=== PATIENT | male | born 1965 | race Caucasian/White ===

== ENCOUNTER 2017-06-02 23:35 | Emergency (ER) | payer OTHER ==
[~2017-06-02] VITALS: Ht 167.6 cm; Wt 260.4 kg
[~2017-06-02 23:35] MED LIST: AUGMENTIN 875-1 EACH PO; CETIRIZINE HCL10 MG PO; DOXYCYCLINE HY100 MG PO; FAMOTIDINE40 MG; GLIPIZIDE XL10 MG PO; KEFLEX500 MG PO; LASIX80 MG PO; LEVAQUIN750 MG PO; LISINOPRIL2.5 MG PO; LOMOTIL TABLET1 EACH PO; MACROBID 100 M100 MG PO; MONTELUKAST SOD10 MG PO; MS CONTIN15 MG PO; OMEPRAZOLE40 MG PO; OXYCODONE HCL10 MG PO; OXYMORPHONE HCL10 M1 PO; PERCOCET 10-321 EACH PO; PIROXICAM20 MG PO; POTASSIUM CHLO10 MEQ PO; POTASSIUM CHLO20 ME2 PO; PROVIGIL200 MG PO; REMERON15 MG PO; VENLAFAXINE HCL75 MG PO; ZOLOFT100 MG PO
== END 2017-06-03 02:09 | disposition home or self-care (01) ==
LOC: ED 23:35
PROC: 0T9B70Z Drainage of Bladder with Drainage Device, Via Natural or Artificial Opening (ICD-10-PCS; principal; 2017-06-02)
DX: T83.098A Other mechanical complication of other urinary catheter, initial encounter (principal); J20.9 Acute bronchitis, unspecified; E66.01 Morbid (severe) obesity due to excess calories; Z87.891 Personal history of nicotine dependence; Z79.899 Other long term (current) drug therapy; Z79.891 Long term (current) use of opiate analgesic
CPT/HCPCS: 51702; 99283

== ENCOUNTER 2017-09-09 17:04 | Inpatient (IN) | payer OTHER ==
[~2017-09-09] VITALS: Ht 167.6 cm; Wt 252.4 kg
--- OUTSIDE RECORDS SUMMARY | ~2017-09-09 | XMS | Clinical Summary ---
Demographics + + + | Address | [address] | | | [place] [address] | + + + | Home Phone | | + + + | Preferred Language | Unknown | + + + | Marital Status | Single | + + + | Episcopalian Affiliation | NRP | + + + [...] | Unavailable | + + + Support +------+ +---------+ + | Name | Relationship | Address | Phone | +------+ +---------+ + ECON | Unknown | | +------+ +---------+ + ECON | Unknown | | +------+ +---------+ + ECON | Unknown | | +------+ +---------+ + Care Team Providers + +------+-------+ | Care Information Technology Director Name | Role | Phone | + +------+-------+ | Harry Mario MD | PP | tel | + +------+-------+ Source Comments MOLLY is fully live on both [facility] and [facility]Patient.[facility] Allergies No Known Allergies Current Medications + + + +---------+------+------+-------+ | Prescription | Sig. | Disp. | [...] Take 10 mEq by mouth | | | | | Activ | | SR [...] | Take 2 tablets by | | | | | Activ [...] SULFATE | Inhale 108 mcg. | | | | | Activ | | (VENTOLIN HFA INHL) | | | | | | e | + + + +---------+------+------+-------+ | sertraline 50 mg | Take 50 mg by mouth | | | | | Activ | | oral tablet | once daily. | | | | | e | + + + +---------+------+------+-------+ | famotidine 20 mg | Take 20 mg by mouth | | | | | Activ | | oral tablet | two times daily. | | | | | e | + + + +---------+------+------+-------+ | ondansetron 4 mg | Take 4 mg by mouth | | | | | Activ | | oral tablet | every twelve hours | | | | | e | | | as needed. | | | | | | + + + +---------+------+------+-------+ | lisinopril 2.5 mg | Take 2.5 mg by mouth | | | | | Activ | | oral tablet | once daily. | | | | | e | + + + +---------+------+------+-------+ | furosemide 20 mg | Take 40 mg by mouth | | | | | Activ | | oral tablet | two times daily. | | | | | e | + + + +---------+------+------+-------+ | piroxicam 20 mg | Take 20 mg by mouth | | | | | Activ | | oral capsule | once daily as | | | | | e | | | needed. | | | | | | + + + +---------+------+------+-------+ | morphine ER 15 mg | Take 15 mg by mouth | | | | | Activ | | oral tablet extended | every twelve hours. | | | | | e | | release | | | | | | | + + + +---------+------+------+-------+ | modafinil 200 mg | Take 100 mg by mouth | | | | | Activ | | oral tablet | once daily in the | | | | | e | | | morning. | | | | | | + + + +---------+------+------+-------+ Active Problems + + + | Problem | Noted Date | + + + | Morbid obesity (HCC) | 10/22/2015 | + + + | [...] | | + + +---------+ + | Yes | 1 | 0.6 | | | | Standard | | | | | drinks or | | | | | | | | | | equivalen | | | | | t | | | + + +---------+ + + + + | Sex Assigned at | Date Recorded | | | | + + + | Not on file | | + + + Last Filed Vital Signs + + + + | Vital Sign | Reading | Time Taken | + + + + | Blood Pressure | 140/69 | 10/20/2015 2:05 PM PST | + + + + | Pulse | 91 | 10/20/2015 2:05 PM PST | + + + + | Temperature | 36.9 C (98.5 F) | 10/20/2015 2:05 PM PST | + + + + | Respiratory Rate | 16 | 10/20/2015 2:05 PM PST | + + + + | Oxygen Saturation | 92% | 10/20/2015 2:05 PM PST | + + + + | Inhaled Oxygen | - | - | | Concentration | | | + + + + | Weight | 223.8 kg (493 lb 6.4 | 10/20/2015 2:05 PM PST | | | oz) | | + + + + | Height | 167.6 cm (5' 6") | 10/20/2015 2:05 PM PST | + + + + | Body Mass Index | 79.64 | 10/20/2015 2:05 PM PST | + + + + Plan of Treatment + + + + + | Health Maintenance | Due Date | Last Done | Comments | + + + + + | INFLUENZA VACCINE | | 06/15/2010, 07/13/2008 | | | (FLU SHOT) | 7 | | | + + + + + Results Not on filefrom Last 3 Months
--- OUTSIDE RECORDS SUMMARY | ~2017-09-09 | XMS | Clinical Summary ---
Demographics + + + | Address | [address] | | | [place] [address] | + + + | Home Phone | | + + + | Preferred Language | Unknown | + + + | Marital Status | Single | + + + | Islam Affiliation | NRP | + + + [...] Care Team Providers + +------+-------+ | Care Cork Insulator Name | Role | Phone | + +------+-------+ | Harry Mario MD | PP | tel | + +------+-------+ Source Comments MOLLY is fully live on both [facility] and [facility] InPatient.[facility] Allergies No Known Allergies Current Medications + [...]
--- OUTSIDE RECORDS SUMMARY | ~2017-09-09 | XMS | Clinical Summary ---
Demographics + + + | Address | [address] | | | [place] [address] | + + + | Home Phone [...] Care Team Providers + +------+-------+ | Care Handicrafts Teacher Name | Role | Phone | + +------+-------+ | Harry Mario MD | PP | tel | + +------+-------+ Source Comments MOLLY is fully live on both [facility] and [facility] InPatient.[facility] Allergies No Known Allergies Current Medications [...]
--- NOTE | 2017-09-09 20:35 | NUR ---
PT BROUGHT TO THE FLOOR VIA STRETCHER BY THIS RN, ED RN, MEDICAL LABORATORY TECHNOLOGIST, AND RT. PT WAS ABLE TO TRANSFER TO THE BED BY SCOOTING HIMSELF OVER. PT ON BIPAP SETTINGS. VITALS TAKEN. CALLED [facility] BED PRIOR TO PT ADMITTING HERE TO GET BARIATIC BED. PER [facility] ROM REPRESENTITIVE BED SHOULD BE HERE IN 4-6 HOURS.
--- NOTE | 2017-09-09 20:37 | NUR ---
PER REPORT AND ASSESSMENT IN THE ED BY ED RN. PT STATES HE HAS A WOUND ON THE BACK OF HIS LEG THAT HE HAS HAD AND SEEKING HELP FOR VIA HIS PRIMARY CARE DOCTOR. PT IS UNABLE TO STAND AND UNABLE TO TURN IN BED D/T HIS RESPIRATORY STATUS AT THIS TIME. WILL GET BETTER ASSESSMENT WHEN BARIATIC BED ARRIVES SO PT CAN TURN EASIER WITHOUT CAUSING INCREASED RESPIRATORY DISTRESS. 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 PT HAS A SOSA IN PLACE ON ADMIT. PER PT THE SOSA IS IN PLACE D/T LEG TUMOR. PER PT THE TUMOR DOES NOT SWELL BAD WITH THE SOSA IN PLACE. PT DENIES OTHER ISSUES WITH HIS BUTTOCKS. PT FEET ARE VERY DRY AND SCALING, PANNUS IS SLIGHTLY REDDENED IN A FEW AREAS, SKIN UNDER BREASTS ARE C/D/I.
--- NOTE | 2017-09-09 21:00 | NUR ---
IMPLEMENTED DROPLET PRECUATIONS ON ADMIT D/T CURRENT ILLNESS. WILL CONTINUE TO MONITOR.
--- NOTE | 2017-09-09 21:00 | NUR ---
PT ASSESSMENT COMPELTED. PT RESTING IN BED AT THIS TIME. VITALS TAKEN. PT REQUESTED BROTH AND WATER. PT LUNGS COARSE PT REAMINS ON BIPAP. OCCASIONAL COUGH. ACTIVE BT. EDEMA NOTES IN BLE. DRY SCALY FEET. PT DENIES ANY OTHER ISSUES AT THIS ITME. CALL LIGHT IN REACH. WILL CONTINUE TO CLOSELY MONITOR.
--- NOTE | 2017-09-09 22:00 | NUR ---
PT RESTING IN BED WITH BIAPP SETTING UNCHANGED SINCE ADMISSION. PT SPO2 95-98%. RR 17-24. PT IS DIAPHORETIC. GAVE PT A DRY TOWEL PER REQUEST. PT HAD TEMP IN ED AND WHEN HE ARRIVED TO THE FLOOR TEMPERATURE WAS BACK TO NORMAL. WILL CONTINUE TO CLOSELY MONITOR. CALL LIGHT IN HAND.
--- NOTE | 2017-09-10 00:15 | NUR ---
PT ASSESSMENT REMAINS UNCHANGED. PT IS RESTING WELL ON BIPAP. SOSA IN PLACE. CALL LIGHT IN HAND. WILL CONTINUE TO CLSOELY MONITOR.
--- NOTE | 2017-09-10 01:50 | NUR ---
PT NOTED TO HAVE EYES OPEN. ENTERED PT ROOM. PT CONTINUES ON BIPAP. PT REQUESTED SIP OF WATER. PT DENIES ANY OTHER NEEDS AT THIS TIME. WILL CONTINUE TO CLOSELY MONITOR.
--- NOTE | 2017-09-10 02:23 | NUR ---
CALLED MD TO UPDATE REGUARDING LOW URINE OUTPUT. PER MD WE WILL CONTINUE TO MONITOR URINE OUTPUT. PT RECEIVES LASIX IN THE AM. NO OTHER ISSUES AT THIS TIME. WILL CONTINUE TO MONITOR.
--- NOTE | 2017-09-10 04:00 | NUR ---
PT RESTING WELL AT THIS TIME. RESPIRATORY RATE 16-20. SPO2 95-98% ON BIPAP 75% FIO2. WILL CONTINUE TO CLOSELY MONITOR.
--- NOTE | 2017-09-10 06:00 | NUR ---
PT AWAKE D/T LAB DRAW ENTERED ROOM TO UPDATE ON PLAN OF CARE AND PLAN TO SWITCH BEDS. PT IS AGREEABLE TO CHANGE TO NEW BARIATRIC BED AT THIS TIME. RT CALLED TO MONITOR AND ASSIST. PT ABLE TO TRANSFER TO NEW BED HIMSELF BY SCOOTING OVER TO THE NEW BED. PT TOLERATED WELL. PT WAS PLACED ON OXYMASK DURING THIS TIME. PICTURE TAKEN OF BACK OF LEFT LEG AT THIS ITME. PT REMAINS ON OXYMASK PER REQUEST. CALL LIGHT IN REACH. WILL CLOSELY MONITOR.
--- NOTE | 2017-09-10 06:30 | NUR ---
PT DIAPHORESIS HAS DECREASED SOME. PT STATES HE IS ALWAYS SWEATING. PT STATES "IT IS A GENETIC THING, I COULD BE IN FREZING WEATHER AND STILL BE SWEATING". PLACED PICTURE IN BOOK OF WOUND ON LEG. ALLOWING PT THE RELAX AT THIS TIME. PT DENIES ANY OTHER ISSUES AT THIS TIME AND WILL CALL STAFF FOR ASSISTANCE IF NEEDED.
--- NOTE | 2017-09-10 07:13 | EKG ---
[facility] [address] [place], [place] [address] Signed Sinus tachycardia Otherwise normal ECG No previous ECGs available Confirmed by GLADYS OVIEDO MD ([id number]) on 09/10/2017 7:12:47 AM Electronically Signed By: GLADYS OVIEDO MD 09/10/17 0713 PATIENT NAME: STEPHANIE GIBLERT Electrocardiogram DATE OF : 67 PHYSICIAN: GLADYS OVIEDO MD REPORT #: [id number] REPORT IS CONFIDENTIAL AND NOT TO BE RELEASED WITHOUT AUTHORIZATION
--- NOTE | 2017-09-10 07:33 | NUR ---
PATIENT AWAKE AT THIS TIME. DR. OVIEDO IN ROOM EVALUTING PATIENT. BEDSIDE REPORT REC'D FROM WELDER/FABRICATOR RN. PT HAS BEEN WEARING BIPAP CONSISTENTLY THROUGH THE NIGHT. ASSESSMENT TO BE DONE.
--- NOTE | 2017-09-10 09:10 | NUR ---
PATIENT AWOKEN AND TAKEN OFF BIPAP AND PLACED ON OXYMASK AT 7L. PATIENT STATES OVERALL HE IS FEELING BETTER. PT DENIES SHORTNESS OF BREATH. PT NOTED TO HAVE A LOOSE, RHONCHOUS SOUNDING COUGH. PATIENT GIVEN A CLEAR LIQUID TRAY. PATIENT ABLE TO RAISE SELF IN BED AFTER HOB LOWERED FLAT. PT'S WEIGHT ON THIS FISH BED IS 552 LB, 250.2 KG. PATIENT ABLE TO TAKE PO MEDS WITHOUT DIFFICULTY. PT NOW RECEIVING IV VANCO. WHILE IN ROOM, ABLE TO TITRATE PT'S OXYGEN TO 4 NC. SP02 IS CURRENTLY 97%. PT EATING CLEAR LIQUID TRAY AT THIS TIME WITHOUT DIFFICULTY. HEART RATE IN THE 60-70s. CONTINUE TO MONITOR.
--- NOTE | 2017-09-10 10:42 | NUR ---
PATIENT INFORMED OF HIS POSITIVE INFLUENZA TEST. PATIENT NOW HAVING ECHOCARDIOGRAM BEING PERFORMED. PATIENT IS CURRENTLY 98% ON 4 L NC. PT ALSO INFORMED OF BLOOD SUGAR CHECKS TO BE DONE WITH MEALS.
--- NOTE | 2017-09-10 10:58 | NUR ---
PATIENT'S OXYGEN TURNED DOWN TO 3L NC AT THIS TIME. ECHO TEST DONE. DISCUSSED WITH PATIENT PLAN OF CARE FOR THE REST OF THE DAY. CONTINUE TO MONITOR.
--- NOTE | 2017-09-10 11:58 | NUR ---
PATIENT'S LUNCH ARRIVES AND TAKEN INTO ROOM. PT'S BLOOD SUGAR 256 AND COVERED WITH 5 UNITS OF INSULIN NOVOLOG. PATIENT WAS WEARING BIPAP FOR THE LAST TWENTY MINUTES OR SO BEFORE LUNCH TIME. PT NOW BACK ON 3 L NC WHILE EATING. CONTINUE TO MONITOR.
--- NOTE | 2017-09-10 14:26 | NUR ---
Patient weighs 250kg. Increase DVT prophylaxis from enoxaparin 40mg SQ daily to 40mg SQ BID
--- NOTE | 2017-09-10 14:27 | NUR ---
Vancomycin per pharmacy. Give Vancomycin 3g IV x 1 Loading Dose, then Vancomycin 2g IV q 8 hrs. Draw for Vancomycin trough level 09/11/17 at 1630
--- NOTE | 2017-09-10 14:52 | NUR ---
PATIENT'S SOSA CATHETER CHANGED OUT AT THIS TIME. PT HAD A LARGE AMOUNT OF YEAST LIKE MATERIAL AROUND THE MEATUS. PATIENT'S SOSA WAS LAST CHANGED 08/23/17 AND PT CURRENTLY HAS THEM CHANGED EVERY MONTH. PATIENT TOLERATED THIS WELL. PT CURRENTLY ON 3 L NC WITH SP02 AT 94% CURRENTLY.
--- NOTE | 2017-09-10 17:01 | NUR ---
PATIENT HAS BEEN NAPPING ON AND OFF THIS AFTERNOON AFTER HIS BED BATH. PATIENT HELPED TO ORDER DINNER. RT CALLED AND ASKED TO EVALUATE PATIENT FOR A BREATHING TREATMENT, WHICH HE STATED HELPED HIM BREATH EASIER. MEDS TO BE GIVEN WITH DINNER.
--- NOTE | 2017-09-10 17:51 | NUR ---
DISCUSSED HBGA1C WITH PATIENT AND DISCUSSED HIS LEVEL OF 9.8. PATIENT DID NOT SEEMED SUPRISED TO FIND OUT THAT HIS A1C WAS ELEVATED, AND DISCUSSED SOME INDICATIONS WITH PATIENT AT THIS TIME OF THIS RESULT. MORE EDUCATION WILL NEED TO BE GIVEN TO THIS PATIENT REGARDING THIS. PATIENT ALSO ENCOURAGED TO FOLLOW UP WITH HIS PCP ABOUT THIS LAB VALUE AND IT'S POTENTIAL INDICATIONS. PT EATING HIS DINNER AT THIS TIME.
--- NOTE | 2017-09-10 18:48 | NUR ---
Medications reconciled by pharmacist patient interview and RX records
--- NOTE | 2017-09-10 18:50 | NUR ---
Azithromycin dosed at 1000mg IV daily
--- NOTE | 2017-09-10 19:30 | NUR ---
PT CONTINUES ON DROPLET PRECUATIONS SINCE ADMIT. WILL CONTINUE THESE PRECUATIONS FOR CURRENT ILLNESS.
--- NOTE | 2017-09-10 19:45 | NUR ---
PT SHIFT REPORT RECIVED FROM DAY SHIFT RN. ALL QUESTIONS ANSWERED. PT IS RESTING IN BED AT THIS TIME WITH WITH NC IN PLACE ON 3L OXYGEN. WILL CONTINUE TO CLOSELY MONITOR.
--- NOTE | 2017-09-10 20:30 | NUR ---
PT RESTING IN BED. PT STATES HE IS STARTING TO FEEL BETTER THAN THE PREVIOUS DAY. PT ASSESSMENT COMPLETED. PT BREATH SOUNDS ARE COURSE WITH CRACKLES. PT IS TOELRATING 3L NC WHILE AWAKE WITH RESPIRATORY RATE 16. BOWEL TONES ACTIVE. PT HAD A LG BM TODAY. CLEANED AND APPLIED ANTIFUNGAL TO BACK OF LEFT AND RIGHT KNEE AND UPPER PANNUS REGION. VITALS COMPLETED. PT IS DIAPHORETIC AT TIMES. EDEMA IN BLE. LEFT LEG SLIGHTLY WORSE THAN RIGHT. PT REPORTING CHRONIC PAIN IS WORSENING AND ASKING FOR BOTH PAIN MEDICATIONS. WILL CONTINUE TO IMPLIMENT DROPLET PRECAUTIONS.
--- NOTE | 2017-09-10 21:55 | NUR ---
RT IN WORKING WITH PT. PT ENCOURAGED TO DEEP BREATH AND COUGH. PT PLACED ON BIPAP. PT IS AGREEABLE TO WEAR BIPAP THROUGHOUT NIGHT. PT DENIES ANY NEEDS AT THIS TIME. WILL CONTINUE TO MONITOR.
--- NOTE | 2017-09-11 00:40 | NUR ---
PT ASSESSMENT COMPELTED. NO CHANGES FROM PREVIOUS ASSESSMENT. PT IS RESTING WELL ON BIPAP. GAVE PT FRESH ICE WATER PER REQUEST. VITALS COMPLETED. MEDICATION ADMINISTERED. PT DENIES ANY OTHER ISSUES AT THIS TIME. CALL LIGHT IN REACH AND ENCOURAGED PT TO CALL IF HE HAS ANY NEEDS. WILL CONTINUE TO CLOSELY MONITOR.
--- NOTE | 2017-09-11 02:50 | NUR ---
ENTERED ROOM ANTIBIOTICS DONE INFUSING. PT IS RESTING IN BED. PT HAD A SIP OF WATER. ASSISTED WITH PLACING BIPAP BACK ON. PT DENIES ANY OTHER NEEDS AT THIS TIME. WILL CONTINUE TO CLOSELY MONITOR.
--- NOTE | 2017-09-11 03:52 | NUR ---
PT ASSESSMENT COMPLETED. PT RESTING IN BED AT THIS TIME. REFILLED WATER. PT REMOVED MASK TO HAVE A SIP OF WATER. ASSISTED PT WITH PLACING MASK BACK ON. PT DENIES ANY OTHER NEEDS AT THIS TIME. WILL CONTINUE TO CLOSELY MONITOR.
--- NOTE | 2017-09-11 06:30 | NUR ---
NEW IV STARTED D/T OTHER IV NEEDING CHANGED D/T BEING A FIELD START. NEW IV PLACED IN LEFT HAND. BLOOD DRAWN FROM IV FOR MORNING LABS. PT SOSA CARE COMPLETED. PT TURNED TO SIDE AND TWO NEW DRESSINGS PLACE ON BACK LEFT LEG AREA. PT LOOKED AT MENU AND IS READY TO ORDER BREAKFAST. CURTAINS OPENED PER REQUEST. PT IS ON 3L NC NOW AT THIS TIME. UPDATED ON PLAN OF CARE AND SET GOALS FOR THE DAY. WILL CONTINUE TO CLOSELY MONITOR.
--- NOTE | 2017-09-11 07:30 | NUR ---
REPORT RECIEVED. PATIENT RESTFUL.
--- NOTE | 2017-09-11 08:00 | NUR ---
ASSESSMENT DONE. TALKED WITH PATIENT ABOUT PLAN OF CARE FOR DAY, PATIENT IS UNDERSTANDING. ENC TO COUGH AND DEEP, USING I.S. SOSA CATH PATENT. C/O SLIGHT BACK PAIN. ROUTINE MEDS GIVEN. DENEIS NAUSEA. ACCUCHECK 234. 5 UNITS INSULIN GIVEN.
--- NOTE | 2017-09-11 09:15 | NUR ---
DR. OVIEDO HERE TO SEE PATIENT, ORDERS RECIEVED TO TRANSFER TO MEDICAL FLOOR. O2 REMAINS AT 4 L PER NC.
--- NOTE | 2017-09-11 10:00 | NUR ---
WILL REMAIN IN ROOM 128 HOUSE CONVIEN. PATIENT IS AWARE. WHILE NAPPING SAT DOWN TO 85. BIPAP APPLIED.
--- NOTE | 2017-09-11 11:30 | NUR ---
ASSESSMENT DONE. ACCUCHECK-262. 5 UNITS INSULIN GIVEN. VISITOR IN ROOM.
--- NOTE | 2017-09-11 13:00 | NUR ---
SITTING AT BEDSIDE, LUNGS ASSESSED. HAS SCATTERED WHEEZES WITH COARSE BREATH SOUND THROUGH OUT.
--- NOTE | 2017-09-11 13:10 | NUR ---
NEB TREATMENT GIVEN PRIOR TO AMBULATING TO SHOWER. CONTINUE TO SIT AT BEDSIDE.
--- NOTE | 2017-09-11 13:20 | NUR ---
TO SHOWER. AMBULATE WITH WALKER FROM ROOM 128 TO 127 THEN SAT IN CHAIR AND INTO SHOWER.
--- NOTE | 2017-09-11 14:00 | NUR ---
TOLERATED SHOWER WELL. IS WITH INCREASED SHORTNESS WITH EXERTION. SITTING IN CHAIR. DENEIS PROBLEMS.
--- NOTE | 2017-09-11 15:25 | NUR ---
CONTINUE TO SIT IN CHAIR. NAPPING SATS VARY BETWEEN 88-93.
--- NOTE | 2017-09-11 16:05 | NUR ---
BACK TO BED PER R/O. PHYS THERAPY HERE TO ASSESS PATIENT WITH INCREASE SHORTNESS OF BREATH WITH EXERTION. ASSESSMENT DONE. CONT WITH LOOSE COUGH. NONPRODUCTIVE.
--- NOTE | 2017-09-11 19:45 | NUR ---
PT SHIFT REPORT RECIVED FROM DAY SHIFT RN. ALL QUESTIONS ANSWERED. PT RESTING IN BED AT THIS TIME. PT IS ALERT AND ORIENTED AND CALLS APPROPRIATELY. WILL CONTINUE TO CLOSELY MONITOR.
--- NOTE | 2017-09-11 20:30 | NUR ---
PT RESTING IN BED AT THIS TIME. ASSESSMENT COMPLETED. PT BREATH SOUNDS COARSE WITH WHEEZES THROUGHOUT. PT CURRENTLY ON 4L NC WITH SPO2 97%. PT IS AGREEABLE TO BIPAP TONIGHT. BOWEL TONES ACTIVE. PT HAD BM X2 TODAY PER REPORT. PT DENIES ANY OTHER ISSUES AT THIS TIME. WILL CONTINUE TO CLOSELY MONITOR.
--- NOTE | 2017-09-11 21:15 | NUR ---
VITALS COMPLETED AND MEDICATIONS ADMINISTERED. PT REQUESTING NEB BEFORTE HE GOES TO SLEEP. WILL NOTIFY RT. RT HAS NOT BEEN IN TO SEE HIM THIS EVENING YET. WILL CONTINUE TO CLOSELY MONITOR.
--- NOTE | 2017-09-11 21:30 | NUR ---
PT REQUESTED JELLO. BROUGHT PT SUGAR FREE JELLO AND FRESH ICE WATER. PT DENEIS ANY OTHER ISSUES AT THIS TIME. WILL CONTINUE TO MONITOR.
--- NOTE | 2017-09-11 22:00 | NUR ---
RT IN TO SEE PT. PT PLACED ON BIPAP AND NEB TREATMENT GIVEN. PT DENIES ANY OTHER ISSUES AT THIS TIME. WILL CONTINUE TO MONITOR.
--- NOTE | 2017-09-12 00:30 | NUR ---
PT RESTING IN BED. STARTED ANTIBIOTICS. ASSESSMENT COMPLETED AND UNCHANGED FROM PREVIOUS ASSESSMENT. VITALS ENEDELIA. PT DENIES ANY NEEDS AT THSI TIME. PT ADVISED TO CALL IF HE NEEDS ASSISTANCE. WILL CONTINUE TO CLOSELY MONITOR. CALL LIGHT IN REACH.
--- NOTE | 2017-09-12 02:50 | NUR ---
IV BEEPING. ENTERED ROOM TO TURN OFF IV. PT IV SALINE LOCKED. PT DENIES ANY NEEDS AT THIS ITME. WILL CONTINUE TO MONITOR.
--- NOTE | 2017-09-12 05:30 | NUR ---
ENTERED PT ROOM AFTER CHILD WELFARE SOCIAL WORKER FINISHED IN ROOM. PT VITALS COMPLETED. SOSA CATH CARE COMPLETED. PLACED NEW DRESSINGS ON BACK OF LEFT LEG. PT DENIES ANY OTHER NEEDS AT THIS TIME. WILL CONTINUE TO CLOSELY.
--- NOTE | 2017-09-12 08:00 | NUR ---
IS AWAKE AND ALERT. STATES SLEPT WELL LAST NIGHT. ASSESSMENT DONE. SOSA CATH PATENT WITH CLEAR YELLOW URINE. TALKED WITH PATIENT ABOUT PLAN OF CARE FOR DAY. PATIENT IS W/O QUESTIONS.
--- NOTE | 2017-09-12 09:00 | NUR ---
TOOK BREAKFAST WELL. MEDS GIVEN. DR. OVIEDO HERE EARLIER TO SEE PATIENT, ORDERS RECIEVED TO BRIANNA PA.
--- NOTE | 2017-09-12 10:30 | NUR ---
SPONGE BATH GIVEN. THEN UP TO BR TO EXPELL LG SEMI SOLFT STOOL. TO CHAIR.
--- NOTE | 2017-09-12 11:00 | NUR ---
REQUESTED NEB TREATMENT. RT NOTIFIED. SITTING IN CHAIR.
--- NOTE | 2017-09-12 15:25 | NUR ---
REPORT TO MED SURG.
--- NOTE | 2017-09-12 15:40 | NUR ---
TO BR TO EXPELL SMALL STOOL. THEN TO CHAIR. PHYS THERAPY TO WORK WITH PATIENT.
--- NOTE | 2017-09-12 16:00 | NUR ---
TO MED SURG, AMBULATED TO MED SURG, WITH ASSIST OF WALKER. RN AND PHYS THERAPY WITH PATIENT. RESTED IN CHAIR FOR APPROX 5 MIN THEN TO 116. O2 SAT DOWN TO 82. O2 INCREASED TO 5 L TIL TRANSPORT COMPLETE.
--- NOTE | 2017-09-12 16:17 | NUR ---
PT TO FLOOR WITH RN'S, TOE LINING CLOSER, MATERIALS SUPERVISOR AND RT. PT AMBULATES A FEW FEET AND THEN RESTS IN CHAIR. WALKING WITH FWW. NOW SITTING UP IN CHAIR LOOKING AT MENU. PRECAUTIONS IN PLACE FOR FLU. RT GIVING NEB, PLACING PULSE OX AND HUMIDIFING O2. ASSESSMENT DONE.
--- NOTE | 2017-09-12 18:10 | NUR ---
PT TRANSFERED FROM CCU THIS EVENING. UP IN CHAIR. ATE MOST OF DINNER. BS 312 GIVEN 7 UNITS. PRN NEBS. AMBULATES WITH FWW FOR SHORT DISTANCES. GIVEN 2TABS OXYCODONE PRN.
--- NOTE | 2017-09-12 19:09 | NUR ---
HELPED PT FROM CHAIR BACK TO BED, PT REQUIRED 2 PERSON ASSIST WITH WALKER. 3 L NC O2 IN PLACE AND CONTINUOUS PUSLEOX. PT GETS SOB WITH EXERTION. CALL LIGHT AND PHONE WITHIN REACH, PT HAS NO OTHER REQUESTS AT THIS TIME.
--- NOTE | 2017-09-12 22:20 | NUR ---
PT IS AWAKE IN BED WATCHING TV, ASSESSMENT IS COMPLETE, MEDICATIONS GIVEN AND IV FLUSHED AND SL. I&O COMPLETED PT IS VOIDING QS. PT HAS 6/10 PAIN AND WAS GIVEN SCHEDULED MS CONTIN. PTS RESPIRATIONS EVEN AND NONLABORED ON 3LNC BUT HAS SOB WITH EXERTION. BP RECHECKED D/T INCREASED BP PREVIOUSLY BP NOW 138/70. LEFT LEG ASSESSED AND IS SWOLLEN AND RED WITH DISCOLORATION OF LLE. PT STATES FEELING IN THAT EXTREMITY IS NOT GOOD RT LEG. PT'S WATER IS REFILLED AND SF JELLO GIVEN, PT HAS NO FURTHER REQUESTS AT THIS TIME.
--- NOTE | 2017-09-12 23:24 | NUR ---
PT CALLED AND WOULD LIKE BIPAP ON.
--- NOTE | 2017-09-12 23:30 | NUR ---
RT PLACED PT ON BIPAP FOR THE NIGHT. NO FURTHER REQUESTS AT THIS TIME.
--- NOTE | 2017-09-13 01:08 | NUR ---
PT IS RESTING WITH EYES CLOSED, RESPIRATIONS EVEN AND NONLABORED, AND BIPAP ON. CALL LIGHT WITHIN REACH.
--- NOTE | 2017-09-13 02:51 | NUR ---
PT IS RESTING WITH EYES CLOSED, RESPIRATIONS EVEN AND NONLABORED ON BIPAP. CALL LIGHT WITHIN REACH.
--- NOTE | 2017-09-13 04:24 | NUR ---
PT HAS RESTED WELL THROUGH THE NIGHT WITH BIPAP ON AND CONTINUOUS PULSEOX IN PLACE. PT WAS GIVEN 5 UNITS AT HS FOR BS OF 245. AT BED PT WAS A 2 PERSON ASSIST WITH WALKER TO BED HE NEEDED HELP WITH GETTING LEGS IN BED. PT IS VOIDING QS AND HAS NOT COMPLAINED OF PAIN.
--- NOTE | 2017-09-13 07:15 | NUR ---
BEDSIDE REPORT RECEIVED FROM ILEANA. PATIENT RESTING IN BED APPEARED TO BE SLEEPING AT TIME OF REPORT. PATIENT IS ON BIPAP AT THIS TIME, SOSA IN PLACE. RR EVEN/UNLABORED, 02 SAT 93 AND HR 70-80 PER CONT PULSE OXYMETER.
--- NOTE | 2017-09-13 08:55 | NUR ---
IN TO ROOM TO ASSESS PATIENT. PATIENT DENIED SOB AND REPORED 7/10 PAIN. PATIENT WAS MEDICATED FOR PAIN. LUNGS DIM THROUGHOUT, 0CCASIONAL COUGH. MORNING MEDS GIVEN. SOSA IN PLACE AND DRAINING WELL. 1+ EDEMA IN THE LOWER EXTREMITIES. BUTTOCKS RED AND ALLEVYN DRESSING IN PLACE. POSITIVE BOWEL TONES. PATIENT ON 3L O2 VIA NC. PATIENT REFUSED TO GET ON THE CHAIR AT THIS TIME.
--- NOTE | 2017-09-13 10:29 | NUR ---
PT ASKED TO USE BEDPAN. PT WAS ABLE TO VOID. PT IS RESTING IN BED SAFELY WITH CALL LIGHT IN REACH. PT DID NOT NEED ANYTHING ELSE AT THE MOMENT
--- NOTE | 2017-09-13 11:30 | NUR ---
PATIENT ASSISTED WITH BED VILLA. PATIENT WAS CLEANED AND ALLEVAN DRESSING WAS CHANGED ON THE BACK LEFT THIGH. CORA CARE DONE AND NYSTATIN POWEDER APPLIED. CATH CARE DONE. PATIENT HAD A LARGE BM. PATIENT REPORTED RELIEF OF PAIN. LINENS CHANGED. CALL LIGHT AND PERSONAL BELONGING IN REACH
--- NOTE | 2017-09-13 13:28 | NUR ---
PATIENT MEDICATED FOR 03/05 PAIN. ALSO SCHEDULE LASIX ADMINISTERED. PATIENT RESTING IN BED AT THIS TIME. NO OTHER NEEDS. CALL LIGHT IN REACH.
--- NOTE | 2017-09-13 14:23 | NUR ---
PATIENT UP WALKING IN THE HALLWAY WITH PHYSICAL THERAPIST.
--- NOTE | 2017-09-13 14:38 | NUR ---
PT IS SITTING UP IN CHAIR WITH CALL LIGHT IN REACH. PT DID NOT NEED ANYTHING ELSE AT THE MOMENT
--- NOTE | 2017-09-13 15:45 | NUR ---
[employer] ACADEMIC COACH IN TO ROOM TO TALK TO AND EDUCATE PATIENT ABOUT DIET REGARDING HIS DIABETES.
--- NOTE | 2017-09-13 18:40 | NUR ---
PATIENT HAD AN UNEVENTFUL DAY. HAD MULTIPLE BM. PATIENT HAD VOIDED Q/S.PO LASIX. S/L. IV ABX. STILL OCCASIONAL COUGH. LUNGS STILL COARSE AND DIM IN THE BASES. PT IS 3L O2 VIA NC AND BIPAP AT HS. MAY BE D/C TOMORROW.
--- NOTE | 2017-09-13 19:25 | NUR ---
BEDSIDE REPORT RECEIVED FROM PETE DA SILVA, PT SITTING UP IN CHAIR, ON 3L OXYGEN, SPO2 94%. SOSA DRAINING. IV SALINE LOCKED. PT REQUESTING TO GET INTO BED, ANA ASH IN ROOM TO ASSIST PT TO TRANSFER WITH FWW.
--- NOTE | 2017-09-13 21:00 | NUR ---
JULIANNA CORRAL AND I HELPED PT GET BACK INTO BED. BEDSIDE TABLE AND CALL LIGHT WITHIN REACH. HE NEEDS NOTHING MORE AT THIS TIME.
--- NOTE | 2017-09-13 21:20 | NUR ---
PT ASSESSMENT COMPLETE. PT RATES PAIN 8/10 IN BACK. ADMINISTERED SCHEDULED MS CONTIN. NYSTATIN POWDER APPLIED TO PANIS AREA, NO REDNESS NOTED. PTS LUNGS SOUND CLEAR THROUGHOUT ALL LOBES, PT ON 3L OXYGEN BY NASAL CANNULA, SPO2 95%. PT HAS 2+ EDEMA BILATERALLY ANKLES, NON-PITTING, SKIN VERY DRY AND FLAKY LOWER EXTREMITIES. IV SITE WNL, FLUSHES WELL. BLOOD SUGAR 299, 7 UNITS NOVOLOG INSULIN ADMINISTERED. PT HAS CALL LIGHT IN REACH, GIVEN FRESH ICE WATER AND SUGAR FREE JELLO.
--- NOTE | 2017-09-13 22:45 | NUR ---
ANSWERED CALL BUBBA, PT COMPLAING OF 7/10 PAIN, PETE LEW ADMINISTERED PRN OXYCODONE 10MG. NO ADDITIONAL REQUESTS.
--- NOTE | 2017-09-14 00:38 | NUR ---
CHECKED ON PT, PT SLEEPING, CPAP ON, CHEST RISE EQUAL BILATERALLY, LIGHTS OFF IN ROOM. EYES CLOSED.
--- NOTE | 2017-09-14 03:42 | NUR ---
PT MORNING ASSESSMENT COMPLETE, PT SLEEPING, AWAKENS TO RN VOICE. CPAP ON, SPO2 97%, HR 66. WHEEZES HEARD THROUGHOUT LUNGS. PT STATES PAIN IS BACK IS 5-6/10, REFUSES PRN OXYCODONE AT THIS TIME. EMPTIED PT'S SOSA CATHETER. PT DROWSY, BACK TO SLEEP. NO ADDITIONAL REQUESTS AT THIS TIME, LIGHTS OFF IN ROOM, CALL LIGHT IN REACH.
--- NOTE | 2017-09-14 05:37 | NUR ---
PT IN BED THROUGHOUT SHIFT, REQUIRING 2PA FOR TRANSFER WITH FWW. PT ON BIPAP THROUGHOUT SHIFT. RECEIVED OXYCODONE X 1 FOR BACK PAIN. IV SALINE LOCKED, SITE WNL. PT COOPERATIVE, ALERT AND ORIENTED. SOSA CATHETER DRAINING. PT SLEPT FOR MOST OF NIGHT.
--- NOTE | 2017-09-14 06:36 | NUR ---
VITALS AND I&OS DONE AND CHARTED. GARBAGES EMPTIED, BOARD UPDATED. CLEANED UP ROOM. PT NEEDS NOTHING ELSE AT THIS TIME. BEDSIDE TABLE AND CALL LIGHT WITHIN REACH.
--- NOTE | 2017-09-14 07:10 | NUR ---
BEDSIDE HANDOFF REPORT RECEIVED FROM HVAC INSTALLATION TECHNICIAN RN. PT RESTING IN BED. PT ON 3L NC. PT DENIES NEEDS AT THIS TIME.
--- NOTE | 2017-09-14 07:57 | NUR ---
PT RANG CALL LIGHT AND ASKED TO ORDER BREAKFAST, PT ALREADY HAD A BREAKFAST ORDER, INFORMED PT OF THIS. PT DID NOT NEED ANYTHING ELSE
--- NOTE | 2017-09-14 10:30 | NUR ---
PT RESTING IN CHAIR. PT DENIES SOB, ON 3L NC, LUNG SOUNDS DIMINISHED THROUGHOUT. PT RATING PAIN 6/10. PT TOLERATING ADA DIET, DENIES NAUSEA, PT WITH LOOSE STOOL. IV ABX INFUSING. PT WITH 2+ EDEMA TO BLE, PULSES PALPABLE. PT DENIES NEEDS AT THIS TIME.
--- NOTE | 2017-09-14 12:27 | NUR ---
PT SITTING IN CHAIR. EATING LUNCH. PT GIVE 3 UNBITS SS NOVOLOG FOR BLOOD GLUCOSE 209. PT DENIES OTHER NEEDS AT THIS TIME.
--- NOTE | 2017-09-14 14:00 | NUR ---
PT ASSISTED TO RESTROOM AND BACK TO CHAIR. STOOL SAMPLE COLLECTED. PHYSICAL THERAPY TO BEDSIDE TO WALK PT IN [place]. CLEAN GOWN PROVIDED. DRESSING CHANGED TO LEFT THIGH WOUND. PT WALKED IN [place] WITH PHYSICAL THERPAY, FOLLOWED WITH CHAIR. PT DESAT TO 80% ON ROOM AIR WITH ACTIVITY, PLACED ON 1L NC.
--- NOTE | 2017-09-14 15:51 | NUR ---
PT RESTING IN CHAIR. PT O2 SATS 90% ON 1L NC, ENCOURAGED I/S. PT RATING PAIN 7/10, STATES PAIN BETTER AFTER OXYCODONE. PT LUNG SOUNDS CLEAR WITH DIMINISHED BASES. 2+ EDEMA TO RLE, 3+ TO LLE, PULSES PALPABLE. PT SALINE LOCKED. NURSE AIDE TO BEDSIDE TO SHOWER PT, DISCUSSED DRESSING CHANGE AFTER SHOWER. PT DENIES OTHER NEEDS AT THIS TIME.
--- NOTE | 2017-09-14 16:26 | NUR ---
PT WAS SHOWERED WITH 2 PERSON ASSISTANCE, MAUREEN CORRAL HELPED ME. PT IS NOW BACK N CHAIR SITTING UP SAFELY WITH CALL LIGHT IN REACH
--- NOTE | 2017-09-14 17:38 | NUR ---
PT GIVEN 9 UNITS SS NOVOLOG. PT EATINGIN DINNER. PT DENIES OTHER NEEDS AT THSI TIME.
--- NOTE | 2017-09-14 19:20 | NUR ---
BEDSIDE REPORT RECEIVED FROM PETE REDDY. PT LYING IN BED, REPORTS PAIN 8/10 AT THIS TIME, WILL ADMINISTER OXYCODONE PRN. SOSA CATHETER DRAINING. IV SALINE LOCKED. ALLEVYN DRESSINGS APPLIED TO LEFT THIGH POSTERIOR ABRASIONS. CALL LIGHT IS IN REACH, PT ON NC AT THIS TIME.
--- NOTE | 2017-09-14 19:49 | NUR ---
PT WEANED TO 1L NC, ENCOURAGED I/S, LUNG SOUNDS CLEAR WITH DIMINISHED BASES. PT WITH MULTIPLE LOOSE STOOLS TODAY, CDIFF SAMPLE PENDING. PT WITH SOSA CATH IN PLACE, QS. SALINE LOCKED. TOLERATING ADA DIET. PT SHOWERED TODAY, DRESSING CHANGED TO LEFT LEG WOUND. EDEMA TO BLE, 3+ LEFT 2+ RIGHT. PT UP WITH 1PA WITH FWW, AMBULATED IN [place] WITH PHYSICAL THERAPY. T GIVEN OXYCODONE X1 FOR CHRONIC PAIN.
--- NOTE | 2017-09-14 20:01 | NUR ---
ADMINISTERED 10 MG PRN OXYCODONE FOR PT REPORTED 8/10 PAIN IN BACK. SCHEDULED MEDICATIONS ALSO ADMINISTERED AT THIS TIME. PT ASSESSMENT COMPLETE, LUNGS CLEAR IN ALL LOBES, PT ON 1L OXYGEN, SPO2 93%. BOWEL TONES ACTIVE, ABD SOFT, NON-TENDER. SIGNIFICANT EDEMA BILATERALLY IN LEGS, 3+ IN LEFT LEG, 2+ RIGHT LEG, PT HAS NO SENSATION IN LEFT LEG CHRONICALLY, SENSATION INTACT IN FEET BILATERALLY. PULSES STRONG BILATERALLY UPPER AND LOWER LOBES. PT REQUESTED SUGAR FREE JELLO, NO ADDITIONAL REQUESTS. CALL LIGHT IN REACH.
--- NOTE | 2017-09-14 20:11 | NUR ---
RN IN ROOM. SHE UPDATED WHITEBOARD.
--- NOTE | 2017-09-14 21:28 | NUR ---
ADMINISTERED 3 UNITS NOVOLOG FOR CBG 215. PT SITTING UP IN BED, WATCHING TV, PLAYING ON PHONE. PT SPO2 94% ON 1L OXYGEN BY NASAL CANNULA, DENIES SOB. RATES PAIN 6/10 IN BACK AFTER OXYCODONE ADMINISTRATION, PT STATES TOLERABLE LEVEL. CALL LIGHT IN REACH.
--- NOTE | 2017-09-14 23:30 | NUR ---
RT IN PT ROOM, PT ON BIPAP AT THIS TIME.
--- NOTE | 2017-09-15 00:58 | NUR ---
PT SLEEPING, BREATHING NON LABORED WITH BIPAP MACHINE ON, EYES CLOSED, LIGHTS OFF IN ROOM. CALL LIGHT NEXT TO PT.
--- NOTE | 2017-09-15 01:53 | NUR ---
IN PT ROOM TO CHECK ON PT, PT SLEEPING, ON 2L OXYGEN BY NASAL CANNULA, CONTINUES TO USE ACCESSORY MUSCLES WITH BREATHING, COUGHING, EYES CLOSED, IVF INFUSING.
--- NOTE | 2017-09-15 02:37 | NUR ---
IN PT ROOM TO CHECK ON PT, PT HAS BIPAP ON, SLEEPING, EYES CLOSED, BREATHING IS NON-LABORED. CALL LIGHT IN REACH, LIGHTS OFF IN ROOM.
--- NOTE | 2017-09-15 04:30 | NUR ---
MORNING ASSESSMENT COMPLETE, PTS LUNGS CLEAR THROUGHOUT ALL LOBES, CURRENTLY SLEEPING, ON BIPAP. PT AWAKENS TO RN VOICE. BOWEL TONES ACTIVE X 4, ABDOMEN SOFT. PT SPO2 IS 100% ON 40% FIO2, HR 63. RT IN PT ROOM ASSESSING BIPAP. SOSA CATHETER EMPTIED. PT HAS NO REQUESTS AT THIS TIME, BACK TO SLEEP. CALL LIGHT IN REACH, LIGHTS OFF IN ROOM.
--- NOTE | 2017-09-15 06:35 | NUR ---
PT IN BED THROUGHOUT SHIFT, SOSA CATHETER DRAINING SUFFICIENT OUTPUT THROUGHOUT NIGHT. PT USED CALL LIGHT APPROPRIATELY, RECEIVED OXYCODONE X 1 FOR PAIN AT START OF SHIFT. PT HAS HAD BIPAP ON WHILE IN BED. NO REPORTS OF NAUSEA, LUNGS CLEAR THROUGHOUT SHIFT WITH AUSCULTATION, CONTINUE ON CONTACT PRECAUTIONS PENDING C DIFF RESULTS.
--- NOTE | 2017-09-15 07:00 | NUR ---
HANDOFF REPORT RECEIVED FROM SUPERVISOR OF WAY RN. PT SLEEPING, LEFT UNDISTURBED.
--- NOTE | 2017-09-15 08:30 | NUR ---
PT RESTING IN BED. PT COMPLAINT OF CHRONIC PAIN, RATING PAIN 9/10, REQUESTING PAIN MEDICATION, GIVEN SCHEDULED MS CONTIN AND 10 MG PO OXYCODONE. PT LUNG SOUNDS CLEAR WITH DIMINISHED BASES, ON 1L NC, O2 SATS 92%. PT TOLERATING ADA DIET, BOWEL TONES ACTIVE, PT WITHOUT STOOL OVER NIGHT. PT WITH 2+ EDEMA TO RLE, 3+ EDEMA TO LLE, CMS INTACT, PULSES PALPABLE. IV SALINE LOCKED, FLUSHED, IV ABX GIVEN. PT DENIES OTHER NEEDS AT THIS TIME.
--- NOTE | 2017-09-15 09:54 | NUR ---
PT IS SITTING UP IN CHAIR WITH CALL LIGHT IN REACH. PT ASKED FOR MORE ICE WATER
--- NOTE | 2017-09-15 12:49 | NUR ---
PT SITTING IN CHAIR. PT GIVEN 3 UNITS SS INSULIN FOR BLOOD GLUCOSE 194. PT REQUESTING PAIN MEDICATION, RATING PAIN 8-9/10, GIVEN 10 MG PO OXYCODONE. PT O2 SATS 92% ON 1L NC. PT DENIES OTHER NEEDS AT THIS TIME.
[2017-09-15] MEDS ORDERED: GLIPIZIDE10 MG PO (13:58)
[2017-09-15] MEDS ORDERED: BLOOD GLUCOSE1 EAC1 SUB-Q (14:00)
[2017-09-15] MEDS ORDERED: BLOOD LANCETS1 EACH SUB-Q (14:01)
[2017-09-15] MEDS ORDERED: BLOOD GLUCOSE1 EACH SUB-Q (14:02)
--- NOTE | 2017-09-15 15:06 | NUR ---
PT IS SITTING UP IN CHAIR WITH CALL LIGHT IN REACH.
--- NOTE | 2017-09-15 16:34 | NUR ---
pt requesting pain medication ofr chronic pain. rating polanco 8/10 to bask and binta, given 10 mg oxycodone. pt placed back on 1l nc for o2 sats 86-88% on room air. pt denies other needs at [facility] time
--- NOTE | 2017-09-15 18:11 | NUR ---
PT SITTING IN CHAIR. BLOOD GLUCOSE 224, GIVEN 3 UNITS SS NOVOLOG. DINNER AT BEDSIDE. PT DENIES OTHER NEEDS AT THIS TIME.
--- NOTE | 2017-09-15 18:11 | NUR ---
PT ON 1L NC, ATTEMPTED TO WEAN TO ROOM AIR, DESATS TO 86% AT REST, LUNG SOUNDS CLEAR WITH DIMINISHED BASES. PT WITH CHRONIC PAIN, GIVEN PRN OXYCODONE X3, SCHEDULED MS CONTIN. TOLERATING ADA DIET, SS NOVOLOG. PT UP WITH SBA WITH FWW, WALKED IN [place] WITH PHYSICAL THERAPY. PT WITH CHRONIC SOSA IN PLACE, QS, BM TODAY. PT WITH LYMPHEDEMA TO LEFT LEG, 3+, RLE 2+, LEGS ELEVATED. PT SHOULD DISCHARGE TOMORROW.
--- NOTE | 2017-09-15 19:20 | NUR ---
RECEIVED REPORT FROM RN. PATIENT RESTING COMFORTABLY IN CHAIR. ASSISTED TO BATHROOM WITH SBA/FWW. NO FURTHER NEEDS AT THIS TIME. CALL LIGHT WITHIN REACH.
--- NOTE | 2017-09-15 22:36 | NUR ---
PATIENT RESTING COMFORTABLY IN BED, BREATHING IS EVEN AND UNLABORED. O2 SATUREATION IS 98% ON BIPAP, 40% O2. DENIES NEEDS AT THIS TIME. ASSESSMENT DONE. CALL LIGHT WITHIN REACH.
--- NOTE | 2017-09-15 23:43 | NUR ---
UPDATED DR. VELEZ REGARDING PATIENT'S LOW URINE OUTPUT. NO NEW ORDERS AT THIS TIME.
--- NOTE | 2017-09-16 00:20 | NUR ---
PATIENT RESTING COMFORTABLY IN BED, BREATHING IS EVEN AND UNLABORED. O2 SATURATION IS 98% ON BIPAP, 40% O2. FLACC SCORE OF 0. CALL LIGHT WITHIN REACH.
--- NOTE | 2017-09-16 00:20 | NUR ---
PATIENT RESTING COMFORTABLY IN BED, BREATHING IS EVEN AND UNLABORED. O2 SATURATION IS 98% ON BIPAP, 40% O2. FLACC SCORE OF 0. CALL LIGHT WITHIN REACH.
--- NOTE | 2017-09-16 02:43 | NUR ---
PATIENT RESTING COMFORTABLY IN BED, BREATHING IS EVEN AND UNLABORED. O2 SATURATION IS 96% ON BIPAP, 40% O2. PULSE IS 62. FLACC SCORE OF 0. CALL LIGHT WITHIN REACH.
--- NOTE | 2017-09-16 05:30 | NUR ---
PATIENT RESTING COMFORTABLY IN BED, BREATHING IS EVEN AND UNLABORED. O2 SATURATION IS 98% ON BIPAP 40% O2. ASSISTED TO BATHROOM WITH SBA/FWW. REPORTS 7/10 PAIN IN BACK, PRN OXYCODONE GIVEN. DENIES FURTHER NEEDS. NOW RESTING COMFORTABLY IN CHAIR. CALL LIGHT WITHIN REACH.
--- NOTE | 2017-09-16 05:45 | NUR ---
UPDATED DR. VELEZ REGARDING PATIENT'S LOW URINE OUTPUT PER PERAMETERS. NO NEW ORDERS AT THIS TIME.
--- NOTE | 2017-09-16 05:58 | NUR ---
PATIENT'S NIGHT WAS UNEVENTFUL. HE HAS BEED RESTING COMFORTABLY IN BED THROUGHUT SHIFT. VSS, PAIN WELL CONTROLLED WITH SCHEDULED AND PRN PAIN MEDICATION. IV IS SALINE LOCKED, HE IS A SBA/FWW. NO ACUTE CHANGES FROM BEGINNING OF SHIFT.
--- NOTE | 2017-09-16 07:24 | NUR ---
BEDSIDE HANDOFF REPORT RECEIVED FROM RAMP ATTENDANT RN. PT SLEEPING IN CHAIR, LEFT UNDISTURBED.
--- NOTE | 2017-09-16 08:06 | NUR ---
DID BLOOD SUGAR CHECK GOT HIM FRESH ICE WATER. BROUGHT HIS BREAKFAST IN HE IS ALSO SITTING UP IN HIS CHAIR. HE ALSO WOULD LIKE A SHOWER BEFORE HE GOES HOME.
--- NOTE | 2017-09-16 08:15 | NUR ---
PT SITTING IN CHAIR. PT RATING PAIN 7/10, ADMINISTERED SCHEDULED MS CONTIN. PT TOLERATING ADA DIET, DENIES NAUSEA, BLOOD GLUCOSE 174, GIVEN 1 UNIT NOVOLOG. BOWEL TONES ACTIVE. PT WITH EDEMA TO BLE, 4+ TO LEFT, 2+ TO RIGHT, LEGS ELEVATED, CMS INTACT, PULSES PALPABLE. PT COMPLAINT OF LEFT NECK LYMPH NODE SWELLING, DISCUSSED WITH PT. PT ON 1L NC, O2 SATS 90-91%, LUNG SOUNDS CLEAR WITH DIMINISHED BASES. PT WITH CHRONIC SOSA, DRAINING FREELY. PT DENIES OTHER NEEDS AT THIS TIME. DISCUSSED PLAN OF CARE AND PLAN FOR DISCHAREG TODAY.
--- NOTE | 2017-09-16 08:39 | NUR ---
helped patient out of bathroom, and back to his chair.
--- NOTE | 2017-09-16 08:54 | NUR ---
TOOK OUT IV. SITTING UP IN CHAIR WATCHING TV.
--- NOTE | 2017-09-16 09:55 | NUR ---
PT ASSISTED TO BATHROOM AND BACK TO CHAIR. PT DENIES OTHER NEEDS AT THIS TIME.
--- NOTE | 2017-09-16 10:55 | NUR ---
PT REQUESTING PAIN MEDICATION, GIVEN 10 MG PO OXYCODONE. RT TO BEDSIDE FOR HOME O2 QUALIFICATION. PT DENIES OTHER NEEDS AT THIS TIME.
--- NOTE | 2017-09-16 13:02 | NUR ---
PETE CRUZ AND PETE FREITAS VERIFIED INSULIN 3 UNITS.
--- NOTE | 2017-09-16 13:05 | NUR ---
GAVE PATIENT A SHOWER HE HELPED ME MUCH HE COULD. HE IS SITTING IN HIS CHAIR EATING HIS LUNCH. AND WAITING FOR HIS BROTHER TO BRING UP HIS CLOTHES BEFORE GOING HOME TODAY.
== END 2017-09-16 14:30 | disposition home or self-care (01) | DRG 193 ==
LOC: ED 17:04 → CCU 19:40 → MS 19:40 → CCU 20:09 → MS 09-12 16:04
PROVIDERS: ADMIT Internal Medicine
DX: J09.X2 Influenza due to identified novel influenza A virus with other respiratory manifestations (principal); J96.91 Respiratory failure, unspecified with hypoxia; E66.2 Morbid (severe) obesity with alveolar hypoventilation; I10 Essential (primary) hypertension; K21.9 Gastro-esophageal reflux disease without esophagitis; J18.9 Pneumonia, unspecified organism; T38.7X5A Adverse effect of androgens and anabolic congeners, initial encounter; E11.65 Type 2 diabetes mellitus with hyperglycemia; Z87.891 Personal history of nicotine dependence
CPT/HCPCS: 36415; 36600; 71045; 80048; 80053; 80202; 82803; 83036; 83605; 83880; 84484; 85025; 87040; 87493; 87502; 93005; 93010; 93306; 94640; 94645; 94660; 94761; 94762; 96374; 96375; 97116; 97162; 97165; 99285; J0456; J0696; J1650; J2920; J2930; J3370; J7040; J7512

== ENCOUNTER 2018-01-06 01:42 | Emergency (ER) | payer OTHER ==
[~2018-01-06] VITALS: Ht 167.6 cm; Wt 252.4 kg
[~2018-01-06 01:42] MED LIST changes: +BLOOD GLUCOSE1 EAC1 SUB-Q; +BLOOD GLUCOSE1 EACH SUB-Q; +BLOOD LANCETS1 EACH SUB-Q; +GLIPIZIDE10 MG PO
== END 2018-01-06 02:18 | disposition home or self-care (01) ==
LOC: ED 01:42
DX: Z46.6 Encounter for fitting and adjustment of urinary device (principal); E66.01 Morbid (severe) obesity due to excess calories; Z87.891 Personal history of nicotine dependence; Z79.899 Other long term (current) drug therapy; Z79.84 Long term (current) use of oral hypoglycemic drugs
CPT/HCPCS: 90471; 99282

== ENCOUNTER 2018-05-11 20:03 | Emergency (ER) | payer OTHER ==
[~2018-05-11] VITALS: Ht 167.6 cm; Wt 252.4 kg
--- OUTSIDE RECORDS SUMMARY | ~2018-05-11 | XMS | Clinical Summary ---
Demographics + + + | Address | [address] | | | [place] [address] | + + + | Home Phone | | + + + | Preferred Language | Unknown | + + + | Marital Status | Single | + + + | Yarsani Affiliation | Unknown | + + + | Race | Unknown | + + + | Ethnic Group | Unknown | + + + Author + + + | Author | [facility] | | | and [place] | + + + | Organization | [facility] | | | and [place] | + + + | Address | Unknown | + + + | Phone | Unavailable | + + + Support + + +---------+ + | Name | Relationship | Address | Phone | + + +---------+ + | Belia Gilbert | ECON | Unknown | | + + +---------+ + Care Team Providers + +------+ + | Care Commuter Pilot Name | Role | Phone | + +------+ + | Harry Mario | PP | | | MD | | | + +------+ + Allergies No Known Allergies Current Medications + + +-------+---------+------+------+-------+ | Prescription | Sig. | Disp. | Refills | Star | End | Statu | | | | | | t | Date | s | | | | | | Date | | | + + +-------+---------+------+------+-------+ | | Take 1 tablet by | | | | | Activ | | oxyCODONE-acetaminop | mouth every 6 hours | | | | | e | | hen (PERCOCET) | as needed for Pain. | | | | | | | 10-325 mg per tablet | | | | | | | + + +-------+---------+------+------+-------+ | doxycycline | Take 100 mg by mouth | | | | | Activ | | (MONODOX) 100 mg | 2 times daily. | | | | | e | | capsule | | | | | | | + + +-------+---------+------+------+-------+ | oxymorphone | Take 10 mg by mouth | | | | | Activ | | (OPANA) 10 MG tablet | 2 times daily. | | | | | e | + + +-------+---------+------+------+-------+ | glipiZIDE | Take 10 mg by mouth | | | | | Activ | | (GLUCOTROL) 10 MG | every morning | | | | | e | | tablet | (before breakfast). | | | | | | + + +-------+---------+------+------+-------+ | mirtazapine | Take 45 mg by mouth | | | | | Activ | | (REMERON) 15 MG | nightly. | | | | | e | | tablet | | | | | | | + + +-------+---------+------+------+-------+ | piroxicam | Take 20 mg by mouth | | | | | Activ | | (FELDENE) 20 MG | Daily. | | | | | e | | capsule | | | | | | | + + +-------+---------+------+------+-------+ | venlafaxine | Take 75 mg by mouth | | | | | Activ | | (EFFEXOR) 75 MG | Daily. | | | | | e | | tablet | | | | | | | + + +-------+---------+------+------+-------+ | montelukast | Take 10 mg by mouth | | | | | Activ | | (SINGULAIR) 10 mg | nightly. | | | | | e | | tablet | | | | | | | + + +-------+---------+------+------+-------+ Active Problems + + + | Problem | Noted Date | + + + | Acute diastolic heart failure (HCC) | 02/01/2015 | + + + + + | Last Assessment & Plan: Suspect acute on chronic diastolic | | heart failure/cor pulmonale related to untreated chronic hypoxia, | | AMAURI, obesity hypoventilation. Diuresing well currently. Could | | attempt echocardiogram, although suspect the imaging would be | | extremely poor given his body habitus. | + + + + + | Acute on chronic respiratory failure (HCC) | 01/30/2015 | + + + + + | Last Assessment & Plan: ABG showed hypoxia, hypercarbia, | | respiratory acidosis on room air. He has chronic untreated AMAURI | | and obesity hypoventilation due to his BMI of ~ 100, and will | | need BIPAP, at least at night, to treat his CO2 retention. | | Arrived with acute diastolic heart failure, and treating with IV | | furosemide, reportedly 10 liters net negative at this point. Had | | autotitrate BIPAP trial overnight on 02/02. Weight loss will | | ultimately be the only fix for his problems.Oxygen goal in the | | low 90's, avoid giving oxygen unless using BIPAP, do not want to | | cause hypercarbic respiratory failure. | + + + + + | AMAURI (obstructive sleep apnea) | 01/30/2015 | + + + | Morbid obesity with BMI of 70 and over, adult ([facility]) | 01/30/2015 | + + + + + | Last Assessment & Plan: Gained 100 pounds over last year, | | which has led to his falls and respiratory failure. Needs | | bariatric surgery, and states he is pursuing this. Will place on | | consistent carb diet, consult dietary team. Prealbumin of 15, | | suspect some degree of malnutrition. Stop high-dose mirtazapine | | therapy which he had been getting as outpatient.No safe discharge | | plan to home at this time, will discuss with case management. | + + + + + | Diabetic foot ulcer ([facility]) | 01/30/2015 | + + + + + | Last Assessment & Plan: Appears to be healing, no acute | | indication for antibiotics at this time. ESR is 6, no fevers or | | leukocytosis, don't suspect osteomyelitis at this time. Has | | stage 2 ulcers over his back, needs continued wound care, | | appreciate wound care consult here. | + + + + + | Obesity hypoventilation syndrome (HCC) | 01/30/2015 | + + + | Diabetes mellitus (HCC) | 01/30/2015 | + + + + + | Last Assessment & Plan: Blood sugars consistently below 120, | | stop glipizide. | + + + + + | Major depressive disorder | 01/30/2015 | + + + + + | Last Assessment & Plan: States he has been more depressed | | since mother . Stop mirtazapine, which can cause drowsiness | | and weight gain. Continue venlafaxine. | + + + + + | Osteoarthritis | 01/30/2015 | + + + + + | Last Assessment & Plan: Symptomatic therapy and weight loss. | | Avoid overtreatment with opiates, which could make respiratory | | failure worse. | + + Social History + +-------+ +--------+------+ | Tobacco Use | Types | Packs/Day | Years | Date | | | | | Used | | + +-------+ +--------+------+ | Never Smoker | | | | | + +-------+ +--------+------+ + + +---------+ + | Alcohol Use | Drinks/We | oz/Week | Comments | | | ek | | | + + +---------+ + | No | | | | + + +---------+ + + + + | Sex Assigned at | Date Recorded | | | | + + + | Not on file | | + + + Last Filed Vital Signs + + + + | Vital Sign | Reading | Time Taken | + + + + | Blood Pressure | 144/75 | 02/04/2015799 PDT | + + + + | Pulse | 69 | 02/04/2015799 PDT | + + + + | Temperature | 36.4 C (97.5 F) | 02/04/2015799 PDT | + + + + | Respiratory Rate | 20 | 02/04/2015799 PDT | + + + + | Oxygen Saturation | 92% | 02/04/2015799 PDT | + + + + | Inhaled Oxygen | - | - | | Concentration | | | + + + + | Weight | 247 kg (544 lb 8.6 | 02/04/2015 1000 PDT | | | oz) | | + + + + | Height | 167.6 cm (5' 5.98") | 01/30/2015 1450 PDT | + + + + | Body Mass Index | 87.93 | 02/04/2015 1000 PDT | + + + + Plan of Treatment + + + + + | Health Maintenance | Due Date | Last Done | Comments | + + + + + | Vaccine: | | | | | Dtap/Tdap/Td (1 - | 5 | | | | Tdap) | | | | + + + + + | Vaccine: Influenza | | | | | (#1) | 8 | | | + + + + + Results Not on filefrom Last 3 Months Insurance + +--------+ +--------+ +---------+ | Payer | Benefi | Subscriber | Type | Phone | Address | | | t Plan | ID | | | | | | / | | | | | | | Group | | | | | + +--------+ +--------+ +---------+ | [employer] | [employer] | [id number] | Medica | [phone] | | MEDICAID HMO | HEALTH | | id | [id number] | | | | MDCD | | | | | | | [place]MO [place] | | | | | + +--------+ +--------+ +---------+ + +--------+ +--------+ + + | Guarantor Name | Accoun | Relation to | Date | Phone | Billing Address | | | t Type | Patient | of | | | | | | | | | | + +--------+ +--------+ + + | WILNER GILBERT | Person | Self [birth year] Home: | [address] | | [place] | al/Fam | | 1965 | [phone] [place] [address] | | | martin | | [phone] | + +--------+ +--------+ + +
--- OUTSIDE RECORDS SUMMARY | ~2018-05-11 | XMS | Clinical Summary ---
Demographics + + + | Address | [address] | | | [place] [address] | + + + | Home Phone | | + + + | Preferred Language | Unknown | + + + | Marital Status | Single | + + + | Orthodox Affiliation | Unknown | + + + | Race | Unknown | + + + | Ethnic Group | Unknown | + + + Author + + + | Author | [facility] | + + + | Organization | [facility] | + + + | Address | Unknown | + + + | Phone | Unavailable | + + + Support + + +---------+ + | Name | Relationship | Address | Phone | + + +---------+ + | Edgard Riggins | ECON | Unknown | | + + +---------+ + Care Team Providers + +------+ + | Care Raschel Knitting Machine Operator Name | Role | Phone | [...] +------+-------+ + | PREMERA | PREMER | [id number] | | | [address] [address] | | | A BLUE | [address] | | | [place], [place] | | | CARD | | | [phone] | +---------+--------+ +------+-------+ + + +--------+ +--------+ + + | Guarantor Name | Accoun | Relation to | Date | Phone | Billing Address | | | t Type | Patient | of | | | | | | | | | | + +--------+ +--------+ + + | WILNER GILBERT | Person | Self [birth year] | Home: | [address] | | | al/Fam | | 1965 | [phone] [place] | | | martin | | [phone] | + +--------+ +--------+ + +"
--- OUTSIDE RECORDS SUMMARY | ~2018-05-11 | XMS | Clinical Summary ---
Demographics + + + | Address | [address] | | | [place] [address] | + + + | Home Phone | | + + + | Preferred Language | Unknown | + + + | Marital Status | Single | + + + | Anglican Affiliation | Unknown | + + + | Race | Unknown | + + + | Ethnic Group | Unknown | + + + Author + + + | Author | [facility] | + + + | Organization | [facility] | + + + | Address | Unknown | + + + | Phone | Unavailable | + + + Support + + +---------+ + | Name | Relationship | Address | Phone | + + +---------+ + | Edgard Riggins | ECON | Unknown | | + + +---------+ + Care Team Providers + +------+ + | Care Tax Examining Technician Name | Role | Phone | + [...] +------+-------+ + | PREMERA | PREMER | [id number] | | | [address] [address] | | | A BLUE | 2 | | | [place], [place] | | | CARD | | | | [phone] | +---------+--------+ +------+-------+ + + +--------+ +--------+ + + | Guarantor Name | Accoun | Relation to | Date | Phone | Billing Address | | | t Type | Patient | of | | | | | | | | | | + +--------+ +--------+ + + | WILNER GILBERT | Person | Self | [birth year] | Home: | [address] | | | al/Fam | | 1965 | [phone] | [place] | | | martin | | | [phone] | [phone] | + +--------+ +--------+ + +"
--- OUTSIDE RECORDS SUMMARY | ~2018-05-11 | XMS | Clinical Summary ---
Demographics + + + | Address | [address] | | | [place] [address] | + + + | Home Phone [...] Team Providers + +------+ + | Care Individual Pension Adviser Name | Role | Phone | + +------+ + | Harry Mario MD | PP | | + +------+ + Source Comments MOLLY is fully live on both [facility] and [facility] Allergies No Known Allergies Current Medications + [...] | | | + +--------+ +--------+-------+---------+ | METHODS ANALYST DATA PROCESSING MEDICAID | METHODS ANALYST DATA PROCESSING | xxxxxxxx | Medica | | | [...] | 1965 | [phone] | [place] [address] | | | martin | | | [phone] | | + +--------+ +--------+ + +
--- OUTSIDE RECORDS SUMMARY | ~2018-05-11 | XMS | Clinical Summary ---
Demographics + + + | Address | [address] | | | [place] [address] | + + + | Home Phone | | + + + | Preferred Language | Unknown | + + + | Marital Status | Single | + + + | Mormonism Affiliation | NRP | + + + [...] Team Providers + +------+ + | Care Customer Contact Sales Associate Name | Role | Phone | + +------+ + | Harry Mario MD | PP | | + +------+ + Source Comments MOLLY is fully live on both [facility] and [facility] Allergies No Known Allergies Current [...] | | | + +--------+ +--------+-------+---------+ | MANAGER LAUNDRY MEDICAID | MANAGER LAUNDRY | xxxxxxxx | Medica | | | [...] | 1965 | [phone] | [place] [address] | | | martin | | | [phone] | | + +--------+ +--------+ + +
--- OUTSIDE RECORDS SUMMARY | ~2018-05-11 | XMS | Clinical Summary ---
Demographics + + + | Address | [address] | | | [place] [address] | + + + | Home Phone | | + + + | Preferred Language | Unknown | + + + | Marital Status | Single | + + + | Amish Affiliation | Unknown | + + + | Race | Unknown | + + + | Ethnic Group | Unknown | + + + Author + + + | Author | [facility] | | | and Ronyana | + + + | Organization | [facility] | | | and [...] Providers + +------+ + | Care Learning Disabled Teacher Name | Role | Phone | [...] | [employer]AN | MODA | [id number] | Medica | [phone]- | | | MEDICAID HMO | HEALTH [...] JOSEPH | al/Fam | | 1965 | [phone] | [place] [address] | | | martin | | | [phone] | | + +--------+ +--------+ + +
--- OUTSIDE RECORDS SUMMARY | 2018-05-11 20:08 | XMS ---
PreManage Notification: STEPHANIE GILBERT Security Academic Administrator Events No recent Security Events currently on file CRITERIA MET - Group Notification CARE PROVIDERS Harry Mario Treatment Current MD PHONE: Unknown Luis Enrique has no Care Guidelines for this patient. Care History Substance Use/Overdose 10/24/2017 [facility] Pain/Opioid Agreement: *USE CAUTION WHEN PRESCRIBING NARCOTICS. *AVOID NARCOTICS AT DISCHARGE. PATIENT IS UNDER A PAIN CONTRACT WITH PCP JOANA MARIO These are guidelines and the provider should exercise clinical judgment when providing care. Jd VISIT COUNT (12 MO.) 4 [facility] TOTAL 4 NOTE: Visits indicate total known visits. ED/UCC VISIT TRACKING (12 MO.) 05/11/2018 20:03 [facility] TYPE: Emergency COMPLAINT: - CATH ISSUE 01/06/2018 01:43 [facility] TYPE: Emergency COMPLAINT: - CATHETER ISSUES DIAGNOSES: - Headache - Morbid (severe) obesity due to excess calories - SKILLED NURSING (CURRENT) USE OF ORAL HYPOGLYCEMIC DRUGS - Encounter for fitting and adjustment of urinary device - Other magneto electrician (current) drug therapy - pile fabric knitter (current) use of oral hypoglycemic drugs - Personal history of nicotine dependence - Encounter for fitting and adjustment of urinary device 09/09/2017 17:04 [facility] [place] TYPE: Emergency COMPLAINT: - SOB 06/02/2017 23:[address] [facility] [place] TYPE: Emergency COMPLAINT: - CATHETER PROBLEM DIAGNOSES: - Other mechanical complication of other urinary catheter, initial encounter - Acute bronchitis, unspecified - pile fabric knitter (current) use of opiate analgesic - Personal history of nicotine dependence - Other prison (current) drug therapy - Morbid (severe) obesity due to excess calories INPATIENT VISIT TRACKING (12 MO.) No inpatient visits to display in this time frame [email or web address]
[2018-05-11] MEDS ORDERED: PIROXICAM20 MG PO (20:32)
== END 2018-05-11 22:35 | disposition home or self-care (01) ==
LOC: ED 20:03
PROC: 0T9B70Z Drainage of Bladder with Drainage Device, Via Natural or Artificial Opening (ICD-10-PCS; principal; 2018-05-11)
PROC: BT40ZZZ Ultrasonography of Bladder (ICD-10-PCS; principal; 2018-05-11)
DX: T83.091A Other mechanical complication of indwelling urethral catheter, initial encounter (principal); E66.01 Morbid (severe) obesity due to excess calories; Z79.84 Long term (current) use of oral hypoglycemic drugs; Z79.899 Other long term (current) drug therapy
CPT/HCPCS: 51702; 51798; 81001; 99283

== ENCOUNTER 2018-05-25 22:21 | Emergency (ER) | payer OTHER ==
[~2018-05-25] VITALS: Ht 167.6 cm; Wt 252.0 kg
--- OUTSIDE RECORDS SUMMARY | ~2018-05-25 | XMS | Clinical Summary ---
Demographics + + + | Address | [address] | | | [place] [address] | + + + | Home Phone | | + + + | Preferred Language | Unknown | + + + | Marital Status | Single | + + + | Mu-Ism Affiliation | Unknown | + + + | Race | Unknown | + + + | Ethnic Group | Unknown | + + + Author + + + | Author | [facility] | + + + | Organization | [facility] | + + + | Address | Unknown | + + + | Phone | Unavailable | + + + Support + + +---------+ + | Name | Relationship | Address | Phone | + + +---------+ + | Edgard Riggins | ECON | Unknown | | + + +---------+ + Care Team Providers + +------+ + | Care Manager Outreach Name | Role | Phone | + +------+ + | Harry Mario MD | PP | | + +------+ + Allergies + + + + + + | Active Allergy | Reactions | Severity | Noted | Comments | | | | | Date | | + + + + + + | Grassleaf Sweetflag | Cough | Low | 08/30/19 | | | Rhizome | | | 12 | | + + + + + + Current Medications + + +-------+---------+------+------+-------+ | Prescription | Sig. | Disp. | Refills | Star | End | Statu | | | | | | t | Date | s | | | | | | Date | | | + + +-------+---------+------+------+-------+ | glipiZIDE | Take 10 mg by mouth | | | | | Activ | | (GLUCOTROL) 10 MG | daily. | | | | | e | | tablet | | | | | | | + + +-------+---------+------+------+-------+ | venlafaxine | Take 75 mg by mouth | | | | | Activ | | (EFFEXOR) 75 MG | daily. | | | | | e | | tablet | | | | | | | + + +-------+---------+------+------+-------+ | montelukast | Take 10 mg by mouth | | | | | Activ | | (SINGULAIR) 10 MG | nightly. | | | | | e | | tablet | | | | | | | + + +-------+---------+------+------+-------+ | mirtazapine | Take 15 mg by mouth | | | | | Activ | | (REMERON) 15 MG | nightly. | | | | | e | | tablet | | | | | | | + + +-------+---------+------+------+-------+ | | Take 1 tablet by | | | | | Activ | | diphenoxylate-atropi | mouth 4 (four) times | | | | | e | | ne (LOMOTIL) | daily as needed. | | | | | | | 2.5-0.025 MG per | | | | | | | | tablet | | | | | | | + + +-------+---------+------+------+-------+ | oxycodone | Take 30 mg by mouth | | | | | Activ | | (ROXICODONE) 30 MG | every 4 (four) hours | | | | | e | | immediate release | as needed. | | | | | | | tablet | | | | | | | + + +-------+---------+------+------+-------+ | diphenhydrAMINE | Take 25 mg by mouth | | | | | Activ | | (SOMINEX) 25 MG | nightly as needed. | | | | | e | | tablet | | | | | | | + + +-------+---------+------+------+-------+ + + +-------+ +------+------+-------+ | Hospital, Clinic, or | Ordered | Route | Frequency | Star | End | Statu | | Other Facility | Dose | | | t | Date | s | | Administered | | | | Date | | | | Medication | | | | | | | + + +-------+ +------+------+-------+ | lidocaine | | TP | PRN | 01/0 | | Activ | | (XYLOCAINE) 4 % | | | | 4/20 | | e | | external | | | | 12 | | | | solutionIndications: | | | | | | | | Ulcer of calf (HCC) | | | | | | | + + +-------+ +------+------+-------+ Active Problems + + + | Problem | Noted Date | + + + | Lymphedema | 08/30/2011 | + + + | Ulcer of calf (HCC) | 08/30/2011 | + + + Family History + +------+ + + | Relation | Name | Status | Comments | + +------+ + + | Father | | | | + +------+ + + | Maternal Grandfather | | | | + +------+ + + | Maternal Grandmother | | | | + +------+ + + | Mother | | Alive | | + +------+ + + | Paternal Grandfather | | | | + +------+ + + | Paternal Grandmother | | | | + +------+ + + | Sister | | Alive | | + +------+ + + Social History + +-------+ +--------+------+ | Tobacco Use | Types | Packs/Day | Years | Date | | | | | Used | | + +-------+ +--------+------+ | Former Smoker | | | 15 | | + +-------+ +--------+------+ + + [...] + + + | Blood Pressure | 148/76 | 10/03/2011 3:10 PM PST | + + + + | Pulse | 101 | 10/03/2011 3:10 PM PST | + + + + | Temperature | 36.8 C (98.2 F) | 10/03/2011 3:10 PM PST | + + + + | Respiratory Rate | 14 | 10/03/2011 3:10 PM PST | + + + + | Oxygen Saturation | - | - | + + + + | Inhaled Oxygen | - | - | | Concentration | | | + + + + | Weight | - | - | + + + + | Height | - | - | + + + + | Body Mass Index | - | - | + + + + Plan of Treatment Not on file Results Not on filefrom Last 3 Months Insurance +---------+--------+ +------+-------+ + | Payer | Benefi | Subscriber | Type | Phone | Address | | | t Plan | ID | | | | | | / | | | | | | | Group | | | | | +---------+--------+ +------+-------+ + | PREMERA | PREMER | [id number] | | | [address] [address] | | | A BLUE | 2 | | | [place], [place] | | | CARD | | | | [phone] | +---------+--------+ +------+-------+ + + +--------+ +--------+ + + | Guarantor Name | Accoun | Relation to | Date | Phone | Billing Address | | | t Type | Patient | of | | | | | | | | | | + +--------+ +--------+ + + | WILNER GILBERT | Person | Self [birth year] | Home: | [address] | | | al/Fam | | 1965 | [phone] | [place] | | | martin | | | [phone] | [phone] | + +--------+ +--------+ + +"
--- OUTSIDE RECORDS SUMMARY | ~2018-05-25 | XMS | Clinical Summary ---
Demographics + + + | Address | [address] | | | [place] [address] | + + + | Home Phone | | + + + | Preferred Language | Unknown | + + + | Marital Status | Single | + + + | Christianity Affiliation | NRP | + + + [...] Team Providers + +------+ + | Care Psych Specialist Name | Role | Phone | + +------+ + | Harry Mario MD | PP | | + +------+ + Source Comments MOLLY is fully live on both [facility] and [facility] Allergies No Known Allergies Current Medications + [...] + + | INFLUENZA VACCINE | | | | | (FLU SHOT) | 8 | | | + + + + + Results Not on filefrom Last 3 Months Insurance + +--------+ +--------+-------+---------+ | Payer | Benefi | Subscriber | Type | Phone | Address | | | t Plan | ID | | | | | | / | | | | | | | Group | | | | | + +--------+ +--------+-------+---------+ | WARP DRAWER MEDICAID | WARP DRAWER | xxxxxxxx | Medica | | | | | [place] | | id | | | | | [place] | | | | | + +--------+ +--------+-------+---------+ + +--------+ +--------+ + + | Guarantor Name | Accoun | Relation to | Date | Phone | Billing Address | | | t Type | Patient | of | | | | | | | | | | + +--------+ +--------+ + + | WILNER GILBERT | Person | Self [birth year] | Home: | [address] | | | al/Fam | | 1965 | [phone] | [place] [address] | | | martin | | | [phone] | | + +--------+ +--------+ + +
--- OUTSIDE RECORDS SUMMARY | ~2018-05-25 | XMS | Clinical Summary ---
Demographics + + + | Address | [address] | | | [place] [address] | + + + | Home Phone [...] Team Providers + +------+ + | Care Security Attendant Name | Role | Phone | + +------+ + | Harry Mario MD | PP | | + +------+ + Source Comments MOLLY is fully live on both [facility] and [facility] InPatient.[facility] Allergies No Known Allergies Current Medications [...] | | | + +--------+ +--------+-------+---------+ | FAMILY LAWYER MEDICAID | FAMILY LAWYER | xxxxxxxx | Medica | | | [...] | 1965 | [phone] | [place] [address] | | | martin | | | [phone] | | + +--------+ +--------+ + +
--- OUTSIDE RECORDS SUMMARY | ~2018-05-25 | XMS | Clinical Summary ---
Demographics + + + | Address | [address] | | | [place] [address] | + + + | Home Phone | | + + + | Preferred Language | Unknown | + + + | Marital Status | Single | + + + | Amish Affiliation | Unknown | + + + | Race | Unknown | + + + | Ethnic Group | Unknown | + + + Author + + + | Author | [facility] | + + + | Organization | [facility] | + + + | Address | Unknown | + + + | Phone | Unavailable | + + + Support + + +---------+ + | Name | Relationship | Address | Phone | + + +---------+ + | Edgard Riggins | ECON | Unknown | | + + +---------+ + Care Team Providers + +------+ + | Care Jammer Operator Name | Role | Phone | [...] +------+-------+ + | PREMERA | PREMER | [id number] | | | [address] [address] | | | A BLUE | 2 | | | [place], [place] | | | CARD | | | | [phone] | +---------+--------+ +------+-------+ + + +--------+ +--------+ + + | Guarantor Name | Accoun | Relation to | Date | Phone | Billing Address | | | t Type | Patient | of | | | | | | | | | | + +--------+ +--------+ + + | WILNER GILBERT | Person | Self | [birth year] | Home: | [address] | | | al/Fam | | 1965 | [phone] | [place] | | | martin | | | [phone] | [phone] | + +--------+ +--------+ + +"
--- OUTSIDE RECORDS SUMMARY | ~2018-05-25 | XMS | Clinical Summary ---
Demographics + + + | Address | [address] | | | [place] [address] | + + + | Home Phone | | + + + | Preferred Language | Unknown | + + + | Marital Status | Single | + + + | Mormonism Affiliation | Unknown | + + + | Race | Unknown | + + + | Ethnic Group | Unknown | + + + Author + + + | Author | [facility] | | | and Ronyana | + + + | Organization | [facility] | | | and [place] [...] Team Providers + +------+ + | Care Eviction Specialist Name | Role | Phone | [...] with BMI of 70 and over, adult ([facility]) | 01/30/2015 | + + + [...] + + + | Diabetic foot ulcer ([facility]) | 01/30/2015 | + + + [...] | [employer] PLAN | MODA | [id number] | Medica | [phone]- | | | MEDICAID HMO | HEALTH [...] JOSEPH | al/Fam | | 1965 | [phone] | [place] [address] | | | martin | | | [phone] | | + +--------+ +--------+ + +
--- OUTSIDE RECORDS SUMMARY | ~2018-05-25 | XMS | Clinical Summary ---
Demographics + + + | Address | [address] | | | [place] [address] | + + + | Home Phone | | + + + | Preferred Language | Unknown | + + + | Marital Status | Single | + + + | Zoroastrian Affiliation | Unknown | + + + | Race | Unknown | + + + | Ethnic Group | Unknown | + + + Author + + + | Author | [facility] | | | and Ronyana | + + + | Organization | [facility] | | | and [place] [...] Team Providers + +------+ + | Care Automation Analyst Name | Role | Phone | [...] with BMI of 70 and over, adult ([facility]) | 01/30/2015 | + + + [...] + + + | Diabetic foot ulcer ([facility]) | 01/30/2015 | + + + [...] | MODA [employer] PLAN | MODA | [id number] | Medica | [phone]- | | | MEDICAID HMO | HEALTH [...] JOSEPH | al/Fam | | 1965 | [phone] | [place] [address] | | | martin | | | [phone] | | + +--------+ +--------+ + +
--- OUTSIDE RECORDS SUMMARY | 2018-05-25 22:26 | XMS ---
PreManage Notification: STEPHANIE GILBERT Security Supervisor [facility]ality House Events No recent Security Events currently on file CRITERIA MET - Group Notification - [facility] - 2 Visits in 30 Days CARE PROVIDERS Harry Mario Treatment Current [place] PHONE: Unknown Luis Enrique has no Care Guidelines for this patient. Care History Substance Use/Overdose 10/24/2017 [facility] Pain/Opioid Agreement: *USE CAUTION WHEN PRESCRIBING NARCOTICS. *AVOID NARCOTICS AT DISCHARGE. PATIENT IS UNDER A PAIN CONTRACT WITH PCP JOANA MARIO These are guidelines and the provider should exercise clinical judgment when providing care. EEver VISIT COUNT (12 MO.) 5 [facility] TOTAL 5 NOTE: Visits indicate total known visits. ED/UCC VISIT TRACKING (12 MO.) 05/25/2018 22:22 [facility] [place] TYPE: Emergency COMPLAINT: - NAUSEA,VOMITTING,DIARRHEA 05/11/2018 20:03 [facility] [place] TYPE: Emergency COMPLAINT: - CATH ISSUE DIAGNOSES: - Other mechanical complication of indwelling urethral catheter, initial encounter - Other custodial (current) drug therapy - penitentiary (current) use of oral hypoglycemic drugs - Morbid (severe) obesity due to excess calories 01/06/2018 01:43 [facility] [place] TYPE: Emergency COMPLAINT: - CATHETER ISSUES DIAGNOSES: - Headache - Morbid (severe) obesity due to excess calories - ALF (CURRENT) USE OF ORAL HYPOGLYCEMIC DRUGS - Encounter for fitting and adjustment of urinary device - Other cooky machine operator (current) drug therapy - penitentiary (current) use of oral hypoglycemic drugs - Personal history of nicotine dependence - Encounter for fitting and adjustment of urinary device 09/09/2017 17:04 [facility] [place] TYPE: Emergency COMPLAINT: - SOB 06/02/2017 23:35 [facility] [place] TYPE: Emergency COMPLAINT: - CATHETER PROBLEM DIAGNOSES: - Other mechanical complication of other urinary catheter, initial encounter - Acute bronchitis, unspecified - guest experience representative (current) use of opiate analgesic - Personal history of nicotine dependence - Other custodial (current) drug therapy - Morbid (severe) obesity due to excess calories INPATIENT VISIT TRACKING (12 MO.) No inpatient visits to display in this time frame [email or web address]
[2018-05-26] MEDS ORDERED: BACTRIM DS TAB1 EACH PO (01:33)
[2018-05-26] MEDS ORDERED: ZOFRAN ODT4 MG SL (01:37)
== END 2018-05-26 02:02 | disposition home or self-care (01) ==
LOC: ED 22:21
DX: K52.9 Noninfective gastroenteritis and colitis, unspecified (principal); N39.0 Urinary tract infection, site not specified; E66.01 Morbid (severe) obesity due to excess calories; Z87.891 Personal history of nicotine dependence; Z79.899 Other long term (current) drug therapy; Z79.891 Long term (current) use of opiate analgesic
CPT/HCPCS: 80053; 81001; 85025; 96361; 96374; 96375; 99284; J2270; J2405; J7030

== ENCOUNTER 2018-10-03 18:35 | Emergency (ER) | payer OTHER ==
[~2018-10-03] VITALS: Ht 167.6 cm; Wt 247.9 kg
[~2018-10-03 18:35] MED LIST changes: +BACTRIM DS TAB1 EACH PO; +ZOFRAN ODT4 MG SL
--- OUTSIDE RECORDS SUMMARY | 2018-10-03 18:38 | XMS ---
PreManage Notification: STEPHANIE GILBERT Security Phlebotomy Services Technician Events No recent Security Events currently on file CRITERIA MET - Group Notification - [facility] - Has Care Guidelines - PDMP CARE PROVIDERS JOSY MARIO [facility] 05/27/2018-Current PHONE: Unknown Josy Mario Treatment Current [place] PHONE: Unknown Luis Enrique has no Care Guidelines for this patient. Care History Substance Use/Overdose 10/24/2017 [facility] Pain/Opioid Agreement: *USE CAUTION WHEN PRESCRIBING NARCOTICS. *AVOID NARCOTICS AT DISCHARGE. PATIENT IS UNDER A PAIN CONTRACT WITH PCP JOANA MARIO These are guidelines and the provider should exercise clinical judgment when providing care. E.D. VISIT COUNT (12 MO.) [address] [facility] TOTAL 4 NOTE: Visits indicate total known visits. ED/UCC VISIT TRACKING (12 MO.) 10/03/2018 18:36 [facility] TYPE: Emergency COMPLAINT: - BACK PAIN/NO INJURY 05/25/2018 22:22 [facility] TYPE: Emergency COMPLAINT: - NAUSEA,VOMITTING,DIARRHEA DIAGNOSES: - Other tank terminal gauger (current) drug therapy - Urinary tract infection, site not specified - Morbid (severe) obesity due to excess calories - skilled nursing (current) use of opiate analgesic - Personal history of nicotine dependence - Noninfective gastroenteritis and colitis, unspecified - Nausea with vomiting, unspecified 05/11/2018 20:03 [facility] TYPE: Emergency COMPLAINT: - CATH ISSUE DIAGNOSES: - Other mechanical complication of indwelling urethral catheter, initial encounter - Other correction (current) drug therapy - termite treater helper (current) use of oral hypoglycemic drugs - Morbid (severe) obesity due to excess calories 01/06/2018 01:43 [facility] TYPE: Emergency COMPLAINT: - CATHETER ISSUES DIAGNOSES: - Headache - Morbid (severe) obesity due to excess calories - INVESTOR RELATIONS ASSOCIATE (CURRENT) USE OF ORAL HYPOGLYCEMIC DRUGS - Encounter for fitting and adjustment of urinary device - Other correction (current) drug therapy - skilled nursing (current) use of oral hypoglycemic drugs - Personal history of nicotine dependence - Encounter for fitting and adjustment of urinary device INPATIENT VISIT TRACKING (12 MO.) No inpatient visits to display in this time frame [email or web address]
== END 2018-10-03 22:32 | disposition home or self-care (01) ==
LOC: ED 18:35
DX: R53.83 Other fatigue (principal); E66.01 Morbid (severe) obesity due to excess calories; Z79.899 Other long term (current) drug therapy
CPT/HCPCS: 71045; 80053; 81001; 83690; 85025; 87077; 87088; 87186; 87502; 99284-25

== ENCOUNTER 2018-11-27 21:35 | Inpatient (IN) | payer OTHER ==
[~2018-11-27] VITALS: Ht 167.6 cm; Wt 240.9 kg
--- OUTSIDE RECORDS SUMMARY | ~2018-11-27 | XMS | Clinical Summary ---
Demographics + + + | Address | [address] | | | [place] [address] | + + + | Home Phone | | + + + | Preferred Language | Unknown | + + + | Marital Status | Single | + + + | Jainism Affiliation | Unknown | + + + | Race | Unknown | + + + | Ethnic Group | Unknown | + + + Author + + + | Author | [facility] | + + + | Organization | [facility] | + + + | Address | Unknown | + + + | Phone | Unavailable | + + + Support + + +---------+ + | Name | Relationship | Address | Phone | + + +---------+ + | Edgard Riggins | ECON | Unknown | | + + +---------+ + Care Team Providers + +------+ + | Care Latrine Cleaner Name | Role | Phone | + [...] +------+-------+ + | PREMERA | PREMER | [id number] | | | [address] [address] | | | A BLUE | 2 | | | [place], [place] | | | CARD | | | | [phone] | +---------+--------+ +------+-------+ + + +--------+ +--------+ + + | Guarantor Name | Accoun | Relation to | Date | Phone | Billing Address | | | t Type | Patient | of | | | | | | | | | | + +--------+ +--------+ + + | WILNER GILBERT | Person | Self [birth year] | Home: | [address] | | | al/Fam | | 1965 | [phone] | [place] | | | [place] | | | [phone] | [phone] | + +--------+ +--------+ + +"
--- OUTSIDE RECORDS SUMMARY | ~2018-11-27 | XMS | Clinical Summary ---
Demographics + + + | Address | [address] | | | [place] [address] | + + + | Home Phone | | + + + | Preferred Language | Unknown | + + + | Marital Status | Single | + + + | Pentecostal Affiliation | Unknown | + + + | Race | Unknown | + + + | Ethnic Group | Unknown | + + + Author + + + | Author | [facility] | | | and [place]ony[place] | + + + | Organization | [facility] | | | and [place] | [...] Team Providers + +------+ + | Care Range Conservationist Name | Role | Phone | + [...] with BMI of 70 and over, adult ([facility]) | 01/30/2015 | + + + + [...] + + + | Diabetic foot ulcer ([facility]) | 01/30/2015 | + + + + [...] + + + + + | Vaccine: Zoster (1 | | | | | of 2) | 6 | | | + + + + [...] | [employer]AN | MODA | [id number] | Medica | [phone] | | | MEDICAID HMO | HEALTH [...] [address] | | [place] | kon[place] | | 1965 | [phone] | [place] [address] | | | [place] | | | [phone] | | + +--------+ +--------+ + +
--- OUTSIDE RECORDS SUMMARY | ~2018-11-27 | XMS | Clinical Summary ---
Demographics + + + | Address | [address] | | | [place] [address] | + + + | Home Phone | | + + + | Preferred Language | Unknown | + + + | Marital Status | Single | + + + | Catholic Affiliation | NRP | + + + [...] Team Providers + +------+ + | Care Layer Up Name | Role | Phone | + +------+ + | Harry Mario MD | PP | | + +------+ + Source Comments MOLLY is fully live on both [facility] Ambulatory and [facility] InPatient.[facility] Allergies No Known Allergies Current Medications + [...] | | | | vaccination (#1) | 8 | | | + [...] | | | + +--------+ +--------+-------+---------+ | AUTO MECHANIC SUPERVISOR MEDICAID | AUTO MECHANIC SUPERVISOR | xxxxxxxx | Medica | | | [...] | 1965 | [phone] | [place] [address] | | | martin | | | [phone] | | + +--------+ +--------+ + +
--- OUTSIDE RECORDS SUMMARY | ~2018-11-27 | XMS | Clinical Summary ---
Demographics + + + | Address | [address] | | | [place] [address] | + + + | Home Phone | | + + + | Preferred Language | Unknown | + + + | Marital Status | Single | + + + | Gnosticist Affiliation | Unknown | + + + | Race | Unknown | + + + | Ethnic Group | Unknown | + + + Author + + + | Author | [facility] | + + + | Organization | [facility] | + + + | Address | Unknown | + + + | Phone | Unavailable | + + + Support + + +---------+ + | Name | Relationship | Address | Phone | + + +---------+ + | Edgard Riggins | ECON | Unknown | | + + +---------+ + Care Team Providers + +------+ + | Care Wet Pan Operator Name | Role | Phone | [...] +------+-------+ + | PREMERA | PREMER | [id number] | | | [address] [address] | | | A BLUE | 2 | | | [place], [place] | | | CARD | | | | [address] | +---------+--------+ +------+-------+ + + +--------+ +--------+ + + | Guarantor Name | Accoun | Relation to | Date | Phone | Billing Address | | | t Type | Patient | of | | | | | | | | | | + +--------+ +--------+ + + | WILNER GILBERT | Person | Self | [birth year] Home: | [address] | | | al/Fam | | 1965 | [phone] | [place] | | | [place] | | | [phone] | [phone] | + +--------+ +--------+ + +"
--- OUTSIDE RECORDS SUMMARY | ~2018-11-27 | XMS | Clinical Summary ---
Demographics + + + | Address | [address] | | | [place] [address] | + + + | Home Phone | | + + + | Preferred Language | Unknown | + + + | Marital Status | Single | + + + | Druze Affiliation | Unknown | + + + | Race | Unknown | + + + | Ethnic Group | Unknown | + + + Author + + + | Author | [facility] | | | and [place] | + + + | Organization | [facility] | | | and [place] | [...] Team Providers + +------+ + | Care Continuous Miner Name | Role | Phone | + [...] with BMI of 70 and over, adult ([facility]) | 01/30/2015 | + + [...] + + + | Diabetic foot ulcer ([facility]) | 01/30/2015 | + + [...] | [employer]AN | MODA | [id number] | Medica | [phone] | | | [...] | 1965 | [phone] | [place] [address] | | | [place] | | | [phone] | | + +--------+ +--------+ + +
--- OUTSIDE RECORDS SUMMARY | ~2018-11-27 | XMS | Clinical Summary ---
Demographics + + + | Address | [address] | | | [place] [address] | + + + | Home Phone | | + + + | Preferred Language | Unknown | + + + | Marital Status | Single | + + + | Mandaen Affiliation | Unknown | + + + | Race | Unknown | + + + | Ethnic Group | Unknown | + + + Author + + + | Author | [facility] | | | and [place] | + + + | Organization | [facility] | | | and [place] [...] Team Providers + +------+ + | Care Transformer Maker Name | Role | Phone | + [...] with BMI of 70 and over, adult ([facility]) | 01/30/2015 | + + + + [...] + + + | Diabetic foot ulcer ([facility]) | 01/30/2015 | + + + + [...] | [employer] PLAN | MODA | [id number] | Medica | [phone] | | | [...] | 1965 | [phone] | [place] [address] | | | [place] | | | [phone] | | + +--------+ +--------+ + +
--- OUTSIDE RECORDS SUMMARY | ~2018-11-27 | XMS | Clinical Summary ---
Demographics + + + | Address | [address] | | | [place] [address] | + + + | Home Phone | | + + + | Preferred Language | Unknown | + + + | Marital Status | Single | + + + | Anglican Affiliation | NRP | + + + [...] Team Providers + +------+ + | Care Supervisor Waterworks Name | Role | Phone | + +------+ + | Harry Mario MD | PP | | + +------+ + Source Comments MOLLY is fully live on both [facility] Amb[facility] and [facility] InPatient.[facility] Allergies No Known Allergies Current Medications [...] | | | + +--------+ +--------+-------+---------+ | LEATHER ROLLER MEDICAID | LEATHER ROLLER | xxxxxxxx | Medica | | | [...] | 1965 | [phone] | [place] [address] | | | [place] | | | [address] | | + +--------+ +--------+ + +
--- OUTSIDE RECORDS SUMMARY | ~2018-11-27 | XMS | Clinical Summary ---
Demographics + + + | Address | [address] | | | [place] [address] | + + + | Home Phone | | + + + | Preferred Language | Unknown | + + + | Marital Status | Single | + + + | Advent Affiliation | Unknown | + + + | Race | Unknown | + + + | Ethnic Group | Unknown | + + + Author + + + | Author | [facility] | + + + | Organization | [facility] | + + + | Address | Unknown | + + + | Phone | Unavailable | + + + Support + + +---------+ + | Name | Relationship | Address | Phone | + + +---------+ + | Edgard Riggins | ECON | Unknown | | + + +---------+ + Care Team Providers + +------+ + | Care Tool Radial Drill Press Set Up Operator Name | Role | Phone | [...] +------+-------+ + | PREMERA | PREMER | [id number] | | | [address] [address] | | | A BLUE | 2 | | | [place], [place] | | | CARD | | | | [phone] | +---------+--------+ +------+-------+ + + +--------+ +--------+ + + | Guarantor Name | Accoun | Relation to | Date | Phone | Billing Address | | | t Type | Patient | of | | | | | | | | | | + +--------+ +--------+ + + | WILNER GILBERT | Person | Self | [birth year] | Home: | [address] | | | al/Fam | | 1965 | [phone] | [place] | | | [place] | | | [phone] | [phone] | + +--------+ +--------+ + +"
--- OUTSIDE RECORDS SUMMARY | ~2018-11-27 | XMS | Clinical Summary ---
Demographics + + + | Address | [address] | | | [place] [address] | + + + | Home Phone [...] Team Providers + +------+ + | Care Coffee Shop Aide Name | Role | Phone | + +------+ + | Harry Mario MD | PP | | + +------+ + Source Comments MOLLY is fully live on both [facility] Ambulatory and [facility] InPatient.[facility] Allergies No Known Allergies [...] | | | + +--------+ +--------+-------+---------+ | OCULARIST MEDICAID | OCULARIST | xxxxxxxx | Medica | | | [...] | 1965 | [phone] | [place] [address] | | | [place] | | | [address] | | + +--------+ +--------+ + +
[~2018-11-27 21:35] MED LIST changes: +OMEPRAZOLE20 MG PO; -OMEPRAZOLE40 MG PO
--- OUTSIDE RECORDS SUMMARY | 2018-11-27 21:38 | XMS ---
PreManage Notification: STEPHANIE GILBERT Security Polyethylene Bag Machine Operator Events No recent Security Events currently on file CRITERIA MET - Group Notification - [facility] - Has Care Guidelines - PDMP CARE PROVIDERS JOSY MARIO [facility] 05/27/2018-Current PHONE: Unknown Josy Mario Treatment Current [place] PHONE: Unknown Luis Enrique has no Care Guidelines for this patient. Care History Substance Use/Overdose 10/24/2017 [facility] Pain/Opioid Agreement: *USE CAUTION WHEN PRESCRIBING NARCOTICS. *AVOID NARCOTICS AT DISCHARGE. PATIENT IS UNDER A PAIN CONTRACT WITH PCP JOANA MARIO These are guidelines and the provider should exercise clinical judgment when providing care. E.D. VISIT COUNT (12 MO.) [address] [facility] TOTAL 5 NOTE: Visits indicate total known visits. ED/UCC VISIT TRACKING (12 MO.) 11/27/2018 21:35 [facility] TYPE: Emergency COMPLAINT: - FEVER 10/03/2018 18:36 [facility] TYPE: Emergency COMPLAINT: - BACK PAIN/NO INJURY DIAGNOSES: - Other fatigue - Morbid (severe) obesity due to excess calories - Other [place] [facility] (current) drug therapy - Epigastric pain 05/25/2018 22:22 [facility] TYPE: Emergency COMPLAINT: - NAUSEA,VOMITTING,DIARRHEA DIAGNOSES: - Other [place] [facility] (current) drug therapy - Urinary tract infection, site not specified - Morbid (severe) obesity due to excess calories - unloader operator (current) use of opiate analgesic - Personal history of nicotine dependence - Noninfective gastroenteritis and colitis, unspecified - Nausea with vomiting, unspecified 05/11/2018 20:03 [facility] TYPE: Emergency COMPLAINT: - CATH ISSUE DIAGNOSES: - Other mechanical complication of indwelling urethral catheter, initial encounter - Other wine manager (current) drug therapy - jail (current) use of oral hypoglycemic drugs - Morbid (severe) obesity due to excess calories 01/06/2018 01:43 [facility] TYPE: Emergency COMPLAINT: - CATHETER ISSUES DIAGNOSES: - Headache - Morbid (severe) obesity due to excess calories - RESIDENTIAL (CURRENT) USE OF ORAL HYPOGLYCEMIC DRUGS - Encounter for fitting and adjustment of urinary device - Other [place] [facility] (current) drug therapy - unloader operator (current) use of oral hypoglycemic drugs - Personal history of nicotine dependence - Encounter for fitting and adjustment of urinary device INPATIENT VISIT TRACKING (12 MO.) No inpatient visits to display in this time frame [email or web address]
[2018-11-28] MEDS ORDERED: LOMOTIL TABLET1 EACH PO (14:56)
[2018-11-28] MEDS ORDERED: BLOOD GLUCOSE1 EAC8 MISC (15:48)
[2018-11-28] MEDS ORDERED: BLOOD LANCETS1 EACH ID (15:50)
[2018-12-04] MEDS ORDERED: LEVOFLOXAC750 MG/150 IV (11:18)
== END 2018-12-04 15:15 | disposition home or self-care (01) | DRG 698 ==
LOC: ED 21:35 → CCU 11-28 00:10 → MS 11-30 13:45
PROVIDERS: ADMIT Student in an Organized Health Care Education/Training Program
PROC: 5A09357 Assistance with Respiratory Ventilation, Less than 24 Consecutive Hours, Continuous Positive Airway Pressure (ICD-10-PCS; 2018-11-28)
PROC: 02HV33Z Insertion of Infusion Device into Superior Vena Cava, Percutaneous Approach (ICD-10-PCS; principal; 2018-11-29 10:00)
DX: T83.511A Infection and inflammatory reaction due to indwelling urethral catheter, initial encounter (principal); A41.59 Other Gram-negative sepsis; R65.20 Severe sepsis without septic shock; J96.11 Chronic respiratory failure with hypoxia; E66.2 Morbid (severe) obesity with alveolar hypoventilation; Z68.45 Body mass index [BMI] 70 or greater, adult; N39.0 Urinary tract infection, site not specified; I89.0 Lymphedema, not elsewhere classified; E11.22 Type 2 diabetes mellitus with diabetic chronic kidney disease; I12.9 Hypertensive chronic kidney disease with stage 1 through stage 4 chronic kidney disease, or unspecified chronic kidney disease; N18.9 Chronic kidney disease, unspecified; J45.909 Unspecified asthma, uncomplicated; G89.4 Chronic pain syndrome; K21.9 Gastro-esophageal reflux disease without esophagitis; Z79.84 Long term (current) use of oral hypoglycemic drugs; Z79.1 Long term (current) use of non-steroidal anti-inflammatories (NSAID); Z79.891 Long term (current) use of opiate analgesic; Z79.899 Other long term (current) drug therapy
CPT/HCPCS: 36415; 36569; 51703; 71045; 80048; 80053; 81001; 82140; 82803; 83036; 83605; 83735; 85025; 87040; 87077; 87088; 87186; 94660; 96361; 96365; 97110; 97116; 97162; 97165; 97530; 97535; 99284-25; C1751; J0696; J1650; J1815; J1956; J2405; J2543; J3475; J7030; J7060; J7120

== ENCOUNTER 2019-02-25 16:27 | Emergency (ER) | payer OTHER ==
[~2019-02-25] VITALS: Ht 167.6 cm; Wt 207.3 kg
[~2019-02-25 16:27] MED LIST changes: +BLOOD GLUCOSE1 EAC8 MISC; +BLOOD LANCETS1 EACH ID; +LEVOFLOXAC750 MG/150 IV
--- OUTSIDE RECORDS SUMMARY | 2019-02-25 16:30 | XMS ---
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 ED/UCC VISIT TRACKING (12 MO.) 02/25/2019 16:27 [facility] [place] TYPE: Emergency COMPLAINT: - CATHETER CHANGE 11/27/2018 21:35 [facility] [place] TYPE: Emergency COMPLAINT: - FEVER 10/03/2018 18:36 [facility] [place] TYPE: Emergency COMPLAINT: - BACK PAIN/NO INJURY DIAGNOSES: - Other fatigue - Morbid (severe) obesity due to excess calories - Other ferry terminal agent (current) drug therapy - Epigastric pain 05/25/2018 22:22 [facility] [place] TYPE: Emergency COMPLAINT: - NAUSEA,VOMITTING,DIARRHEA DIAGNOSES: - Other mcc (current) drug therapy - Urinary tract infection, site not specified - Morbid (severe) obesity due to excess calories - [facility] (current) use of opiate analgesic - Personal history of nicotine dependence - Noninfective gastroenteritis and colitis, unspecified - Nausea with vomiting, unspecified 05/11/2018 20:03 [facility] [place] TYPE: Emergency COMPLAINT: - CATH ISSUE DIAGNOSES: - Other mechanical complication of indwelling urethral catheter, initial encounter - Other mcc (current) drug therapy - [facility] (current) use of oral hypoglycemic drugs - Morbid (severe) obesity due to excess calories INPATIENT VISIT TRACKING (12 MO.) 11/28/2018 00:10 [facility] [place] TYPE: Medical Surgical COMPLAINT: - SEPSIS UTI DIAGNOSES: - Morbid (severe) obesity with alveolar hypoventilation - Unspecified asthma, uncomplicated - Urinary tract infection, site not specified - [facility] (current) use of oral hypoglycemic drugs - Lymphedema, not elsewhere classified - Sepsis, unspecified organism - Severe sepsis without septic shock - Chronic respiratory failure with hypoxia - Other Gram-negative sepsis - terminal operations supervisor (current) use of oral hypoglycemic drugs - Body mass index (BMI) 70 or greater, adult - Chronic kidney disease, unspecified - Other Gram-negative sepsis - terminal operations supervisor (current) use of non-steroidal anti-inflammatories (NSAID) - Infection and inflammatory reaction due to indwelling urethral catheter, initial encounter - Gastro-esophageal reflux disease without esophagitis - Type 2 diabetes mellitus with diabetic chronic kidney disease - Chronic respiratory failure with hypoxia - Other ferry terminal agent (current) drug therapy - Chronic pain syndrome - Body mass index (BMI) 70 or greater, adult - Severe sepsis without septic shock - Chronic pain syndrome - Chronic kidney disease, unspecified - Urinary tract infection, site not specified - Morbid (severe) obesity with alveolar hypoventilation - Lymphedema, not elsewhere classified - Other mcc (current) drug therapy - Hypertensive chronic kidney disease with stage 1 through stage 4 chronic kidney disease, or unspecified chronic kidney disease - Type 2 diabetes mellitus with diabetic chronic kidney disease - Hypertensive chronic kidney disease with stage 1 through stage 4 chronic kidney disease, or unspecified chronic kidney disease - Unspecified asthma, uncomplicated - Infection and inflammatory reaction due to indwelling urethral catheter, initial encounter - Gastro-esophageal reflux disease without esophagitis - terminal operations supervisor (current) use of opiate analgesic - [facility] (current) use of opiate analgesic - [facility] (current) use of non-steroidal anti-inflammatories (NSAID) [email or web address]
== END 2019-02-25 18:19 | disposition home or self-care (01) ==
LOC: ED 16:27
PROC: 0T2BX0Z Change Drainage Device in Bladder, External Approach (ICD-10-PCS; principal; 2019-02-25)
DX: Z46.6 Encounter for fitting and adjustment of urinary device (principal); Z79.899 Other long term (current) drug therapy
CPT/HCPCS: 51702; 81001; 99283-25

== ENCOUNTER 2019-06-15 21:53 | Emergency (ER) | payer OTHER ==
[~2019-06-15] VITALS: Ht 172.7 cm; Wt 237.3 kg
--- OUTSIDE RECORDS SUMMARY | ~2019-06-15 | XMS | Encounter Summary ---
Demographics + + + | Address | [address] | | | [place] [address] | + + + | Home Phone | | + + + | Preferred Language | Unknown | + + + | Marital Status | Single | + + + | Jain Affiliation | NRP | + + + | Race | White | + + + | Ethnic Group | Not or | + + + Author + + + | Author | [facility] | + + + | Organization | [facility] | + + + | Address | Unknown | + + + | Phone | Unavailable | + + + Support + + +---------+ + | Name | Relationship | Address | Phone | + + +---------+ + | Ke Chapa | ECON | Unknown | | + + +---------+ + | BERTRAM Riggins | ECON | Unknown | | + + +---------+ + | Marcia Parisi ECON | Unknown | | + + +---------+ + Care Team Providers + +------+ + | Care Auto Body Repairman Name | Role | Phone | + +------+ + | Harry Mario MD | PCP | | + +------+ + Encounter Details +--------+ + + + + | Date | Type | Department | Care Team | Description | +--------+ + + + + | 09/09/ | Documentati | [facility] | Chloe Dorado, | | | 2016 | on | [facility] [address] | REFRIGERATION SPECIALIST [id number] | | | | | [place] | [facility] [address] | | | | | Mailcode: Center | [place], [place] | | | | | for Health and | [address] | | | | | [place] [address] | [phone] | | | | | [place], [place] | | | | | | [address] | | | | | | [phone] | | | +--------+ + + + + Social History + + + +--------+ + | Tobacco Use | Types | Packs/Day | Years | Date | | | | | Used | | + + + +--------+ + | Former Smoker | Cigarettes | 1 | 15 | 07/09/1992 - | | | | | | 02/17/2007 | + + + +--------+ + + +---+---+---+ | Smokeless Tobacco: | | | | | Never Used | | | | + +---+---+---+ + + +---------+ + | Alcohol Use | Drinks/Week | oz/Week | Comments | + + +---------+ + | Yes | 1 Standard drinks | 1.0 | | | | or equivalent | | | + + +---------+ + + + + | Sex Assigned at | Date Recorded | | | | + + + | Not on file | | + + + + + + + | Job Start Date | Occupation | Industry | + + + + | Not on file | Not on file | Not on file | + + + + + + + + | Travel History | Travel Start | Travel End | + + + + + + | No recent travel history available. | + + documented as of this encounter Plan of Treatment Not on filedocumented as of this encounter Visit Diagnoses Not on filedocumented in this encounter"
--- OUTSIDE RECORDS SUMMARY | ~2019-06-15 | XMS | Clinical Summary ---
Demographics + + + | Address | [address] | | | [place] [address] | + + + | Home Phone | | + + + | Preferred Language | Unknown | + + + | Marital Status | Single | + + + | Holiness Affiliation | NRP | + + + | Race | White | + + + | Ethnic Group | Not or | + + + Author + + + | Author | [facility] | + + + | Organization | [facility] | + + + | Address | [...] | + + +---------+ + | Marcia Riggins | ECON | Unknown | | + + +---------+ + Care Team Providers + +------+ + | Care Straight Edger Name | Role | Phone | + +------+ + | Harry Mario MD | PCP | | + +------+ + Source Comments MOLLY is fully live on both [facility] and [facility] Allergies No Known Allergies Medications + + + +---------+------+------+-------+ | Medication | Sig | Dispensed | Refills | Star | End | Statu | | | | | | t | Date | s | | | | | | Date | | | + + + +---------+------+------+-------+ | montelukast | Take 10 mg by mouth | | 0 | | | Activ | | (SINGULAIR) 10 mg | once daily in the | | | | | e | | Oral Tablet | evening. | | | | | | + + + +---------+------+------+-------+ | potassium chloride | Take 10 mEq by mouth | | 0 | | | Activ | | SR 10 mEq Oral | two times daily. | | | | | e | | Tablet Sustained | | | | | | | | Release | | | | | | | + + + +---------+------+------+-------+ | venlafaxine XR 75 | Take 1 Cap by mouth | 30 Cap | 0 | 07/0 | | Activ | | mg Oral Capsule, Ext | once daily. | | | 7/20 | | e | | Release 24 hr | | | | 11 | | | + + + +---------+------+------+-------+ | oxyCODONE, | Take 1 Tab by mouth | 30 Tab | 0 | 07/0 | | Activ | | immediate release, 5 | every six hours as | | | 7/20 | | e | | mg Oral Tablet | needed for moderate | | | 11 | | | | | pain. | | | | | | + + + +---------+------+------+-------+ | cetirizine 10 mg | Take 1 Tab by mouth | 30 Tab | 0 | 07/0 | | Activ | | Oral Tablet | once daily. | | | 7/20 | | e | | | | | | 11 | | | + + + +---------+------+------+-------+ | diphenhydrAMINE 25 | Take 1 Cap by mouth | 30 Cap | 0 | 07/0 | | Activ | | mg Oral Capsule | every six hours as | | | 7/20 | | e | | | needed. | | | 11 | | | + + + +---------+------+------+-------+ | | Take 2 tablets by | | 0 | | | Activ | | diphenoxylate-atropi | mouth every four | | | | | e | | ne (LOMOTIL) | hours. | | | | | | | 2.5-0.025 mg oral | | | | | | | | tablet | | | | | | | + + + +---------+------+------+-------+ | ALBUTEROL SULFATE | Inhale 108 mcg. | | 0 | | | Activ | | (VENTOLIN HFA INHL) | | | | | | e | + + + +---------+------+------+-------+ | sertraline 50 mg | Take 50 mg by mouth | | 0 | | | Activ | | oral tablet | once daily. | | | | | e | + + + +---------+------+------+-------+ | famotidine 20 mg | Take 20 mg by mouth | | 0 | | | Activ | | oral tablet | two times daily. | | | | | e | + + + +---------+------+------+-------+ | ondansetron 4 mg | Take 4 mg by mouth | | 0 | | | Activ | | oral tablet | every twelve hours | | | | | e | | | as needed. | | | | | | + + + +---------+------+------+-------+ | lisinopril 2.5 mg | Take 2.5 mg by mouth | | 0 | | | Activ | | oral tablet | once daily. | | | | | e | + + + +---------+------+------+-------+ | furosemide 20 mg | Take 40 mg by mouth | | 0 | | | Activ | | oral tablet | two times daily. | | | | | e | + + + +---------+------+------+-------+ | piroxicam 20 mg | Take 20 mg by mouth | | 0 | | | Activ | | oral capsule | once daily as | | | | | e | | | needed. | | | | | | + + + +---------+------+------+-------+ | morphine ER 15 mg | Take 15 mg by mouth | | 0 | | | Activ | | oral tablet extended | every twelve hours. | | | | | e | | release | | | | | | | + + + +---------+------+------+-------+ | modafinil 200 mg | Take 100 mg by mouth | | 0 | | | Activ | | oral tablet | once daily in the | | | | | e | | | morning. | | | | | | + + + +---------+------+------+-------+ Active Problems + + + | Problem | Noted Date | + + + | Morbid obesity | 10/22/2015 | + + + | Chronic cellulitis | 06/29/2010 | + + + | Lymphedema | 06/29/2010 | + + + Family History + + + + + | Medical History | Relation | Name | Comments | + + + + + | Heart Failure | | cardiomy | 3aunts/uncles | | | | opathy | | + + + + + | Heart Disease | | mother | valve replacements/ | + + + + + + + + + + | Relation | Name | Status | Comments | + + + + + | Father | | | car accident | + + + + + | | cardiomyo | | | | | makeda | | | + + + + + | | mother | | | + + + + + Social History + [...] recent travel history available. | + + Last Filed Vital Signs + + + + + | Vital Sign | Reading | Time Taken | Comments | + + + + + | Blood Pressure | 140/69 | 10/20/2015 2:05 PM | | | | | PST | | + + + + + | Pulse | 91 | 10/20/2015 2:05 PM | | | | | PST | | + + + + + | Temperature | 36.9 C (98.5 F) | 10/20/2015 2:05 PM | | | | | PST | | + + + + + | Respiratory Rate | 16 | 10/20/2015 2:05 PM | | | | | PST | | + + + + + | Oxygen Saturation | 92% | 10/20/2015 2:05 PM | | | | | PST | | + + + + + | Inhaled Oxygen | - | - | | | Concentration | | | | + + + + + | Weight | 223.8 kg (493 lb 6.4 | 10/20/2015 2:05 PM | | | | oz) | PST | | + + + + + | Height | 167.6 cm (5' 6") | 10/20/2015 2:05 PM | | | | | PST | | + + + + + | Body Mass Index | 79.64 | 10/20/2015 2:05 PM | | | | | PST | | + + + + + Plan of Treatment + + + + + | Health Maintenance | Due Date | Last Done | Comments | + + + + + | Pneumococcal | | | | | vaccination (1 of 1 | 2 | | | | - PPSV23) | | | | + + + + + | Influenza (Flu) | | | | | vaccination (#1) | 9 | | | + + + + + Results Not on filefrom Last 3 Months Insurance + +--------+ +--------+-------+---------+--------+ | Payer | Benefi | Subscriber | Effect | Phone | Address | Type | | | t Plan | ID | matilda | | | | | | / | | Dates | | | | | | Group | | | | | | + +--------+ +--------+-------+---------+--------+ | [employer] MEDICAID | [employer] ADMINISTRATOR | [id number] | | | | Medica | | | [place] | | 014-Pr | | | id | | | [place] | | esent | | | | + +--------+ +--------+-------+---------+--------+ + +--------+ +--------+ + + | Guarantor Name | Accoun | Relation to | Date | Phone | Billing Address | | | t Type | Patient | of | | | | | | | | | | + +--------+ +--------+ + + | Wilner Jenkins | Person | Self [birth year] | [address] | | | al/Fam | | 1965 | [phone] | [place] [address] | | | martin | | | 3 (Home) | | + +--------+ +--------+ + + Advance Directives + + + + + | Code Status | Date | Date | Comments | | | Activated | Inactivated | | + + + + + | Full Code | 02/17/2011 | 03/02/2011 | | | | 10:08 PM | 11:28 PM | | + + + + +
--- OUTSIDE RECORDS SUMMARY | ~2019-06-15 | XMS | Encounter Summary ---
Demographics + + + | Address | [address] | | | [place] [address] | + + + | Home Phone | | + + + | Preferred Language | Unknown | + + + | Marital Status | Single | + + + | Congregational Affiliation | NRP | + + + | Race | White | + + + | Ethnic Group | Not or | + + + Author + + + | Author | [facility] | + + + | Organization | [facility] | + + + | Address | [...] Team Providers + +------+ + | Care Senior Billing Consultant Name | Role | Phone | + +------+ + | Harry Mario MD | PCP | | + +------+ + Encounter Details +--------+ + + + + | Date | Type | Department | Care Team | Description | +--------+ + + + + | 09/17/ | Abstract | Digestive Health | Clinic, Surgery | | | 2015 | | Center at [facility] [address] | | | | | | [address] | | | | | | Mailcode: Center | | | | | | [facility] and | | | | | | [facility] [place] [address] | | | | | | [place], [place] | | | | | | [address] | | | | | | [phone] | | | +--------+ + + + [...]
--- OUTSIDE RECORDS SUMMARY | ~2019-06-15 | XMS | Encounter Summary ---
Demographics + + + | Address | [address] | | | [place] [address] | + + + | Home Phone | | + + + | Preferred Language | Unknown | + + + | Marital Status | Single | + + + | Restorationist Affiliation | NRP | + + + | Race | White | + + + | Ethnic Group | Not or | + + + Author + + + | Author | [facility] | + + + | Organization | [facility] | + + + | Address [...] Team Providers + +------+ + | Care Upscale Security Officer Name | Role | Phone | + +------+ + | Harry Mario MD | PCP | | + +------+ + Encounter Details +--------+ + + + + | Date | Type | Department | Care Team | Description | +--------+ + + + + | 04/03/ | Abstract | Digestive Health | Clinic, Surgery | | | 2013 | | Center at [facility] [address] | | | | | | [address] | | | | | | Mailcode: Center | | | | | | [facility] and | | | | | | [facility], [place] [address] | | | | | | [place], [place] | | | | | | [address] | | | | | | [phone] | | | +--------+ + + + + Social History + + + +--------+ + | Tobacco Use | Types | Packs/Day | Years | Date | | | | | Used | | + + + +--------+ + | Former Smoker | Cigarettes | 1 | 15 | Quit: 02/17/2007 | + + + +--------+ + + +---+---+---+ | Smokeless Tobacco: | | | | | Never Used | | | | + +---+---+---+ + + | Comments: quit 2007 | + + + + +---------+ + | Alcohol Use | Drinks/Week | oz/Week | Comments | + + +---------+ + | Yes | 1 Standard drinks | 0.8 | | | | or equivalent | [...]
--- OUTSIDE RECORDS SUMMARY | ~2019-06-15 | XMS | Encounter Summary ---
Demographics + + + | Address | [address] | | | [place] [address] | + + + | Home Phone | | + + + | Preferred Language | Unknown | + + + | Marital Status | Single | + + + | Yazdanism Affiliation | NRP | + + + | Race | White | + + + | Ethnic Group | Not or | + + + Author + + + | Author | [facility] | + + + | Organization | [facility] | + + + | Address [...] Providers + +------+ + | Care Senior Management Consultant Name | Role | Phone | + +------+ + | Harry Mario MD | PCP | | + +------+ + Reason for Referral Diagnostic Testing (Routine) +--------+--------+ + + + + | Status | Reason | Specialty | Diagnoses / | Referred By | Referred To | | | | | Procedures | Contact | Contact | +--------+--------+ + + + + | Closed | | Radiology | Procedures | [place], | [facility] | | | | | VASC LAB | MD Ange | Lab [address] | | | | | [address] | | [address] | | | | | [address] | | [address] | | | | | EXTREMITY | | [address] Mailcode: | | | | | LT | | [address] | | | | | | | Physician's | | | | | | | Pavilion | | | | | | | [place], [place] | | | | | | | [address] | | | | | | | Phone: | | | | | | | [phone] | | | | | | | Fax: | | | | | | | [phone] | +--------+--------+ + + + + Reason for Visit + + + | Reason | Comments | + + + | Cellulitis | | + + + AUTH/CERT +--------+--------+ + + + + | Status | Reason | Specialty | Diagnoses / | Referred By | Referred To | | | | | Procedures | Contact | Contact | +--------+--------+ + + + + | Closed | | Adult Acute | | | [facility] | | | | Care | | | Medicine | | | | | | | [address] | | | | | | | [address] | | | | | | | [address] [facility] | | | | | | | [facility] | | | | | | | [place], [place] | | | | | | | [address] | | | | | | | Phone: | | | | | | | [phone] | | | | | | | Fax: | | | | | | | [phone] | +--------+--------+ + + + + Encounter Details +--------+ + + + + | Date | Type | Department | Care Team | Description | +--------+ + + + + | 02/17/ | Hospital | [facility] 14B MEDICINE | [place], | | | 2010 - | Encounter | [address] | Sharla Her MD | | | | | [place] Mailcode: | [address] | | | 03/02/ | | [address] [facility] | [address] [place], | | | 2010 | | [place], [place] | [place] [address] | | | | | [address] | [phone] | | | | | [phone] | | | | | | | Mateo Chen MD | | | | | | [address] | | | | | | [address] [place], | | | | | | [place] [address] | | | | | | [phone] | | | | | | | | +--------+ + + + + Social History + + + +--------+ + | Tobacco Use | Types | Packs/Day | Years | Date | | | | | Used | | + + + +--------+ + | Former Smoker | Cigarettes | 1 | 19 | Quit: 02/17/2007 | + + + +--------+ + + +---+---+---+ | Smokeless Tobacco: | | | | | Never Used | | | | + +---+---+---+ + + +---------+ + | Alcohol Use | Drinks/Week | oz/Week | Comments | + + +---------+ + | No [...] + + documented as of this encounter Last Filed Vital Signs + + + + + | Vital Sign | Reading | Time Taken | Comments | + + + + + | Blood Pressure | 129/57 | 03/02/2011 8:15 AM | | | | | PDT | | + + + + + | Pulse | 103 | 03/02/2011 8:15 AM | | | | | PDT | | + + + + + | Temperature | 36.7 C (98.1 F) | 03/02/2011 8:15 AM | | | | | PDT | | + + + + + | Respiratory Rate | 16 | 03/02/2011 8:15 AM | | | | | PDT | | + + + + + | Oxygen Saturation | 91% | 03/02/2011 8:15 AM | no c/o SOB | | | | PDT | | + + + + + | Inhaled Oxygen | - | - | | | Concentration | | | | + + + + + | Weight | 202 kg (445 lb 5.3 | 02/28/2011 2:17 PM | | | | oz) | PDT | | + + + + + | Height | 172.7 cm (5' 8") | 02/22/2011 12:47 PM | | | | | PDT | | + + + + + | Body Mass Index | 67.71 | 02/22/2011 12:47 PM | | | | | PDT | | + + + + + documented in this encounter Discharge Summaries Stephanie Lou MD - 03/02/2011 1:02 PM PDT INPATIENT PHYSICIAN DISCHARGE SUMMARY Attending Physician: Mateo Chen MD PCP: Harry Mario MD Admission Date: 02/17/2011 Discharge Date: 03/02/2011 Diagnoses Principal Final Diagnosis: 1. cellulitis Additional Diagnoses 2. morbid obesity 3. Deconditioning 4. Lymphedema 5. DM2 Reason For Admission: 45 year old man with a history of morbid obesity who was transferred from [facility] for chronic lower extremity swelling /cellultis, swelling and erythema of the scrotum as well as leukocytosis and tachycardia. 5 weeks ago the patient noted that he started having i ncreasing swelling, NS, throbbing pain in leg and knees, decreased motility and weakness in legs and knees, fever, chills. He reports retracted penis for several year but over the past month was having difficulty urinating. On 02/11 the patient fell at [facility] and then fell at home. At [facility] he was treated with levaquin (started 02/13), ceftriaxone(02/14), and v ancomycin (02/14). He was having diffculty urinating due to retracted penis and urologist per formed a cystoscopy to place a irvin on 02/13. A urine culture returned growning greater than 50,000 CFU of non lactose pyrotechnician ( serratia marcenscens) susceptible to cirpo and 7000 CFU yeast for which the patient got diflucan. Hospital Course: 1. LLE Cellulitis Started on Vanc and cipro 02/18 on admission. Given unilateral swelling LLE doppler were sury cked and negative. Antibiotics were empirically changed to Unasyn 02/22. Patient continued to spike fevers through 02/26 however this was felt to be due to difficult to treat cellulitis s econdary to lymphedema, body habitus, rather than failure of antibiotics or new infection. T his was supported by receding erythema around the LE. Leg elevation was strongly encouraged for assistance with healing. Patient no longer spiking fevers and WBC count had normalized. On day of discharge patient was on day 13 of two week course of antibiotics. Unasyn changed to PO augmentin. Patient to receive continued dressing changes at subacute care facility. Pa tient should continue to keep leg elevated as much as possible when at rest. - continue Augmentin 500-125, final day of abx (03/03) - continue daily dressing changes - continue lower extremity elevation when at rest - continue PRN oxycodone for pain 2. Buried Phallus/Scrotal edema- origninally had irvin placed at OSH ([facility]) by urology and required cystoscopy for placement. Seen by urology here who recommended outpa tient follow-up and continued irvin. Edema and erythema have significantly improved with inc rease of home lasix dose from 10mg BID to 20mg BID.Possibility of removal of irvin was re-vi sited on day prior to discharge and patient very apprehensive about removal, worried about h ow he will urinate, worried scrotal irritation/infection will return. Given still healing fr om original problems decision made to hold off on removal of irvin, and arrange follow up wi urology as outpatient with urologist who placed irvin. - continue lasix 20mg BID - follow up with outside urologist, maintain irvin until that time 3. Diabetes Mellitus - recently diagnosed with HbA1c of 14. Pt was on 15 units of NPH + reg ular SSI at outside hospital, given fact that his insulin requirement was low and his BS wer e well controlled, transitioned to glipizide 10 mg. Blood sugars have been fairly well contr olled on this regimen. - continue glipizide 10mg daily - consider addition of metformin as outpatient as may promote weight loss 4. Morbid obesity/deconditioning BMI > 70. Seen by PT in house and felt that he would benefit from SNF rehab to improve stre ngth. At baseline patient with decent mobility, lives independently, able to care for himsel f. Combination of infection and prolonged hospitalization on top of his baseline obesity lik prudence resulting in his current deconditioning. Of note outsole caser checked with Insurance com [employer] and they will not cover gastric bypass. - Depending on progress at rehab, when goes home may need maia front wheeled walker Current Discharge Medication List START taking these medications amoxicillin-clavulanate 500-125 mg Oral Tablet Take 1 Tab by mouth every eight hours. Qty: 4 Tab Refills: 0 glipiZIDE 10 mg Oral Tablet Take 1 Tab by mouth once daily with breakfast. Qty: 30 Tab Refills: 0 menthol-zinc oxide 0.2-20 % Topical Paste Apply to affected area. Apply to skin areas as needed Indications: Skin Irritation Qty: 4 g Refills: 0 oxyCODONE, immediate release, 5 mg Oral Tablet Take 1 Tab by mouth every six hours as needed for moderate pain. Qty: 30 Tab Refills: 0 CONTINUE these medications which have CHANGED or have new prescriptions cetirizine 10 mg Oral Tablet Take 1 Tab by mouth once daily. Qty: 30 Tab Refills: 0 diclofenac EC 75 mg Oral Tablet, Delayed Release (E.C.) Take 1 Tab by mouth once daily. Qty: 30 Tab Refills: 0 diphenhydrAMINE 25 mg Oral Capsule Take 1 Cap by mouth every six hours as needed. Qty: 30 Cap Refills: 0 furosemide 20 mg Oral Tablet Take 1 Tab by mouth two times daily. Qty: 30 Tab Refills: 0 mirtazapine 15 mg Oral Tablet Take 1 Tab by mouth once daily in the evening. Qty: 30 Tab Refills: 0 venlafaxine XR 75 mg Oral Capsule, Ext Release 24 hr Take 1 Cap by mouth once daily. Qty: 30 Cap Refills: 0 CONTINUE these medications which have NOT CHANGED montelukast (SINGULAIR) 10 mg Oral Tablet Take 10 mg by mouth once daily in the evening. potassium chloride SR 10 mEq Oral Tablet Sustained Release Take 8 mEq by mouth once daily. propoxyphene napsylate-acetaminophen 100-650 mg Oral Tablet Take 1 Tab by mouth every four hours as needed. Not to exceed 6 tablets in a 24 hour perio d. Vital Signs Per policy PPD for Facility Administer PPD upon arrival Weigh Patient Daily Weigh yourself daily and keep a record of your weight. Capillary Blood Glucose With meals and at bedtime. Write down blood sugar until patient follows up with Dr. Mario Wound Care Daily dressing changes to Left lower extremity Diet Diabetic (Consistent Carbohydrate) Diabetic diet (Consistent Carbohydrate)- You should be careful to control your daily inta ke of carbohydrates and ensure that you are consuming the same amount of carbohydrates each day. Your health care provider will work with you to determine the appropriate amount of ca rbohydrates your body needs. Fat restriction: Fat restricted Diet Bariatric Bariatric diet- You should eat small portions of food that are ground or pureed. Your food choices should be low in fat and you should avoid concentrated sweets. Activity Discharge to [facility] -Weight-bearing as tolerated, pt will need PT/OT during stay. House MD to follow Discharge POLST completed No Destination: Destination: [facility] Condition on Discharge Good Discharge Follow Up Provider and Clinic: Dr. Harry Mario March 17, 9am Also, need outpatient urology follow up regarding retracted penis/scrotal edema/indwelling irvin- please call Dr. Flor Hatch for follow up appointment [phone] Outstanding labs/studies: None Discharging Physician: STEPHANIE LOU MD Attending Physician: Mateo Chen MD documented in this en counter Discharge Instructions AttachmentsThe following attachments cannot be sent through Care Everywhere.[facility]: Checking Your Blood Sugar and Your Blood Sugar Goalsdocumented in this encounter Medications at Time of Discharge + + + +---------+ + + | Medication | Sig | Dispensed | Refills | Start | End Date | | | | | | Date | | + + + +---------+ + + | cetirizine 10 mg | Take 1 Tab by mouth | 30 Tab | 0 | 03/02/20 | | | Oral Tablet | once daily. | | | 11 | | + + + +---------+ + + | diphenhydrAMINE 25 | Take 1 Cap by mouth | 30 Cap | 0 | 03/02/20 | | | mg Oral Capsule | every six hours as | | | 11 | | | | needed. | | | | | + + + +---------+ + + | montelukast | Take 10 mg by mouth | | 0 | | | | (SINGULAIR) 10 mg | once daily in the | | | | | | Oral Tablet | evening. | | | | | + + + +---------+ + + | oxyCODONE, | Take 1 Tab by mouth | 30 Tab | 0 | 03/02/20 | | | immediate release, 5 | every six hours as | | | 11 | | | mg Oral Tablet | needed for moderate | | | | | | | pain. | | | | | + + + +---------+ + + | potassium chloride | Take 10 mEq by mouth | | 0 | | | | SR 10 mEq Oral | two times daily. | | | | | | Tablet Sustained | | | | | | | Release | | | | | | + + + +---------+ + + | venlafaxine XR 75 | Take 1 Cap by mouth | 30 Cap | 0 | 03/02/20 | | | mg Oral Capsule, Ext | once daily. | | | 11 | | | Release 24 hr | | | | | | + + + +---------+ + + documented as of this encounter Progress Notes Mateo Chen MD - 03/02/2011 12:35 PM PDTPatient was seen/examined by me, chart jennifer obnilla, case discussed with team. I agree with the DC plans as documented in the discharge summa ry with no significant amendments. Assessment and Plan: 1. Cellulitis 2. DM2 3. Morbid obesity 4. Deconditioning Mateo Chen MD [employer], Internal Medicine Pager [phone] [facility] DEPARTMENT: Hosp- [id number] Place of Service: [facility] Date of Service: 03/02/2011 CSN: [id number] Modifiers:GC Resident Involved: Yes Suggested CPT: 35574 Discharge Management < 30 minute Stephanie Shaffer MD - 0 03/01/2011 5:37 PM PDT GM1 INPATIENT PROGRESS NOTE Hospital Day: 12 Author: STEPHANIE LOU MD Attending Physician: Mateo Chen MD 24hr Events: - patient apprehensive about removing irvin - still awaiting approval from insurance for placement at [facility] S: Feels about the same, leg very itchy O: Last Vitals: BP 162/73 | Pulse 96 | Temp 36.6 C (97.8 F) | RR 16 | Ht 1.727 m (5' 8") | Wt 202 kg (445 lb 5.3 oz) | SpO2 93% | BMI 67.71 kg/(m^2) O2 Delivery Device: None (room ai r) (03/01/11 1551) 24 Hour Vital Min/Max: Systolic (24hrs), Min:120 mmHg, Max:162 mmHgDiastolic (24hrs), Min:40 mmHg, Max:73 mmHgPuls e Av.2 Min: 96 Max: 107 Temp Av.9 C (98.5 F) Min: 36.4 C (97.6 F) Max: 37.5 C (99.5 F) Resp Av.2 Min: 16 Max: 18 SpO2 Av % Min: 92 % Max: 95 % Intake/Output Summary (Last 24 hours) at 03/01/11 1738 Last data filed at 03/01/11 1500 Gross per 24 hour Intake 1306 ml Output 1850 ml Net -544 ml General: morbidly obese, in no distress, pleasan HEENT: PERRLA, EOMI; clear OP Resp: CTAB CV: Normal S1S2, regular rhythm, no murmur Abd: NABS, soft, NT Ext: Left leg is wrapped, receding erythema seen beneath bandage, some mild erythema of L thigh as well : buried phallus acetaminophen (aka TYLENOL) tablet 650 mg, 650 mg, Oral, Q4H PRN albuterol (aka PROVENTIL, VENTOLIN) 90 mcg/Actuation inhaler 2 Puff, 2 Puff, Inhalation, Q4 H PRN ampicillin-sulbactam (aka UNASYN) IV (minibag+) 3 g, 3 g, Intravenous, Q6H dextrose injection 25 mL, 25 mL, Intravenous, PRN diphenoxylate-atropine (aka LOMOTIL) 2.5-0.025 mg 1 Tab, 1 Tab, Oral, QID PRN furosemide (aka LASIX) tablet 20 mg, 20 mg, Oral, BID glipiZIDE (aka GLUCOTROL) tablet 10 mg, 10 mg, Oral, QAM MEAL glucagon (aka GLUCAGEN) injection 1 mg, 1 mg, Intramuscular, PRN glucose chewable tablet 16 g, 16 g, Oral, Q15MIN PRN heparin injection 5,000 Units, 5,000 Units, Subcutaneous, Q8H loratadine (aka CLARITIN) tablet 10 mg, 10 mg, Oral, DAILY menthol-zinc oxide (aka CALAZIME) topical paste, , Topical, PRN mirtazapine (aka REMERON) tablet 15 mg, 15 mg, Oral, QPM montelukast (aka SINGULAIR) tablet 10 mg, 10 mg, Oral, QPM oxyCODONE immediate release (aka ROXICODONE) tablet 5-10 mg, 5-10 mg, Oral, Q4H PRN polyethylene glycol (aka MIRALAX) powder 17 g, 17 g, Feeding tube, DAILY PRN senna-docusate (aka SENOKOT S) 8.6-50 mg 1 Tab, 1 Tab, Oral, BID PRN tamsulosin (aka FLOMAX) capsule 0.4 mg, 0.4 mg, Oral, HS venlafaxine XR (aka EFFEXOR XR) capsule 75 mg, 75 mg, Oral, DAILY DATA: -Labs Chemistries: Last 72 Hours (or 3 results): Recent Labs Basename 02/28/11 0900 NA 134 K 4.3 CL 95* BICARB 30* BUN 7 CR 0.82 CA 8.3* MG -- PO4 -- CBC with diff last 72 hours (or 3 results) Recent Labs Basename 02/28/11 0900 WBC 9.3 HB 9.3* HCT 28.4* PLT 653* NEUTROPERC -- BANDPCT -- LYMPHPERC -- MONOPERC -- BASOPERC -- EOSPERC -- ASSESSMENT and PLAN: Wilner Gilbert is a 45 y.o. male with DM2, morbid obesity, lymphedema admitted with cellul itis of LLE, awaiting placement in facility for rehab for physical therapy. 1. LLE cellulitis - leukocytosis resolved, afebrile, redness receding. Likely will be slow to completely resolve due to his lymphedema. Started on Vanc and cipro 02/18, empirically tra nsitioned to Unasyn 02/22. - continue Unasyn 3G q6h - day 12 of 14 IV antibiotics - elevation will be essential for healing 2. Buried Phallus/Scrotal edema- origninally had irvin placed at OSH ([facility]) by urology and required cystoscopy. Seen by urology here who originally recommended outpatie nt follow-up and continued irvin. Edema and erythema have significantly improved. Re-seen by urology 02/28 who said it would be ok to remove. Today patient very apprehensive about remova l, worried about how he will urinate, worried scrotal irritation/infection will return. - hold off on removal of irvin, arrange follow up with urology as outpatient. - continue lasix 20mg BID 3. DM - recently diagnosed with HbA1c of 14. Pt was on 15 units of NPH + regular SSI, given fact that his insulin requirement was low and his BS were well controlled, transitioned to glipizide 10 mg. Blood sugars have been well controlled on this regimen - continue glipizide 10mg daily 4. Morbid obesity - BMI > 70. Insurance will not cover gastric bypass. Will continue to wor k with PT. Fluid Balance/IVF: Even Nutrition: consistent carb diet Prophylaxis: DVT: heparin sq GI: na Bowel Regimen: Senna-doc Dispo: Trying to get approval for placement at [facility], CM has also referral to [facility] ed today Code Status: FULL My Assessment and Plan were discussed with my Attending, Dr. Chen who agrees with the a shiloh. Stephanie Lou MD - PGY2 Internal Medicine Pager [phone] Mateo Perrin MD - 0 03/01/2011 4:47 PM PDTPatient seen/examined by me, chart reviewed, case discussed with team. See resident note for full details of HPI- ROS as noted, otherwise negative. I spent > 25 minutes in patient care with > 50% in counseling/coordination of care. Assessment and Plan: 1. Cellulitis 2. Morbid obesity 3. Deconditioning 4. DM2 Mateo Chen MD [facility], Internal Medicine Pager [phone] [facility] DEPARTMENT: [facility] [phone] Place of Service: Date of Service: 03/01/2011 CSN: [id number] Modifiers:GC Resident Involved: Yes Suggested CPT: 51188 Subsequent Visit Exp Prob Foc/Mod Complexity 25 min Mateo Perrin MD - 02/28/2011 3:05 PM PDTI personally interviewed the patient, performed the mary elements of the physical examination, and personally formulated the assessment and plan with the residen t. See resident note for details. ROS as noted, otherwise negative. Assessment and Plan: 1. Cellulitis 2. DM2 3. Morbid obesity 4. Deconditioning Mateo Chen MD [facility], Internal Medicine Pager [phone] [facility] DEPARTMENT: [facility] [phone] Place of Service: Date of Service: 02/28/2011 CSN: [id number] Modifiers:GC Resident Involved: Yes Suggested CPT: 39687 Subsequent Visit Exp Prob Foc/Mod Complexity 25 min Ange Vega MD - 02/28/2011 7:58 AM PDT R1 Internal Medicine Progress Note Wilner Gilbert [phone] Attending: Mateo Chen MD Subjective:feels fine this am. Events: no overnight events Tmax 38C at 1600, currently afebrile -awaiting trapeze - Current Inpatient Medications Medication Dose Route Frequency acetaminophen (aka TYLENOL) tablet 650 mg 650 mg Oral Q4H PRN albuterol (aka PROVENTIL, VENTOLIN) 90 mcg/Actuation inhaler 2 Puff 2 Puff Inhalation Q4H PRN ampicillin-sulbactam (aka UNASYN) IV (minibag+) 3 g 3 g Intravenous Q6H dextrose injection 25 mL 25 mL Intravenous PRN diphenoxylate-atropine (aka LOMOTIL) 2.5-0.025 mg 1 Tab 1 Tab Oral QID PRN furosemide (aka LASIX) tablet 20 mg 20 mg Oral BID glipiZIDE (aka GLUCOTROL) tablet 10 mg 10 mg Oral QAM MEAL glucagon (aka GLUCAGEN) injection 1 mg 1 mg Intramuscular PRN glucose chewable tablet 16 g 16 g Oral Q15MIN PRN heparin injection 5,000 Units 5,000 Units Subcutaneous Q8H loratadine (aka CLARITIN) tablet 10 mg 10 mg Oral DAILY menthol-zinc oxide (aka CALAZIME) topical paste Topical PRN mirtazapine (aka REMERON) tablet 15 mg 15 mg Oral QPM montelukast (aka SINGULAIR) tablet 10 mg 10 mg Oral QPM oxyCODONE immediate release (aka ROXICODONE) tablet 5-10 mg 5-10 mg Oral Q4H PRN polyethylene glycol (aka MIRALAX) powder 17 g 17 g Feeding tube DAILY PRN senna-docusate (aka SENOKOT S) 8.6-50 mg 1 Tab 1 Tab Oral BID PRN venlafaxine XR (aka EFFEXOR XR) capsule 75 mg 75 mg Oral DAILY Last Vitals: BP 142/61 | Pulse 94 | Temp 37 C (98.6 F) | RR 20 | Ht 1.727 m (5' 8") | W t 206 kg (454 lb 2.4 oz) | SpO2 95% | BMI 69.05 kg/(m^2) 24 Hour Vital Min/Max: Systolic (24hrs), Min:132 mmHg, Max:156 mmHg Diastolic (24hrs), Min:47 mmHg, Max:77 mmHg Pulse Av.5 Min: 86 Max: 107 Temp Av.2 C (98.9 F) Min: 36.2 C (97.1 F) Max: 38 C (100.4 F) Resp Av.7 Min: 18 Max: 20 SpO2 Av.3 % Min: 92 % Max: 96 % Intake/Output Summary (Last 24 hours) at 02/28/11 0752 Last data filed at 02/28/11 0740 Gross per 24 hour Intake 1380 ml Output 2775 ml Net -1395 ml CBC with diff last 72 hours (or 3 results) Recent Labs Basename 02/26/11 0838 02/25/11 0910 WBC 8.9 9.7 HB 9.2* 9.0* HCT 27.9* 27.6* PLT 507* 556* NEUTROPERC -- -- BANDPCT -- -- LYMPHPERC -- -- MONOPERC -- -- BASOPERC -- -- EOSPERC -- -- Chemistries: Last 72 Hours (or 3 results): Recent Labs Basename 02/27/11 2101 02/27/11 1754 02/27/11 1212 02/26/11 0838 02/25/11 0910 NA -- -- -- 137 134 K -- -- -- 4.2 4.2 CL -- -- -- 98 94* BICARB -- -- -- 30* 35* BUN -- -- -- 7 8 CR -- -- -- 0.74 0.86 GLU 144* 110* 89 -- -- CA -- -- -- 8.2* 7.9* MG -- -- -- -- -- PO4 -- -- -- -- -- Exam: General: NAD HEENT: Normal, sclerae anicteric Neck: supple Lungs:Clear to auscultation Heart:Normal S1 and S2. Regular rhythm. Abdomen: normal bowel sounds :scrotal edema much improved from last week, slightly tender. Irvin in place, unable to v isualize phallus Extremities: lymphedema bilaterally, left leg currently wrapped. Decreased tenderness since admission Cultures:all negative Assessment: Wilner Gilbert is a 45 y.o. male with a history of recently diagnosed DM2, lymphedema, obe sity who was transferred from outside hospital for management of cellulitis. Plan: 1) LLE cellulitis- WBC has trended down, On exam, area has remarkably improved with decreas e in erythema and tenderness. On day 6 of Unasyn with appropriate response. Urine, blood and C. diff cultures have been negative, Dopplers negative. Pt was febrile last night, without leukocytosis or new symptoms. . - Continue Unasyn. Continuing IV Unasyn vs PO Augmentin therapy may depend on SNF placement -if they require IV in order to have him placed there for rehab. -elevate legs when possible 2)Morbid obesity- BMI >70, considered gastric bypass in the past but was told that his insu jluis doesn't cover it. Ordered trapeze for upper body strengthening. 3) Scrotum Swelling- Originally seen at outside hospital, swelling and skin break down was severe. Required cystoscopy for insertion of irvin. Also, has history of "retracted penis" c ausing skin irritation when urinating. Currently irvin in place and edema and erythema have subsided. -Will touch base with urology again regarding removal of irvin. Worried because it would be hard for him to get to outpatient clinic and be seen. If possible, would prefer to remove f oley given fact that edema has resolved and it would be hard for him to go to outpatient [place] ointments. 4) DM- recently diagnosed with HbA1c of 14. Pt was on 15 units of NPH + regular SSI, given fact that his insulin requirement was low and his BS were well controlled, transitioned to g lipizdie 10 mg this morning. If trial unsuccessful, with discharge on insulin. CBGs ranged 9 0-140s yesterday. Will watch today's levels, currently doing well on glipizide. - Glipizide 10 mg, continue to monitor CBG Thrombosis ppx: Heparin SQ GI ppx- Not applicable Diet: consistent carbohydrate Dispo- Per outsole caser- [facility] would not be able to meet his acuity at this time as they hav e too may high acuity now. Possibly going to [facility] if he meets criteria.pending. Code: Full This patient was staffed with Dr. Mateo hCen MD who agrees with my assessment and plan . ANGE BANG MD Mateo Perrin MD - 02/27/2011 1:05 PM [facility] personally interviewed the patient, performed the mary elements o f the physical examination, and personally formulated the assessment and plan with the resid ent. See resident note for details. ROS as noted, otherwise negative. Assessment and Plan: 1. Cellulitis 2. Urinary incontinence 3. Depression 4. Deconditioning Mateo Chen MD [facility], Internal Medicine Pager [phone] [facility] DEPARTMENT: Hosp- [phone] Place of Service: - Date of Service: 02/27/2011 CSN: [id number] Modifiers:GC Resident Involved: Yes Suggested CPT: 05510 Subsequent Visit Exp Prob Foc/Mod Complexity 25 min Ange Vega MD - 02/27/2011 7:41 AM PDT R1 Internal Medicine Progress Note Wilner Gilbert [id number] Attending: Mateo Chen MD Subjective: less diaphoretic last night, he thinks its due to vicodin-> d/c vicodin and giv en oxycodone his primary pain med Events: no overnight events, remained afebrile -starting glipizide 10 mg this am. Will monitor CBGS Current Inpatient Medications Medication Dose Route Frequency acetaminophen (aka TYLENOL) tablet 650 mg 650 mg Oral Q4H PRN albuterol (aka PROVENTIL, VENTOLIN) 90 mcg/Actuation inhaler 2 Puff 2 Puff Inhalation Q4H PRN ampicillin-sulbactam (aka UNASYN) IV (minibag+) 3 g 3 g Intravenous Q6H dextrose injection 25 mL 25 mL Intravenous PRN diphenoxylate-atropine (aka LOMOTIL) 2.5-0.025 mg 1 Tab 1 Tab Oral QID PRN furosemide (aka LASIX) tablet 20 mg 20 mg Oral BID glipiZIDE (aka GLUCOTROL) tablet 10 mg 10 mg Oral QAM MEAL glucagon (aka GLUCAGEN) injection 1 mg 1 mg Intramuscular PRN glucose chewable tablet 16 g 16 g Oral Q15MIN PRN heparin injection 5,000 Units 5,000 Units Subcutaneous Q8H HYDROcodone-acetaminophen (aka VICODIN) 5-500 mg 1-2 Tab 1-2 Tab Oral Q4H PRN insulin regular (aka HUMULIN R) injection 1-16 Units 1-16 Units Subcutaneous PC and HS loratadine (aka CLARITIN) tablet 10 mg 10 mg Oral DAILY menthol-zinc oxide (aka CALAZIME) topical paste Topical PRN mirtazapine (aka REMERON) tablet 15 mg 15 mg Oral QPM montelukast (aka SINGULAIR) tablet 10 mg 10 mg Oral QPM oxyCODONE immediate release (aka ROXICODONE) tablet 5-10 mg 5-10 mg Oral Q4H PRN polyethylene glycol (aka MIRALAX) powder 17 g 17 g Feeding tube DAILY PRN senna-docusate (aka SENOKOT S) 8.6-50 mg 1 Tab 1 Tab Oral BID PRN venlafaxine XR (aka EFFEXOR XR) capsule 75 mg 75 mg Oral DAILY Last Vitals: BP 150/70 | Pulse 91 | Temp 36 C (96.8 F) | RR 16 | Ht 1.727 m (5' 8") | W t 206 kg (454 lb 2.4 oz) | SpO2 94% | BMI 69.05 kg/(m^2) 24 Hour Vital Min/Max: Systolic (24hrs), Min:129 mmHg, Max:150 mmHg Diastolic (24hrs), Min:40 mmHg, Max:70 mmHg Pulse Av Min: 91 Max: 106 Temp Av.6 C (97.9 F) Min: 36 C (96.8 F) Max: 37.3 C (99.1 F) Resp Av.5 Min: 16 Max: 18 SpO2 Av.3 % Min: 94 % Max: 97 % Intake/Output Summary (Last 24 hours) at 02/27/11 0741 Last data filed at 02/27/11 0720 Gross per 24 hour Intake 2145 ml Output 2300 ml Net -155 ml CBC with diff last 72 hours (or 3 results) Recent Labs Basename 02/26/11 0838 02/25/11 0910 02/24/11 0914 WBC 8.9 9.7 12.8* HB 9.2* 9.0* 10.3* HCT 27.9* 27.6* 31.7* PLT 507* 556* 588* NEUTROPERC -- -- -- BANDPCT -- -- -- LYMPHPERC -- -- -- MONOPERC -- -- -- BASOPERC -- -- -- EOSPERC -- -- -- Chemistries: Last 72 Hours (or 3 results): Recent Labs Basename 02/27/11 0719 02/26/11 2045 02/26/11 1823 02/26/11 0838 02/25/11 0910 02/24/11 1212 02/24/11 091 4 NA -- -- -- 137 134 -- 134 K -- -- -- 4.2 4.2 4.1 -- CL -- -- -- 98 94* -- 95* BICARB -- -- -- 30* 35* -- 27 BUN -- -- -- 7 8 -- 9 CR -- -- -- 0.74 0.86 -- 0.88 GLU 107* 158* 173* -- -- -- -- CA -- -- -- 8.2* 7.9* -- 8.2* MG -- -- -- -- -- -- -- PO4 -- -- -- -- -- -- -- Exam: General: NAD HEENT: Normal, sclerae anicteric Neck: supple Lungs:Clear to auscultation Heart:Normal S1 and S2. Regular rhythm. Abdomen: obese, soft Extremities: lymphedema bilaterally, left leg is currently wrapped with misty, will need to s ee it during dressing change. Cultures:all negative Assessment: Wilner Gilbert is a 45 y.o. male with a history of recently diagnosed DM2, lymphedema, obe sity who was transferred from outside hospital for management of cellulitis. Plan: 1) LLE cellulitis- WBC has trended down, On exam, area has remarkably improved with decrea se in erythema and tenderness. On day 6 of Unasyn with appropriate response. Urine, blood an d C. diff cultures have been negative, Dopplers negative. Pt now is afebrile without leukocy tosis. . - Continue Unasyn. Continuing IV Unasyn vs PO Augmentin therapy may depend on SNF placement -if they require IV in order to have him placed there for rehab. -elevate legs when possible 2)Morbid obesity- BMI >70, considered gastric bypass in the past but was told that his insu jluis doesn't cover it. 3) Scrotum Swelling- Originally seen at outside hospital, swelling and skin break down was severe. Required cystoscopy for insertion of irvin. Also, has history of "retracted penis" c ausing skin irritation when urinating. Needs outpatient f/up with Dr. Flor Hatch. -Will touch base with urology again regarding removal of irvin. Worried because it would be hard for him to get to outpatient clinic and be seen. If possible, would prefer to remove f oley. 4) DM- recently diagnosed with HbA1c of 14. Pt was on 15 units of NPH + regular SSI, given fact that his insulin requirement was low and his BS were well controlled, transitioned to g lipizdie 10 mg this morning. If trial unsuccessful, with discharge on insulin - Glipizide 10 mg, continue to monitor CBG Thrombosis ppx: Heparin SQ GI ppx- Not applicable Diet: consistent carbohydrate Dispo- will need to follow up with case manage, PT recommended SNF while patient recovers a nd rehabilitates vs home with bariatric walker. Code: Full This patient was staffed with Dr. Mateo Chen MD who agrees with my assessment and plan . ANGE BANG MD Mateo Perrin MD - 02/26/2011 3:30 PM [facility] personally interviewed the patient, performed the mary elements o f the physical examination, and personally formulated the assessment and plan with the resid ent. See resident note for details. ROS as noted, otherwise negative. Willing to try oral D M meds and consider DC home if more ambulatory. Assessment and Plan: 1. Cellulitis 2. DM2 3. Obesity 4. Deconditioning Mateo Chen MD [facility], Internal Medicine Pager [phone] [facility] DEPARTMENT: [facility]- [phone] Place of Service: [facility] Date of Service: 02/26/2011 CSN: [id number] Modifiers:GC Resident Involved: Yes Suggested CPT: 75871 Subsequent Visit Exp Prob Foc/Mod Complexity 25 min Ange Vega MD - 02/26/2011 3:09 PM PDT R1 Internal Medicine Progress Note Wilner King Gilbert [id number] Attending: Mateo Chen MD Subjective: no complaints Events: Tmax 100.4 - Current Inpatient Medications Medication Dose Route Frequency acetaminophen (aka TYLENOL) tablet 650 mg 650 mg Oral Q4H PRN albuterol (aka PROVENTIL, VENTOLIN) 90 mcg/Actuation inhaler 2 Puff 2 Puff Inhalation Q4H PRN ampicillin-sulbactam (aka UNASYN) IV (minibag+) 3 g 3 g Intravenous Q6H dextrose injection 25 mL 25 mL Intravenous PRN diphenoxylate-atropine (aka LOMOTIL) 2.5-0.025 mg 1 Tab 1 Tab Oral QID PRN furosemide (aka LASIX) tablet 20 mg 20 mg Oral BID glipiZIDE (aka GLUCOTROL) tablet 10 mg 10 mg Oral QAM MEAL glucagon (aka GLUCAGEN) injection 1 mg 1 mg Intramuscular PRN glucose chewable tablet 16 g 16 g Oral Q15MIN PRN heparin injection 5,000 Units 5,000 Units Subcutaneous Q8H HYDROcodone-acetaminophen (aka VICODIN) 5-500 mg 1-2 Tab 1-2 Tab Oral Q4H PRN insulin NPH (aka HUMULIN N) injection 15 Units 15 Units Subcutaneous HS insulin regular (aka HUMULIN R) injection 1-16 Units 1-16 Units Subcutaneous PC and HS loratadine (aka CLARITIN) tablet 10 mg 10 mg Oral DAILY menthol-zinc oxide (aka CALAZIME) topical paste Topical PRN mirtazapine (aka REMERON) tablet 15 mg 15 mg Oral QPM montelukast (aka SINGULAIR) tablet 10 mg 10 mg Oral QPM oxyCODONE immediate release (aka ROXICODONE) tablet 5-10 mg 5-10 mg Oral Q4H PRN polyethylene glycol (aka MIRALAX) powder 17 g 17 g Feeding tube DAILY PRN senna-docusate (aka SENOKOT S) 8.6-50 mg 1 Tab 1 Tab Oral BID PRN venlafaxine XR (aka EFFEXOR XR) capsule 75 mg 75 mg Oral DAILY Last Vitals: BP 136/62 | Pulse 94 | Temp 36.5 C (97.7 F) | RR 16 | Ht 1.727 m (5' 8") | Wt 213 kg (469 lb 9.3 oz) | SpO2 96% | BMI 71.40 kg/(m^2) 24 Hour Vital Min/Max: Systolic (24hrs), Min:116 mmHg, Max:136 mmHg Diastolic (24hrs), Min:42 mmHg, Max:62 mmHg Pulse Av.3 Min: 94 Max: 106 Temp Av.1 C (98.8 F) Min: 36.5 C (97.7 F) Max: 38 C (100.4 F) Resp Av.5 Min: 16 Max: 18 SpO2 Av.5 % Min: 94 % Max: 96 % Intake/Output Summary (Last 24 hours) at 02/26/11 1509 Last data filed at 02/26/11 1400 Gross per 24 hour Intake 2200 ml Output 2650 ml Net -450 ml CBC with diff last 72 hours (or 3 results) Recent Labs Basename 02/26/11 0838 02/25/11 0910 02/24/11 0914 WBC 8.9 9.7 12.8* HB 9.2* 9.0* 10.3* HCT 27.9* 27.6* 31.7* PLT 507* 556* 588* NEUTROPERC -- -- -- BANDPCT -- -- -- LYMPHPERC -- -- -- MONOPERC -- -- -- BASOPERC -- -- -- EOSPERC -- -- -- Chemistries: Last 72 Hours (or 3 results): Recent Labs Basename 02/26/11 1321 02/26/11 0838 02/26/11 0822 02/25/11 0910 02/24/11 1212 02/24/11 0914 NA -- 137 -- 134 -- 134 K -- 4.2 -- 4.2 4.1 -- CL -- 98 -- 94* -- 95* BICARB -- 30* -- 35* -- 27 BUN -- 7 -- 8 -- 9 CR -- 0.74 -- 0.86 -- 0.88 GLU 147* 117* 131* -- -- -- CA -- 8.2* -- 7.9* -- 8.2* MG -- -- -- -- -- -- PO4 -- -- -- -- -- -- Exam: General: NAD HEENT: Normal, sclerae anicteric Neck: supple Lungs:Clear to auscultation Heart:Normal S1 and S2. Regular rhythm. Abdomen:obese, soft, tender :Deferred Extremities: 2+ pedal pulses, no cyanosis, edema or clubbing Skin: lymphedema present in bilateral lower extremities. Left lower dressing currently cove ring area of cellulitis. Yesterday the area was improved. Cultures:all negative Assessment: Wilner Gilbert is a 45 y.o. male with a history of recently diagnosed DM2, lymphedema, obe sity who was transferred from outside hospital for management of cellulitis. Plan: 1) LLE cellulitis- WBC has trended down, currently 8.9. On exam, area has remarkably improv ed with decrease in erythema and tenderness. On day 5 of Unasyn with appropriate response. U rine, blood and C. diff cultures have been negative, Dopplers negative. Pt remains occasiona lly febrile, with low grade fevers. - Continue Unasyn, will consider transition to PO Augmentin once patient defervesce. -elevate legs when possible 2)Morbid obesity- BMI >70, considered gastric bypass in the past but was told that his insu jluis doesn't cover it. 3) Scrotum Swelling- Originally seen at outside hospital, swelling and skin break down was severe. Required cystoscopy for insertion of irvin. Also, has history of "retracted penis" c ausing skin irritation when urinating. Needs outpatient f/up with Dr. Flor Hatch. 4) DM- recently diagnosed with HbA1c of 14. Pt was on 15 units of NPH + regular SSI, given fact that his insulin requirement was low and his BS were well controlled, will try glipizid e 10 mg starting tomorrow to observe blood sugars and control. If trial unsuccessful, with d ischarge on insulin - Glipizide 10 mg + SSI Thrombosis ppx: Heparin SQ GI ppx- Not applicable Glucose: insulin sliding Diet: consistent carbohydrate Dispo- will need to follow up with case manage, PT recommended SNF while patient recovers a nd rehabilitates vs home with bariatric walker. Code: Full This patient was staffed with Dr. Mateo Chen MD who agrees with my assessment and plan . ANGE BANG MD Mateo Perrin MD - 02/25/2011 4:37 PM [facility] personally interviewed the patient, performed the mary elements o f the physical examination, and personally formulated the assessment and plan with the resid ent. See resident note for details. ROS as noted, otherwise negative. Left leg seen during dressing change, he has extensive loss of superficial layer of skin but the erythema is much improved. Will continue IV Unasyn, change to Augmentin on DC. Continue diuresis, elevation , PT. Assessment and Plan: 1. Cellulitis 2. DM2 3. Morbid obesity 4. Deconditioning Mateo Chen MD [facility], Internal Medicine Pager [phone] [facility] DEPARTMENT: Hosp- [phone] Place of Service: - Date of Service: 02/25/2011 CSN: [id number] Modifiers:GC Resident Involved: Yes Suggested CPT: 42266 Subsequent Visit Exp Prob Foc/Mod Complexity 25 min Ange Vega MD - 02/25/2011 6:22 AM PDT R1 Internal Medicine Progress Note Wilner Gilbert [id number] Attending: Mateo Chen MD Subjective: Still complains of left leg pain, painful to bear weight on. Says breathing is better with the addition of Singular. Reported that vicodin makes him loopy. Changed to oxyc odone. Events: -febrile in the low 100s, not recultured - Current Inpatient Medications Medication Dose Route Frequency acetaminophen (aka TYLENOL) tablet 650 mg 650 mg Oral Q4H PRN albuterol (aka PROVENTIL, VENTOLIN) 90 mcg/Actuation inhaler 2 Puff 2 Puff Inhalation Q4H PRN ampicillin-sulbactam (aka UNASYN) IV (minibag+) 3 g 3 g Intravenous Q6H dextrose injection 25 mL 25 mL Intravenous PRN furosemide (aka LASIX) injection 40 mg 40 mg Intravenous BID glimepiride (aka AMARYL) tablet 1 mg 1 mg Oral QAM MEAL glucagon (aka GLUCAGEN) injection 1 mg 1 mg Intramuscular PRN glucose chewable tablet 16 g 16 g Oral Q15MIN PRN heparin injection 5,000 Units 5,000 Units Subcutaneous Q8H HYDROcodone-acetaminophen (aka VICODIN) 5-500 mg 1-2 Tab 1-2 Tab Oral Q4H PRN insulin NPH (aka HUMULIN N) injection 15 Units 15 Units Subcutaneous HS insulin regular (aka HUMULIN R) injection 1-16 Units 1-16 Units Subcutaneous PC and HS loratadine (aka CLARITIN) tablet 10 mg 10 mg Oral DAILY menthol-zinc oxide (aka CALAZIME) topical paste Topical PRN mirtazapine (aka REMERON) tablet 15 mg 15 mg Oral QPM montelukast (aka SINGULAIR) tablet 10 mg 10 mg Oral QPM oxyCODONE (aka ROXICODONE) oral solution 2.5-5 mg 2.5-5 mg Oral Q4H PRN polyethylene glycol (aka MIRALAX) powder 17 g 17 g Feeding tube DAILY PRN senna-docusate (aka SENOKOT S) 8.6-50 mg 1 Tab 1 Tab Oral BID PRN venlafaxine XR (aka EFFEXOR XR) capsule 75 mg 75 mg Oral DAILY Last Vitals: BP 139/54 | Pulse 107 | Temp 37.8 C (100 F) | RR 18 | Ht 1.727 m (5' 8") | Wt 213 kg (469 lb 9.3 oz) | SpO2 93% | BMI 71.40 kg/(m^2) 24 Hour Vital Min/Max: Systolic (24hrs), Min:111 mmHg, Max:157 mmHg Diastolic (24hrs), Min:40 mmHg, Max:72 mmHg Pulse Av.2 Min: 96 Max: 107 Temp Av.1 C (100.5 F) Min: 37.8 C (100 F) Max: 38.3 C (100.9 F) Resp Av Min: 18 Max: 18 SpO2 Av % Min: 88 % Max: 94 % Intake/Output Summary (Last 24 hours) at 02/25/11621 Last data filed at 02/25/11 0600 Gross per 24 hour Intake 1570 ml Output 5300 ml Net -3730 ml CBC with diff last 72 hours (or 3 results) Recent Labs Basename 02/25/11 0902/24/11 0914 02/23/11 0856 WBC 9.7 12.8* 13.8* HB 9.0* 10.3* 9.2* HCT 27.6* 31.7* 28.2* PLT 556* 588* 485* NEUTROPERC -- -- -- BANDPCT -- -- -- LYMPHPERC -- -- -- MONOPERC -- -- -- BASOPERC -- -- -- EOSPERC -- -- -- Chemistries: Last 72 Hours (or 3 results): Recent Labs Basename 02/25/11 1248 02/25/11 0912 02/25/11 0910 02/24/11 1212 02/24/11 0914 02/23/11 0856 NA -- -- 134 -- 134 135 K -- -- 4.2 4.1 6.6* -- CL -- -- 94* -- 95* 97 BICARB -- -- 35* -- 27 32* BUN -- -- 8 -- 9 7 CR -- -- 0.86 -- 0.88 0.90 GLU 147* 270* 123* -- -- -- CA -- -- 7.9* -- 8.2* 7.8* MG -- -- -- -- -- -- PO4 -- -- -- -- -- -- Exam: General: NAD HEENT: Normal, sclerae anicteric Neck: supple Lungs:Clear to auscultation, decreased wheezing from yesterday. Heart: tachycardic. Regular rhythm. Abdomen: soft, nontender Extremities: 2+ pedal pulses, no cyanosis, edema or clubbing Skin: lymphedema present in both lower extremities. Left extremity was wrapped with misty ban dage, unable to assess it today. - Per patient and our team, it looks better than before. Cultures: 02/18- blood culture and urine cultures- negative 02/21- urine cx- no growth to date Assessment: Wilner Gilbert is a 45 y.o. male with morbid obesity, newly diagnosed DM, lymphedema, who presented to OSH with leukocytosis and LLE swelling, erythema, transferred to our hospital f or management of cellulitis . #LLE cellulitis - In setting of chronic lymphedema, diabetes and morbid obesity. Pt started on Unasyn 02/22, patient continues to have low grade fevers, with WBC trending down. CXR fro m 03/25 was normal. Urine cultures, C. Diff and blood cultures have been negative. Doppler wo rk up negative. - cont Unasyn, once WBC trends down and pt defervesces will consider transition to PO Augme ntin vs PICC line with IV antibiotics. - cont lasix IV 40 BID -raise leg bilterally -f/u repeat blood and urine cx,- most likely will be negative -Per derm: recommend application of vaseline or cetaphil cream with snf moisturizatio n to decrease xerosis. #Mild fever - Pt continues to have low grade fevers at night, negative work up so far. PETE r eports new decub ulcer, however exam extremely difficult given his morbid obesity with BMI 7 5. Will observe lesion whenever LIFT team hits the floor. #Morbid obesity - BMI>70, candidate for gastric bypass. However, he was told from PCP radha pryor years ago that his current insurance doesn't cover bypass. Will address CM regarding to t his issue, seek any alternative options (gastric banding). PT recommended SNF vs home with b ariatric walker. Needs extensive social support for better mobility, care of lymphedema seco ndary to obesity. #Scrotum swelling - Scrotal swelling and skin break down is severe to the point that Urolog ist at OSH required cystoscopy to put irvin in. Consulted urology over the weekend, they rec ommended to continue irvin until outpatient follow up. They didn't think infection of scrotu m was likely. Needs outpatient urology f/u with Dr. Flor Hatch at [phone]. Office rosetta sed currently. #DM - Recent diagnosis with HbA1c 14. Pt is doing well with new regimen, well controlled. - Continue to 15 units of NPH + Regular Insulin SSI . - Cont glimiperide 1mg -nursing to education about insulin injections. -Pt will need to follow up with PCP DR. Harry Mario at March 03 @10am regarding hospital ization and new diabetes dx. Thrombosis ppx: Heparin SQ GI ppx- Not applicable Glucose: insulin sliding Diet: diabetic Disposition:PT will most likely go to SNF after hospital Code: Full This patient was staffed with Dr. Mateo Chen MD who agrees with my assessment and plan . ANGE BANG MD Mateo Perrin MD - 02/24/2011 5:26 PM [facility] personally interviewed the patient, performed the mary elements o f the physical examination, and personally formulated the assessment and plan with the resid ent. See resident note for details. ROS as noted, otherwise negative. Assessment and Plan: 1. Cellulitis 2. Deconditioning 3. Pain control 4. DM2 Mateo Chen MD [facility], Internal Medicine Pager [phone] [facility] DEPARTMENT: Hosp- [phone] Place of Service: - Date of Service: 02/24/2011 CSN: [id number] Modifiers:GC Resident Involved: Yes Suggested CPT: 11306 Subsequent Visit Exp Prob Foc/Mod Complexity 25 min Ange Vega MD - 02/24/2011 6:35 AM PDT R1 Internal Medicine Progress Note Wilner Gilbert [id number] Attending: Mateo Chen MD Subjective: Feels less diaphoretic this am. Says its very painful to put weight on his left leg. Events: Tmax 100.2, one hour after unasyn. WBC down to 12.8 -Given calazyme cream for minor break down on back. -Loperamide given CHARLES, pt takes at home. -Per PT, patient motivated and working hard. - Originally K was 6.6 with great hemolysis noted, repeat draw 4.1 - Current Inpatient Medications Medication Dose Route Frequency acetaminophen (aka TYLENOL) tablet 650 mg 650 mg Oral Q4H PRN albuterol (aka PROVENTIL, VENTOLIN) 90 mcg/Actuation inhaler 2 Puff 2 Puff Inhalation Q4H PRN ampicillin-sulbactam (aka UNASYN) IV (minibag+) 3 g 3 g Intravenous Q6H dextrose injection 25 mL 25 mL Intravenous PRN furosemide (aka LASIX) injection 40 mg 40 mg Intravenous BID glimepiride (aka AMARYL) tablet 1 mg 1 mg Oral QAM MEAL glucagon (aka GLUCAGEN) injection 1 mg 1 mg Intramuscular PRN glucose chewable tablet 16 g 16 g Oral Q15MIN PRN heparin injection 5,000 Units 5,000 Units Subcutaneous Q8H HYDROcodone-acetaminophen (aka VICODIN) 5-500 mg 1-2 Tab 1-2 Tab Oral Q4H PRN insulin NPH (aka HUMULIN N) injection 15 Units 15 Units Subcutaneous HS insulin regular (aka HUMULIN R) injection 1-16 Units 1-16 Units Subcutaneous PC and HS loratadine (aka CLARITIN) tablet 10 mg 10 mg Oral DAILY menthol-zinc oxide (aka CALAZIME) topical paste Topical PRN mirtazapine (aka REMERON) tablet 15 mg 15 mg Oral QPM polyethylene glycol (aka MIRALAX) powder 17 g 17 g Feeding tube DAILY PRN senna-docusate (aka SENOKOT S) 8.6-50 mg 1 Tab 1 Tab Oral BID PRN venlafaxine XR (aka EFFEXOR XR) capsule 75 mg 75 mg Oral DAILY Last Vitals: BP 129/49 | Pulse 102 | Temp 37.2 C (99 F) | RR 18 | Ht 1.727 m (5' 8") | Wt 218 kg (480 lb 9.6 oz) | SpO2 95% | BMI 73.08 kg/(m^2) 24 Hour Vital Min/Max: Systolic (24hrs), Min:124 mmHg, Max:137 mmHg Diastolic (24hrs), Min:44 mmHg, Max:72 mmHg Pulse Av.2 Min: 102 Max: 107 Temp Av.5 C (99.5 F) Min: 37 C (98.6 F) Max: 38 C (100.4 F) Resp Av.4 Min: 18 Max: 20 SpO2 Av % Min: 88 % Max: 96 % Intake/Output Summary (Last 24 hours) at 02/24/11 0635 Last data filed at 02/24/11 0500 Gross per 24 hour Intake 2185 ml Output 6000 ml Net -3815 ml CBC with diff last 72 hours (or 3 results) Recent Labs Basename 02/24/11 0914 02/23/11 0856 02/22/11 1015 WBC 12.8* 13.8* 15.1* HB 10.3* 9.2* 9.4* HCT 31.7* 28.2* 28.7* PLT 588* 485* 532* NEUTROPERC -- -- -- BANDPCT -- -- -- LYMPHPERC -- -- -- MONOPERC -- -- -- BASOPERC -- -- -- EOSPERC -- -- -- Chemistries: Last 72 Hours (or 3 results): Recent Labs Basename 02/23/11 2135 02/23/11 1927 02/23/11 1216 02/23/11 0856 02/22/11 1015 NA -- -- -- 135 134 K -- -- -- 4.4 4.8 CL -- -- -- 97 94* BICARB -- -- -- 32* 33* BUN -- -- -- 7 6 CR -- -- -- 0.90 0.96 GLU 174* 155* 141* -- -- CA -- -- -- 7.8* 7.8* MG -- -- -- -- -- PO4 -- -- -- -- -- Exam: General: NAD HEENT: Normal, sclerae anicteric Neck: supple Lungs:Clear to auscultation, decreased wheezing from yesterday. Heart: tachycardic. Regular rhythm. Abdomen: soft, nontender Extremities: 2+ pedal pulses, no cyanosis, edema or clubbing Skin: lymphedema present in both lower extremities. Left extremity was wrapped with misty ban dage, unable to assess it today. - Per patient, area looks better. Cultures: 02/18- blood culture and urine cultures- negative 02/21- urine cx- no growth to date Assessment: Wilner Gilbert is a 45 y.o. male with morbid obesity, newly diagnosed DM, lymphedema, who presented to OSH with leukocytosis and LLE swelling, erythema, transferred to our hospital f or management of cellulitis . #LLE cellulitis - In setting of chronic lymphedema, diabetes and morbid obesity. Pt started on Unasyn 02/22, patient continues to have low grade fevers, with WBC trending down. CXR fro m yesterday was normal. Urine cultures, C. Diff and blood cultures have been negative. Doppl er work up negative. - cont Unasyn, once WBC trends down and pt defervesces will consider transition to PO Augme ntin vs PICC line with IV antibiotics. - cont lasix IV 40 BID -raise leg bilterally -f/u repeat blood and urine cx,- most likely will be negative -Per derm: recommend application of vaseline or cetaphil cream with snf moisturizatio n to decrease xerosis. #Mild fever - Pt continues to have low grade fevers at night, negative work up so far. PETE camposrtana new decub ulcer, however exam extremely difficult given his morbid obesity with BMI 7 5. Will observe lesion whenever LIFT team hits the floor. #Morbid obesity - BMI>70, candidate for gastric bypass. However, he was told from PCP radha pryor years ago that his current insurance doesn't cover bypass. Will address CM regarding to t his issue, seek any alternative options (gastric banding). PT recommended SNF vs home with b ariatric walker. Needs extensive social support for better mobility, care of lymphedema seco ndary to obesity. #Scrotum swelling - Scrotal swelling and skin break down is severe to the point that Urolog ist at OSH required cystoscopy to put irvin in. Consulted urology over the weekend, they rec ommended to continue irvin until outpatient follow up. They didn't think infection of scrotu m was likely. Needs outpatient urology f/u with Dr. Flor Hatch at [phone]. Office cl osed currently. #DM - Recent diagnosis with HbA1c 14. Pt is doing well with new regimen, well controlled. - Continue to 15 units of NPH + Regular Insulin SSI . - Cont glimiperide 1mg -nursing to education about insulin injections. -Pt will need to follow up with PCP DR. Harry Mario at March 03 @10am regarding hospital ization and new diabetes dx. Thrombosis ppx: Heparin SQ GI ppx- Not applicable Glucose: insulin sliding Diet: diabetic Disposition:PT will most likely go to SNF after hospital Code: Full This patient was staffed with Dr. Mateo Chen MD who agrees with my assessment and plan . ANGE BANG MD Mateo Perrin MD - 02/23/2011 3:40 PM PDTI personally interviewed the patient, performed the mary elements o f the physical examination, and personally formulated the assessment and plan with the resid ent. See resident note for details. ROS as noted, otherwise negative. Last fever yesterday afternoon, within hours of starting Unasyn. Still with severe pain. Will continue Unasyn, P T; anticipate DC to SNF. Assessment and Plan: 1. Cellulitis 2. Morbid obesity 3. DM2, new diagnosis 4. Edema Mateo Chen MD [facility], Internal Medicine Pager [phone] [facility] DEPARTMENT: Hosp- [id number] Place of Service: IP - [id number] Date of Service: 02/23/2011 CSN: [id number] Modifiers:GC Resident Involved: Yes Suggested CPT: 19737 Subsequent Visit Detailed/High complexity 35 min Ange Vega MD - 02/23/2011 9:50 AM PDT R1 Internal Medicine Progress Note Wilner Gilbert [id number] Attending: Mateo Chen MD Subjective: Feels fine, states that he is warm. Events: febrile yesterday evening with Tmax of 101.5, however this was taken soon after Renetta syn administered. Currently afebrile, with mild tachy. However, he desated to 87% and was pu t on 2L NC. Pt does endorse some cough. - Current Inpatient Medications Medication Dose Route Frequency albuterol (aka PROVENTIL, VENTOLIN) 90 mcg/Actuation inhaler 2 Puff 2 Puff Inhalation Q4H PRN ampicillin-sulbactam (aka UNASYN) IV (minibag+) 3 g 3 g Intravenous Q6H dextrose injection 25 mL 25 mL Intravenous PRN furosemide (aka LASIX) tablet 20 mg 20 mg Oral BID glimepiride (aka AMARYL) tablet 1 mg 1 mg Oral QAM MEAL glucagon (aka GLUCAGEN) injection 1 mg 1 mg Intramuscular PRN glucose chewable tablet 16 g 16 g Oral Q15MIN PRN heparin injection 5,000 Units 5,000 Units Subcutaneous Q8H HYDROcodone-acetaminophen (aka VICODIN) 5-500 mg 1-2 Tab 1-2 Tab Oral Q4H PRN insulin NPH (aka HUMULIN N) injection 15 Units 15 Units Subcutaneous HS insulin regular (aka HUMULIN R) injection 1-16 Units 1-16 Units Subcutaneous PC and HS loratadine (aka CLARITIN) tablet 10 mg 10 mg Oral DAILY mirtazapine (aka REMERON) tablet 15 mg 15 mg Oral QPM polyethylene glycol (aka MIRALAX) powder 17 g 17 g Feeding tube DAILY PRN senna-docusate (aka SENOKOT S) 8.6-50 mg 1 Tab 1 Tab Oral BID PRN venlafaxine XR (aka EFFEXOR XR) capsule 75 mg 75 mg Oral DAILY Last Vitals: BP 137/57 | Pulse 102 | Temp 37 C (98.6 F) | RR 18 | Ht 1.727 m (5' 8") | Wt 218 kg (480 lb 9.6 oz) | SpO2 92% | BMI 73.08 kg/(m^2) 24 Hour Vital Min/Max: Systolic (24hrs), Min:129 mmHg, Max:153 mmHg Diastolic (24hrs), Min:47 mmHg, Max:80 mmHg Pulse Av.5 Min: 99 Max: 117 Temp Av.3 C (99.2 F) Min: 36.3 C (97.3 F) Max: 38.6 C (101.5 F) Resp Av Min: 18 Max: 22 SpO2 Av.3 % Min: 87 % Max: 94 % Intake/Output Summary (Last 24 hours) at 02/23/11 0950 Last data filed at 02/23/11 0925 Gross per 24 hour Intake 1302 ml Output 1925 ml Net -623 ml CBC with diff last 72 hours (or 3 results) Recent Labs Basename 02/23/11 0856 02/22/11 1015 02/21/11 0519 WBC 13.8* 15.1* 12.2* HB 9.2* 9.4* 9.8* HCT 28.2* 28.7* 30.8* PLT 485* 532* 591* NEUTROPERC -- -- 83* BANDPCT -- -- -- LYMPHPERC -- -- 10* MONOPERC -- -- 5 BASOPERC -- -- 0 EOSPERC -- -- 2 Chemistries: Last 72 Hours (or 3 results): Recent Labs Basename 02/23/11 0813 02/22/11 2116 02/22/11 1813 02/22/11 1015 02/21/11 0519 NA -- -- -- 134 138 K -- -- -- 4.8 4.8 CL -- -- -- 94* 99 BICARB -- -- -- 33* 34* BUN -- -- -- 6 6 CR -- -- -- 0.96 0.90 GLU 144* 185* 143* -- -- CA -- -- -- 7.8* 8.1* MG -- -- -- -- -- PO4 -- -- -- -- -- Exam: General: NAD HEENT: Normal, sclerae anicteric Neck: supple Lungs:Clear to auscultation Heart:Normal S1 and S2. Regular rhythm. Abdomen: soft, nontender Extremities: 2+ pedal pulses, no cyanosis, edema or clubbing Skin: lymphedema present in both lower extremities. Left extremity was wrapped with misty ban dage, unable to assess it today. Cultures: 02/18- blood culture and urine cultures- negative 02/21- urine cx- no growth to date Assessment: Wilner Gilbert is a 45 y.o. male with morbid obesity, newly diagnosed DM, lymphedema, who presented to OSH with leukocytosis and LLE swelling, erythema, transferred to our hospital f or management of cellulitis . #LLE cellulitis - In setting of chronic lymphedema, diabetes and morbid obesity. Pt started on Unasyn yesterday. However, pt continues to be febrile in setting of leukocytosis. Urine cultures, C. Diff and blood cultures have been negative. Doppler work up negative. Given vangie ats and coughing we ordered a CXR this am. Will attempt to diurese pt today with IV lasix 40 BID. - cont Unasyn - Start lasix IV 40 BID -raise leg bilterally -f/u repeat blood and urine cx,- most likely will be negative -Per derm: recommend application of vaseline or cetaphil cream with snf moisturizatio n to decrease xerosis. #Mild fever - Pt continues to be febrile despite negative work up so far. RN reports new de cub ulcer, however exam extremely difficult given his morbid obesity with BMI 75. Will obser ve lesion whenever LIFT team hits the floor. #Morbid obesity - BMI>70, candidate for gastric bypass. However, he was told from PCP radha al years ago that his current insurance doesn't cover bypass. Will address CM regarding to t his issue, seek any alternative options (gastric banding). PT recommended SNF vs home with b valentínatric walker. Needs extensive social support for better mobility, care of lymphedema seco ndary to obesity. #Scrotum swelling - Scrotal swelling and skin break down is severe to the point that Urolog ist at OSH required cystoscopy to put irvin in. Consulted urology over the weekend, they rec ommended to continue irvin until outpatient follow up. They didn't think infection of scrotu m was likely. Appreciate consult. #DM - Recent diagnosis with HbA1c 14CPer diabetes education, pt is concerned about cost of diabetes supplies and medications , c hanging insulin regimen to include NPH and Regular in place of Lantus and Lispro. - Continue to 15 units of NPH + Regular Insulin SSI . - Cont glimiperide 1mg Thrombosis ppx: Heparin SQ GI ppx- Not applicable Glucose: insulin sliding Diet: diabetic Disposition: Per OT- Pt would benefit from SNF at this time, stated wants to d/c home, but willing to consider SNF before home Code: Full This patient was staffed with Dr. Mateo Chen MD who agrees with my assessment and plan . ANGE BANG MD Mateo Neves MD - 02/22/2011 4:09 PM PDTI personally interviewed the patient, performe d the mary elements of the physical examination, and personally formulated the assessment and plan with the resident. See resident note for details. ROS as noted, otherwise negative. S till spiking fevers, having severe pain- we decided to switch him from vanco/cipro to Unasyn as he has not been hospitalized and sierra little contact in the community so MRSA seems less l ikely for him. Will try to see if he can DC home but may need SNF on DC due to his decondit ioning. Assessment and Plan: 1. Cellulitis 2. Morbid obesity 3. Deconditioning 4. New diagnosis DM2 Mateo Chen MD [facility], Internal Medicine Pager [phone] [facility] DEPARTMENT: Hosp- [id number] Place of Service: Date of Service: 02/22/2011 CSN: [id number] Modifiers:GC Resident Involved: Yes Suggested CPT: 86398 Subsequent Visit Exp Prob Foc/Mod Complexity 25 min Ange Vega MD - 02/22/2011 7:03 AM PDT R1 Internal Medicine Progress Note Wilner Gilbert [id number] Attending: Mateo Chen MD Brief History: Winler Gilbert is a 45 y.o. male with morbid obesity, newly diagnosed DM, l ymphedema, who presented to OSH with leukocytosis and LLE swelling, erythema, transferred to our hospital for management of cellulitis. Subjective: No complaints this am, denies SOB, CP, abdominal pain. Does endorse some diarrh ea, but says this this not new. Events: spiked fever to 102, repeat U/A, U Cx, Blood Cx were sent. Pt remains tachycardic. - Current Inpatient Medications Medication Dose Route Frequency albuterol (aka PROVENTIL, VENTOLIN) 90 mcg/Actuation inhaler 2 Puff 2 Puff Inhalation Q4H PRN ciprofloxacin (aka CIPRO) tablet 500 mg 500 mg Oral BID dextrose injection 25 mL 25 mL Intravenous PRN furosemide (aka LASIX) tablet 20 mg 20 mg Oral DAILY glucagon (aka GLUCAGEN) injection 1 mg 1 mg Intramuscular PRN glucose chewable tablet 16 g 16 g Oral Q15MIN PRN heparin injection 5,000 Units 5,000 Units Subcutaneous Q8H HYDROcodone-acetaminophen (aka VICODIN) 5-500 mg 1-2 Tab 1-2 Tab Oral Q4H PRN insulin glargine (aka LANTUS) injection 15 Units 15 Units Subcutaneous HS insulin lispro (aka HUMALOG) injection 1-16 Units 1-16 Units Subcutaneous PC and HS loratadine (aka CLARITIN) tablet 10 mg 10 mg Oral DAILY mirtazapine (aka REMERON) tablet 15 mg 15 mg Oral QPM polyethylene glycol (aka MIRALAX) powder 17 g 17 g Feeding tube DAILY PRN senna-docusate (aka SENOKOT S) 8.6-50 mg 1 Tab 1 Tab Oral BID vancomycin (aka VANCOCIN) IV 1.75 g 1.75 g Intravenous Q12H venlafaxine XR (aka EFFEXOR XR) capsule 75 mg 75 mg Oral DAILY Last Vitals: BP 126/53 | Pulse 108 | Temp 37.5 C (99.5 F) | RR 16 | Ht 1.727 m (5' 8") | Wt 224 kg (493 lb 13.3 oz) | SpO2 92% | BMI 75.09 kg/(m^2) 24 Hour Vital Min/Max: Systolic (24hrs), Min:121 mmHg, Max:137 mmHg Diastolic (24hrs), Min:48 mmHg, Max:55 mmHg Pulse Av Min: 107 Max: 112 Temp Av.7 C (99.9 F) Min: 36.8 C (98.2 F) Max: 38.9 C (102 F) Resp Av.2 Min: 16 Max: 18 SpO2 Av.5 % Min: 88 % Max: 95 % Intake/Output Summary (Last 24 hours) at 02/22/11 0703 Last data filed at 02/22/11 0410 Gross per 24 hour Intake 2720 ml Output 3750 ml Net -1030 ml CBC with diff last 72 hours (or 3 results) Recent Labs Basename 02/22/11 1015 02/21/11 0519 02/20/11 0809 WBC 15.1* 12.2* 11.8* HB 9.4* 9.8* 9.7* HCT 28.7* 30.8* 29.9* PLT 532* 591* 561* NEUTROPERC -- 83* -- BANDPCT -- -- -- LYMPHPERC -- 10* -- MONOPERC -- 5 -- BASOPERC -- 0 -- EOSPERC -- 2 -- Chemistries: Last 72 Hours (or 3 results): Recent Labs Basename 02/22/11 1244 02/22/11 1015 02/22/11 0830 02/21/11 0519 02/20/11 0809 NA -- 134 -- 138 139 K -- 4.8 -- 4.8 4.4 CL -- 94* -- 99 99 BICARB -- 33* -- 34* 34* BUN -- 6 -- 6 7 CR -- 0.96 -- 0.90 0.84 GLU 136* 166* 156* -- -- CA -- 7.8* -- 8.1* 8.0* MG -- -- -- -- -- PO4 -- -- -- -- -- Exam: General: NAD HEENT: Normal, sclerae anicteric Neck: supple Lungs:Clear to auscultation Heart:Normal S1 and S2. Regular rhythm. Abdomen: soft, nontender Extremities: 2+ pedal pulses, no cyanosis, edema or clubbing Skin: lymphedema present in both lower extremities. Erythema and edema on left lower extrem ity with evidence of skin breakdown and heeling. Cellulitis seems unchanged from yesterday Cultures: 02/18- blood culture and urine cultures- negative 02/21- urine cx- no growth to date Assessment: Wilner Gilbert is a 45 y.o. male with morbid obesity, newly diagnosed DM, lymphedema, who presented to OSH with leukocytosis and LLE swelling, erythema, transferred to our hospital f or management of cellulitis. #LLE cellulitis - In setting of chronic lymphedema, diabetes and morbid obesity. Pt has bee n on Vanc and cipro for treatment of cellulits/diabetic foot infection. However, pt continue s to be febrile in setting of leukocytosis. Urine cultures and blood cultures have been nega tive. Doppler work up negative. Suspicion of pulmonary pathology low given his sats are fine on room air and denies cough or dyspnea. Will repeat C. Diff given diarrhea, however was ne gative on 02/19. DDx include drug resistance cellulitis vs new infection. Will transition to Unasyn given low suspicion of MRSA- pt not previously in hospital or in community. Starting Unasyn today with hopes of transition to PO Augmentin at later date. -starting Unasyn today -raise leg bilterally -f/u repeat blood and urine cx, c.diff -Per derm: recommend application of vaseline or cetaphil cream with tank terminal gauger moisturizatio n to decrease xerosis. #Mild fever - Febrile last night. UA negative and Urine and Blood cx have been negative so far. Cellulitis was originally improving however pt now continues to be febrile with minima l changes of his cellulitis. New cultures are pending from Sunday night. Spiked mild fever Sunday night. UA neg for infection. Urine and Blood cx from 02/19 no growth. RN reports new d ecub ulcer, however exam extremely difficult given his morbid obesity with BMI 75. Will obse rve lesion whenever LIFT team hits the floor. #Morbid obesity - BMI>70, candidate for gastric bypass. However, he was told from PCP radha pryor years ago that his current insurance doesn't cover bypass. Will address CM regarding to t his issue, seek any alternative options (gastric banding). PT recommended SNF vs home with b jimi walker. Needs extensive social support for better mobility, care of lymphedema seco ndary to obesity. #Scrotum swelling - Scrotal swelling and skin break down is severe to the point that Urolog ist at OSH required cystoscopy to put irvin in. Consulted urology over the weekend, they rec ommended to continue irvin until outpatient follow up. They didn't think infection of scrot um was likely. Appreciate consult. #DM - Recent diagnosis with HbA1c 14CPer diabetes education, pt is concerned about cost of diabetes supplies and medications, changing insulin regimen to include NPH and Regular in pl misty of Lantus and Lispro. - Changed Lantus and Lispro regimen to 15 units of NPH + Regular Insulin SSI . - Added glimiperide 1mg, per informatics educator. Thrombosis ppx: Heparin SQ GI ppx- Not applicable Glucose: insulin sliding Diet: diabetic Disposition: Per OT- Pt would benefit from SNF at this time, stated wants to d/c home, but willing to consider SNF before home Code: Full This patient was staffed with Dr. Mateo Chen MD who agrees with my assessment and plan . ANGE BANG MD ateo Chen MD - 02/21/2011 8:29 PM PDTI personally interviewed the patient, performed the mary elements o f the physical examination, and personally formulated the assessment and plan with the resid ent. See resident note for details. ROS as noted, otherwise negative. Patient despondent ov er his condition, pain in his leg, inability to ambulate. Discussed gastric bypass- he stat es he was denied by his insurance 2 years ago when he was in the [facility]- we can see if he is a candidate now for bypass or for any newer therapy. Assessment and Plan: 1. Cellulitis 2. Morbid obesity 3. DM2, newly diagnosed 4. Deconditioning Mateo Chen MD [facility], Internal Medicine Pager [phone] [facility] DEPARTMENT: Hosp- [id number] Place of Service: IP - Date of Service: 02/21/2011 CSN: [id number] Modifiers:GC Resident Involved: Yes Suggested CPT: 49751 Subsequent Visit Exp Prob Foc/Mod Complexity 25 min Constanza Mayen MD - 2:08 PM PDT INTERNAL MEDICINE R2 PROGRESS NOTE Author: CONSTANZA GARRETT MD Attending Physician: Mateo Chen MD Hospital day: 4 HPI/Interval Update: -spiked mild fever up to 37.8, UA neg for WBC, nitrite, BCx sent -new tense blister on L lateral area, some ruptured, serous fluid coming out -decub ulcer+per RN report Current Inpatient Medications Medication Dose Route Frequency albuterol (aka PROVENTIL, VENTOLIN) 90 mcg/Actuation inhaler 2 Puff 2 Puff Inhalation Q4H PRN ciprofloxacin (aka CIPRO) tablet 500 mg 500 mg Oral BID dextrose injection 25 mL 25 mL Intravenous PRN furosemide (aka LASIX) tablet 20 mg 20 mg Oral DAILY glucagon (aka GLUCAGEN) injection 1 mg 1 mg Intramuscular PRN glucose chewable tablet 16 g 16 g Oral Q15MIN PRN heparin injection 5,000 Units 5,000 Units Subcutaneous Q8H HYDROcodone-acetaminophen (aka VICODIN) 5-500 mg 1-2 Tab 1-2 Tab Oral Q4H PRN insulin glargine (aka LANTUS) injection 15 Units 15 Units Subcutaneous HS insulin lispro (aka HUMALOG) injection 1-16 Units 1-16 Units Subcutaneous PC and HS loratadine (aka CLARITIN) tablet 10 mg 10 mg Oral DAILY mirtazapine (aka REMERON) tablet 15 mg 15 mg Oral QPM polyethylene glycol (aka MIRALAX) powder 17 g 17 g Feeding tube DAILY PRN senna-docusate (aka SENOKOT S) 8.6-50 mg 1 Tab 1 Tab Oral BID vancomycin (aka VANCOCIN) IV 1.75 g 1.75 g Intravenous Q12H venlafaxine XR (aka EFFEXOR XR) capsule 75 mg 75 mg Oral DAILY Last Vitals: BP 137/51 | Pulse 108 | Temp 36.9 C (98.4 F) | RR 18 | Ht 1.727 m (5' 8") | Wt 224 kg (493 lb 13.3 oz) | SpO2 94% | BMI 75.09 kg/(m^2) 24 Hour Vital Min/Max: Systolic (24hrs), Min:130 mmHg, Max:145 mmHg Diastolic (24hrs), Min:42 mmHg, Max:51 mmHg Pulse Av Min: 105 Max: 112 Temp Av.1 C (98.7 F) Min: 36.4 C (97.6 F) Max: 37.8 C (100.1 F) Resp Av.5 Min: 16 Max: 18 SpO2 Av % Min: 92 % Max: 94 % Intake/Output Summary (Last 24 hours) at 02/21/11 1408 Last data filed at 02/21/11 1000 Gross per 24 hour Intake 3035 ml Output 2100 ml Net 935 ml Physical Exam: General: obese M w/o distress HEENT: PERRL conj not anemic scl not icteric, MMM Lungs:CTAB Heart: RRR no MGR, no S3, S4 GI: BS active, not distended, NT Extremities: LLE swollen, tense blister formation on L lateral chance x 7, biggest 2x3cm, one ruptured blister, seround fluid coming out Skin:warm no rashes Intravascular Catheters: piv Chemistries: Last 72 Hours (or 3 results): Recent Labs Basename 02/21/11 1225 02/21/11 0745 02/21/11 0519 02/20/11 0809 02/19/11 0850 NA -- -- 138 139 136 K -- -- 4.8 4.4 5.0 CL -- -- 99 99 96* BICARB -- -- 34* 34* 34* BUN -- -- 6 7 8 CR -- -- 0.90 0.84 0.86 GLU 183* 192* 170* -- -- CA -- -- 8.1* 8.0* 8.0* MG -- -- -- -- -- PO4 -- -- -- -- -- CBC with diff last 72 hours (or 3 results) Recent Labs Basename 02/21/11 0519 02/20/11 0809 02/19/11 0850 WBC 12.2* 11.8* 14.0* HB 9.8* 9.7* 10.2* HCT 30.8* 29.9* 31.2* PLT 591* 561* 415* NEUTROPERC 83* -- -- BANDPCT -- -- -- LYMPHPERC 10* -- -- MONOPERC 5 -- -- BASOPERC 0 -- -- EOSPERC 2 -- -- Imaging 02/19 Doppler LLE The duplex scanner was used to examine the deep and superficial veins of the left lower extremity. The right lower extremity was not examined. It is noted the examination was technically difficult with suboptimal visualization of the calf veins. All vessels, however, did appear to be patent with normal phasic flows and response to augmentation and compression maneuvers and there is no thrombus noted. IMPRESSION: Venous examination of the left lower extremity without evidence of venous thrombosis. It is noted the calf veins were not well visualized. Assessment: Wilner Gilbert is a 45 y.o. male with morbid obesity, newly diagnosed DM, lymphedema, who presented to OSH with leukocytosis and LLE swelling, erythema, transferred to our hospital f or management of cellulitis. #LLE cellulitis In setting of chronic lymphedema, diabetes and morbid obesity. Will resume vancomycin1.75 g bid with pharmacy monitoring, [id number] bid for diabetic foot infection. Lesion was previously marked, appears to be gradually Receding.Pt developed new blister formation of L lateral chance, however this seems more d/t mechanical stretch from edema, not from addit ional superinfection. Nonetheless, will observe lesion carefully for any interval changes. Doppler of left leg was negative for DVT 02/19. -iv vancomycin 1.75g bid (02/17-), ciprofloxacin 500mg bid (02/17) -for now, -raise leg blt -Per derm: recommend application of vaseline or cetaphil cream with tank terminal gauger moisturizati on to decrease xerosis. #Mild fever Spiked mild fever overnight. UA neg for infection, pt breathing comfortably in room air. Cellulitis improving gradually with Abx. RN reports new decub ulcer, however exam extremely difficult given his morbid obesity with BMI 75. Will observe lesion whenever LIFT team hit s the floor. #Morbid obesity BMI>70, candidate for gastric bypass. However,he was told from PCP several years ago that h is current insurance doesn't cover bypass. Will address CM regarding to this issue, seek an y alternative options (gastric banding). PT recommended SNF vs home with bariatric walker. Needs extensive social support for better mobility, care of lymphedemasecondary to obesity. #Scrotum swelling Scrotal swelling and skin break down is severe to the point Urologist at OSH required cysto scopy to put irvin in. Consulted urology yesterday, recommended to continue irvin. They didn 't think infection of scrotum was likely. Appreciate consult. Irvin in place, however long t erm management of issue is still a concern. Pt needs outpatient Urology follow up. -restart home lasix, at 20 mg daily. #DM Recent diagnosis, was on glargine 50U daily at OSH, currently around 190 with glardine 10U daily and ISS. Continue CBG monitoing with glargine 15U daily and iss. -ordered diabbetes education Thrombosis ppx: Heparin SQ GI ppx- Not applicable Glucose: insulin sliding Diet: diabetic Disposition: pending Code: Full CODE: Full This patient was staffed with Dr. Mateo Chen, who agrees with my assessment and plan. Constanza Garrett Internal Medicine Resident, PGY-2 Pager [phone] ateo Chen MD - 9:43 PM PDTPatient seen/examined by me, chart reviewed, case discussed with team. See resident note for full details of HPI- ROS as noted, otherwise negative. I spent > 35 m inutes in patient care with > 50% in counseling/coordination of care. 45 yo man with severe obesity, venous stasis admitted with cellulitis and scrotal swelling, now has irvin cath sally gladys due to voiding difficulty/buried phallus. He has become significantly deconditioned, an d we hope he can return home in a few days- otherwise he'll need SNF for rehab. Ultimately would benefit from bariatric surgery if he qualifies- his scrotal and LE edema may be just f rom obesity but could represent some heart failure, altjough making the diagnosis will be di fficult given his habitus. Assessment and Plan: 1. Cellulitis 2. DM2, newly diagnosed 3. Morbid obesity 4. Voiding difficulty, irvin in place Mateo Chen MD [facility], Internal Medicine Pager [phone] [facility] DEPARTMENT: Hosp- [id number] Place of Service: - Date of Service: 02/20/2011 CSN: [id number] Modifiers:GC Resident Involved: Yes Suggested CPT: 75533 Subsequent Visit Detailed/High complexity 35 min Ange Vega MD - 02/20/2011 6:28 AM PDT R1 Internal Medicine Progress Note Wilner Gilbert [id number] Attending: Sharla Figueroa MD Subjective: Feel fine this am Events: LE dopplers were negative, but stated limited due to lymphedema. - Current Inpatient Medications Medication Dose Route Frequency albuterol (aka PROVENTIL, VENTOLIN) 90 mcg/Actuation inhaler 2 Puff 2 Puff Inhalation Q4H PRN ciprofloxacin (aka CIPRO) tablet 500 mg 500 mg Oral BID dextrose injection 25 mL 25 mL Intravenous PRN glucagon (aka GLUCAGEN) injection 1 mg 1 mg Intramuscular PRN glucose chewable tablet 16 g 16 g Oral Q15MIN PRN heparin injection 5,000 Units 5,000 Units Subcutaneous Q8H HYDROcodone-acetaminophen (aka VICODIN) 5-500 mg 1-2 Tab 1-2 Tab Oral Q4H PRN insulin glargine (aka LANTUS) injection 15 Units 15 Units Subcutaneous HS insulin lispro (aka HUMALOG) injection 1-16 Units 1-16 Units Subcutaneous PC and HS loratadine (aka CLARITIN) tablet 10 mg 10 mg Oral DAILY mirtazapine (aka REMERON) tablet 15 mg 15 mg Oral QPM polyethylene glycol (aka MIRALAX) powder 17 g 17 g Feeding tube DAILY PRN senna-docusate (aka SENOKOT S) 8.6-50 mg 1 Tab 1 Tab Oral BID vancomycin (aka VANCOCIN) IV 2 g 2 g Intravenous Q12H venlafaxine XR (aka EFFEXOR XR) capsule 75 mg 75 mg Oral DAILY Last Vitals: BP 158/71 | Pulse 105 | Temp 36.3 C (97.4 F) | RR 18 | Wt 224 kg (493 lb 1 3.3 oz) | SpO2 95% 24 Hour Vital Min/Max: Systolic (24hrs), Min:138 mmHg, Max:158 mmHg Diastolic (24hrs), Min:65 mmHg, Max:71 mmHg Pulse Av.8 Min: 90 Max: 105 Temp Av.5 C (97.7 F) Min: 36.3 C (97.4 F) Max: 36.6 C (97.9 F) Resp Av Min: 18 Max: 18 SpO2 Av.8 % Min: 94 % Max: 96 % Intake/Output Summary (Last 24 hours) at 02/20/11 0628 Last data filed at 02/20/11 0045 Gross per 24 hour Intake 1931 ml Output 1650 ml Net 281 ml CBC with diff last 72 hours (or 3 results) Recent Labs Basename 02/19/11 0850 02/18/11 0830 02/18/11 0105 WBC 14.0* 16.5* 16.2* HB 10.2* 10.4* 9.4* HCT 31.2* 31.8* 28.9* PLT 415* 476* 426* NEUTROPERC -- -- 88* BANDPCT -- -- -- LYMPHPERC -- -- 6* MONOPERC -- -- 4 BASOPERC -- -- 0 EOSPERC -- -- 1 Chemistries: Last 72 Hours (or 3 results): Recent Labs Basename 02/19/11 2151 02/19/11 1831 02/19/11 1156 02/19/11 0850 02/18/11 0830 02/18/11 0105 NA -- -- -- 136 138 136 K -- -- -- 5.0 4.6 4.1 CL -- -- -- 96* 98 98 BICARB -- -- -- 34* 32* 29 BUN -- -- -- 8 7 6 CR -- -- -- 0.86 0.92 0.93 GLU 180* 174* 203* -- -- -- CA -- -- -- 8.0* 7.8* 7.7* MG -- -- -- -- -- -- PO4 -- -- -- -- -- -- Exam: General: NAD and alert and awake HEENT: Normal, sclerae anicteric Neck: supple Lungs:Respirations even, unlabored Heart:Normal S1 and S2. Regular rhythm. Abdomen: normal bowel sounds :scrotal edema, with erosions and crust, appears to be healing. Extremities: 2+ pedal pulses, no cyanosis, edema or clubbing Skin: Erythema and edema on left lower extremity with evidence of skin breakdown and heelin g. Cellulitis seems to be improving, redness retracting from line previously drawn. Scrotal edema still present but improving. Skin appears to be healing Neuro- AOx3. Cultures: Urine culture negative, blood culture x2 negative. Imaging: LE dopplers were negative, but limited Assessment: Wilner Gilbert is a 45 y.o. male with morbid obesity, newly diagnosed DM, lymphedema, who presented to OSH with leukocytosis and LLE swelling, erythema, transferred to our hospital f or management of cellulitis. #LLE cellulitis In setting of chronic lymphedema, diabetes and morbid obesity. Will resume vancomycin with pharmacy monitoring, add ciprofloxacin for diabetic foot infection. Lesion was previously ma rked, appears to be receding. Doppler of left leg was negative. -iv vancomycin, ciprofloxacin for now, with guidance of pharmacy. -raise leg blt -Per derm: recommend application of vaseline or cetaphil cream with tank terminal gauger moisturizatio n to decrease xerosis. -PT/OT ordered - PT needs to see him to help him mobilize before he loses function. -restart home lasix, at 20 mg. #Scrotum swelling Scrotal swelling and skin break down is severe to the point Urologist at OSH required cysto scopy to put irvin in. Consulted urology yesterday, recommended to continue irvin. They didn 't think infection of scrotum was likely. Appreciate consult. Irvin in place, however long t erm management of issue is still a concern Pt needs outpatient Urology follow up. #DM Recent diagnosis, was on glargine 50U daily at OSH, currently around 190 with glardine 10U daily and ISS. Continue CBG monitoing with glargine 15U daily and iss. -ordered diabbetes education #Morbid obesity BMI>70, candidate for gastric bypass in future. Needs extensive social support for better m obility, care of lymphedema probably secondary to obesity. Will consult PT/OT potentially so cial work since pt likely benefit from SNF. Thrombosis ppx: Heparin SQ GI ppx- Not applicable Glucose: insulin sliding Diet: diabetic Disposition: pending Code: Full ANGE BANG MD ' Ange Vega MD - 02/19/2011 10:55 AM PDT INPATIENT PROGRESS NOTE Hospital Day:2 Author; ANGE BANG MD Attending Physician: Sharla Figueroa MD Interval Hx: Pt did well over night. No new complaints. Physical Exam: Last Vitals: BP 152/71 | Pulse 96 | Temp 36.5 C (97.7 F) | RR 18 | Wt 224 kg (493 lb 13 .3 oz) | SpO2 94% O2 Delivery Device: Nasal cannula (02/19/11 0750) 24 Hour Vital Min/Max: Systolic (24hrs), Min:128 mmHg, Max:152 mmHgDiastolic (24hrs), Min:45 mmHg, Max:71 mmHgPuls e Min: 94 Max: 97 Temp Min: 36.4 C (97.5 F) Max: 37.2 C (99 F) Resp Min: 18 Max: 20 SpO2 Min: 94 % Max: 97 % Intake/Output Summary (Last 24 hours) at 02/19/11 1055 Last data filed at 02/19/11 0756 Gross per 24 hour Intake 1290 ml Output 1500 ml Net -210 ml CBC with diff last 72 hours (or 3 results) Recent Labs Basename 02/19/11 0850 02/18/11 0830 02/18/11 0105 WBC 14.0* 16.5* 16.2* HB 10.2* 10.4* 9.4* HCT 31.2* 31.8* 28.9* PLT 415* 476* 426* NEUTROPERC -- -- 88* BANDPCT -- -- -- LYMPHPERC -- -- 6* MONOPERC -- -- 4 BASOPERC -- -- 0 EOSPERC -- -- 1 Chemistries: Last 72 Hours (or 3 results): Recent Labs Basename 02/19/11 0850 02/19/11 0756 02/18/11 2129 02/18/11 0830 02/18/11 0105 NA 136 -- -- 138 136 K 5.0 -- -- 4.6 4.1 CL 96* -- -- 98 98 BICARB 34* -- -- 32* 29 BUN 8 -- -- 7 6 CR 0.86 -- -- 0.92 0.93 GLU 173* 184* 151* -- -- CA 8.0* -- -- 7.8* 7.7* MG -- -- -- -- -- PO4 -- -- -- -- -- Current Inpatient Medications Medication Dose Route Frequency albuterol (aka PROVENTIL, VENTOLIN) 90 mcg/Actuation inhaler 2 Puff 2 Puff Inhalation Q4H PRN ciprofloxacin (aka CIPRO) tablet 500 mg 500 mg Oral BID dextrose injection 25 mL 25 mL Intravenous PRN glucagon (aka GLUCAGEN) injection 1 mg 1 mg Intramuscular PRN glucose chewable tablet 16 g 16 g Oral Q15MIN PRN heparin injection 5,000 Units 5,000 Units Subcutaneous Q8H HYDROcodone-acetaminophen (aka VICODIN) 5-500 mg 1-2 Tab 1-2 Tab Oral Q4H PRN insulin glargine (aka LANTUS) injection 15 Units 15 Units Subcutaneous HS insulin lispro (aka HUMALOG) injection 1-16 Units 1-16 Units Subcutaneous PC and HS loratadine (aka CLARITIN) tablet 10 mg 10 mg Oral DAILY mirtazapine (aka REMERON) tablet 15 mg 15 mg Oral QPM polyethylene glycol (aka MIRALAX) powder 17 g 17 g Feeding tube DAILY PRN senna-docusate (aka SENOKOT S) 8.6-50 mg 1 Tab 1 Tab Oral BID vancomycin (aka VANCOCIN) IV 2 g 2 g Intravenous Q12H venlafaxine XR (aka EFFEXOR XR) capsule 75 mg 75 mg Oral DAILY General Appearance: pt awake in bed, alert and oriented HEENT: normocephalic, atraumatic, clear sclera Neck: supple Respiratory: clear to ausculation bilaterally, no wheezing or crackles. Cardiovascular: regular rate and rhythm, no murmurs appreciated Gastrointestinal: obese abdomen, soft, nontender,+ bowel sounds Lymphatic: edematous lower extremities bilaterally L>R, Skin: Erythema and edema on left lower extremity with evidence of skin breakdown and heelin g. Cellulitis seems to be improving, redness retracting from line previously drawn. Scrotal edema still present but improving. Skin appears to be healing. Assessment and Plan: Wilner Gilbert is a 45 y.o. male with morbid obesity, newly diagnosed DM, chronic venous s tasis, who presented to OSH with leukocytosis and LLE swelling, erythema, transferred to our hospital for management of cellulitis. #LLE cellulitis In setting of chronic lymphedema, diabetes and morbid obesity. Will resume vancomycin with pharmacy monitoring, add ciprofloxacin for diabetic foot infection. Lesion was previously ma rked, appears to be receding. However, givenunilateral presentation, DVT is one of DDx and w e will order dopplers today. However, given body habitus this will be a potential challenge. Consulted dermatology for additional help and recommendations. -iv vancomycin, ciprofloxacin for now -pharmacy monitoring -raise leg blt -lower extremity doppler of left leg -awaiting dermatology's input -PT/OT ordered #Scrotum swelling Scrotal swelling and skin break down is severe to the point Urologist at OSH required cysto scopy to put irvin in. Consulted urology yesterday, recommended to continue irvin. They didn 't think infection of scrotum was likely. Appreciate consult. - Irvin in place, however tank terminal gauger management of issue is still a concern #DM Recent diagnosis, was on glardine 50U daily at OSH, currently around 190 with glardine 10U daily and ISS. Continue CBG monitoing with glardine 15U daily and iss. -ordered eiabetes education #Morbid obesity BMI>70, candidate for gastric bypass in future. Needs extensive social support for better m obility, care of lymphedema probably secondary to obesity. Will consult PT/OT potentially so cial work since pt likely benefit from SNF. CODE:Full Patient will be seen and examined with staff, Dr. Sharla Figueroa within 24 hours. ANGE BANG MD Angie Mancilla MD - 02/19/2011 9:14 AM PDTFormatting of this note might be different from [facility] INPATIENT PHYSICIAN PROGRESS NOTE General Medicine 1 Attending Physician: Sharla Figueroa MD Author: SHARLA FIGUEROA MD Hospital Stay: 2 day(s) PCP: Harry Mario MD I personally interviewed the patient, performed the mary elements of the physical examinatio n, and personally formulated the assessment and plan with the team. I agree with the documen erin history, physical examination, and assessment and plan and have noted any exceptions. History, overnight events and exam as noted with no new additions. S: Having loose stools, which is typical for him. Does not feel that his left leg has rosa ged but then states that the area of redness may have receded somewhat. O: Last Vitals: BP 138/65 | Pulse 90 | Temp 36.6 C (97.9 F) | RR 18 | Wt 224 kg (493 lb 13 .3 oz) | SpO2 94% I/O negative 400cc Pleasant, overweight man in no distress. Continues to have marked warmth and erythema of left leg, though no weeping drainage today. Scrotum is erythematous. Ulcerations are improving today and some of the scabs are sloughi ng off. There is some pitting edema in his left foot. Labs and imaging exams reviewed. Lab Results Component Value Date WBC 14.0 02/19/2011 HB 10.2 02/19/2011 HCT 31.2 02/19/2011 PLT 415 02/19/2011 MCV 84.3 02/19/2011 RDW 16.9 02/19/2011 Lab Results Component Value Date NA 136 02/19/2011 K 5.0 02/19/2011 CL 96 02/19/2011 BICARB 34 02/19/2011 BUN 8 02/19/2011 CR 0.86 02/19/2011 GLU 203 02/19/2011 CA 8.0 02/19/2011 A1C 14.5% A/P: 45yo gentleman with morbid obesity who was transferred from an outside hospital for as sistance with managing LE cellulitis associated with lymphedema. He was also newly diagnose d with diabetes prior to his transfer. LE cellulitis and possibly lymphedema: He has had some improvement of his erythema and leukocytosis on antibiotics (vancomycin), w hich we will continue. Appreciate thoughts from dermatology as to why this gentleman has ch ronic skin changes in his thigh suggestive of lymphedema. As he has some pitting edema dist ally, we will restart his lasix. We are also arranging for wound care and physical therapy (with the hopes that compression with a sleeve or wrap may help some of his swelling). If h e continues to do well, would transition to bactrim. May benefit from outpatient plastics e valuation (note that he missed his appointment because of present admission). We are obtain ing LE doppler to confirm that he does not have a DVT. Scrotal irritation: He has a irvin catheter in, which has allowed him to pass urine without irritating his scro franklyn. The skin appears to be healing. Will need to coordinate with urology regarding long t erm solution for urinating such that this problem will not recur. Would consider intermitte nt catheterization as an option. UTI: Note that he had serratia at outside hospital. We will need to review records and define c ourse of cipro. DM: New diagnosis with A1C of 14.5. Metformin would be appropriate but as he is having loose s tools, would not favor initiating at present. We are arranging for diabetes nurse education . May benefit from aspirin and statin depending on his risk stratification so would check f asting lipids to help determine management. Ultimately, I have suggested to him that he con tact his insurance company to see if he would qualify for gastric bypass. Loose stool: Appears to be a chronic issue but we will check C diff as he is on antibiotics. He reports being unsteady on his feet at home. Appreciate PT evaluation to confirm he woul d be safe at home. All other issues per the team. I spent over 35 minutes on this case with over 50% spent in counseling and coordination of care. Sharla Figueroa MD Division of General Medicine and Geriatrics [facility] DEPARTMENT: [phone]- [facility] [employer] Place of Service:- Inpatient Date of Service: 02/19/2011 CSN: [id number] Suggested Modifier: GC Resident Involved: Yes Suggested CPT: 98838 Subsequent Visit Detailed/High complexity 35 min documented in this encounter Plan of Treatment + +------+--------+ + + | Name | Type | Priori | Associated Diagnoses | Date/Time | | | | ty | | | + +------+--------+ + + | DIFFERENTIAL | Lab | Routin | | 02/17/2011 10:08 PM | | | | e | | PDT | + +------+--------+ + + + +------+--------+ + + | Name | Type | Priori | Associated Diagnoses | Order Schedule | | | | ty | | | + +------+--------+ + + | DIFFERENTIAL | Lab | Routin | | One Time for 1 | | | | e | | Occurrences starting | | | | | | 02/17/2011 until | | | | | | 02/17/2011 | + +------+--------+ + + documented as of this encounter Procedures + +--------+ + + + | Procedure Name | Priori | Date/Time | Associated Diagnosis | Comments | | | ty | | | | + +--------+ + + + | CAPILLARY BLOOD | Routin | 03/02/2011 | | Results for this | | GLUCOSE (NO CHG), | e | 12:29 PM | | procedure are in the | | POC | | PDT | | results section. | + +--------+ + + + | CAPILLARY BLOOD | Routin | 03/02/2011 | | Results for this | | GLUCOSE (NO CHG), | e | 8:30 AM | | procedure are in the | | POC | | PDT | | results section. | + +--------+ + + + | BASIC METABOLIC SET | Routin | 03/02/2011 | | Results for this | | (NA, K, CL, TCO2, | e | 8:20 AM | | procedure are in the | | BUN, CR, GLU, CA) | | PDT | | results section. | + +--------+ + + + | CBC ONLY | Routin | 03/02/2011 | | Results for this | | | e | 8:20 AM | | procedure are in the | | | | PDT | | results section. | + +--------+ + + + | CAPILLARY BLOOD | Routin | 03/01/2011 | | Results for this | | GLUCOSE (NO CHG), | e | 9:33 PM | | procedure are in the | | POC | | PDT | | results section. | + +--------+ + + + | CAPILLARY BLOOD | Routin | 03/01/2011 | | Results for this | | GLUCOSE (NO CHG), | e | 6:36 PM | | procedure are in the | | POC | | PDT | | results section. | + +--------+ + + + | CAPILLARY BLOOD | Routin | 03/01/2011 | | Results for this | | GLUCOSE (NO CHG), | e | 8:07 AM | | procedure are in the | | POC | | PDT | | results section. | + +--------+ + + + | CAPILLARY BLOOD | Routin | 02/28/2011 | | Results for this | | GLUCOSE (NO CHG), | e | 10:01 PM | | procedure are in the | | POC | | PDT | | results section. | + +--------+ + + + | CAPILLARY BLOOD | Routin | 02/28/2011 | | Results for this | | GLUCOSE (NO CHG), | e | 6:55 PM | | procedure are in the | | POC | | PDT | | results section. | + +--------+ + + + | CAPILLARY BLOOD | Routin | 02/28/2011 | | Results for this | | GLUCOSE (NO CHG), | e | 1:29 PM | | procedure are in the | | POC | | PDT | | results section. | + +--------+ + + + | BASIC METABOLIC SET | Routin | 02/28/2011 | | Results for this | | (NA, K, CL, TCO2, | e | 9:00 AM | | procedure are in the | | BUN, CR, GLU, CA) | | PDT | | results section. | + +--------+ + + + | CBC ONLY | Routin | 02/28/2011 | | Results for this | | | e | 9:00 AM | | procedure are in the | | | | PDT | | results section. | + +--------+ + + + | CAPILLARY BLOOD | Routin | 02/28/2011 | | Results for this | | GLUCOSE (NO CHG), | e | 8:03 AM | | procedure are in the | | POC | | PDT | | results section. | + +--------+ + + + | CAPILLARY BLOOD | Routin | 02/27/2011 | | Results for this | | GLUCOSE (NO CHG), | e | 9:01 PM | | procedure are in the | | POC | | PDT | | results section. | + +--------+ + + + | CAPILLARY BLOOD | Routin | 02/27/2011 | | Results for this | | GLUCOSE (NO CHG), | e | 5:54 PM | | procedure are in the | | POC | | PDT | | results section. | + +--------+ + + + | CAPILLARY BLOOD | Routin | 02/27/2011 | | Results for this | | GLUCOSE (NO CHG), | e | 12:12 PM | | procedure are in the | | POC | | PDT | | results section. | + +--------+ + + + | CAPILLARY BLOOD | Routin | 02/27/2011 | | Results for this | | GLUCOSE (NO CHG), | e | 7:19 AM | | procedure are in the | | POC | | PDT | | results section. | + +--------+ + + + | CAPILLARY BLOOD | Routin | 02/26/2011 | | Results for this | | GLUCOSE (NO CHG), | e | 8:45 PM | | procedure are in the | | POC | | PDT | | results section. | + +--------+ + + + | CAPILLARY BLOOD | Routin | 02/26/2011 | | Results for this | | GLUCOSE (NO CHG), | e | 6:23 PM | | procedure are in the | | POC | | PDT | | results section. | + +--------+ + + + | CAPILLARY BLOOD | Routin | 02/26/2011 | | Results for this | | GLUCOSE (NO CHG), | e | 1:21 PM | | procedure are in the | | POC | | PDT | | results section. | + +--------+ + + + | BASIC METABOLIC SET | Routin | 02/26/2011 | | Results for this | | (NA, K, CL, TCO2, | e | 8:38 AM | | procedure are in the | | BUN, CR, GLU, CA) | | PDT | | results section. | + +--------+ + + + | CBC ONLY | Routin | 02/26/2011 | | Results for this | | | e | 8:38 AM | | procedure are in the | | | | PDT | | results section. | + +--------+ + + + | CAPILLARY BLOOD | Routin | 02/26/2011 | | Results for this | | GLUCOSE (NO CHG), | e | 8:22 AM | | procedure are in the | | POC | | PDT | | results section. | + +--------+ + + + | CAPILLARY BLOOD | Routin | 02/25/2011 | | Results for this | | GLUCOSE (NO CHG), | e | 8:52 PM | | procedure are in the | | POC | | PDT | | results section. | + +--------+ + + + | CAPILLARY BLOOD | Routin | 02/25/2011 | | Results for this | | GLUCOSE (NO CHG), | e | 6:19 PM | | procedure are in the | | POC | | PDT | | results section. | + +--------+ + + + | CAPILLARY BLOOD | Routin | 02/25/2011 | | Results for this | | GLUCOSE (NO CHG), | e | 12:48 PM | | procedure are in the | | POC | | PDT | | results section. | + +--------+ + + + | CAPILLARY BLOOD | Routin | 02/25/2011 | | Results for this | | GLUCOSE (NO CHG), | e | 9:12 AM | | procedure are in the | | POC | | PDT | | results section. | + +--------+ + + + | BASIC METABOLIC SET | Routin | 02/25/2011 | | Results for this | | (NA, K, CL, TCO2, | e | 9:10 AM | | procedure are in the | | BUN, CR, GLU, CA) | | PDT | | results section. | + +--------+ + + + | CBC ONLY | Routin | 02/25/2011 | | Results for this | | | e | 9:10 AM | | procedure are in the | | | | PDT | | results section. | + +--------+ + + + | CAPILLARY BLOOD | Routin | 02/24/2011 | | Results for this | | GLUCOSE (NO CHG), | e | 9:23 PM | | procedure are in the | | POC | | PDT | | results section. | + +--------+ + + + | CAPILLARY BLOOD | Routin | 02/24/2011 | | Results for this | | GLUCOSE (NO CHG), | e | 5:39 PM | | procedure are in the | | POC | | PDT | | results section. | + +--------+ + + + | CAPILLARY BLOOD | Routin | 02/24/2011 | | Results for this | | GLUCOSE (NO CHG), | e | 12:35 PM | | procedure are in the | | POC | | PDT | | results section. | + +--------+ + + + | POTASSIUM, PLASMA | Routin | 02/24/2011 | | Results for this | | | e | 12:12 PM | | procedure are in the | | | | PDT | | results section. | + +--------+ + + + | BASIC METABOLIC SET | Routin | 02/24/2011 | | Results for this | | (NA, K, CL, TCO2, | e | 9:14 AM | | procedure are in the | | BUN, CR, GLU, CA) | | PDT | | results section. | + +--------+ + + + | CBC ONLY | Routin | 02/24/2011 | | Results for this | | | e | 9:14 AM | | procedure are in the | | | | PDT | | results section. | + +--------+ + + + | CAPILLARY BLOOD | Routin | 02/24/2011 | | Results for this | | GLUCOSE (NO CHG), | e | 8:12 AM | | procedure are in the | | POC | | PDT | | results section. | + +--------+ + + + | RESP CARE THERAPY | Routin | 02/24/2011 | | Results for this | | | e | 4:26 AM | | procedure are in the | | | | PDT | | results section. | + +--------+ + + + | CAPILLARY BLOOD | Routin | 02/23/2011 | | Results for this | | GLUCOSE (NO CHG), | e | 9:35 PM | | procedure are in the | | POC | | PDT | | results section. | + +--------+ + + + | CAPILLARY BLOOD | Routin | 02/23/2011 | | Results for this | | GLUCOSE (NO CHG), | e | 7:27 PM | | procedure are in the | | POC | | PDT | | results section. | + +--------+ + + + | CAPILLARY BLOOD | Routin | 02/23/2011 | | Results for this | | GLUCOSE (NO CHG), | e | 12:16 PM | | procedure are in the | | POC | | PDT | | results section. | + +--------+ + + + | CULTURE, BLOOD BACTI | Routin | 02/23/2011 | | Results for this | | & YEAST | e | 10:45 AM | | procedure are in the | | | | PDT | | results section. | + +--------+ + + + | BASIC METABOLIC SET | Routin | 02/23/2011 | | Results for this | | (NA, K, CL, TCO2, | e | 8:56 AM | | procedure are in the | | BUN, CR, GLU, CA) | | PDT | | results section. | + +--------+ + + + | CBC ONLY | Routin | 02/23/2011 | | Results for this | | | e | 8:56 AM | | procedure are in the | | | | PDT | | results section. | + +--------+ + + + | CAPILLARY BLOOD | Routin | 02/23/2011 | | Results for this | | GLUCOSE (NO CHG), | e | 8:13 AM | | procedure are in the | | POC | | PDT | | results section. | + +--------+ + + + | X-RAY PORTABLE CHEST | Routin | 02/23/2011 | | Results for this | | 1 VIEW | e | 7:12 AM | | procedure are in the | | | | PDT | | results section. | + +--------+ + + + | RESP CARE THERAPY | Routin | 02/23/2011 | | Results for this | | | e | 2:00 AM | | procedure are in the | | | | PDT | | results section. | + +--------+ + + + | CAPILLARY BLOOD | Routin | 02/22/2011 | | Results for this | | GLUCOSE (NO CHG), | e | 9:16 PM | | procedure are in the | | POC | | PDT | | results section. | + +--------+ + + + | URINE, MICROSCOPIC | Routin | 02/22/2011 | | Results for this | | EXAM | e | 9:00 PM | | procedure are in the | | | | PDT | | results section. | + +--------+ + + + | CULTURE, URINE BACTI | Routin | 02/22/2011 | | Results for this | | | e | 9:00 PM | | procedure are in the | | | | PDT | | results section. | + +--------+ + + + | CULTURE, BLOOD BACTI | Routin | 02/22/2011 | | Results for this | | & YEAST | e | 8:54 PM | | procedure are in the | | | | PDT | | results section. | + +--------+ + + + | C. DIFFICILE TOXIN, | Routin | 02/22/2011 | | Results for this | | W/REFLEX | e | 6:54 PM | | procedure are in the | | CONFIRMATION IF | | PDT | | results section. | | INDETERMINATE | | | | | | RESULTS | | | | | + +--------+ + + + | CAPILLARY BLOOD | Routin | 02/22/2011 | | Results for this | | GLUCOSE (NO CHG), | e | 6:13 PM | | procedure are in the | | POC | | PDT | | results section. | + +--------+ + + + | CAPILLARY BLOOD | Routin | 02/22/2011 | | Results for this | | GLUCOSE (NO CHG), | e | 12:44 PM | | procedure are in the | | POC | | PDT | | results section. | + +--------+ + + + | BASIC METABOLIC SET | Routin | 02/22/2011 | | Results for this | | (NA, K, CL, TCO2, | e | 10:15 AM | | procedure are in the | | BUN, CR, GLU, CA) | | PDT | | results section. | + +--------+ + + + | CBC ONLY | Routin | 02/22/2011 | | Results for this | | | e | 10:15 AM | | procedure are in the | | | | PDT | | results section. | + +--------+ + + + | CAPILLARY BLOOD | Routin | 02/22/2011 | | Results for this | | GLUCOSE (NO CHG), | e | 8:30 AM | | procedure are in the | | POC | | PDT | | results section. | + +--------+ + + + | CAPILLARY BLOOD | Routin | 02/22/2011 | | Results for this | | GLUCOSE (NO CHG), | e | 12:20 AM | | procedure are in the | | POC | | PDT | | results section. | + +--------+ + + + | CULTURE, BLOOD BACTI | Urgent | 02/21/2011 | | Results for this | | & YEAST | | 10:15 PM | | procedure are in the | | | | PDT | | results section. | + +--------+ + + + | CULTURE, BLOOD BACTI | Routin | 02/21/2011 | | Results for this | | & YEAST | e | 10:10 PM | | procedure are in the | | | | PDT | | results section. | + +--------+ + + + | CAPILLARY BLOOD | Routin | 02/21/2011 | | Results for this | | GLUCOSE (NO CHG), | e | 9:48 PM | | procedure are in the | | POC | | PDT | | results section. | + +--------+ + + + | UA, DIPSTICK ONLY | Routin | 02/21/2011 | | Results for this | | | e | 9:17 PM | | procedure are in the | | | | PDT | | results section. | + +--------+ + + + | URINE, MICROSCOPIC | Routin | 02/21/2011 | | Results for this | | EXAM | e | 9:17 PM | | procedure are in the | | | | PDT | | results section. | + +--------+ + + + | URINE SCREEN FOR | Routin | 02/21/2011 | | Results for this | | CULTURE | e | 9:17 PM | | procedure are in the | | | | PDT | | results section. | + +--------+ + + + | CULTURE, URINE BACTI | Routin | 02/21/2011 | | Results for this | | | e | 9:17 PM | | procedure are in the | | | | PDT | | results section. | + +--------+ + + + | CAPILLARY BLOOD | Routin | 02/21/2011 | | Results for this | | GLUCOSE (NO CHG), | e | 6:44 PM | | procedure are in the | | POC | | PDT | | results section. | + +--------+ + + + | CAPILLARY BLOOD | Routin | 02/21/2011 | | Results for this | | GLUCOSE (NO CHG), | e | 12:25 PM | | procedure are in the | | POC | | PDT | | results section. | + +--------+ + + + | UA, DIPSTICK ONLY | Routin | 02/21/2011 | | Results for this | | | e | 11:35 AM | | procedure are in the | | | | PDT | | results section. | + +--------+ + + + | URINE, MICROSCOPIC | Routin | 02/21/2011 | | Results for this | | EXAM | e | 11:35 AM | | procedure are in the | | | | PDT | | results section. | + +--------+ + + + | URINE SCREEN FOR | Routin | 02/21/2011 | | Results for this | | CULTURE | e | 11:35 AM | | procedure are in the | | | | PDT | | results section. | + +--------+ + + + | CULTURE, URINE BACTI | Routin | 02/21/2011 | | Results for this | | | e | 11:35 AM | | procedure are in the | | | | PDT | | results section. | + +--------+ + + + | CAPILLARY BLOOD | Routin | 02/21/2011 | | Results for this | | GLUCOSE (NO CHG), | e | 7:45 AM | | procedure are in the | | POC | | PDT | | results section. | + +--------+ + + + | DIFFERENTIAL | Routin | 02/21/2011 | | Results for this | | | e | 5:19 AM | | procedure are in the | | | | PDT | | results section. | + +--------+ + + + | BASIC METABOLIC SET | Routin | 02/21/2011 | | Results for this | | (NA, K, CL, TCO2, | e | 5:19 AM | | procedure are in the | | BUN, CR, GLU, CA) | | PDT | | results section. | + +--------+ + + + | CBC ONLY | Routin | 02/21/2011 | | Results for this | | | e | 5:19 AM | | procedure are in the | | | | PDT | | results section. | + +--------+ + + + | RESP CARE THERAPY | Routin | 02/21/2011 | | Results for this | | | e | 1:28 AM | | procedure are in the | | | | PDT | | results section. | + +--------+ + + + | CAPILLARY BLOOD | Routin | 02/20/2011 | | Results for this | | GLUCOSE (NO CHG), | e | 9:38 PM | | procedure are in the | | POC | | PDT | | results section. | + +--------+ + + + | CAPILLARY BLOOD | Routin | 02/20/2011 | | Results for this | | GLUCOSE (NO CHG), | e | 5:47 PM | | procedure are in the | | POC | | PDT | | results section. | + +--------+ + + + | CAPILLARY BLOOD | Routin | 02/20/2011 | | Results for this | | GLUCOSE (NO CHG), | e | 1:05 PM | | procedure are in the | | POC | | PDT | | results section. | + +--------+ + + + | VANCOMYCIN, TROUGH | Routin | 02/20/2011 | | Results for this | | | e | 10:09 AM | | procedure are in the | | | | PDT | | results section. | + +--------+ + + + | CAPILLARY BLOOD | Routin | 02/20/2011 | | Results for this | | GLUCOSE (NO CHG), | e | 8:27 AM | | procedure are in the | | POC | | PDT | | results section. | + +--------+ + + + | BASIC METABOLIC SET | Routin | 02/20/2011 | | Results for this | | (NA, K, CL, TCO2, | e | 8:09 AM | | procedure are in the | | BUN, CR, GLU, CA) | | PDT | | results section. | + +--------+ + + + | CBC ONLY | Routin | 02/20/2011 | | Results for this | | | e | 8:09 AM | | procedure are in the | | | | PDT | | results section. | + +--------+ + + + | RESP CARE THERAPY | Routin | 02/20/2011 | | Results for this | | | e | 6:09 AM | | procedure are in the | | | | PDT | | results section. | + +--------+ + + + | CAPILLARY BLOOD | Routin | 02/19/2011 | | Results for this | | GLUCOSE (NO CHG), | e | 9:51 PM | | procedure are in the | | POC | | PDT | | results section. | + +--------+ + + + | C. DIFFICILE TOXIN, | Routin | 02/19/2011 | | Results for this | | W/REFLEX | e | 7:02 PM | | procedure are in the | | CONFIRMATION IF | | PDT | | results section. | | INDETERMINATE | | | | | | RESULTS | | | | | + +--------+ + + + | CAPILLARY BLOOD | Routin | 02/19/2011 | | Results for this | | GLUCOSE (NO CHG), | e | 6:31 PM | | procedure are in the | | POC | | PDT | | results section. | + +--------+ + + + | VASC LAB VENOUS | Routin | 02/19/2011 | | Results for this | | DUPLEX LOWER | e | 4:05 PM | | procedure are in the | | EXTREMITY LT | | PDT | | results section. | + +--------+ + + + | CAPILLARY BLOOD | Routin | 02/19/2011 | | Results for this | | GLUCOSE (NO CHG), | e | 11:56 AM | | procedure are in the | | POC | | PDT | | results section. | + +--------+ + + + | BASIC METABOLIC SET | Routin | 02/19/2011 | | Results for this | | (NA, K, CL, TCO2, | e | 8:50 AM | | procedure are in the | | BUN, CR, GLU, CA) | | PDT | | results section. | + +--------+ + + + | CBC ONLY | Routin | 02/19/2011 | | Results for this | | | e | 8:50 AM | | procedure are in the | | | | PDT | | results section. | + +--------+ + + + | CAPILLARY BLOOD | Routin | 02/19/2011 | | Results for this | | GLUCOSE (NO CHG), | e | 7:56 AM | | procedure are in the | | POC | | PDT | | results section. | + +--------+ + + + | RESP CARE THERAPY | Routin | 02/19/2011 | | Results for this | | | e | 6:21 AM | | procedure are in the | | | | PDT | | results section. | + +--------+ + + + | CAPILLARY BLOOD | Routin | 02/18/2011 | | Results for this | | GLUCOSE (NO CHG), | e | 9:29 PM | | procedure are in the | | POC | | PDT | | results section. | + +--------+ + + + | CAPILLARY BLOOD | Routin | 02/18/2011 | | Results for this | | GLUCOSE (NO CHG), | e | 6:54 PM | | procedure are in the | | POC | | PDT | | results section. | + +--------+ + + + | CAPILLARY BLOOD | Routin | 02/18/2011 | | Results for this | | GLUCOSE (NO CHG), | e | 3:17 PM | | procedure are in the | | POC | | PDT | | results section. | + +--------+ + + + | BASIC METABOLIC SET | Routin | 02/18/2011 | | Results for this | | (NA, K, CL, TCO2, | e | 8:30 AM | | procedure are in the | | BUN, CR, GLU, CA) | | PDT | | results section. | + +--------+ + + + | CBC ONLY | Routin | 02/18/2011 | | Results for this | | | e | 8:30 AM | | procedure are in the | | | | PDT | | results section. | + +--------+ + + + | HEMOGLOBIN A1C, | Routin | 02/18/2011 | | Results for this | | BLOOD | e | 8:30 AM | | procedure are in the | | | | PDT | | results section. | + +--------+ + + + | CAPILLARY BLOOD | Routin | 02/18/2011 | | Results for this | | GLUCOSE (NO CHG), | e | 8:12 AM | | procedure are in the | | POC | | PDT | | results section. | + +--------+ + + + | UA, DIPSTICK ONLY | Routin | 02/18/2011 | | Results for this | | | e | 3:13 AM | | procedure are in the | | | | PDT | | results section. | + +--------+ + + + | URINE, MICROSCOPIC | Routin | 02/18/2011 | | Results for this | | EXAM | e | 3:13 AM | | procedure are in the | | | | PDT | | results section. | + +--------+ + + + | URINE SCREEN FOR | Routin | 02/18/2011 | | Results for this | | CULTURE | e | 3:13 AM | | procedure are in the | | | | PDT | | results section. | + +--------+ + + + | CULTURE, URINE BACTI | Routin | 02/18/2011 | | Results for this | | | e | 3:13 AM | | procedure are in the | | | | PDT | | results section. | + +--------+ + + + | CULTURE, BLOOD BACTI | Routin | 02/18/2011 | | Results for this | | & YEAST | e | 2:53 AM | | procedure are in the | | | | PDT | | results section. | + +--------+ + + + | CULTURE, BLOOD BACTI | Routin | 02/18/2011 | | Results for this | | & YEAST | e | 2:46 AM | | procedure are in the | | | | PDT | | results section. | + +--------+ + + + | RESP CARE THERAPY | Routin | 02/18/2011 | | Results for this | | | e | 1:07 AM | | procedure are in the | | | | PDT | | results section. | + +--------+ + + + | DIFFERENTIAL | Routin | 02/18/2011 | | Results for this | | | e | 1:05 AM | | procedure are in the | | | | PDT | | results section. | + +--------+ + + + | INR | Routin | 02/18/2011 | | Results for this | | | e | 1:05 AM | | procedure are in the | | | | PDT | | results section. | + +--------+ + + + | CBC, WITH | Routin | 02/18/2011 | | Results for this | | DIFFERENTIAL | e | 1:05 AM | | procedure are in the | | | | PDT | | results section. | + +--------+ + + + | COMPLETE METABOLIC | Routin | 02/18/2011 | | Results for this | | SET | e | 1:05 AM | | procedure are in the | | (NA,K,CL,CO2,BUN,CRE | | PDT | | results section. | | AT,GLUC,CA,AST,ALT,B | | | | | | CAROLE TOTAL,ALK | | | | | | PHOS,ALB,PROT TOTAL) | | | | | + +--------+ + + + | CAPILLARY BLOOD | Routin | 02/17/2011 | | Results for this | | GLUCOSE (NO CHG), | e | 11:02 PM | | procedure are in the | | POC | | PDT | | results section. | + +--------+ + + + documented in this encounter Results CAPILLARY BLOOD GLUCOSE, POC (03/02/2011 12:29 PM PDT) + +---------+ + + + | Component | Value | Ref Range | Performed | Pathologist | | | | | At | Signature | + +---------+ + + + | BLOOD | 121 (H) | 60 - 99 mg/dL | [facility] - | | | GLUCOSE, | | | [facility] | | | POC | | | [facility] | | | | | | OF CARE | | | | | | TESTS | | + +---------+ + + + + + | Specimen | + + | | + + + + + + + | Performing | Address | City/State/Zipcode | Phone Number | | Organization | | | | + + + + + | [facility] | [address] | [place], [place] | | | [facility] | [address] | [address] | | | TESTS | | | | + + + + + CAPILLARY BLOOD GLUCOSE, POC (03/02/2011 8:30 AM PDT) + +---------+ + + + | Component | Value | Ref Range | Performed | Pathologist | | | | | At | Signature | + +---------+ + + + | BLOOD | 174 (H) | 60 - 99 mg/dL | [facility] - | | | GLUCOSE, | | | [facility] | | | POC | | | [facility] | | | | | | OF CARE | | | | | | TESTS | | + +---------+ + + + + + | Specimen | + + | | + + + + + + + | Performing | Address | City/State/Zipcode | Phone Number | | Organization | | | | + + + + + | [facility] | [address] | [place], [place] | | | [facility] | [address] | [address] | | | TESTS | | | | + + + + + CBC ONLY (03/02/2011 8:20 AM PDT) + + + + + + | Component | Value | Ref Range | Performed | Pathologist | | | | | At | Signature | + + + + + + | WHITE CELL | 7.3 | 4.4 - 11.0 K/cu | [facility] | | | COUNT | | mm | DEPARTMENT | | | | | | OF | | | | | | PATHOLOGY | | + + + + + + | RED CELL | 3.28 (L) | 4.50 - 5.90 | [facility] | | | COUNT | | M/cu mm | DEPARTMENT | | | | | | OF | | | | | | PATHOLOGY | | + + + + + + | HEMOGLOBIN | 8.9 (L) | 13.5 - 17.5 | [facility] | | | | | g/dL | DEPARTMENT | | | | | | OF | | | | | | PATHOLOGY | | + + + + + + | HEMATOCRIT | 27.3 (L) | 41.0 - 53.0 % | [facility] | | | | | | DEPARTMENT | | | | | | OF | | | | | | PATHOLOGY | | + + + + + + | MCV | 83.1 | 80.0 - 96.0 fL | [facility] | | | | | | DEPARTMENT | | | | | | OF | | | | | | PATHOLOGY | | + + + + + + | MCHC | 32.7 (L) | 33.4 - 35.5 | [facility] | | | | | g/dL | DEPARTMENT | | | | | | OF | | | | | | PATHOLOGY | | + + + + + + | RDW | 16.6 (H) | 11.5 - 15.0 % | [facility] | | | | | | DEPARTMENT | | | | | | OF | | | | | | PATHOLOGY | | + + + + + + | PLATELET | 537 (H) | 150 - 400 K/cu | [facility] | | | COUNT | | mm | DEPARTMENT | | | | | | OF | | | | | | PATHOLOGY | | + + + + + + + + | Specimen | + + | Blood - Blood | + + + + + + + | Performing | Address | City/State/Zipcode | Phone Number | | Organization | | | | + + + + + | [facility] | [phone] | [place] [address] | | | PATHOLOGY | [address] | | | + + + + + BASIC METABOLIC SET (NA, K, CL, TCO2, BUN, CR, GLU, CA) (03/02/2011 8:20 AM PDT) + +---------+ + + + | Component | Value | Ref Range | Performed | Pathologist | | | | | At | Signature | + +---------+ + + + | GLUCOSE, | 156 (H) | 60 - 99 mg/dL | [facility] | | | PLASMA | | | DEPARTMENT | | | (LAB) | | | OF | | | | | | PATHOLOGY | | + +---------+ + + + | BUN, PLASMA | 6 | 6 - 20 mg/dL | [facility] | | | (LAB) | | | DEPARTMENT | | | | | | OF | | | | | | PATHOLOGY | | + +---------+ + + + | CREATININE | 0.80 | 0.70 - 1.30 | [facility] | | | PLASMA | | mg/dL | DEPARTMENT | | | (LAB) | | | OF | | | | | | PATHOLOGY | | + +---------+ + + + | SODIUM, | 136 | 134 - 143 | [facility] | | | PLASMA | | mmol/L | DEPARTMENT | | | (LAB) | | | OF | | | | | | PATHOLOGY | | + +---------+ + + + | POTASSIUM, | 4.3 | 3.4 - 5.0 | [facility] | | | PLASMA | | mmol/L | DEPARTMENT | | | (LAB) | | | OF | | | | | | PATHOLOGY | | + +---------+ + + + | CHLORIDE, | 96 (L) | 97 - 108 mmol/L | [facility] | | | PLASMA | | | DEPARTMENT | | | (LAB) | | | OF | | | | | | PATHOLOGY | | + +---------+ + + + | TOTAL CO2, | 34 (H) | 22 - 29 mmol/L | [facility] | | | PLASMA | | | DEPARTMENT | | | (LAB) | | | OF | | | | | | PATHOLOGY | | + +---------+ + + + | CALCIUM, | 8.4 (L) | 8.6 - 10.2 | [facility] | | | PLASMA | | mg/dL | DEPARTMENT | | | (LAB) | | | OF | | | | | | PATHOLOGY | | + +---------+ + + + | ANION GAP | 6 | 4 - 11 mmol/L | [facility] | | | | | | DEPARTMENT | | | | | | OF | | | | | | PATHOLOGY | | + +---------+ + + + + + | Specimen | + + | Blood - Blood | + + + + + + + | Performing | Address | City/State/Zipcode | Phone Number | | Organization | | | | + + + + + | [facility] | [phone] | [place] [address] | | | PATHOLOGY | [address] | | | + + + + + CAPILLARY BLOOD GLUCOSE, POC (03/01/2011 9:33 PM PDT) + +---------+ + + + | Component | Value | Ref Range | Performed | Pathologist | | | | | At | Signature | + +---------+ + + + | BLOOD | 128 (H) | 60 - 99 mg/dL | [facility] - | | | GLUCOSE, | | | [facility] | | | POC | | | [facility] | | | | | | OF CARE | | | | | | TESTS | | + +---------+ + + + + + | Specimen | + + | | + + + + + + + | Performing | Address | City/State/Zipcode | Phone Number | | Organization | | | | + + + + + | [facility] | [address] | [place], [place] | | | [facility] | [facility] | [address] | | | TESTS | | | | + + + + + CAPILLARY BLOOD GLUCOSE, POC (03/01/2011 6:36 PM PDT) + +---------+ + + + | Component | Value | Ref Range | Performed | Pathologist | | | | | At | Signature | + +---------+ + + + | BLOOD | 100 (H) | 60 - 99 mg/dL | [facility] - | | | GLUCOSE, | | | [facility] | | | POC | | | [facility] | | | | | | OF CARE | | | | | | TESTS | | + +---------+ + + + + + | Specimen | + + | | + + + + + + + | Performing | Address | City/State/Zipcode | Phone Number | | Organization | | | | + + + + + | [facility] | [address] | [place], [place] | | | [facility] | [address] | [address] | | | TESTS | | | | + + + + + CAPILLARY BLOOD GLUCOSE, POC (03/01/2011 8:07 AM PDT) + +---------+ + + + | Component | Value | Ref Range | Performed | Pathologist | | | | | At | Signature | + +---------+ + + + | BLOOD | 176 (H) | 60 - 99 mg/dL | [facility] - | | | GLUCOSE, | | | [facility] | | | POC | | | [facility] | | | | | | OF CARE | | | | | | TESTS | | + +---------+ + + + + + | Specimen | + + | | + + + + + + + | Performing | Address | City/State/Zipcode | Phone Number | | Organization | | | | + + + + + | [facility] | [address] | [place], [place] | | | [facility] | [address] | [address] | | | TESTS | | | | + + + + + CAPILLARY BLOOD GLUCOSE, POC (02/28/2011 10:01 PM PDT) + +---------+ + + + | Component | Value | Ref Range | Performed | Pathologist | | | | | At | Signature | + +---------+ + + + | BLOOD | 183 (H) | 60 - 99 mg/dL | [facility] - | | | GLUCOSE, | | | [facility] | | | POC | | | [place] | | | | | | OF CARE | | | | | | TESTS | | + +---------+ + + + + + | Specimen | + + | | + + + + + + + | Performing | Address | City/State/Zipcode | Phone Number | | Organization | | | | + + + + + | [facility] | [address] | [place], [place] | | | [facility] | [facility] | [address] | | | TESTS | | | | + + + + + CAPILLARY BLOOD GLUCOSE, POC (02/28/2011 6:55 PM PDT) + +---------+ + + + | Component | Value | Ref Range | Performed | Pathologist | | | | | At | Signature | + +---------+ + + + | BLOOD | 151 (H) | 60 - 99 mg/dL | [facility] - | | | GLUCOSE, | | | [facility] | | | POC | | | [facility] | | | | | | OF CARE | | | | | | TESTS | | + +---------+ + + + + + | Specimen | + + | | + + + + + + + | Performing | Address | City/State/Zipcode | Phone Number | | Organization | | | | + + + + + | [facility] | [address] | [place], [place] | | | [facility] | [address] | [address] | | | TESTS | | | | + + + + + CAPILLARY BLOOD GLUCOSE, POC (02/28/2011 1:29 PM PDT) + +---------+ + + + | Component | Value | Ref Range | Performed | Pathologist | | | | | At | Signature | + +---------+ + + + | BLOOD | 148 (H) | 60 - 99 mg/dL | [facility] - | | | GLUCOSE, | | | [facility] | | | POC | | | [facility] | | | | | | OF CARE | | | | | | TESTS | | + +---------+ + + + + + | Specimen | + + | | + + + + + + + | Performing | Address | City/State/Zipcode | Phone Number | | Organization | | | | + + + + + | [facility] | [address] | [place], [place] | | | [facility] | [facility] | [address] | | | TESTS | | | | + + + + + CBC ONLY (02/28/2011 9:00 AM PDT) + + + + + + | Component | Value | Ref Range | Performed | Pathologist | | | | | At | Signature | + + + + + + | WHITE CELL | 9.3 | 4.4 - 11.0 K/cu | [facility] | | | COUNT | | mm | DEPARTMENT | | | | | | OF | | | | | | PATHOLOGY | | + + + + + + | RED CELL | 3.42 (L) | 4.50 - 5.90 | [facility] | | | COUNT | | M/cu mm | DEPARTMENT | | | | | | OF | | | | | | PATHOLOGY | | + + + + + + | HEMOGLOBIN | 9.3 (L) | 13.5 - 17.5 | [facility] | | | | | g/dL | DEPARTMENT | | | | | | OF | | | | | | PATHOLOGY | | + + + + + + | HEMATOCRIT | 28.4 (L) | 41.0 - 53.0 % | [facility] | | | | | | DEPARTMENT | | | | | | OF | | | | | | PATHOLOGY | | + + + + + + | MCV | 83.0 | 80.0 - 96.0 fL | [facility] | | | | | | DEPARTMENT | | | | | | OF | | | | | | PATHOLOGY | | + + + + + + | MCHC | 32.7 (L) | 33.4 - 35.5 | [facility] | | | | | g/dL | DEPARTMENT | | | | | | OF | | | | | | PATHOLOGY | | + + + + + + | RDW | 16.8 (H) | 11.5 - 15.0 % | [facility] | | | | | | DEPARTMENT | | | | | | OF | | | | | | PATHOLOGY | | + + + + + + | PLATELET | 653 (H) | 150 - 400 K/cu | [facility] | | | COUNT | | mm | DEPARTMENT | | | | | | OF | | | | | | PATHOLOGY | | + + + + + + + + | Specimen | + + | Blood - Blood | + + + + + + + | Performing | Address | City/State/Zipcode | Phone Number | | Organization | | | | + + + + + | [facility] | [address] | [place] [address] | | | PATHOLOGY | [address] | | | + + + + + BASIC METABOLIC SET (NA, K, CL, TCO2, BUN, CR, GLU, CA) (02/28/2011 9:00 AM PDT) + +---------+ + + + | Component | Value | Ref Range | Performed | Pathologist | | | | | At | Signature | + +---------+ + + + | GLUCOSE, | 165 (H) | 60 - 99 mg/dL | [facility] | | | PLASMA | | | DEPARTMENT | | | (LAB) | | | OF | | | | | | PATHOLOGY | | + +---------+ + + + | BUN, PLASMA | 7 | 6 - 20 mg/dL | [facility] | | | (LAB) | | | DEPARTMENT | | | | | | OF | | | | | | PATHOLOGY | | + +---------+ + + + | CREATININE | 0.82 | 0.70 - 1.30 | [facility] | | | PLASMA | | mg/dL | DEPARTMENT | | | (LAB) | | | OF | | | | | | PATHOLOGY | | + +---------+ + + + | SODIUM, | 134 | 134 - 143 | [facility] | | | PLASMA | | mmol/L | DEPARTMENT | | | (LAB) | | | OF | | | | | | PATHOLOGY | | + +---------+ + + + | POTASSIUM, | 4.3 | 3.4 - 5.0 | [facility] | | | PLASMA | | mmol/L | DEPARTMENT | | | (LAB) | | | OF | | | | | | PATHOLOGY | | + +---------+ + + + | CHLORIDE, | 95 (L) | 97 - 108 mmol/L | [facility] | | | PLASMA | | | DEPARTMENT | | | (LAB) | | | OF | | | | | | PATHOLOGY | | + +---------+ + + + | TOTAL CO2, | 30 (H) | 22 - 29 mmol/L | [facility] | | | PLASMA | | | DEPARTMENT | | | (LAB) | | | OF | | | | | | PATHOLOGY | | + +---------+ + + + | CALCIUM, | 8.3 (L) | 8.6 - 10.2 | [facility] | | | PLASMA | | mg/dL | DEPARTMENT | | | (LAB) | | | OF | | | | | | PATHOLOGY | | + +---------+ + + + | ANION GAP | 9 | 4 - 11 mmol/L | [facility] | | | | | | DEPARTMENT | | | | | | OF | | | | | | PATHOLOGY | | + +---------+ + + + + + | Specimen | + + | Blood - Blood | + + + + + + + | Performing | Address | City/State/Zipcode | Phone Number | | Organization | | | | + + + + + | [facility] | [address] | [place] [address] | | | PATHOLOGY | [address] | | | + + + + + CAPILLARY BLOOD GLUCOSE, POC (02/28/2011 8:03 AM PDT) + +---------+ + + + | Component | Value | Ref Range | Performed | Pathologist | | | | | At | Signature | + +---------+ + + + | BLOOD | 140 (H) | 60 - 99 mg/dL | [facility] - | | | GLUCOSE, | | | [facility] | | | POC | | | [facility] | | | | | | OF CARE | | | | | | TESTS | | + +---------+ + + + + + | Specimen | + + | | + + + + + + + | Performing | Address | City/State/Zipcode | Phone Number | | Organization | | | | + + + + + | [facility] | [address] | [place], [place] | | | [facility] | [address] | [address] | | | TESTS | | | | + + + + + CAPILLARY BLOOD GLUCOSE, POC (02/27/2011 9:01 PM PDT) + +---------+ + + + | Component | Value | Ref Range | Performed | Pathologist | | | | | At | Signature | + +---------+ + + + | BLOOD | 144 (H) | 60 - 99 mg/dL | [facility] - | | | GLUCO[facility], | | | [facility] | | | POC | | | [facility] | | | | | | [facility] | | | | | | TESTS | | + +---------+ + + + + + | Specimen | + + | | + + + + + + + | Performing | Address | City/State/Zipcode | Phone Number | | Organization | | | | + + + + + | [facility] | [address] | [place], [place] | | | [facility] | [address] | [address] | | | TESTS | | | | + + + + + CAPILLARY BLOOD GLUCOSE, POC (02/27/2011 5:54 PM PDT) + +---------+ + + + | Component | Value | Ref Range | Performed | Pathologist | | | | | At | Signature | + +---------+ + + + | BLOOD | 110 (H) | 60 - 99 mg/dL | [facility] | | | GLU[facility], | | | [facility] | | | POC | | | [facility] | | | | | | [facility] | | | | | | TESTS | | + +---------+ + + + + + | Specimen | + + | | + + + + + + + | Performing | Address | City/State/Zipcode | Phone Number | | Organization | | | | + + + + + | [facility] | [address] | [place], [place] | | | [facility] | [address] | [address] | | | TESTS | | | | + + + + + CAPILLARY BLOOD GLUCOSE, POC (02/27/2011 12:12 PM PDT) + +-------+ + + + | Component | Value | Ref Range | Performed | Pathologist | | | | | At | Signature | + +-------+ + + + | BLOOD | 89 | 60 - 99 mg/dL | [facility] | | | GLU[facility], | | | [facility] | | | POC | | | [place] | | | | | | [facility] CARE | | | | | | TESTS | | + +-------+ + + + + + | Specimen | + + | | + + + + + + + | Performing | Address | City/State/Zipcode | Phone Number | | Organization | | | | + + + + + | [facility] | [address] | [place], [place] | | | [facility] | [facility] | [address] | | | TESTS | | | | + + + + + CAPILLARY BLOOD GLUCOSE, POC (02/27/2011 7:19 AM PDT) + +---------+ + + + | Component | Value | Ref Range | Performed | Pathologist | | | | | At | Signature | + +---------+ + + + | BLOOD | 107 (H) | 60 - 99 mg/dL | [facility] | | | GLUCOSE, | | | [facility] | | | POC | | | [facility] | | | | | | [facility]ARE | | | | | | TESTS | | + +---------+ + + + + + | Specimen | + + | | + + + + + + + | Performing | Address | City/State/Zipcode | Phone Number | | Organization | | | | + + + + + | [facility] | [address] | [place], [place] | | | [facility] | [address] | [address] | | | TESTS | | | | + + + + + CAPILLARY BLOOD GLUCOSE, POC (02/26/2011 8:45 PM PDT) + +---------+ + + + | Component | Value | Ref Range | Performed | Pathologist | | | | | At | Signature | + +---------+ + + + | BLOOD | 158 (H) | 60 - 99 mg/dL | [facility] | | | GLUCOSE, | | | [facility] | | | POC | | | [facility] | | | | | | [facility]ARE | | | | | | TESTS | | + +---------+ + + + + + | Specimen | + + | | + + + + + + + | Performing | Address | City/State/Zipcode | Phone Number | | Organization | | | | + + + + + | [facility] | [address] | [place], [place] | | | [facility] | [address] | [address] | | | TESTS | | | | + + + + + CAPILLARY BLOOD GLUCOSE, POC (02/26/2011 6:23 PM PDT) + +---------+ + + + | Component | Value | Ref Range | Performed | Pathologist | | | | | At | Signature | + +---------+ + + + | BLOOD | 173 (H) | 60 - 99 mg/dL | [facility] | | | GLUCOSE, | | | [facility] | | | POC | | | [facility] | | | | | | OF CARE | | | | | | TESTS | | + +---------+ + + + + + | Specimen | + + | | + + + + + + + | Performing | Address | City/State/Zipcode | Phone Number | | Organization | | | | + + + + + | [facility] | [address] | [place], [place] | | | [facility] | [address] | [address] | | | TESTS | | | | + + + + + CAPILLARY BLOOD GLUCOSE, POC (02/26/2011 1:21 PM PDT) + +---------+ + + + | Component | Value | Ref Range | Performed | Pathologist | | | | | At | Signature | + +---------+ + + + | BLOOD | 147 (H) | 60 - 99 mg/dL | [facility] | | | GLUCOSE, | | | [facility] | | | POC | | | [facility] | | | | | | OF CARE | | | | | | TESTS | | + +---------+ + + + + + | Specimen | + + | | + + + + + + + | Performing | Address | City/State/Zipcode | Phone Number | | Organization | | | | + + + + + | [facility] | [address] | [place], [place] | | | [facility] | [address] | [address] | | | TESTS | | | | + + + + + CBC ONLY (02/26/2011 8:38 AM PDT) + + + + + + | Component | Value | Ref Range | Performed | Pathologist | | | | | At | Signature | + + + + + + | WHITE CELL | 8.9 | 4.4 - 11.0 K/cu | [facility] | | | COUNT | | mm | DEPARTMENT | | | | | | OF | | | | | | PATHOLOGY | | + + + + + + | RED CELL | 3.37 (L) | 4.50 - 5.90 | [facility] | | | COUNT | | M/cu mm | DEPARTMENT | | | | | | OF | | | | | | PATHOLOGY | | + + + + + + | HEMOGLOBIN | 9.2 (L) | 13.5 - 17.5 | [facility] | | | | | g/dL | DEPARTMENT | | | | | | OF | | | | | | PATHOLOGY | | + + + + + + | HEMATOCRIT | 27.9 (L) | 41.0 - 53.0 % | [facility] | | | | | | DEPARTMENT | | | | | | OF | | | | | | PATHOLOGY | | + + + + + + | MCV | 82.7 | 80.0 - 96.0 fL | [facility] | | | | | | DEPARTMENT | | | | | | OF | | | | | | PATHOLOGY | | + + + + + + | MCHC | 32.9 (L) | 33.4 - 35.5 | [facility] | | | | | g/dL | DEPARTMENT | | | | | | OF | | | | | | PATHOLOGY | | + + + + + + | RDW | 16.0 (H) | 11.5 - 15.0 % | [facility] | | | | | | DEPARTMENT | | | | | | OF | | | | | | PATHOLOGY | | + + + + + + | PLATELET | 507 (H) | 150 - 400 K/cu | [facility] | | | COUNT | | mm | DEPARTMENT | | | | | | OF | | | | | | PATHOLOGY | | + + + + + + + + | Specimen | + + | Blood - Blood | + + + + + + + | Performing | Address | City/State/Zipcode | Phone Number | | Organization | | | | + + + + + | [facility] | [address] | [place] [address] | | | PATHOLOGY | [address] | | | + + + + + BASIC METABOLIC SET (NA, K, CL, TCO2, BUN, CR, GLU, CA) (02/26/2011 8:38 AM PDT) + +---------+ + + + | Component | Value | Ref Range | Performed | Pathologist | | | | | At | Signature | + +---------+ + + + | GLUCOSE, | 117 (H) | 60 - 99 mg/dL | [facility] | | | PLASMA | | | DEPARTMENT | | | (LAB) | | | OF | | | | | | PATHOLOGY | | + +---------+ + + + | BUN, PLASMA | 7 | 6 - 20 mg/dL | [facility] | | | (LAB) | | | DEPARTMENT | | | | | | OF | | | | | | PATHOLOGY | | + +---------+ + + + | CREATININE | 0.74 | 0.70 - 1.30 | [facility] | | | PLASMA | | mg/dL | DEPARTMENT | | | (LAB) | | | OF | | | | | | PATHOLOGY | | + +---------+ + + + | SODIUM, | 137 | 134 - 143 | [facility] | | | PLASMA | | mmol/L | DEPARTMENT | | | (LAB) | | | OF | | | | | | PATHOLOGY | | + +---------+ + + + | POTASSIUM, | 4.2 | 3.4 - 5.0 | [facility] | | | PLASMA | | mmol/L | DEPARTMENT | | | (LAB) | | | OF | | | | | | PATHOLOGY | | + +---------+ + + + | CHLORIDE, | 98 | 97 - 108 mmol/L | [facility] | | | PLASMA | | | DEPARTMENT | | | (LAB) | | | OF | | | | | | PATHOLOGY | | + +---------+ + + + | TOTAL CO2, | 30 (H) | 22 - 29 mmol/L | [facility] | | | PLASMA | | | DEPARTMENT | | | (LAB) | | | OF | | | | | | PATHOLOGY | | + +---------+ + + + | CALCIUM, | 8.2 (L) | 8.6 - 10.2 | [facility] | | | PLASMA | | mg/dL | DEPARTMENT | | | (LAB) | | | OF | | | | | | PATHOLOGY | | + +---------+ + + + | ANION GAP | 9 | 4 - 11 mmol/L | [facility] | | | | | | DEPARTMENT | | | | | | OF | | | | | | PATHOLOGY | | + +---------+ + + + + + | Specimen | + + | Blood - Blood | + + + + + + + | Performing | Address | City/State/Zipcode | Phone Number | | Organization | | | | + + + + + | [facility] DEPARTMENT OF | [address] | [place] [address] | | | PATHOLOGY | [address] | | | + + + + + CAPILLARY BLOOD GLUCOSE, POC (02/26/2011 8:22 AM PDT) + +---------+ + + + | Component | Value | Ref Range | Performed | Pathologist | | | | | At | Signature | + +---------+ + + + | BLOOD | 131 (H) | 60 - 99 mg/dL | [facility] | | | GLUCOSE, | | | [facility] | | | POC | | | [place] [place] | | | | | | OF CARE | | | | | | TESTS | | + +---------+ + + + + + | Specimen | + + | | + + + + + + + | Performing | Address | City/State/Zipcode | Phone Number | | Organization | | | | + + + + + | [facility] | [address] | [place], [place] | | | [facility] | [facility] | [address] | | | TESTS | | | | + + + + + CAPILLARY BLOOD GLUCOSE, POC (02/25/2011 8:52 PM PDT) + +---------+ + + + | Component | Value | Ref Range | Performed | Pathologist | | | | | At | Signature | + +---------+ + + + | BLOOD | 131 (H) | 60 - 99 mg/dL | [facility] - | | | GLUCOSE, | | | [facility] | | | POC | | | [facility] | | | | | | OF CARE | | | | | | TESTS | | + +---------+ + + + + + | Specimen | + + | | + + + + + + + | Performing | Address | City/State/Zipcode | Phone Number | | Organization | | | | + + + + + | [facility] | [address] | [place], [place] | | | [facility] | [facility] | [address] | | | TESTS | | | | + + + + + CAPILLARY BLOOD GLUCOSE, POC (02/25/2011 6:19 PM PDT) + +---------+ + + + | Component | Value | Ref Range | Performed | Pathologist | | | | | At | Signature | + +---------+ + + + | BLOOD | 128 (H) | 60 - 99 mg/dL | [facility] | | | GLUCOSE, | | | [facility] | | | POC | | | [facility] | | | | | | OF CARE | | | | | | TESTS | | + +---------+ + + + + + | Specimen | + + | | + + + + + + + | Performing | Address | City/State/Zipcode | Phone Number | | Organization | | | | + + + + + | [facility] | [address] | [place], [place] | | | [facility] | [address] | [address] | | | TESTS | | | | + + + + + CAPILLARY BLOOD GLUCOSE, POC (02/25/2011 12:48 PM PDT) + +---------+ + + + | Component | Value | Ref Range | Performed | Pathologist | | | | | At | Signature | + +---------+ + + + | BLOOD | 147 (H) | 60 - 99 mg/dL | [facility] | | | GLUCOSE, | | | [facility] | | | POC | | | [facility] | | | | | | OF CARE | | | | | | TESTS | | + +---------+ + + + + + | Specimen | + + | | + + + + + + + | Performing | Address | City/State/Zipcode | Phone Number | | Organization | | | | + + + + + | [facility] | [address] | [place], [place] | | | [facility] | [address] | [address] | | | TESTS | | | | + + + + + CAPILLARY BLOOD GLUCOSE, POC (02/25/2011 9:12 AM PDT) + +---------+ + + + | Component | Value | Ref Range | Performed | Pathologist | | | | | At | Signature | + +---------+ + + + | BLOOD | 270 (H) | 60 - 99 mg/dL | [facility] | | | GLUCOSE, | | | [facility] | | | POC | | | [facility] | | | | | | OF CARE | | | | | | TESTS | | + +---------+ + + + + + | Specimen | + + | | + + + + + + + | Performing | Address | City/State/Zipcode | Phone Number | | Organization | | | | + + + + + | [facility] | [address] | [place], [place] | | | [facility] | [address] | [address] | | | TESTS | | | | + + + + + CBC ONLY (02/25/2011 9:10 AM PDT) + + + + + + | Component | Value | Ref Range | Performed | Pathologist | | | | | At | Signature | + + + + + + | WHITE CELL | 9.7 | 4.4 - 11.0 K/cu | [facility] | | | COUNT | | mm | DEPARTMENT | | | | | | OF | | | | | | PATHOLOGY | | + + + + + + | RED CELL | 3.31 (L) | 4.50 - 5.90 | [facility] | | | COUNT | | M/cu mm | DEPARTMENT | | | | | | OF | | | | | | PATHOLOGY | | + + + + + + | HEMOGLOBIN | 9.0 (L) | 13.5 - 17.5 | [facility] | | | | | g/dL | DEPARTMENT | | | | | | OF | | | | | | PATHOLOGY | | + + + + + + | HEMATOCRIT | 27.6 (L) | 41.0 - 53.0 % | [facility] | | | | | | DEPARTMENT | | | | | | OF | | | | | | PATHOLOGY | | + + + + + + | MCV | 83.5 | 80.0 - 96.0 fL | [facility] | | | | | | DEPARTMENT | | | | | | OF | | | | | | PATHOLOGY | | + + + + + + | MCHC | 32.7 (L) | 33.4 - 35.5 | [facility] | | | | | g/dL | DEPARTMENT | | | | | | OF | | | | | | PATHOLOGY | | + + + + + + | RDW | 16.2 (H) | 11.5 - 15.0 % | [facility] | | | | | | DEPARTMENT | | | | | | OF | | | | | | PATHOLOGY | | + + + + + + | PLATELET | 556 (H) | 150 - 400 K/cu | [facility] | | | COUNT | | mm | DEPARTMENT | | | | | | OF | | | | | | PATHOLOGY | | + + + + + + + + | Specimen | + + | Blood - Blood | + + + + + + + | Performing | Address | City/State/Zipcode | Phone Number | | Organization | | | | + + + + + | [facility] DEPARTMENT OF | [address] | [place] [address] | | | PATHOLOGY | [address] | | | + + + + + BASIC METABOLIC SET (NA, K, CL, TCO2, BUN, CR, GLU, CA) (02/25/2011 9:10 AM PDT) + +---------+ + + + | Component | Value | Ref Range | Performed | Pathologist | | | | | At | Signature | + +---------+ + + + | GLUCOSE, | 123 (H) | 60 - 99 mg/dL | [facility] | | | PLASMA | | | DEPARTMENT | | | (LAB) | | | OF | | | | | | PATHOLOGY | | + +---------+ + + + | BUN, PLASMA | 8 | 6 - 20 mg/dL | [facility] | | | (LAB) | | | DEPARTMENT | | | | | | OF | | | | | | PATHOLOGY | | + +---------+ + + + | CREATININE | 0.86 | 0.70 - 1.30 | [facility] | | | PLASMA | | mg/dL | DEPARTMENT | | | (LAB) | | | OF | | | | | | PATHOLOGY | | + +---------+ + + + | SODIUM, | 134 | 134 - 143 | [facility] | | | PLASMA | | mmol/L | DEPARTMENT | | | (LAB) | | | OF | | | | | | PATHOLOGY | | + +---------+ + + + | POTASSIUM, | 4.2 | 3.4 - 5.0 | [facility] | | | PLASMA | | mmol/L | DEPARTMENT | | | (LAB) | | | OF | | | | | | PATHOLOGY | | + +---------+ + + + | CHLORIDE, | 94 (L) | 97 - 108 mmol/L | [facility] | | | PLASMA | | | DEPARTMENT | | | (LAB) | | | OF | | | | | | PATHOLOGY | | + +---------+ + + + | CALCIUM, | 7.9 (L) | 8.6 - 10.2 | [facility] | | | PLASMA | | mg/dL | DEPARTMENT | | | (LAB) | | | OF | | | | | | PATHOLOGY | | + +---------+ + + + | TOTAL CO2, | 35 (H) | 22 - 29 mmol/L | [facility] | | | PLASMA | | | DEPARTMENT | | | (LAB) | | | OF | | | | | | PATHOLOGY | | + +---------+ + + + | ANION GAP | 5 | 4 - 11 mmol/L | [facility] | | | | | | DEPARTMENT | | | | | | OF | | | | | | PATHOLOGY | | + +---------+ + + + + + | Specimen | + + | Blood - Blood | + + + + + + + | Performing | Address | City/State/Zipcode | Phone Number | | Organization | | | | + + + + + | [facility] | [address] | [place] [address] | | | PATHOLOGY | [address] | | | + + + + + CAPILLARY BLOOD GLUCOSE, POC (02/24/2011 9:23 PM PDT) + +---------+ + + + | Component | Value | Ref Range | Performed | Pathologist | | | | | At | Signature | + +---------+ + + + | BLOOD | 186 (H) | 60 - 99 mg/dL | [facility] - | | | GLUCOSE, | | | [facility] | | | POC | | | [facility] | | | | | | OF CARE | | | | | | TESTS | | + +---------+ + + + + + | Specimen | + + | | + + + + + + + | Performing | Address | City/State/Zipcode | Phone Number | | Organization | | | | + + + + + | [facility] | [address] | [place], [place] | | | [facility] | [address] | [address] | | | TESTS | | | | + + + + + CAPILLARY BLOOD GLUCOSE, POC (02/24/2011 5:39 PM PDT) + +---------+ + + + | Component | Value | Ref Range | Performed | Pathologist | | | | | At | Signature | + +---------+ + + + | BLOOD | 144 (H) | 60 - 99 mg/dL | [facility] | | | GLUCOSE, | | | [facility] | | | POC | | | [facility] | | | | | | OF CARE | | | | | | TESTS | | + +---------+ + + + + + | Specimen | + + | | + + + + + + + | Performing | Address | City/State/Zipcode | Phone Number | | Organization | | | | + + + + + | [facility] | [address] | [place], [place] | | | [facility] | [address] | [address] | | | TESTS | | | | + + + + + CAPILLARY BLOOD GLUCOSE, POC (02/24/2011 12:35 PM PDT) + +---------+ + + + | Component | Value | Ref Range | Performed | Pathologist | | | | | At | Signature | + +---------+ + + + | BLOOD | 149 (H) | 60 - 99 mg/dL | [facility] | | | GLUCOSE, | | | [facility] | | | POC | | | [facility] | | | | | | OF CARE | | | | | | TESTS | | + +---------+ + + + + + | Specimen | + + | | + + + + + + + | Performing | Address | City/State/Zipcode | Phone Number | | Organization | | | | + + + + + | [facility] | [address] | [place], [place] | | | [facility] | [address] | [address] | | | TESTS | | | | + + + + + POTASSIUM, PLASMA (02/24/2011 12:12 PM PDT) + +-------+ + + + | Component | Value | Ref Range | Performed | Pathologist | | | | | At | Signature | + +-------+ + + + | POTASSIUM, | 4.1 | 3.4 - 5.0 | [facility] | | | PLASMA | | mmol/L | DEPARTMENT | | | (LAB) | | | OF | | | | | | PATHOLOGY | | + +-------+ + + + + + | Specimen | + + | Blood - Blood | + + + + + + + | Performing | Address | City/State/Zipcode | Phone Number | | Organization | | | | + + + + + | [facility] DE[facility]MENT [facility] | [address] | [place] [address] | | | PATHOLOGY | [address] | | | + + + + + CBC ONLY (02/24/2011 9:14 AM PDT) + + + + + + | Component | Value | Ref Range | Performed | Pathologist | | | | | At | Signature | + + + + + + | WHITE CELL | 12.8 (H) | 4.4 - 11.0 K/cu | [facility] | | | COUNT | | mm | DEPARTMENT | | | | | | OF | | | | | | PATHOLOGY | | + + + + + + | RED CELL | 3.77 (L) | 4.50 - 5.90 | [facility] | | | COUNT | | M/cu mm | DEPARTMENT | | | | | | OF | | | | | | PATHOLOGY | | + + + + + + | HEMOGLOBIN | 10.3 (L) | 13.5 - 17.5 | [facility] | | | | | g/dL | DEPARTMENT | | | | | | OF | | | | | | PATHOLOGY | | + + + + + + | HEMATOCRIT | 31.7 (L) | 41.0 - 53.0 % | [facility] | | | | | | DEPARTMENT | | | | | | OF | | | | | | PATHOLOGY | | + + + + + + | MCV | 84.0 | 80.0 - 96.0 fL | [facility] | | | | | | DEPARTMENT | | | | | | OF | | | | | | PATHOLOGY | | + + + + + + | MCHC | 32.5 (L) | 33.4 - 35.5 | [facility] | | | | | g/dL | DEPARTMENT | | | | | | OF | | | | | | PATHOLOGY | | + + + + + + | RDW | 16.1 (H) | 11.5 - 15.0 % | [facility] | | | | | | DEPARTMENT | | | | | | OF | | | | | | PATHOLOGY | | + + + + + + | PLATELET | 588 (H) | 150 - 400 K/cu | [facility] | | | COUNT | | mm | DEPARTMENT | | | | | | OF | | | | | | PATHOLOGY | | + + + + + + + + | Specimen | + + | Blood - Blood | + + + + + + + | Performing | Address | City/State/Zipcode | Phone Number | | Organization | | | | + + + + + | [facility] DEPARTMENT | [address] | [place] [address] | | | PATHOLOGY | [address] | | | + + + + + BASIC METABOLIC SET (NA, K, CL, TCO2, BUN, CR, GLU, CA) (02/24/2011 9:14 AM PDT) + + + + + + | Component | Value | Ref Range | Performed | Pathologist | | | | | At | Signature | + + + + + + | GLUCOSE, | 153 (H) | 60 - 99 mg/dL | [facility] | | | PLASMA | | | DEPARTMENT | | | (LAB) | | | OF | | | | | | PATHOLOGY | | + + + + + + | BUN, PLASMA | 9 | 6 - 20 mg/dL | [facility] | | | (LAB) | | | DEPARTMENT | | | | | | OF | | | | | | PATHOLOGY | | + + + + + + | CREATININE | 0.88 | 0.70 - 1.30 | [facility] | | | PLASMA | | mg/dL | DEPARTMENT | | | (LAB) | | | OF | | | | | | PATHOLOGY | | + + + + + + | SODIUM, | 134 | 134 - 143 | [facility] | | | PLASMA | | mmol/L | DEPARTMENT | | | (LAB) | | | OF | | | | | | PATHOLOGY | | + + + + + + | POTASSIUM, | 6.6 (*) | 3.4 - 5.0 | [facility] | | | PLASMA | | mmol/L | DEPARTMENT | | | (LAB) | | | OF | | | | | | PATHOLOGY | | + + + + + + | CHLORIDE, | 95 (L) | 97 - 108 mmol/L | [facility] | | | PLASMA | | | DEPARTMENT | | | (LAB) | | | OF | | | | | | PATHOLOGY | | + + + + + + | TOTAL CO2, | 27 | 22 - 29 mmol/L | [facility] | | | PLASMA | | | DEPARTMENT | | | (LAB) | | | OF | | | | | | PATHOLOGY | | + + + + + + | CALCIUM, | 8.2 (L) | 8.6 - 10.2 | [facility] | | | PLASMA | | mg/dL | DEPARTMENT | | | (LAB) | | | OF | | | | | | PATHOLOGY | | + + + + + + | ANION GAP | 12 (H) | 4 - 11 mmol/L | [facility] | | | | | | DEPARTMENT | | | | | | OF | | | | | | PATHOLOGY | | + + + + + + | POTASSIUM | [facility] HEMO | | [facility] | | | CMNT | | | DEPARTMENT | | | | | | OF | | | | | | PATHOLOGY | | + + + + + + + + | Specimen | + + | Blood - Blood | + + + + + | Narrative | Performed At | + + + | Sample hemolyzed. Results for K, Total Bili., Direct Bili., AST, LD, | [facility] | | or HDL may be inaccurate. Refer to comment under test result. | DEPARTMENT OF | | Sample hemolyzed. Glucose result may be falsely elevated. K | PATHOLOGY | | gaurid Iban Disla @[address] Readback. | | + + + + + + + + | Performing | Address | City/State/Zipcode | Phone Number | | Organization | | | | + + + + + | [facility] | [address] | [place] [address] | | | PATHOLOGY | [address] | | | + + + + + CAPILLARY BLOOD GLUCOSE, POC (02/24/2011 8:12 AM PDT) + +---------+ + + + | Component | Value | Ref Range | Performed | Pathologist | | | | | At | Signature | + +---------+ + + + | BLOOD | 167 (H) | 60 - 99 mg/dL | [facility] - | | | GLUCOSE, | | | [facility] | | | POC | | | [facility] | | | | | | OF CARE | | | | | | TESTS | | + +---------+ + + + + + | Specimen | + + | | + + + + + + + | Performing | Address | City/State/Zipcode | Phone Number | | Organization | | | | + + + + + | [facility] | [address] [facility] [facility] [address] | [place], [place] | | | [facility] | [address] | [address] | | | TESTS | | | | + + + + + RESP CARE THERAPY (02/24/2011 4:26 AM PDT) + + + + +------- -------+ | Component | Value | Ref Range | Performed | Pathol ogist | | | | | At | Signat ure | + + + + +------- -------+ | RESPIRATORY | Nasal cannula at 2 LPM. | | [facility] | | | CARE | Electronically | | RESPIRATORY | | | | Signed by: Ly Luevano, | | THERAPY | | | | PUBLIC INTERVIEWER | | | | | | | | | | | | | | | | | | | | | | | | | | | | | | | | | | | |Electronically Signed by: Ly Luevano, PUBLIC INTERVIEWER | | | | + + + + +------- -------+ + + | Specimen | + + | | + + + + + + + | Performing | Address | City/State/Zipcode | Phone Number | | Organization | | | | + + + + + | [facility] | [address] | [place] | | | THERAPY | [address] | [address] | | + + + + + CAPILLARY BLOOD GLUCOSE, POC (02/23/2011 9:35 PM PDT) + +---------+ + + + | Component | Value | Ref Range | Performed | Pathologist | | | | | At | Signature | + +---------+ + + + | BLOOD | 174 (H) | 60 - 99 mg/dL | [facility] - | | | GLUCOSE, | | | [facility] | | | POC | | | [facility] | | | | | | OF CARE | | | | | | TESTS | | + +---------+ + + + + + | Specimen | + + | | + + + + + + + | Performing | Address | City/State/Zipcode | Phone Number | | Organization | | | | + + + + + | [facility] | [address] | [place], [place] | | | [facility] | [address] | [address] | | | TESTS | | | | + + + + + CAPILLARY BLOOD GLUCOSE, POC (02/23/2011 7:27 PM PDT) + +---------+ + + + | Component | Value | Ref Range | Performed | Pathologist | | | | | At | Signature | + +---------+ + + + | BLOOD | 155 (H) | 60 - 99 mg/dL | [facility] - | | | GLUCOSE, | | | [facility] | | | POC | | | [facility] | | | | | | OF CARE | | | | | | TESTS | | + +---------+ + + + + + | Specimen | + + | | + + + + + + + | Performing | Address | City/State/Zipcode | Phone Number | | Organization | | | | + + + + + | [facility] | [address] | [place], [place] | | | [facility] | [address] | [address] | | | TESTS | | | | + + + + + CAPILLARY BLOOD GLUCOSE, POC (02/23/2011 12:16 PM PDT) + +---------+ + + + | Component | Value | Ref Range | Performed | Pathologist | | | | | At | Signature | + +---------+ + + + | BLOOD | 141 (H) | 60 - 99 mg/dL | [facility] - | | | GLUCOSE, | | | [facility] | | | POC | | | [facility] | | | | | | OF CARE | | | | | | TESTS | | + +---------+ + + + + + | Specimen | + + | | + + + + + + + | Performing | Address | City/State/Zipcode | Phone Number | | Organization | | | | + + + + + | [facility] | [address] | [place], [place] | | | [facility] | [address] | [address] | | | TESTS | | | | + + + + + CULTURE, BLOOD BACTI & YEAST (02/23/2011 10:45 AM PDT) + + + + + + | Component | Value | Ref Range | Performed | Pathologist | | | | | At | Signature | + + + + + + | SOURCE BODY | Right Antecubital | | [facility] | | | SITE | | | REG[facility]AL | | | | | | LAB-MICRO | | + + + + + + | CULTURE | Blood Culture | | [facility] | | | RESULT | | | REGIONAL | | | | Source.................. | | LAB-MICRO | | | | : Right Antecubital | | | | | | | | | | | | Result.................. | | | | | | . Final: No growth at 5 | | | | | | days. | | | | + + + + + + + + | Specimen | + + | Blood | + + + + + + + | Performing | Address | City/State/Zipcode | Phone Number | | Organization | | | | + + + + + | [facility] | [address] | [place] [address] | | | LAB-MICRO | | | | + + + + + CBC ONLY (02/23/2011 8:56 AM PDT) + + + + + + | Component | Value | Ref Range | Performed | Pathologist | | | | | At | Signature | + + + + + + | WHITE CELL | 13.8 (H) | 4.4 - 11.0 K/cu | [facility] | | | COUNT | | mm | DEPARTMENT | | | | | | OF | | | | | | PATHOLOGY | | + + + + + + | RED CELL | 3.35 (L) | 4.50 - 5.90 | [facility] | | | COUNT | | M/cu mm | DEPARTMENT | | | | | | OF | | | | | | PATHOLOGY | | + + + + + + | HEMOGLOBIN | 9.2 (L) | 13.5 - 17.5 | [facility] | | | | | g/dL | DEPARTMENT | | | | | | OF | | | | | | PATHOLOGY | | + + + + + + | HEMATOCRIT | 28.2 (L) | 41.0 - 53.0 % | [facility] | | | | | | DEPARTMENT | | | | | | OF | | | | | | PATHOLOGY | | + + + + + + | MCV | 84.1 | 80.0 - 96.0 fL | [facility] | | | | | | DEPARTMENT | | | | | | OF | | | | | | PATHOLOGY | | + + + + + + | MCHC | 32.8 (L) | 33.4 - 35.5 | [facility] | | | | | g/dL | DEPARTMENT | | | | | | OF | | | | | | PATHOLOGY | | + + + + + + | RDW | 16.2 (H) | 11.5 - 15.0 % | [facility] | | | | | | DEPARTMENT | | | | | | OF | | | | | | PATHOLOGY | | + + + + + + | PLATELET | 485 (H) | 150 - 400 K/cu | [facility] | | | COUNT | | mm | DEPARTMENT | | | | | | OF | | | | | | PATHOLOGY | | + + + + + + + + | Specimen | + + | Blood - Blood | + + + + + + + | Performing | Address | City/State/Zipcode | Phone Number | | Organization | | | | + + + + + | [facility] | [address] | [place] [address] | | | PATHOLOGY | [address] | | | + + + + + BASIC METABOLIC SET (NA, K, CL, TCO2, BUN, CR, GLU, CA) (02/23/2011 8:56 AM PDT) + +---------+ + + + | Component | Value | Ref Range | Performed | Pathologist | | | | | At | Signature | + +---------+ + + + | GLUCOSE, | 142 (H) | 60 - 99 mg/dL | [facility] | | | PLASMA | | | DEPARTMENT | | | (LAB) | | | OF | | | | | | PATHOLOGY | | + +---------+ + + + | BUN, PLASMA | 7 | 6 - 20 mg/dL | [facility] | | | (LAB) | | | DEPARTMENT | | | | | | OF | | | | | | PATHOLOGY | | + +---------+ + + + | CREATININE | 0.90 | 0.70 - 1.30 | [facility] | | | PLASMA | | mg/dL | DEPARTMENT | | | (LAB) | | | OF | | | | | | PATHOLOGY | | + +---------+ + + + | SODIUM, | 135 | 134 - 143 | [facility] | | | PLASMA | | mmol/L | DEPARTMENT | | | (LAB) | | | OF | | | | | | PATHOLOGY | | + +---------+ + + + | POTASSIUM, | 4.4 | 3.4 - 5.0 | [facility] | | | PLASMA | | mmol/L | DEPARTMENT | | | (LAB) | | | OF | | | | | | PATHOLOGY | | + +---------+ + + + | CHLORIDE, | 97 | 97 - 108 mmol/L | [facility] | | | PLASMA | | | DEPARTMENT | | | (LAB) | | | OF | | | | | | PATHOLOGY | | + +---------+ + + + | TOTAL CO2, | 32 (H) | 22 - 29 mmol/L | [facility] | | | PLASMA | | | DEPARTMENT | | | (LAB) | | | OF | | | | | | PATHOLOGY | | + +---------+ + + + | CALCIUM, | 7.8 (L) | 8.6 - 10.2 | [facility] | | | PLASMA | | mg/dL | DEPARTMENT | | | (LAB) | | | OF | | | | | | PATHOLOGY | | + +---------+ + + + | ANION GAP | 6 | 4 - 11 mmol/L | [facility] | | | | | | DEPARTMENT | | | | | | OF | | | | | | PATHOLOGY | | + +---------+ + + + + + | Specimen | + + | Blood - Blood | + + + + + + + | Performing | Address | City/State/Zipcode | Phone Number | | Organization | | | | + + + + + | [facility]MENT [facility] | [id number] | [place] [address] | | | PATHOLOGY | [address] | | | + + + + + CAPILLARY BLOOD GLUCOSE, POC (02/23/2011 8:13 AM PDT) + +---------+ + + + | Component | Value | Ref Range | Performed | Pathologist | | | | | At | Signature | + +---------+ + + + | BLOOD | 144 (H) | 60 - 99 mg/dL | [facility] - | | | GLUCOSE, | | | [facility] | | | POC | | | [facility] | | | | | | OF CARE | | | | | | TESTS | | + +---------+ + + + + + | Specimen | + + | | + + + + + + + | Performing | Address | City/State/Zipcode | Phone Number | | Organization | | | | + + + + + | [facility] | [address] | [place], [place] | | | [place] | [address] | [address] | | | TESTS | | | | + + + + + X-RAY PORTABLE CHEST 1 VIEW (02/23/2011 7:12 AM PDT) + + + + + + | Component | Value | Ref Range | Performed | Pathologist | | | | | At | Signature | + + + + + + | X-RAY | EXAM: AP Chest 02/23/11 | | | | | PORTABLE | 07:12:00 CLINICAL | | | | | CHEST 1 | HISTORY: Increased | | | | | VIEW | oxygen requirement | | | | | | COMPARISON: None | | | | | | available. FINDINGS: | | | | | | The cardiac is | | | | | | suspected to be | | | | | | borderline enlarged. | | | | | | Theremainder of the | | | | | | mediastinal contours are | | | | | | unremarkable. There | | | | | | isminimal bibasilar | | | | | | atelectasis. There is | | | | | | no pneumothorax or | | | | | | pulmonaryedema. The | | | | | | osseous structures are | | | | | | normal. IMPRESSION: | | | | | | Minimal bibasilar | | | | | | atelectasis. Attending | | | | | | Radiologists: Robert Hoover | | | | | | Delilah JohnstonAuthor: | | | | | | Lois Son M.D. I have | | | | | | personally viewed this | | | | | | procedure/exam, reviewed | | | | | | this report,and made | | | | | | changes to it where | | | | | | appropriate. | | | | | | Final/Electronically | | | | | | signed / Robert Hoover | | | | | | [place] 02/23/2011 | | | | | | 10:30 AM | | | | + + + + + + + + | Specimen | + + | | + + + +---------+ + + | Performing | Address | City/State/Zipcode | Phone Number | | Organization | | | | + +---------+ + + | [facility] | | | | RADIOLOGY | | | | + +---------+ + + RESP CARE THERAPY (02/23/2011 2:00 AM PDT) + + + + +-- + | Component | Value | Ref Range | Performed | P athologist | | | | | At | S ignature | + + + + +-- + | RESPIRATORY | Nasal cannula at 3 LPM. | | [facility] | | | CARE | Electronically | | RESPIRATORY | | | | Signed by: Deng FORREST | | | | DENIZ De Santiago | | | | | | | | | | | | | | | | | | | | | | | | | | | | | | | | | | | |Electronically Signed by: Deng De Santiago RCP | | | | + + + + +-- + + + | Specimen | + + | | + + + + + + + | Performing | Address | City/State/Zipcode | Phone Number | | Organization | | | | + + + + + | [facility] | [address] | [place], [place] | | | THERAPY | [address] | [address] | | + + + + + CAPILLARY BLOOD GLUCOSE, POC (02/22/2011 9:16 PM PDT) + +---------+ + + + | Component | Value | Ref Range | Performed | Pathologist | | | | | At | Signature | + +---------+ + + + | BLOOD | 185 (H) | 60 - 99 mg/dL | [facility] | | | GLUCOSE, | | | [facility] | | | POC | | | [facility] | | | | | | OF CARE | | | | | | TESTS | | + +---------+ + + + + + | Specimen | + + | | + + + + + + + | Performing | Address | City/State/Zipcode | Phone Number | | Organization | | | | + + + + + | [facility] | [address] | [place], [place] | | | [facility] | [address] | [address] | | | TESTS | | | | + + + + + URINE, MICROSCOPIC EXAM (02/22/2011 9:00 PM PDT) + +-------+ + + + | Component | Value | Ref Range | Performed | Pathologist | | | | | At | Signature | + +-------+ + + + | SQUAMOUS | None | /hpf | [facility] | | | EPITHELIAL | | | DEPARTMENT | | | | | | OF | | | | | | PATHOLOGY | | + +-------+ + + + | NON-SQUAMOU | None | /hpf | [facility] | | | S EPITH | | | DEPARTMENT | | | | | | OF | | | | | | PATHOLOGY | | + +-------+ + + + | RED CELLS | 5-10 | 0 - 3 /hpf | [facility] | | | | | | DEPARTMENT | | | | | | OF | | | | | | PATHOLOGY | | + +-------+ + + + | WHITE CELLS | 3-6 | 0 - 5 /hpf | [facility] | | | | | | DEPARTMENT | | | | | | OF | | | | | | PATHOLOGY | | + +-------+ + + + | BACTERIA | None | /hpf | [facility] | | | | | | DEPARTMENT | | | | | | OF | | | | | | PATHOLOGY | | + +-------+ + + + | MUCOUS | None | /hpf | [facility] | | | | | | DEPARTMENT | | | | | | OF | | | | | | PATHOLOGY | | + +-------+ + + + | HYALINE | None | 0 - 1 /lpf | [facility] | | | CASTS | | | DEPARTMENT | | | | | | OF | | | | | | PATHOLOGY | | + +-------+ + + + | GRANULAR | None | /lpf | [facility] | | | CASTS | | | DEPARTMENT | | | | | | OF | | | | | | PATHOLOGY | | + +-------+ + + + | CELLULAR | None | /lpf | [facility] | | | CASTS | | | DEPARTMENT | | | | | | OF | | | | | | PATHOLOGY | | + +-------+ + + + | AMORPHOUS | None | /hpf | [facility] | | | CRYSTALS | | | DEPARTMENT | | | | | | OF | | | | | | PATHOLOGY | | + +-------+ + + + | CALCIUM | None | /hpf | [facility] | | | OXALATE | | | DEPARTMENT | | | [facility] | | | OF | | | | | | PATHOLOGY | | + +-------+ + + + | URIC ACID | None | /hpf | [facility] | | | CRYSTALS | | | DEPARTMENT | | | | | | OF | | | | | | PATHOLOGY | | + +-------+ + + + | TRIPLE P04 | None | /hpf | [facility] | | | CRYSTALS | | | DEPARTMENT | | | | | | OF | | | | | | PATHOLOGY | | + +-------+ + + + | YEAST (LAB) | None | /hpf | [facility] | | | | | | DEPARTMENT | | | | | | OF | | | | | | PATHOLOGY | | + +-------+ + + + | TRICHOMONAS | None | /hpf | [facility] | | | | | | DEPARTMENT | | | | | | OF | | | | | | PATHOLOGY | | + +-------+ + + + + + | Specimen | + + | Urine - Urine | + + + + + | Narrative | Performed At | + + + | Specimen volume <12ml; microscopic not standardized. | [facility] | | | DEPARTMENT OF | | | PATHOLOGY | + + + + + + + + | Performing | Address | City/State/Zipcode | Phone Number | | Organization | | | | + + + + + | [facility] | [address] | [place] [address] | | | PATHOLOGY | [address] | | | + + + + + CULTURE, URINE BACTI (02/22/2011 9:00 PM PDT) + + + + + + | Component | Value | Ref Range | Performed | Pathologist | | | | | At | Signature | + + + + + + | SOURCE BODY | Irvin Cath Urine | | [facility] | | | SITE | | | REGIONAL | | | | | | LAB-MICRO | | + + + + + + | CULTURE | Urine Culture | | [facility] | | | RESULT | | | REGIONAL | | | | Source...............: | | LAB-MICRO | | | | Irvin Cath Urine | | | | | | Culture: Final | | | | | | Report: No growth (< | | | | | | 1,000 col/ml) after 24 | | | | | | hours Final | | | | | | Report Resulted: | | | | | | 02/24/11 | | | | | | [facility]) | | | | | | [facility] | | | | | | [facility]erman[facility] | | | | | | [address] | | | | | | [place], [place] | | | | | | [address] | | | | + + + + + + + + | Specimen | + + | Urine - Irvin Cath | + + + + + + + | Performing | Address | City/State/Zipcode | Phone Number | | Organization | | | | + + + + + | [facility] | [address] | [place] [address] | | | LAB-MICRO | | | | + + + + + CULTURE, BLOOD BACTI & YEAST (02/22/2011 8:54 PM PDT) + + + + + + | Component | Value | Ref Range | Performed | Pathologist | | | | | At | Signature | + + + + + + | SOURCE BODY | Blood Blood, Left Hand | | [facility] | | | SITE | | | REGIONAL | | | | | | LAB-MICRO | | + + + + + + | CULTURE | Blood Culture | | [facility] | | | RESULT | | | REGIONAL | | | | Source.................. | | LAB-MICRO | | | | : Blood Blood, Left Hand | | | | | | | | | | | | Result.................. | | | | | | . Final: No growth at 5 | | | | | | days. | | | | + + + + + + + + | Specimen | + + | Blood | + + + + + + + | Performing | Address | City/State/Zipcode | Phone Number | | Organization | | | | + + + + + | [facility] | [address] | [place] [address] | | | LAB-MICRO | | | | + + + + + C. DIFFICILE TOXIN (02/22/2011 6:54 PM PDT) + + + + + + | Component | Value | Ref Range | Performed | Pathologist | | | | | At | Signature | + + + + + + | C. | NegativeComment: | | [facility] | | | DIFFICILE | Reference Range: | | DEPARTMENT | | | TOXIN | Negative | | OF | | | | | | PATHOLOGY | | + + + + + + + + | Specimen | + + | Stool - Stool | + + + + + + + | Performing | Address | City/State/Zipcode | Phone Number | | Organization | | | | + + + + + | [facility] | [address] | [place] [address] | | | PATHOLOGY | [address] | | | + + + + + CAPILLARY BLOOD GLUCOSE, POC (02/22/2011 6:13 PM PDT) + +---------+ + + + | Component | Value | Ref Range | Performed | Pathologist | | | | | At | Signature | + +---------+ + + + | BLOOD | 143 (H) | 60 - 99 mg/dL | [facility] - | | | GLUCOSE, | | | [facility] | | | POC | | | [facility] | | | | | | OF CARE | | | | | | TESTS | | + +---------+ + + + + + | Specimen | + + | | + + + + + + + | Performing | Address | City/State/Zipcode | Phone Number | | Organization | | | | + + + + + | [facility] | [address] | [place], [place] | | | [facility] | [address] | [address] | | | TESTS | | | | + + + + + CAPILLARY BLOOD GLUCOSE, POC (02/22/2011 12:44 PM PDT) + +---------+ + + + | Component | Value | Ref Range | Performed | Pathologist | | | | | At | Signature | + +---------+ + + + | BLOOD | 136 (H) | 60 - 99 mg/dL | [facility] - | | | GLUCOSE, | | | [facility] | | | POC | | | [facility] | | | | | | OF CARE | | | | | | TESTS | | + +---------+ + + + + + | Specimen | + + | | + + + + + + + | Performing | Address | City/State/Zipcode | Phone Number | | Organization | | | | + + + + + | [facility] | [address] | [place], [place] | | | [facility] | [address] | [address] | | | TESTS | | | | + + + + + CBC ONLY (02/22/2011 10:15 AM PDT) + + + + + + | Component | Value | Ref Range | Performed | Pathologist | | | | | At | Signature | + + + + + + | WHITE CELL | 15.1 (H) | 4.4 - 11.0 K/cu | [facility] | | | COUNT | | mm | DEPARTMENT | | | | | | OF | | | | | | PATHOLOGY | | + + + + + + | RED CELL | 3.40 (L) | 4.50 - 5.90 | [facility] | | | COUNT | | M/cu mm | DEPARTMENT | | | | | | OF | | | | | | PATHOLOGY | | + + + + + + | HEMOGLOBIN | 9.4 (L) | 13.5 - 17.5 | [facility] | | | | | g/dL | DEPARTMENT | | | | | | OF | | | | | | PATHOLOGY | | + + + + + + | HEMATOCRIT | 28.7 (L) | 41.0 - 53.0 % | [facility] | | | | | | DEPARTMENT | | | | | | OF | | | | | | PATHOLOGY | | + + + + + + | MCV | 84.3 | 80.0 - 96.0 fL | [facility] | | | | | | DEPARTMENT | | | | | | OF | | | | | | PATHOLOGY | | + + + + + + | MCHC | 32.8 (L) | 33.4 - 35.5 | [facility] | | | | | g/dL | DEPARTMENT | | | | | | OF | | | | | | PATHOLOGY | | + + + + + + | RDW | 16.5 (H) | 11.5 - 15.0 % | [facility] | | | | | | DEPARTMENT | | | | | | OF | | | | | | PATHOLOGY | | + + + + + + | PLATELET | 532 (H) | 150 - 400 K/cu | [facility] | | | COUNT | | mm | DEPARTMENT | | | | | | OF | | | | | | PATHOLOGY | | + + + + + + + + | Specimen | + + | Blood - Blood | + + + + + + + | Performing | Address | City/State/Zipcode | Phone Number | | Organization | | | | + + + + + | [facility] | [address] | [place] [address] | | | PATHOLOGY | [address] | | | + + + + + BASIC METABOLIC SET (NA, K, CL, TCO2, BUN, CR, GLU, CA) (02/22/2011 10:15 AM PDT) + +---------+ + + + | Component | Value | Ref Range | Performed | Pathologist | | | | | At | Signature | + +---------+ + + + | GLUCOSE, | 166 (H) | 60 - 99 mg/dL | [facility] | | | PLASMA | | | DEPARTMENT | | | (LAB) | | | OF | | | | | | PATHOLOGY | | + +---------+ + + + | BUN, PLASMA | 6 | 6 - 20 mg/dL | [facility] | | | (LAB) | | | DEPARTMENT | | | | | | OF | | | | | | PATHOLOGY | | + +---------+ + + + | CREATININE | 0.96 | 0.70 - 1.30 | [facility] | | | PLASMA | | mg/dL | DEPARTMENT | | | (LAB) | | | OF | | | | | | PATHOLOGY | | + +---------+ + + + | SODIUM, | 134 | 134 - 143 | [facility] | | | PLASMA | | mmol/L | DEPARTMENT | | | (LAB) | | | OF | | | | | | PATHOLOGY | | + +---------+ + + + | POTASSIUM, | 4.8 | 3.4 - 5.0 | [facility] | | | PLASMA | | mmol/L | DEPARTMENT | | | (LAB) | | | OF | | | | | | PATHOLOGY | | + +---------+ + + + | CHLORIDE, | 94 (L) | 97 - 108 mmol/L | [facility] | | | PLASMA | | | DEPARTMENT | | | (LAB) | | | OF | | | | | | PATHOLOGY | | + +---------+ + + + | TOTAL CO2, | 33 (H) | 22 - 29 mmol/L | [facility] | | | PLASMA | | | DEPARTMENT | | | (LAB) | | | OF | | | | | | PATHOLOGY | | + +---------+ + + + | CALCIUM, | 7.8 (L) | 8.6 - 10.2 | [facility] | | | PLASMA | | mg/dL | DEPARTMENT | | | (LAB) | | | OF | | | | | | PATHOLOGY | | + +---------+ + + + | ANION GAP | 7 | 4 - 11 mmol/L | [facility] | | | | | | DEPARTMENT | | | | | | OF | | | | | | PATHOLOGY | | + +---------+ + + + + + | Specimen | + + | Blood - Blood | + + + + + + + | Performing | Address | City/State/Zipcode | Phone Number | | Organization | | | | + + + + + | [facility] DE[facility] | [address] | [place] [address] | | | PATHOLOGY | [address] | | | + + + + + CAPILLARY BLOOD GLUCOSE, POC (02/22/2011 8:30 AM PDT) + +---------+ + + + | Component | Value | Ref Range | Performed | Pathologist | | | | | At | Signature | + +---------+ + + + | BLOOD | 156 (H) | 60 - 99 mg/dL | [facility] - | | | GLUCOSE, | | | [facility] | | | POC | | | [facility] | | | | | | OF CARE | | | | | | TESTS | | + +---------+ + + + + + | Specimen | + + | | + + + + + + + | Performing | Address | City/State/Zipcode | Phone Number | | Organization | | | | + + + + + | [facility] | [address] | [place], [place] | | | [facility] | [address] | [address] | | | TESTS | | | | + + + + + CAPILLARY BLOOD GLUCOSE, POC (02/22/2011 12:20 AM PDT) + +---------+ + + + | Component | Value | Ref Range | Performed | Pathologist | | | | | At | Signature | + +---------+ + + + | BLOOD | 151 (H) | 60 - 99 mg/dL | [facility] - | | | GLUCOSE, | | | [facility] | | | POC | | | [facility] | | | | | | OF CARE | | | | | | TESTS | | + +---------+ + + + + + | Specimen | + + | | + + + + + + + | Performing | Address | City/State/Zipcode | Phone Number | | Organization | | | | + + + + + | [facility] | [address] | [place], [place] | | | [facility] | [address] | [address] | | | TESTS | | | | + + + + + CULTURE, BLOOD BACTI & YEAST (02/21/2011 10:15 PM PDT) + + + + + + | Component | Value | Ref Range | Performed | Pathologist | | | | | At | Signature | + + + + + + | SOURCE BODY | Left Wrist | | [facility] | | | SITE | | | REGIONAL | | | | | | LAB-MICRO | | + + + + + + | CULTURE | Blood Culture | | [facility] | | | RESULT | | | REGIONAL | | | | Source.................. | | LAB-MICRO | | | | : Left Wrist | | | | | | Result.................. | | | | | | . Final: No growth at 5 | | | | | | days. | | | | + + + + + + + + | Specimen | + + | Blood | + + + + + + + | Performing | Address | City/State/Zipcode | Phone Number | | Organization | | | | + + + + + | [facility] | [address] | [place] [address] | | | LAB-MICRO | | | | + + + + + CULTURE, BLOOD BACTI & YEAST (02/21/2011 10:10 PM PDT) + + + + + + | Component | Value | Ref Range | Performed | Pathologist | | | | | At | Signature | + + + + + + | SOURCE BODY | Right Antecubital | | [facility] | | | SITE | | | REGIONAL | | | | | | LAB-MICRO | | + + + + + + | CULTURE | Blood Culture | | [facility] | | | RESULT | | | REGIONAL | | | | Source.................. | | LAB-MICRO | | | | : Right Antecubital | | | | | | | | | | | | Result.................. | | | | | | . Final: No growth at 5 | | | | | | days. | | | | + + + + + + + + | Specimen | + + | Blood | + + + + + + + | Performing | Address | City/State/Zipcode | Phone Number | | Organization | | | | + + + + + | [facility] | [address] | [place] [address] | | | LAB-MICRO | | | | + + + + + CAPILLARY BLOOD GLUCOSE, POC (02/21/2011 9:48 PM PDT) + +---------+ + + + | Component | Value | Ref Range | Performed | Pathologist | | | | | At | Signature | + +---------+ + + + | BLOOD | 174 (H) | 60 - 99 mg/dL | [facility] - | | | GLUCOSE, | | | [facility] | | | POC | | | [facility] | | | | | | OF CARE | | | | | | TESTS | | + +---------+ + + + + + | Specimen | + + | | + + + + + + + | Performing | Address | City/State/Zipcode | Phone Number | | Organization | | | | + + + + + | [facility] | [address] | [place], [place] | | | [facility] | [address] | [address] | | | TESTS | | | | + + + + + CULTURE, URINE BACTI (02/21/2011 9:17 PM PDT) + + + + + + | Component | Value | Ref Range | Performed | Pathologist | | | | | At | Signature | + + + + + + | SOURCE BODY | Urine | | [facility] | | | SITE | | | REGIONAL | | | | | | LAB-MICRO | | + + + + + + | CULTURE | Urine Culture | | [facility] | | | RESULT | | | REGIONAL | | | | Source...............: | | LAB-MICRO | | | | Urine Culture: | | | | | | Final Report: No | | | | | | growth (< 1,000 col/ml) | | | | | | after 24 hours | | | | | | Final Report | | | | | | Resulted: 02/23/11 | | | | | | [facility] | | | | | | [facility] Lab) | | | | | | [facility] | | | | | | [address] | | | | | | [place] [address] | | | | | | [facility] [place] [facility] | | | | + + + + + + + + | Specimen | + + | | + + + + + + + | Performing | Address | City/State/Zipcode | Phone Number | | Organization | | | | + + + + + | [facility] | [address] | [place] [address] | | | LAB-MICRO | | | | + + + + + CRISSY NAGY (02/21/2011 9:17 PM PDT) + + + + + + | Component | Value | Ref Range | Performed | Pathologist | | | | | At | Signature | + + + + + + | COLOR(UR) | Yellow | | [facility] | | | | | | DEPARTMENT | | | | | | OF | | | | | | PATHOLOGY | | + + + + + + | APPEARANCE | Clear | | [facility] | | | | | | DEPARTMENT | | | | | | OF | | | | | | PATHOLOGY | | + + + + + + | GLUCOSE(UR) | Negative | mg/dL | [facility] | | | | | | DEPARTMENT | | | | | | OF | | | | | | PATHOLOGY | | + + + + + + | BILIRUBIN | Negative | | [facility] | | | | | | DEPARTMENT | | | | | | OF | | | | | | PATHOLOGY | | + + + + + + | KETONES | Negative | mg/dL | [facility] | | | | | | DEPARTMENT | | | | | | OF | | | | | | PATHOLOGY | | + + + + + + | SPECIFIC | 1.010 | 1.005 - 1.030 | [facility] | | | GRAVITY | | | DEPARTMENT | | | | | | OF | | | | | | PATHOLOGY | | + + + + + + | BLOOD | Small (A) | | [facility] | | | | | | DEPARTMENT | | | | | | OF | | | | | | PATHOLOGY | | + + + + + + | PH(UR) | 8.0 | 5.0 - 8.0 | [facility] | | | | | | DEPARTMENT | | | | | | OF | | | | | | PATHOLOGY | | + + + + + + | PROTEIN(LAB | Negative | mg/dL | [facility] | | | ) | | | DEPARTMENT | | | | | | OF | | | | | | PATHOLOGY | | + + + + + + | UROBILINOGE | 0.2 | 0 - 0.2 CONNER | [facility] | | | N | | UNITS | DEPARTMENT | | | | | | OF | | | | | | PATHOLOGY | | + + + + + + | NITRITES | Negative | Negative | [facility] | | | | | | DEPARTMENT | | | | | | OF | | | | | | PATHOLOGY | | + + + + + + | LEUKOCYTE | Negative | Negative | [facility] | | | ESTERASE | | | DEPARTMENT | | | | | | OF | | | | | | PATHOLOGY | | + + + + + + + + | Specimen | + + | Urine - Catheter | + + + + + | Narrative | Performed At | + + + | Specimen volume <12ml; microscopic not standardized. | [facility] | | | DEPARTMENT OF | | | PATHOLOGY | + + + + + + + + | Performing | Address | City/State/Zipcode | Phone Number | | Organization | | | | + + + + + | [facility] DEPARTMENT OF | [address] | [place] [address] | | | PATHOLOGY | [address] | | | + + + + + URINE, MICROSCOPIC EXAM (02/21/2011 9:17 PM PDT) + +---------+ + + + | Component | Value | Ref Range | Performed | Pathologist | | | | | At | Signature | + +---------+ + + + | SQUAMOUS | Few (A) | /hpf | [facility] | | | EPITHELIAL | | | DEPARTMENT | | | | | | OF | | | | | | PATHOLOGY | | + +---------+ + + + | NON-SQUAMOU | None | /hpf | [facility] | | | S EPITH | | | DEPARTMENT | | | | | | OF | | | | | | PATHOLOGY | | + +---------+ + + + | RED CELLS | 5-8 | 0 - 3 /hpf | [facility] | | | | | | DEPARTMENT | | | | | | OF | | | | | | PATHOLOGY | | + +---------+ + + + | WHITE CELLS | 0-3 | 0 - 5 /hpf | [facility] | | | | | | DEPARTMENT | | | | | | OF | | | | | | PATHOLOGY | | + +---------+ + + + | BACTERIA | Few (A) | /hpf | [facility] | | | | | | DEPARTMENT | | | | | | OF | | | | | | PATHOLOGY | | + +---------+ + + + | MUCOUS | Few (A) | /hpf | [facility] | | | | | | DEPARTMENT | | | | | | OF | | | | | | PATHOLOGY | | + +---------+ + + + | HYALINE | None | 0 - 1 /lpf | [facility] | | | CASTS | | | DEPARTMENT | | | | | | OF | | | | | | PATHOLOGY | | + +---------+ + + + | GRANULAR | None | /lpf | [facility] | | | CASTS | | | DEPARTMENT | | | | | | OF | | | | | | PATHOLOGY | | + +---------+ + + + | CELLULAR | None | /lpf | [facility] | | | CASTS | | | DEPARTMENT | | | | | | OF | | | | | | PATHOLOGY | | + +---------+ + + + | AMORPHOUS | None | /hpf | [facility] | | | CRYSTALS | | | DEPARTMENT | | | | | | OF | | | | | | PATHOLOGY | | + +---------+ + + + | CALCIUM | None | /hpf | [facility] | | | OXALATE | | | DEPARTMENT | | | [facility] | | | OF | | | | | | PATHOLOGY | | + +---------+ + + + | URIC ACID | None | /hpf | [facility] | | | CRYSTALS | | | DEPARTMENT | | | | | | OF | | | | | | PATHOLOGY | | + +---------+ + + + | TRIPLE P04 | None | /hpf | [facility] | | | CRYSTALS | | | DEPARTMENT | | | | | | OF | | | | | | PATHOLOGY | | + +---------+ + + + | YEAST (LAB) | None | /hpf | [facility] | | | | | | DEPARTMENT | | | | | | OF | | | | | | PATHOLOGY | | + +---------+ + + + | TRICHOMONAS | None | /hpf | [facility] | | | | | | DEPARTMENT | | | | | | OF | | | | | | PATHOLOGY | | + +---------+ + + + + + | Specimen | + + | Urine - Catheter | + + + + + | Narrative | Performed At | + + + | Specimen volume <12ml; microscopic not standardized. | [facility] | | | DEPARTMENT OF | | | PATHOLOGY | + + + + + + + + | Performing | Address | City/State/Zipcode | Phone Number | | Organization | | | | + + + + + | [facility] | [phone] | [place] [address] | | | PATHOLOGY | [address] | | | + + + + + URINE SCREEN FOR CULTURE (02/21/2011 9:17 PM PDT) + + + + + + | Component | Value | Ref Range | Performed | Pathologist | | | | | At | Signature | + + + + + + | CULT, URINE | Negative for Nitrites | | [facility] | | | SCREEN | and Leukocyte Esterase. | | DEPARTMENT | | | | Specimen sent for | | OF | | | | culture based on | | PATHOLOGY | | | | microscopic findings. | | | | + + + + + + + + | Specimen | + + | Urine - Catheter | + + + + + + + | Performing | Address | City/State/Zipcode | Phone Number | | Organization | | | | + + + + + | [facility] DEPARTMENT OF | [phone] | [place] [address] | | | PATHOLOGY | [address] | | | + + + + + CAPILLARY BLOOD GLUCOSE, POC (02/21/2011 6:44 PM PDT) + +---------+ + + + | Component | Value | Ref Range | Performed | Pathologist | | | | | At | Signature | + +---------+ + + + | BLOOD | 147 (H) | 60 - 99 mg/dL | [facility] - | | | GLUCOSE, | | | [facility] | | | POC | | | [facility] | | | | | | OF CARE | | | | | | TESTS | | + +---------+ + + + + + | Specimen | + + | | + + + + + + + | Performing | Address | City/State/Zipcode | Phone Number | | Organization | | | | + + + + + | [facility] | [address] | [place], [place] | | | [facility] | [address] | [address] | | | TESTS | | | | + + + + + CAPILLARY BLOOD GLUCOSE, POC (02/21/2011 12:25 PM PDT) + +---------+ + + + | Component | Value | Ref Range | Performed | Pathologist | | | | | At | Signature | + +---------+ + + + | BLOOD | 183 (H) | 60 - 99 mg/dL | [facility] - | | | GLUCOSE, | | | [facility] | | | POC | | | [facility] | | | | | | OF CARE | | | | | | TESTS | | + +---------+ + + + + + | Specimen | + + | | + + + + + + + | Performing | Address | City/State/Zipcode | Phone Number | | Organization | | | | + + + + + | [facility] | [address] | [place], [place] | | | [facility] | [address] | [address] | | | TESTS | | | | + + + + + CULTURE, URINE BACTI (02/21/2011 11:35 AM PDT) + + + + + + | Component | Value | Ref Range | Performed | Pathologist | | | | | At | Signature | + + + + + + | SOURCE BODY | Clean catch | | [facility] | | | SITE | | | REGIONAL | | | | | | LAB-MICRO | | + + + + + + | CULTURE | Urine Culture | | [facility] | | | RESULT | | | REGIONAL | | | | Source...............: | | LAB-MICRO | | | | Clean catch | | | | | | Culture: Final | | | | | | Report: No growth (< | | | | | | 1,000 col/ml) after 24 | | | | | | hours Final | | | | | | Report Resulted: | | | | | | 02/22/11 | | | | | | [facility] ([facility]) | | | | | | [place] | | | | | | [facility] | | | | | | [id number] [address] | | | | | | [place], [place] | | | | | | [phone] | | | | + + + + + + + + | Specimen | + + | | + + + + + + + | Performing | Address | City/State/Zipcode | Phone Number | | Organization | | | | + + + + + | [facility] | [address] | [place] [address] | | | LAB-MICRO | | | | + + + + + CRISSY NAGY ONLY (02/21/2011 11:35 AM PDT) + + + + + + | Component | Value | Ref Range | Performed | Pathologist | | | | | At | Signature | + + + + + + | COLOR(UR) | Straw | | [facility] | | | | | | DEPARTMENT | | | | | | OF | | | | | | PATHOLOGY | | + + + + + + | APPEARANCE | Clear | | [facility] | | | | | | DEPARTMENT | | | | | | OF | | | | | | PATHOLOGY | | + + + + + + | GLUCOSE(UR) | Negative | mg/dL | [facility] | | | | | | DEPARTMENT | | | | | | OF | | | | | | PATHOLOGY | | + + + + + + | BILIRUBIN | Negative | | [facility] | | | | | | DEPARTMENT | | | | | | OF | | | | | | PATHOLOGY | | + + + + + + | KETONES | Negative | mg/dL | [facility] | | | | | | DEPARTMENT | | | | | | OF | | | | | | PATHOLOGY | | + + + + + + | SPECIFIC | 1.010 | 1.005 - 1.030 | [facility] | | | GRAVITY | | | DEPARTMENT | | | | | | OF | | | | | | PATHOLOGY | | + + + + + + | BLOOD | Moderate (A) | | [facility] | | | | | | DEPARTMENT | | | | | | OF | | | | | | PATHOLOGY | | + + + + + + | PH(UR) | 7.5 | 5.0 - 8.0 | [facility] | | | | | | DEPARTMENT | | | | | | OF | | | | | | PATHOLOGY | | + + + + + + | PROTEIN(LAB | Negative | mg/dL | [facility] | | | ) | | | DEPARTMENT | | | | | | OF | | | | | | PATHOLOGY | | + + + + + + | UROBILINOGE | 0.2 | 0 - 0.2 CONNER | [facility] | | | N | | UNITS | DEPARTMENT | | | | | | OF | | | | | | PATHOLOGY | | + + + + + + | NITRITES | Negative | Negative | [facility] | | | | | | DEPARTMENT | | | | | | OF | | | | | | PATHOLOGY | | + + + + + + | LEUKOCYTE | Negative | Negative | [facility] | | | ESTERASE | | | DEPARTMENT | | | | | | OF | | | | | | PATHOLOGY | | + + + + + + + + | Specimen | + + | Urine - Urine | + + + + + | Narrative | Performed At | + + + | Specimen volume <12ml; microscopic not standardized. | [facility] | | | DEPARTMENT OF | | | PATHOLOGY | + + + + + + + + | Performing | Address | City/State/Zipcode | Phone Number | | Organization | | | | + + + + + | [facility] DEPARTMENT OF | [address] | [place] [address] | | | PATHOLOGY | [address] | | | + + + + + URINE, MICROSCOPIC EXAM (02/21/2011 11:35 AM PDT) + +---------+ + + + | Component | Value | Ref Range | Performed | Pathologist | | | | | At | Signature | + +---------+ + + + | SQUAMOUS | Few (A) | /hpf | [facility] | | | EPITHELIAL | | | DEPARTMENT | | | | | | OF | | | | | | PATHOLOGY | | + +---------+ + + + | NON-SQUAMOU | None | /hpf | [facility] | | | S EPITH | | | DEPARTMENT | | | | | | OF | | | | | | PATHOLOGY | | + +---------+ + + + | RED CELLS | 5-15 | 0 - 3 /hpf | [facility] | | | | | | DEPARTMENT | | | | | | OF | | | | | | PATHOLOGY | | + +---------+ + + + | WHITE CELLS | 2-7 | 0 - 5 /hpf | [facility] | | | | | | DEPARTMENT | | | | | | OF | | | | | | PATHOLOGY | | + +---------+ + + + | BACTERIA | Few (A) | /hpf | [facility] | | | | | | DEPARTMENT | | | | | | OF | | | | | | PATHOLOGY | | + +---------+ + + + | MUCOUS | None | /hpf | [facility] | | | | | | DEPARTMENT | | | | | | OF | | | | | | PATHOLOGY | | + +---------+ + + + | HYALINE | None | 0 - 1 /lpf | [facility] | | | CASTS | | | DEPARTMENT | | | | | | OF | | | | | | PATHOLOGY | | + +---------+ + + + | GRANULAR | None | /lpf | [facility] | | | CASTS | | | DEPARTMENT | | | | | | OF | | | | | | PATHOLOGY | | + +---------+ + + + | CELLULAR | None | /lpf | [facility] | | | CASTS | | | DEPARTMENT | | | | | | OF | | | | | | PATHOLOGY | | + +---------+ + + + | AMORPHOUS | None | /hpf | [facility] | | | CRYSTALS | | | DEPARTMENT | | | | | | OF | | | | | | PATHOLOGY | | + +---------+ + + + | CALCIUM | None | /hpf | [facility] | | | OXALATE | | | DEPARTMENT | | | SARAHI | | | OF | | | | | | PATHOLOGY | | + +---------+ + + + | URIC ACID | None | /hpf | [facility] | | | CRYSTALS | | | DEPARTMENT | | | | | | OF | | | | | | PATHOLOGY | | + +---------+ + + + | TRIPLE P04 | None | /hpf | [facility] | | | CRYSTALS | | | DEPARTMENT | | | | | | OF | | | | | | PATHOLOGY | | + +---------+ + + + | YEAST (LAB) | None | /hpf | [facility] | | | | | | DEPARTMENT | | | | | | OF | | | | | | PATHOLOGY | | + +---------+ + + + | TRICHOMONAS | None | /hpf | [facility] | | | | | | DEPARTMENT | | | | | | OF | | | | | | PATHOLOGY | | + +---------+ + + + + + | Specimen | + + | Urine - Urine | + + + + + | Narrative | Performed At | + + + | Specimen volume <12ml; microscopic not standardized. | [facility] | | | DEPARTMENT OF | | | PATHOLOGY | + + + + + + + + | Performing | Address | City/State/Zipcode | Phone Number | | Organization | | | | + + + + + | [facility] DEPARTMENT OF | [address] | [place] [address] | | | PATHOLOGY | [address] | | | + + + + + URINE SCREEN FOR CULTURE (02/21/2011 11:35 AM PDT) + + + + + + | Component | Value | Ref Range | Performed | Pathologist | | | | | At | Signature | + + + + + + | CULT, URINE | Negative for Nitrites | | [facility] | | | SCREEN | and Leukocyte Esterase. | | DEPARTMENT | | | | Specimen sent for | | OF | | | | culture based on | | PATHOLOGY | | | | microscopic findings. | | | | + + + + + + + + | Specimen | + + | Urine - Urine | + + + + + + + | Performing | Address | City/State/Zipcode | Phone Number | | Organization | | | | + + + + + | [facility] | [address] | [place] [address] | | | PATHOLOGY | [address] | | | + + + + + CAPILLARY BLOOD GLUCOSE, POC (02/21/2011 7:45 AM PDT) + +---------+ + + + | Component | Value | Ref Range | Performed | Pathologist | | | | | At | Signature | + +---------+ + + + | BLOOD | 192 (H) | 60 - 99 mg/dL | [facility] - | | | GLUCOSE, | | | [facility] | | | POC | | | [facility] | | | | | | OF CARE | | | | | | TESTS | | + +---------+ + + + + + | Specimen | + + | | + + + + + + + | Performing | Address | City/State/Zipcode | Phone Number | | Organization | | | | + + + + + | [facility] | [address] | [place], [place] | | | [facility] | [address] | [address] | | | TESTS | | | | + + + + + DIFFERENTIAL (02/21/2011 5:19 AM PDT) + + + + + + | Component | Value | Ref Range | Performed | Pathologist | | | | | At | Signature | + + + + + + | NEUTROPHIL | 83 (H) | 50 - 70 % | [facility] | | | % | | | DEPARTMENT | | | | | | OF | | | | | | PATHOLOGY | | + + + + + + | LYMPHOCYTE | 10 (L) | 18 - 42 % | [facility] | | | % | | | DEPARTMENT | | | | | | OF | | | | | | PATHOLOGY | | + + + + + + | MONOCYTE % | 5 | 2 - 8 % | [facility] | | | | | | DEPARTMENT | | | | | | OF | | | | | | PATHOLOGY | | + + + + + + | EOS % | 2 | 1 - 3 % | [facility] | | | | | | DEPARTMENT | | | | | | OF | | | | | | PATHOLOGY | | + + + + + + | BASO % | 0 | <3 % | [facility] | | | | | | DEPARTMENT | | | | | | OF | | | | | | PATHOLOGY | | + + + + + + | NEUTROPHIL | 10.1 (H) | 1.8 - 7.7 K/cu | [facility] | | | # | | mm | DEPARTMENT | | | | | | OF | | | | | | PATHOLOGY | | + + + + + + | LYMPHOCYTE | 1.2 | 1.0 - 4.8 K/cu | [facility] | | | # | | mm | DEPARTMENT | | | | | | OF | | | | | | PATHOLOGY | | + + + + + + | MONOCYTE # | 0.6 | <0.9 K/cu mm | [facility] | | | | | | DEPARTMENT | | | | | | OF | | | | | | PATHOLOGY | | + + + + + + | EOS # | 0.2 | <0.6 K/cu mm | [facility] | | | | | | DEPARTMENT | | | | | | OF | | | | | | PATHOLOGY | | + + + + + + | BASO # | 0.0 | <0.2 | [facility] | | | | | | DEPARTMENT | | | | | | OF | | | | | | PATHOLOGY | | + + + + + + + + | Specimen | + + | | + + + + + | Narrative | Performed At | + + + | * Corrected 02/21/11 10:46: ROLF YA, prev report: Not | [facility] | | reported | DEPARTMENT OF | | | PATHOLOGY | + + + + + + + + | Performing | Address | City/State/Zipcode | Phone Number | | Organization | | | | + + + + + | [facility] DEPARTMENT OF | [address] | [place] [address] | | | PATHOLOGY | [address] | | | + + + + + CBC ONLY (02/21/2011 5:19 AM PDT) + + + + + + | Component | Value | Ref Range | Performed | Pathologist | | | | | At | Signature | + + + + + + | WHITE CELL | 12.2 (H) | 4.4 - 11.0 K/cu | [facility] | | | COUNT | | mm | DEPARTMENT | | | | | | OF | | | | | | PATHOLOGY | | + + + + + + | RED CELL | 3.61 (L) | 4.50 - 5.90 | [facility] | | | COUNT | | M/cu mm | DEPARTMENT | | | | | | OF | | | | | | PATHOLOGY | | + + + + + + | HEMOGLOBIN | 9.8 (L) | 13.5 - 17.5 | [facility] | | | | | g/dL | DEPARTMENT | | | | | | OF | | | | | | PATHOLOGY | | + + + + + + | HEMATOCRIT | 30.8 (L) | 41.0 - 53.0 % | [facility] | | | | | | DEPARTMENT | | | | | | OF | | | | | | PATHOLOGY | | + + + + + + | MCV | 85.4 | 80.0 - 96.0 fL | [facility] | | | | | | DEPARTMENT | | | | | | OF | | | | | | PATHOLOGY | | + + + + + + | MCHC | 31.8 (L) | 33.4 - 35.5 | [facility] | | | | | g/dL | DEPARTMENT | | | | | | OF | | | | | | PATHOLOGY | | + + + + + + | RDW | 17.1 (H) | 11.5 - 15.0 % | [facility] | | | | | | DEPARTMENT | | | | | | OF | | | | | | PATHOLOGY | | + + + + + + | PLATELET | 591 (H) | 150 - 400 K/cu | [facility] | | | COUNT | | mm | DEPARTMENT | | | | | | OF | | | | | | PATHOLOGY | | + + + + + + | CBC | Final automated | | [facility] | | | COMMENTS | differential report. | | DEPARTMENT | | | | Smear reviewed. | | OF | | | | | | PATHOLOGY | | + + + + + + | DIFF | <or= 10% bands seen on | | [facility] | | | COMMENTS | scan. | | DEPARTMENT | | | | | | OF | | | | | | PATHOLOGY | | + + + + + + | RBC | Anisocytosis + | | [facility] | | | MORPHOLOGY | | | DEPARTMENT | | | | | | OF | | | | | | PATHOLOGY | | + + + + + + + + | Specimen | + + | Blood - Blood | + + + + + | Narrative | Performed At | + + + | * Corrected 02/21/11 10:46: ROLF COMMENTS, prev report: Not | [facility] | | reported | DEPARTMENT OF | | | PATHOLOGY | + + + + + + + + | Performing | Address | City/State/Zipcode | Phone Number | | Organization | | | | + + + + + | [facility] DEPARTMENT OF | [address] | [place] [address] | | | PATHOLOGY | [address] | | | + + + + + BASIC METABOLIC SET (NA, K, CL, TCO2, BUN, CR, GLU, CA) (02/21/2011 5:19 AM PDT) + +---------+ + + + | Component | Value | Ref Range | Performed | Pathologist | | | | | At | Signature | + +---------+ + + + | GLUCOSE, | 170 (H) | 60 - 99 mg/dL | [facility] | | | PLASMA | | | DEPARTMENT | | | (LAB) | | | OF | | | | | | PATHOLOGY | | + +---------+ + + + | BUN, PLASMA | 6 | 6 - 20 mg/dL | [facility] | | | (LAB) | | | DEPARTMENT | | | | | | OF | | | | | | PATHOLOGY | | + +---------+ + + + | CREATININE | 0.90 | 0.70 - 1.30 | [facility] | | | PLASMA | | mg/dL | DEPARTMENT | | | (LAB) | | | OF | | | | | | PATHOLOGY | | + +---------+ + + + | SODIUM, | 138 | 134 - 143 | [facility] | | | PLASMA | | mmol/L | DEPARTMENT | | | (LAB) | | | OF | | | | | | PATHOLOGY | | + +---------+ + + + | POTASSIUM, | 4.8 | 3.4 - 5.0 | [facility] | | | PLASMA | | mmol/L | DEPARTMENT | | | (LAB) | | | OF | | | | | | PATHOLOGY | | + +---------+ + + + | CHLORIDE, | 99 | 97 - 108 mmol/L | [facility] | | | PLASMA | | | DEPARTMENT | | | (LAB) | | | OF | | | | | | PATHOLOGY | | + +---------+ + + + | TOTAL CO2, | 34 (H) | 22 - 29 mmol/L | [facility] | | | PLASMA | | | DEPARTMENT | | | (LAB) | | | OF | | | | | | PATHOLOGY | | + +---------+ + + + | CALCIUM, | 8.1 (L) | 8.6 - 10.2 | [facility] | | | PLASMA | | mg/dL | DEPARTMENT | | | (LAB) | | | OF | | | | | | PATHOLOGY | | + +---------+ + + + | ANION GAP | 5 | 4 - 11 mmol/L | [facility] | | | | | | DEPARTMENT | | | | | | OF | | | | | | PATHOLOGY | | + +---------+ + + + + + | Specimen | + + | Blood - Blood | + + + + + + + | Performing | Address | City/State/Zipcode | Phone Number | | Organization | | | | + + + + + | [facility] DEPARTMENT | [address] | [place], [place] [address] | | | PATHOLOGY | [address] | | | + + + + + RESP CARE THERAPY (02/21/2011 1:28 AM PDT) + + + + +------ --------+ | Component | Value | Ref Range | Performed | Patho logist | | | | | At | Signa ture | + + + + +------ --------+ | RESPIRATORY | Oxygen device on | | [facility] | | | CARE | standby, nasal canula. | | RESPIRATORY | | | | Electronically | | THERAPY | | | | Signed by: Rosemary Berman, | | | | | | PUBLIC INTERVIEWER | | | | | | | | | | | | | | | | | | | | | | | | | | | | | |Electronically Signed by: LUCITA BenitoP | | | | + + + + +------ --------+ + + | Specimen | + + | | + + + + + + + | Performing | Address | City/State/Zipcode | Phone Number | | Organization | | | | + + + + + | [facility] | [address] | [place], [place] | | | THERAPY | [address] | [address] | | + + + + + CAPILLARY BLOOD GLUCOSE, POC (02/20/2011 9:38 PM PDT) + +---------+ + + + | Component | Value | Ref Range | Performed | Pathologist | | | | | At | Signature | + +---------+ + + + | BLOOD | 158 (H) | 60 - 99 mg/dL | [facility] - | | | GLUCOSE, | | | [facility] | | | POC | | | [facility] | | | | | | OF CARE | | | | | | TESTS | | + +---------+ + + + + + | Specimen | + + | | + + + + + + + | Performing | Address | City/State/Zipcode | Phone Number | | Organization | | | | + + + + + | [facility] | [address] | [place], [place] | | | [facility] | [address] | [address] | | | TESTS | | | | + + + + + CAPILLARY BLOOD GLUCOSE, POC (02/20/2011 5:47 PM PDT) + +---------+ + + + | Component | Value | Ref Range | Performed | Pathologist | | | | | At | Signature | + +---------+ + + + | BLOOD | 185 (H) | 60 - 99 mg/dL | [facility] - | | | GLUCOSE, | | | [facility] | | | POC | | | [place] [place] | | | | | | OF CARE | | | | | | TESTS | | + +---------+ + + + + + | Specimen | + + | | + + + + + + + | Performing | Address | City/State/Zipcode | Phone Number | | Organization | | | | + + + + + | [facility] | [address] | [place], [place] | | | [facility] | [facility] | [address] | | | TESTS | | | | + + + + + CAPILLARY BLOOD GLUCOSE, POC (02/20/2011 1:05 PM PDT) + +---------+ + + + | Component | Value | Ref Range | Performed | Pathologist | | | | | At | Signature | + +---------+ + + + | BLOOD | 185 (H) | 60 - 99 mg/dL | [facility] - | | | GLUCOSE, | | | [facility] | | | POC | | | [facility] | | | | | | OF CARE | | | | | | TESTS | | + +---------+ + + + + + | Specimen | + + | | + + + + + + + | Performing | Address | City/State/Zipcode | Phone Number | | Organization | | | | + + + + + | [facility] | [address] | [place], [place] | | | [facility] | [address] | [address] | | | TESTS | | | | + + + + + VANCOMYCIN, TROUGH (02/20/2011 10:09 AM PDT) + + + + + + | Component | Value | Ref Range | Performed | Pathologist | | | | | At | Signature | + + + + + + | VANCOMYCIN, | 15.7 (H) | 5.0 - 15.0 | [facility] | | | TROUGH | | ug/mL | DEPARTMENT | | | | | | OF | | | | | | PATHOLOGY | | + + + + + + + + | Specimen | + + | Blood - Blood | + + + + + + + | Performing | Address | City/State/Zipcode | Phone Number | | Organization | | | | + + + + + | [facility] DEPARTMENT OF | [address] | [place] [address] | | | PATHOLOGY | [address] | | | + + + + + CAPILLARY BLOOD GLUCOSE, POC (02/20/2011 8:27 AM PDT) + +---------+ + + + | Component | Value | Ref Range | Performed | Pathologist | | | | | At | Signature | + +---------+ + + + | BLOOD | 168 (H) | 60 - 99 mg/dL | [facility] - | | | GLUCOSE, | | | [facility] | | | POC | | | [facility] | | | | | | OF CARE | | | | | | TESTS | | + +---------+ + + + + + | Specimen | + + | | + + + + + + + | Performing | Address | City/State/Zipcode | Phone Number | | Organization | | | | + + + + + | [facility] | [address] | [place], [place] | | | [facility] | [facility] | [address] | | | TESTS | | | | + + + + + CBC ONLY (02/20/2011 8:09 AM PDT) + + + + + + | Component | Value | Ref Range | Performed | Pathologist | | | | | At | Signature | + + + + + + | WHITE CELL | 11.8 (H) | 4.4 - 11.0 K/cu | [facility] | | | COUNT | | mm | DEPARTMENT | | | | | | OF | | | | | | PATHOLOGY | | + + + + + + | RED CELL | 3.54 (L) | 4.50 - 5.90 | [facility] | | | COUNT | | M/cu mm | DEPARTMENT | | | | | | OF | | | | | | PATHOLOGY | | + + + + + + | HEMOGLOBIN | 9.7 (L) | 13.5 - 17.5 | [facility] | | | | | g/dL | DEPARTMENT | | | | | | OF | | | | | | PATHOLOGY | | + + + + + + | HEMATOCRIT | 29.9 (L) | 41.0 - 53.0 % | [facility] | | | | | | DEPARTMENT | | | | | | OF | | | | | | PATHOLOGY | | + + + + + + | MCV | 84.6 | 80.0 - 96.0 fL | [facility] | | | | | | DEPARTMENT | | | | | | OF | | | | | | PATHOLOGY | | + + + + + + | MCHC | 32.4 (L) | 33.4 - 35.5 | [facility] | | | | | g/dL | DEPARTMENT | | | | | | OF | | | | | | PATHOLOGY | | + + + + + + | RDW | 16.7 (H) | 11.5 - 15.0 % | [facility] | | | | | | DEPARTMENT | | | | | | OF | | | | | | PATHOLOGY | | + + + + + + | PLATELET | 561 (H) | 150 - 400 K/cu | [facility] | | | COUNT | | mm | DEPARTMENT | | | | | | OF | | | | | | PATHOLOGY | | + + + + + + + + | Specimen | + + | Blood - Blood | + + + + + + + | Performing | Address | City/State/Zipcode | Phone Number | | Organization | | | | + + + + + | [facility] DEPARTMENT OF | [address] | [place] [address] | | | PATHOLOGY | [address] | | | + + + + + BASIC METABOLIC SET (NA, K, CL, TCO2, BUN, CR, GLU, CA) (02/20/2011 8:09 AM PDT) + +---------+ + + + | Component | Value | Ref Range | Performed | Pathologist | | | | | At | Signature | + +---------+ + + + | GLUCOSE, | 167 (H) | 60 - 99 mg/dL | [facility] | | | PLASMA | | | DEPARTMENT | | | (LAB) | | | OF | | | | | | PATHOLOGY | | + +---------+ + + + | BUN, PLASMA | 7 | 6 - 20 mg/dL | [facility] | | | (LAB) | | | DEPARTMENT | | | | | | OF | | | | | | PATHOLOGY | | + +---------+ + + + | CREATININE | 0.84 | 0.70 - 1.30 | [facility] | | | PLASMA | | mg/dL | DEPARTMENT | | | (LAB) | | | OF | | | | | | PATHOLOGY | | + +---------+ + + + | SODIUM, | 139 | 134 - 143 | [facility] | | | PLASMA | | mmol/L | DEPARTMENT | | | (LAB) | | | OF | | | | | | PATHOLOGY | | + +---------+ + + + | POTASSIUM, | 4.4 | 3.4 - 5.0 | [facility] | | | PLASMA | | mmol/L | DEPARTMENT | | | (LAB) | | | OF | | | | | | PATHOLOGY | | + +---------+ + + + | CHLORIDE, | 99 | 97 - 108 mmol/L | [facility] | | | PLASMA | | | DEPARTMENT | | | (LAB) | | | OF | | | | | | PATHOLOGY | | + +---------+ + + + | TOTAL CO2, | 34 (H) | 22 - 29 mmol/L | [facility] | | | PLASMA | | | DEPARTMENT | | | (LAB) | | | OF | | | | | | PATHOLOGY | | + +---------+ + + + | CALCIUM, | 8.0 (L) | 8.6 - 10.2 | [facility] | | | PLASMA | | mg/dL | DEPARTMENT | | | (LAB) | | | OF | | | | | | PATHOLOGY | | + +---------+ + + + | ANION GAP | 6 | 4 - 11 mmol/L | [facility] | | | | | | DEPARTMENT | | | | | | OF | | | | | | PATHOLOGY | | + +---------+ + + + + + | Specimen | + + | Blood - Blood | + + + + + + + | Performing | Address | City/State/Zipcode | Phone Number | | Organization | | | | + + + + + | [facility] DEPARTMENT | [address] | [place] [address] | | | PATHOLOGY | [address] | | | + + + + + RESP CARE THERAPY (02/20/2011 6:09 AM PDT) + + + + +------- -------+ | Component | Value | Ref Range | Performed | Pathol ogist | | | | | At | Signat ure | + + + + +------- -------+ | RESPIRATORY | Nasal cannula at 2 LPM. | | [facility] | | | CARE | Electronically | | RESPIRATORY | | | | Signed by: Ly Luevano, | | THERAPY | | | | PUBLIC INTERVIEWER | | | | | | | | | | | | | | | | | | | | | | | | | | | | | | | | | | | |Electronically Signed by: Ly Luevano, PUBLIC INTERVIEWER | | | | + + + + +------- -------+ + + | Specimen | + + | | + + + + + + + | Performing | Address | City/State/Zipcode | Phone Number | | Organization | | | | + + + + + | [facility] | [address] | [place], [place] | | | THERAPY | [address] | [address] | | + + + + + CAPILLARY BLOOD GLUCOSE, POC (02/19/2011 9:51 PM PDT) + +---------+ + + + | Component | Value | Ref Range | Performed | Pathologist | | | | | At | Signature | + +---------+ + + + | BLOOD | 180 (H) | 60 - 99 mg/dL | [facility] - | | | GLUCOSE, | | | [facility] | | | POC | | | [facility] | | | | | | OF CARE | | | | | | TESTS | | + +---------+ + + + + + | Specimen | + + | | + + + + + + + | Performing | Address | City/State/Zipcode | Phone Number | | Organization | | | | + + + + + | [facility] | [address] | [place], [place] | | | [facility] | [address] | [address] | | | TESTS | | | | + + + + + C. DIFFICILE TOXIN (02/19/2011 7:02 PM PDT) + + + + + + | Component | Value | Ref Range | Performed | Pathologist | | | | | At | Signature | + + + + + + | C. | NegativeComment: | | [facility] | | | DIFFICILE | Reference Range: | | DEPARTMENT | | | TOXIN | Negative | | OF | | | | | | PATHOLOGY | | + + + + + + + + | Specimen | + + | Stool - Stool | + + + + + + + | Performing | Address | City/State/Zipcode | Phone Number | | Organization | | | | + + + + + | [facility] | [phone] | [place] [address] | | | PATHOLOGY | [address] | | | + + + + + CAPILLARY BLOOD GLUCOSE, POC (02/19/2011 6:31 PM PDT) + +---------+ + + + | Component | Value | Ref Range | Performed | Pathologist | | | | | At | Signature | + +---------+ + + + | BLOOD | 174 (H) | 60 - 99 mg/dL | [facility] - | | | GLUCOSE, | | | [facility] | | | POC | | | [facility] | | | | | | [facility] | | | | | | TESTS | | + +---------+ + + + + + | Specimen | + + | | + + + + + + + | Performing | Address | City/State/Zipcode | Phone Number | | Organization | | | | + + + + + | [facility] | [address] | [place], [place] | | | [facility] | [address] | [address] | | | TESTS | | | | + + + + + VASC LAB VENOUS DUPLEX LOWER EXTREMITY LT (02/19/2011 4:05 PM PDT) + + + + + + | Component | Value | Ref Range | Performed | Pathologist | | | | | At | Signature | + + + + + + | VASC LAB | Med Rec No: | | | | | VENOUS | [id number] Name: | | | | | DUPLEX | WILNER GILBERT | | | | | LOWER | Birthday: 1965 | | | | | EXTREMITY | Sex: M Alias: | | | | | LEFT | Patient Location: | | | | | | 7CStatus: Inpatient | | | | | | Active Ordering | | | | | | Physician: [place], | | | | | | SHARLA Her MD [facility]VDUL | | | | | | VL VENOUS DUP UNIL LE LT | | | | | | completed on 02/19/2011 | | | | | | 4:05 PMAccession # | | | | | | [id number] RESULT: LOWER | | | | | | EXTREMITY VENOUS STUDY: | | | | | | 02/19/2011 Dictated | | | | | | 02/20/2011 INDICATION: | | | | | | Edema. The duplex | | | | | | scanner was used to | | | | | | examine the deep and | | | | | | superficial veinsof the | | | | | | left lower extremity. | | | | | | The right lower | | | | | | extremity was | | | | | | notexamined. It is | | | | | | noted the examination | | | | | | was technically | | | | | | difficult withsuboptimal | | | | | | visualization of the | | | | | | calf veins. All | | | | | | vessels, however,did | | | | | | appear to be patent with | | | | | | normal phasic flows and | | | | | | response toaugmentation | | | | | | and compression | | | | | | maneuvers and there is | | | | | | no thrombusnoted. | | | | | | IMPRESSION: Venous | | | | | | examination of the left | | | | | | lower extremity without | | | | | | evidence ofvenous | | | | | | thrombosis. It is | | | | | | noted the calf veins | | | | | | were not wellvisualized. | | | | | | END IMPRESSION: | | | | | | Attending Radiologists: | | | | | | ,Author: QUINCY Diaz | | | | | | Delilah MACKEY I have | | | | | | personally viewed this | | | | | | procedure/exam, reviewed | | | | | | this report,and made | | | | | | changes to it where | | | | | | appropriate. | | | | | | Final/Electronically | | | | | | signed / Quincy Diaz | | | | | | Noam | | | | | | 02/20/201112:08 PM | | | | | | Preliminary / Katherin | | | | | | Sirena 02/20/2011 2:05 | | | | | | PM | | | | + + + + + + + + | Specimen | + + | | + + + +---------+ + + | Performing | Address | City/State/Zipcode | Phone Number | | Organization | | | | + +---------+ + + | [facility] DEPARTMENT OF | | | | | RADIOLOGY | | | | + +---------+ + + CAPILLARY BLOOD GLUCOSE, POC (02/19/2011 11:56 AM PDT) + +---------+ + + + | Component | Value | Ref Range | Performed | Pathologist | | | | | At | Signature | + +---------+ + + + | BLOOD | 203 (H) | 60 - 99 mg/dL | [facility] - | | | GLUCOSE, | | | [facility] | | | POC | | | [facility] | | | | | | [facility] | | | | | | TESTS | | + +---------+ + + + + + | Specimen | + + | | + + + + + + + | Performing | Address | City/State/Zipcode | Phone Number | | Organization | | | | + + + + + | [facility] | [address] | [place], [place] | | | [facility] | [address] | [phone] | | | TESTS | | | | + + + + + CBC ONLY (02/19/2011 8:50 AM PDT) + + + + + + | Component | Value | Ref Range | Performed | Pathologist | | | | | At | Signature | + + + + + + | WHITE CELL | 14.0 (H) | 4.4 - 11.0 K/cu | [facility] | | | COUNT | | mm | DEPARTMENT | | | | | | OF | | | | | | PATHOLOGY | | + + + + + + | RED CELL | 3.70 (L) | 4.50 - 5.90 | [facility] | | | COUNT | | M/cu mm | DEPARTMENT | | | | | | OF | | | | | | PATHOLOGY | | + + + + + + | HEMOGLOBIN | 10.2 (L) | 13.5 - 17.5 | [facility] | | | | | g/dL | DEPARTMENT | | | | | | OF | | | | | | PATHOLOGY | | + + + + + + | HEMATOCRIT | 31.2 (L) | 41.0 - 53.0 % | [facility] | | | | | | DEPARTMENT | | | | | | OF | | | | | | PATHOLOGY | | + + + + + + | MCV | 84.3 | 80.0 - 96.0 fL | [facility] | | | | | | DEPARTMENT | | | | | | OF | | | | | | PATHOLOGY | | + + + + + + | MCHC | 32.8 (L) | 33.4 - 35.5 | [facility] | | | | | g/dL | DEPARTMENT | | | | | | OF | | | | | | PATHOLOGY | | + + + + + + | RDW | 16.9 (H) | 11.5 - 15.0 % | [facility] | | | | | | DEPARTMENT | | | | | | OF | | | | | | PATHOLOGY | | + + + + + + | PLATELET | 415 (H) | 150 - 400 K/cu | [facility] | | | COUNT | | mm | DEPARTMENT | | | | | | OF | | | | | | PATHOLOGY | | + + + + + + + + | Specimen | + + | Blood - Blood | + + + + + + + | Performing | Address | City/State/Zipcode | Phone Number | | Organization | | | | + + + + + | [facility] | [address] | [place] [address] | | | PATHOLOGY | [address] | | | + + + + + BASIC METABOLIC SET (NA, K, CL, TCO2, BUN, CR, GLU, CA) (02/19/2011 8:50 AM PDT) + +---------+ + + + | Component | Value | Ref Range | Performed | Pathologist | | | | | At | Signature | + +---------+ + + + | GLUCOSE, | 173 (H) | 60 - 99 mg/dL | [facility] | | | PLASMA | | | DEPARTMENT | | | (LAB) | | | OF | | | | | | PATHOLOGY | | + +---------+ + + + | BUN, PLASMA | 8 | 6 - 20 mg/dL | [facility] | | | (LAB) | | | DEPARTMENT | | | | | | OF | | | | | | PATHOLOGY | | + +---------+ + + + | CREATININE | 0.86 | 0.70 - 1.30 | [facility] | | | PLASMA | | mg/dL | DEPARTMENT | | | (LAB) | | | OF | | | | | | PATHOLOGY | | + +---------+ + + + | SODIUM, | 136 | 134 - 143 | [facility] | | | PLASMA | | mmol/L | DEPARTMENT | | | (LAB) | | | OF | | | | | | PATHOLOGY | | + +---------+ + + + | POTASSIUM, | 5.0 | 3.4 - 5.0 | [facility] | | | PLASMA | | mmol/L | DEPARTMENT | | | (LAB) | | | OF | | | | | | PATHOLOGY | | + +---------+ + + + | CHLORIDE, | 96 (L) | 97 - 108 mmol/L | [facility] | | | PLASMA | | | DEPARTMENT | | | (LAB) | | | OF | | | | | | PATHOLOGY | | + +---------+ + + + | TOTAL CO2, | 34 (H) | 22 - 29 mmol/L | [facility] | | | PLASMA | | | DEPARTMENT | | | (LAB) | | | OF | | | | | | PATHOLOGY | | + +---------+ + + + | CALCIUM, | 8.0 (L) | 8.6 - 10.2 | [facility] | | | PLASMA | | mg/dL | DEPARTMENT | | | (LAB) | | | OF | | | | | | PATHOLOGY | | + +---------+ + + + | ANION GAP | 6 | 4 - 11 mmol/L | [facility] | | | | | | DEPARTMENT | | | | | | OF | | | | | | PATHOLOGY | | + +---------+ + + + + + | Specimen | + + | Blood - Blood | + + + + + + + | Performing | Address | City/State/Zipcode | Phone Number | | Organization | | | | + + + + + | [facility] DEPARTMENT OF | [address] | [place] [address] | | | PATHOLOGY | [address] | | | + + + + + CAPILLARY BLOOD GLUCOSE, POC (02/19/2011 7:56 AM PDT) + +---------+ + + + | Component | Value | Ref Range | Performed | Pathologist | | | | | At | Signature | + +---------+ + + + | BLOOD | 184 (H) | 60 - 99 mg/dL | [facility] - | | | GLUCOSE, | | | [facility] | | | POC | | | [facility] | | | | | | OF CARE | | | | | | TESTS | | + +---------+ + + + + + | Specimen | + + | | + + + + + + + | Performing | Address | City/State/Zipcode | Phone Number | | Organization | | | | + + + + + | [facility] | [address] | [place], [place] | | | [facility] | [facility] | [address] | | | TESTS | | | | + + + + + RESP CARE THERAPY (02/19/2011 6:21 AM PDT) + + + + +-- + | Component | Value | Ref Range | Performed | P athologist | | | | | At | S ignature | + + + + +-- + | RESPIRATORY | Nasal cannula at 2 LPM. | | [facility] | | | CARE | Electronically | | RESPIRATORY | | | | Signed by: Deng FORREST | | | | DENIZ De Santiago | | | | | | | | | | | | | | | | | | | | | | | | | | | | | | | | | | | |Electronically Signed by: Deng De Santiago RCP | | | | + + + + +-- + + + | Specimen | + + | | + + + + + + + | Performing | Address | City/State/Zipcode | Phone Number | | Organization | | | | + + + + + | [facility] | [address] | [place], [place] | | | THERAPY | [address] | [address] | | + + + + + CAPILLARY BLOOD GLUCOSE, POC (02/18/2011 9:29 PM PDT) + +---------+ + + + | Component | Value | Ref Range | Performed | Pathologist | | | | | At | Signature | + +---------+ + + + | BLOOD | 151 (H) | 60 - 99 mg/dL | [facility] - | | | GLUCOSE, | | | [facility] | | | POC | | | [place] | | | | | | OF CARE | | | | | | TESTS | | + +---------+ + + + + + | Specimen | + + | | + + + + + + + | Performing | Address | City/State/Zipcode | Phone Number | | Organization | | | | + + + + + | [facility] | [address] | [place], [place] | | | [facility] | [address] | [address] | | | TESTS | | | | + + + + + CAPILLARY BLOOD GLUCOSE, POC (02/18/2011 6:54 PM PDT) + +---------+ + + + | Component | Value | Ref Range | Performed | Pathologist | | | | | At | Signature | + +---------+ + + + | BLOOD | 168 (H) | 60 - 99 mg/dL | [facility] - | | | GLUCOSE, | | | [facility] | | | POC | | | [place] | | | | | | OF CARE | | | | | | TESTS | | + +---------+ + + + + + | Specimen | + + | | + + + + + + + | Performing | Address | City/State/Zipcode | Phone Number | | Organization | | | | + + + + + | [facility] | [address] | [place], [place] | | | [facility] | [address] | [address] | | | TESTS | | | | + + + + + CAPILLARY BLOOD GLUCOSE, POC (02/18/2011 3:17 PM PDT) + +---------+ + + + | Component | Value | Ref Range | Performed | Pathologist | | | | | At | Signature | + +---------+ + + + | BLOOD | 150 (H) | 60 - 99 mg/dL | [facility] - | | | GLUCOSE, | | | [facility] | | | POC | | | [facility] | | | | | | OF CARE | | | | | | TESTS | | + +---------+ + + + + + | Specimen | + + | | + + + + + + + | Performing | Address | City/State/Zipcode | Phone Number | | Organization | | | | + + + + + | [facility] | [address] | [place], [place] | | | [facility] | [address] | [address] | | | TESTS | | | | + + + + + HEMOGLOBIN A1C, BLOOD (02/18/2011 8:30 AM PDT) + + + + + + | Component | Value | Ref Range | Performed | Pathologist | | | | | At | Signature | + + + + + + | HEMOGLOBIN | 14.5 (H) | <5.7 % | [facility] | | | A1C | | | REGIONAL | | | | | | LABORATORY | | + + + + + + + + | Specimen | + + | Blood - Blood | + + + + + | Narrative | Performed At | + + + | HbA1c Interpretive Information If you are screening for | [facility] | | diabetes: <5.7 Non-diabetic 5.7-6.4 | REGIONAL | | Prediabetes >6.4 Diabetes, if confirmed For | LABORATORY | | monitoring of diabetes control: <7.0 Usual goal of | | | treatment; low risk for complications 7.0-8.0 Some | | | increased risk for long-term complications >8.0 | | | Higher risk of complications; strongly consider | | | intensifying therapy [facility] ([facility]) | | | [facility] [place] [address] | | | [place] [address] | | + + + + + + + + | Performing | Address | City/State/Zipcode | Phone Number | | Organization | | | | + + + + + | [facility] | [address] | [place] [address] | | | LABORATORY | | | | + + + + + CBC ONLY (02/18/2011 8:30 AM PDT) + + + + + + | Component | Value | Ref Range | Performed | Pathologist | | | | | At | Signature | + + + + + + | WHITE CELL | 16.5 (H) | 4.4 - 11.0 K/cu | [facility] | | | COUNT | | mm | DEPARTMENT | | | | | | OF | | | | | | PATHOLOGY | | + + + + + + | RED CELL | 3.79 (L) | 4.50 - 5.90 | [facility] | | | COUNT | | M/cu mm | DEPARTMENT | | | | | | OF | | | | | | PATHOLOGY | | + + + + + + | HEMOGLOBIN | 10.4 (L) | 13.5 - 17.5 | [facility] | | | | | g/dL | DEPARTMENT | | | | | | OF | | | | | | PATHOLOGY | | + + + + + + | HEMATOCRIT | 31.8 (L) | 41.0 - 53.0 % | [facility] | | | | | | DEPARTMENT | | | | | | OF | | | | | | PATHOLOGY | | + + + + + + | MCV | 83.7 | 80.0 - 96.0 fL | [facility] | | | | | | DEPARTMENT | | | | | | OF | | | | | | PATHOLOGY | | + + + + + + | MCHC | 32.6 (L) | 33.4 - 35.5 | [facility] | | | | | g/dL | DEPARTMENT | | | | | | OF | | | | | | PATHOLOGY | | + + + + + + | RDW | 16.3 (H) | 11.5 - 15.0 % | [facility] | | | | | | DEPARTMENT | | | | | | OF | | | | | | PATHOLOGY | | + + + + + + | PLATELET | 476 (H) | 150 - 400 K/cu | [facility] | | | COUNT | | mm | DEPARTMENT | | | | | | OF | | | | | | PATHOLOGY | | + + + + + + + + | Specimen | + + | Blood - Blood | + + + + + + + | Performing | Address | City/State/Zipcode | Phone Number | | Organization | | | | + + + + + | [facility] DEPARTMENT OF | [address] | [place] [address] | | | PATHOLOGY | [address] | | | + + + + + BASIC METABOLIC SET (NA, K, CL, TCO2, BUN, CR, GLU, CA) (02/18/2011 8:30 AM PDT) + +---------+ + + + | Component | Value | Ref Range | Performed | Pathologist | | | | | At | Signature | + +---------+ + + + | GLUCOSE, | 141 (H) | 60 - 99 mg/dL | [facility] | | | PLASMA | | | DEPARTMENT | | | (LAB) | | | OF | | | | | | PATHOLOGY | | + +---------+ + + + | BUN, PLASMA | 7 | 6 - 20 mg/dL | [facility] | | | (LAB) | | | DEPARTMENT | | | | | | OF | | | | | | PATHOLOGY | | + +---------+ + + + | CREATININE | 0.92 | 0.70 - 1.30 | [facility] | | | PLASMA | | mg/dL | DEPARTMENT | | | (LAB) | | | OF | | | | | | PATHOLOGY | | + +---------+ + + + | SODIUM, | 138 | 134 - 143 | [facility] | | | PLASMA | | mmol/L | DEPARTMENT | | | (LAB) | | | OF | | | | | | PATHOLOGY | | + +---------+ + + + | POTASSIUM, | 4.6 | 3.4 - 5.0 | [facility] | | | PLASMA | | mmol/L | DEPARTMENT | | | (LAB) | | | OF | | | | | | PATHOLOGY | | + +---------+ + + + | CHLORIDE, | 98 | 97 - 108 mmol/L | [facility] | | | PLASMA | | | DEPARTMENT | | | (LAB) | | | OF | | | | | | PATHOLOGY | | + +---------+ + + + | TOTAL CO2, | 32 (H) | 22 - 29 mmol/L | [facility] | | | PLASMA | | | DEPARTMENT | | | (LAB) | | | OF | | | | | | PATHOLOGY | | + +---------+ + + + | CALCIUM, | 7.8 (L) | 8.6 - 10.2 | [facility] | | | PLASMA | | mg/dL | DEPARTMENT | | | (LAB) | | | OF | | | | | | PATHOLOGY | | + +---------+ + + + | ANION GAP | 8 | 4 - 11 mmol/L | [facility] | | | | | | DEPARTMENT | | | | | | OF | | | | | | PATHOLOGY | | + +---------+ + + + + + | Specimen | + + | Blood - Blood | + + + + + + + | Performing | Address | City/State/Zipcode | Phone Number | | Organization | | | | + + + + + | [facility] DE[facility]MENT [facility] | [address] | [place] [address] | | | PATHOLOGY | [address] | | | + + + + + CAPILLARY BLOOD GLUCOSE, POC (02/18/2011 8:12 AM PDT) + +---------+ + + + | Component | Value | Ref Range | Performed | Pathologist | | | | | At | Signature | + +---------+ + + + | BLOOD | 148 (H) | 60 - 99 mg/dL | [facility] - | | | GLUCOSE, | | | [facility] | | | POC | | | [facility] | | | | | | OF CARE | | | | | | TESTS | | + +---------+ + + + + + | Specimen | + + | | + + + + + + + | Performing | Address | City/State/Zipcode | Phone Number | | Organization | | | | + + + + + | [facility] | [address] | [place], [place] | | | [facility] | [address] | [address] | | | TESTS | | | | + + + + + CULTURE, URINE BACTI (02/18/2011 3:13 AM PDT) + + + + + + | Component | Value | Ref Range | Performed | Pathologist | | | | | At | Signature | + + + + + + | SOURCE BODY | Clean catch | | [facility] | | | SITE | | | REGIONAL | | | | | | LAB-MICRO | | + + + + + + | CULTURE | Urine Culture | | [facility] | | | RESULT | | | REGIONAL | | | | Source...............: | | LAB-MICRO | | | | Clean catch | | | | | | Culture: Final | | | | | | Report: No growth (< | | | | | | 1,000 col/ml) after 24 | | | | | | hours Final | | | | | | Report Resulted: | | | | | | 02/19/11 | | | | | | [facility] ([facility]) | | | | | | [facility] | | | | | | [facility] | | | | | | [address] | | | | | | [place], [place] | | | | | | [address] | | | | + + + + + + + + | Specimen | + + | | + + + + + + + | Performing | Address | City/State/Zipcode | Phone Number | | Organization | | | | + + + + + | [facility] | [address] | [place] [address] | | | LAB-MICRO | | | | + + + + + URINE SCREEN FOR CULTURE (02/18/2011 3:13 AM PDT) + + + + + + | Component | Value | Ref Range | Performed | Pathologist | | | | | At | Signature | + + + + + + | CULT, URINE | Negative for Nitrites | | [facility] | | | SCREEN | and Leukocyte Esterase. | | DEPARTMENT | | | | Specimen sent for | | OF | | | | culture based on | | PATHOLOGY | | | | microscopic findings. | | | | + + + + + + + + | Specimen | + + | Urine - Urine | + + + + + + + | Performing | Address | City/State/Zipcode | Phone Number | | Organization | | | | + + + + + | [facility] | [address] | [place] [address] | | | PATHOLOGY | [address] | | | + + + + + URINE, MICROSCOPIC EXAM (02/18/2011 3:13 AM PDT) + +---------+ + + + | Component | Value | Ref Range | Performed | Pathologist | | | | | At | Signature | + +---------+ + + + | SQUAMOUS | Few (A) | /hpf | [facility] | | | EPITHELIAL | | | DEPARTMENT | | | | | | OF | | | | | | PATHOLOGY | | + +---------+ + + + | NON-SQUAMOU | None | /hpf | [facility] | | | S EPITH | | | DEPARTMENT | | | | | | OF | | | | | | PATHOLOGY | | + +---------+ + + + | RED CELLS | 0-1 | 0 - 3 /hpf | [facility] | | | | | | DEPARTMENT | | | | | | OF | | | | | | PATHOLOGY | | + +---------+ + + + | WHITE CELLS | 1-3 | 0 - 5 /hpf | [facility] | | | | | | DEPARTMENT | | | | | | OF | | | | | | PATHOLOGY | | + +---------+ + + + | BACTERIA | Few (A) | /hpf | [facility] | | | | | | DEPARTMENT | | | | | | OF | | | | | | PATHOLOGY | | + +---------+ + + + | MUCOUS | Few (A) | /hpf | [facility] | | | | | | DEPARTMENT | | | | | | OF | | | | | | PATHOLOGY | | + +---------+ + + + | HYALINE | 2-5 | 0 - 1 /lpf | [facility] | | | CASTS | | | DEPARTMENT | | | | | | OF | | | | | | PATHOLOGY | | + +---------+ + + + | GRANULAR | 3-6 | /lpf | [facility] | | | CASTS | | | DEPARTMENT | | | | | | OF | | | | | | PATHOLOGY | | + +---------+ + + + | CELLULAR | None | /lpf | [facility] | | | CASTS | | | DEPARTMENT | | | | | | OF | | | | | | PATHOLOGY | | + +---------+ + + + | AMORPHOUS | None | /hpf | [facility] | | | CRYSTALS | | | DEPARTMENT | | | | | | OF | | | | | | PATHOLOGY | | + +---------+ + + + | CALCIUM | None | /hpf | [facility] | | | OXALATE | | | DEPARTMENT | | | SARAHI | | | OF | | | | | | PATHOLOGY | | + +---------+ + + + | URIC ACID | None | /hpf | [facility] | | | CRYSTALS | | | DEPARTMENT | | | | | | OF | | | | | | PATHOLOGY | | + +---------+ + + + | TRIPLE P04 | None | /hpf | [facility] | | | CRYSTALS | | | DEPARTMENT | | | | | | OF | | | | | | PATHOLOGY | | + +---------+ + + + | YEAST (LAB) | None | /hpf | [facility] | | | | | | DEPARTMENT | | | | | | OF | | | | | | PATHOLOGY | | + +---------+ + + + | TRICHOMONAS | None | /hpf | [facility] | | | | | | DEPARTMENT | | | | | | OF | | | | | | PATHOLOGY | | + +---------+ + + + + + | Specimen | + + | Urine - Urine | + + + + + + + | Performing | Address | City/State/Zipcode | Phone Number | | Organization | | | | + + + + + | [facility] DEPARTMENT OF | [address] | [place] [address] | | | PATHOLOGY | [address] | | | + + + + + UA, DIPSTICK ONLY (02/18/2011 3:13 AM PDT) + + + + + + | Component | Value | Ref Range | Performed | Pathologist | | | | | At | Signature | + + + + + + | COLOR(UR) | Yellow | | [facility] | | | | | | DEPARTMENT | | | | | | OF | | | | | | PATHOLOGY | | + + + + + + | APPEARANCE | Hazy | | [facility] | | | | | | DEPARTMENT | | | | | | OF | | | | | | PATHOLOGY | | + + + + + + | GLUCOSE(UR) | Negative | mg/dL | [facility] | | | | | | DEPARTMENT | | | | | | OF | | | | | | PATHOLOGY | | + + + + + + | BILIRUBIN | Negative | | [facility] | | | | | | DEPARTMENT | | | | | | OF | | | | | | PATHOLOGY | | + + + + + + | KETONES | Negative | mg/dL | [facility] | | | | | | DEPARTMENT | | | | | | OF | | | | | | PATHOLOGY | | + + + + + + | SPECIFIC | 1.020 | 1.005 - 1.030 | [facility] | | | GRAVITY | | | DEPARTMENT | | | | | | OF | | | | | | PATHOLOGY | | + + + + + + | BLOOD | Trace (A) | | [facility] | | | | | | DEPARTMENT | | | | | | OF | | | | | | PATHOLOGY | | + + + + + + | PH(UR) | 5.5 | 5.0 - 8.0 | [facility] | | | | | | DEPARTMENT | | | | | | OF | | | | | | PATHOLOGY | | + + + + + + | PROTEIN(LAB | Negative | mg/dL | [facility] | | | ) | | | DEPARTMENT | | | | | | OF | | | | | | PATHOLOGY | | + + + + + + | UROBILINOGE | 0.2 | 0 - 0.2 CONNER | [facility] | | | N | | UNITS | DEPARTMENT | | | | | | OF | | | | | | PATHOLOGY | | + + + + + + | NITRITES | Negative | Negative | [facility] | | | | | | DEPARTMENT | | | | | | OF | | | | | | PATHOLOGY | | + + + + + + | LEUKOCYTE | Negative | Negative | [facility] | | | ESTERASE | | | DEPARTMENT | | | | | | OF | | | | | | PATHOLOGY | | + + + + + + + + | Specimen | + + | Urine - Urine | + + + + + + + | Performing | Address | City/State/Zipcode | Phone Number | | Organization | | | | + + + + + | [facility] | [address] | [place] [address] | | | PATHOLOGY | [address] | | | + + + + + CULTURE, BLOOD BACTI & YEAST (02/18/2011 2:53 AM PDT) + + + + + + | Component | Value | Ref Range | Performed | Pathologist | | | | | At | Signature | + + + + + + | SOURCE BODY | Arm Blood | | [facility] | | | SITE | | | REGIONAL | | | | | | LAB-MICRO | | + + + + + + | CULTURE | Blood Culture | | [facility] | | | RESULT | | | REGIONAL | | | | Source.................. | | LAB-MICRO | | | | : Arm Blood | | | | | | Result.................. | | | | | | . Final: No growth at 5 | | | | | | days. | | | | + + + + + + + + | Specimen | + + | Blood - Arm | + + + + + + + | Performing | Address | City/State/Zipcode | Phone Number | | Organization | | | | + + + + + | [facility] | [address] | [place] [address] | | | LAB-MICRO | | | | + + + + + CULTURE, BLOOD BACTI & YEAST (02/18/2011 2:46 AM PDT) + + + + + + | Component | Value | Ref Range | Performed | Pathologist | | | | | At | Signature | + + + + + + | SOURCE BODY | Arm Blood | | [facility] | | | SITE | | | REGIONAL | | | | | | LAB-MICRO | | + + + + + + | CULTURE | Blood Culture | | [facility] | | | RESULT | | | REGIONAL | | | | Source.................. | | LAB-MICRO | | | | : Arm Blood | | | | | | Result.................. | | | | | | . Final: No growth at 5 | | | | | | days. | | | | + + + + + + + + | Specimen | + + | Blood - Arm | + + + + + + + | Performing | Address | City/State/Zipcode | Phone Number | | Organization | | | | + + + + + | [facility] | [address] | [place] [address] | | | LAB-MICRO | | | | + + + + + RESP CARE THERAPY (02/18/2011 1:07 AM PDT) + + + + + + | Component | Value | Ref Range | Performed | Pathologist | | | | | At | Signature | + + + + + + | RESPIRATORY | : History and Assessment | | [facility] | | | CARE | : CHRONIC CELLULITIS | | RESPIRATORY | | | | Pulmonary problems: | | THERAPY | | | | Current problems | | | | | | include, history of | | | | | | reactive airwaysdisease | | | | | | .Smoking history: The | | | | | | patient quit smoking but | | | | | | smoked in the past less | | | | | | thanone pack per | | | | | | day.Results of recent | | | | | | Chest X-ray: was not | | | | | | available at the time of | | | | | | evaluation. Pain: | | | | | | Patients pain assessed | | | | | | and was a 0 on a scale | | | | | | of 0-10.Oxygen | | | | | | requirement: 2 LPM with | | | | | | an oxygen saturation of | | | | | | 94 %.Heart rate: 103 | | | | | | beats per | | | | | | minuteRespiratory rate: | | | | | | 20 breaths per | | | | | | minuteTemperature: 36.7 | | | | | | ? C.Breathsounds:clear | | | | | | diminished .Cough and | | | | | | sputum | | | | | | production:Patient had a | | | | | | non-productive cough. | | | | | | Treatments | | | | | | GivenMedication Therapy: | | | | | | Medication given via | | | | | | inhaler with Combivent 2 | | | | | | puffs .Total combined | | | | | | puffs given: 2 puffs. | | | | | | Respiratory Acuity and | | | | | | Protocol PlanA | | | | | | respiratory evaluation | | | | | | has been completed. | | | | | | Based on this | | | | | | assesmentinhaled | | | | | | medication will be | | | | | | delivered by RN, the | | | | | | protocol will | | | | | | bediscontinued. | | | | | | Electronically Signed | | | | | | by: Binh Huertas, | | | | + + + + + + + + | Specimen | + + | | + + + + + + + | Performing | Address | City/State/Zipcode | Phone Number | | Organization | | | | + + + + + | [facility] | [address] | [place], [place] | | | THERAPY | [address] | [address] | | + + + + + DIFFERENTIAL (02/18/2011 1:05 AM PDT) + + + + + + | Component | Value | Ref Range | Performed | Pathologist | | | | | At | Signature | + + + + + + | NEUTROPHIL | 88 (H) | 50 - 70 % | [facility] | | | % | | | DEPARTMENT | | | | | | OF | | | | | | PATHOLOGY | | + + + + + + | LYMPHOCYTE | 6 (L) | 18 - 42 % | [facility] | | | % | | | DEPARTMENT | | | | | | OF | | | | | | PATHOLOGY | | + + + + + + | MONOCYTE % | 4 | 2 - 8 % | [facility] | | | | | | DEPARTMENT | | | | | | OF | | | | | | PATHOLOGY | | + + + + + + | EOS % | 1 | 1 - 3 % | [facility] | | | | | | DEPARTMENT | | | | | | OF | | | | | | PATHOLOGY | | + + + + + + | BASO % | 0 | <3 % | [facility] | | | | | | DEPARTMENT | | | | | | OF | | | | | | PATHOLOGY | | + + + + + + | NEUTROPHIL | 14.3 (H) | 1.8 - 7.7 K/cu | [facility] | | | # | | mm | DEPARTMENT | | | | | | OF | | | | | | PATHOLOGY | | + + + + + + | LYMPHOCYTE | 1.0 | 1.0 - 4.8 K/cu | [facility] | | | # | | mm | DEPARTMENT | | | | | | OF | | | | | | PATHOLOGY | | + + + + + + | MONOCYTE # | 0.7 | <0.9 K/cu mm | [facility] | | | | | | DEPARTMENT | | | | | | OF | | | | | | PATHOLOGY | | + + + + + + | EOS # | 0.2 | <0.6 K/cu mm | [facility] | | | | | | DEPARTMENT | | | | | | OF | | | | | | PATHOLOGY | | + + + + + + | BASO # | 0.0 | <0.2 | [facility] | | | | | | DEPARTMENT | | | | | | OF | | | | | | PATHOLOGY | | + + + + + + + + | Specimen | + + | | + + + + + | Narrative | Performed At | + + + | * Corrected 02/18/11 04:02: ROLF COMMENTS, prev report: Slide | [facility] | | review pending. | DEPARTMENT OF | | | PATHOLOGY | + + + + + + + + | Performing | Address | City/State/Zipcode | Phone Number | | Organization | | | | + + + + + | [facility] DEPARTMENT OF | [id number] | [place] [address] | | | PATHOLOGY | [address] | | | + + + + + INR (02/18/2011 1:05 AM PDT) + + + + + + | Component | Value | Ref Range | Performed | Pathologist | | | | | At | Signature | + + + + + + | INR | 1.33 (H)Comment: | 0.90 - 1.20 INR | [facility] | | | | INR Therapeutic ranges | | DEPARTMENT | | | | for full | | OF | | | | anticoagulation: | | PATHOLOGY | | | | INR for Venous | | | | | | Thromboembolism | | | | | | (2.0-3.0) | | | | | | INR INR for most | | | | | | patients with mech. | | | | | | valves (2.5-3.5) | | | | | | INR | | | | + + + + + + + + | Specimen | + + | Blood - Blood | + + + + + + + | Performing | Address | City/State/Zipcode | Phone Number | | Organization | | | | + + + + + | [facility] | [address] | [place] [address] | | | PATHOLOGY | [address] | | | + + + + + CBC, WITH DIFFERENTIAL (02/18/2011 1:05 AM PDT) + + + + + + | Component | Value | Ref Range | Performed | Pathologist | | | | | At | Signature | + + + + + + | WHITE CELL | 16.2 (H) | 4.4 - 11.0 K/cu | [facility] | | | COUNT | | mm | DEPARTMENT | | | | | | OF | | | | | | PATHOLOGY | | + + + + + + | RED CELL | 3.45 (L) | 4.50 - 5.90 | [facility] | | | COUNT | | M/cu mm | DEPARTMENT | | | | | | OF | | | | | | PATHOLOGY | | + + + + + + | HEMOGLOBIN | 9.4 (L) | 13.5 - 17.5 | [facility] | | | | | g/dL | DEPARTMENT | | | | | | OF | | | | | | PATHOLOGY | | + + + + + + | HEMATOCRIT | 28.9 (L) | 41.0 - 53.0 % | [facility] | | | | | | DEPARTMENT | | | | | | OF | | | | | | PATHOLOGY | | + + + + + + | MCV | 83.6 | 80.0 - 96.0 fL | [facility] | | | | | | DEPARTMENT | | | | | | OF | | | | | | PATHOLOGY | | + + + + + + | MCHC | 32.7 (L) | 33.4 - 35.5 | [facility] | | | | | g/dL | DEPARTMENT | | | | | | OF | | | | | | PATHOLOGY | | + + + + + + | RDW | 16.4 (H) | 11.5 - 15.0 % | [facility] | | | | | | DEPARTMENT | | | | | | OF | | | | | | PATHOLOGY | | + + + + + + | PLATELET | 426 (H) | 150 - 400 K/cu | [facility] | | | COUNT | | mm | DEPARTMENT | | | | | | OF | | | | | | PATHOLOGY | | + + + + + + | CBC | Final automated | | [facility] | | | COMMENTS | differential report. | | DEPARTMENT | | | | Smear reviewed. | | OF | | | | | | PATHOLOGY | | + + + + + + | DIFF | <or= 10% bands seen on | | [facility] | | | COMMENTS | scan. | | DEPARTMENT | | | | | | OF | | | | | | PATHOLOGY | | + + + + + + + + | Specimen | + + | Blood - Blood | + + + + + | Narrative | Performed At | + + + | * Corrected 02/18/11 04:02: ROLF COMMENTS, prev report: Slide | [facility] | | review pending. | DEPARTMENT OF | | | PATHOLOGY | + + + + + + + + | Performing | Address | City/State/Zipcode | Phone Number | | Organization | | | | + + + + + | [facility] | [address] | [place] [address] | | | PATHOLOGY | [address] | | | + + + + + COMPLETE METABOLIC SET (NA,K,CL,CO2,BUN,CREAT,GLUC,CA,AST,ALT,BILI TOTAL,ALK PHOS,ALB,PROT TOTAL) (02/18/2011 1:05 AM PDT) + +---------+ + + + | Component | Value | Ref Range | Performed | Pathologist | | | | | At | Signature | + +---------+ + + + | GLUCOSE, | 124 (H) | 60 - 99 mg/dL | [facility] | | | PLASMA | | | DEPARTMENT | | | (LAB) | | | OF | | | | | | PATHOLOGY | | + +---------+ + + + | BUN, PLASMA | 6 | 6 - 20 mg/dL | [facility] | | | (LAB) | | | DEPARTMENT | | | | | | OF | | | | | | PATHOLOGY | | + +---------+ + + + | CREATININE | 0.93 | 0.70 - 1.30 | [facility] | | | PLASMA | | mg/dL | DEPARTMENT | | | (LAB) | | | OF | | | | | | PATHOLOGY | | + +---------+ + + + | TOTAL | 5.9 (L) | 6.1 - 7.9 g/dL | [facility] | | | PROTEIN, | | | DEPARTMENT | | | PLASMA | | | OF | | | (LAB) | | | PATHOLOGY | | + +---------+ + + + | ALBUMIN, | 1.4 (L) | 3.5 - 4.7 g/dL | [facility] | | | PLASMA | | | DEPARTMENT | | | (LAB) | | | OF | | | | | | PATHOLOGY | | + +---------+ + + + | CALCIUM, | 7.7 (L) | 8.6 - 10.2 | [facility] | | | PLASMA | | mg/dL | DEPARTMENT | | | (LAB) | | | OF | | | | | | PATHOLOGY | | + +---------+ + + + | BILIRUBIN | 0.8 | 0.3 - 1.2 mg/dL | [facility] | | | TOTAL | | | DEPARTMENT | | | | | | OF | | | | | | PATHOLOGY | | + +---------+ + + + | ALK PHOS | 216 (H) | 53 - 128 U/L | [facility] | | | | | | DEPARTMENT | | | | | | OF | | | | | | PATHOLOGY | | + +---------+ + + + | AST(SGOT) | 40 | 15 - 41 U/L | [facility] | | | | | | DEPARTMENT | | | | | | OF | | | | | | PATHOLOGY | | + +---------+ + + + | SODIUM, | 136 | 134 - 143 | [facility] | | | PLASMA | | mmol/L | DEPARTMENT | | | (LAB) | | | OF | | | | | | PATHOLOGY | | + +---------+ + + + | POTASSIUM, | 4.1 | 3.4 - 5.0 | [facility] | | | PLASMA | | mmol/L | DEPARTMENT | | | (LAB) | | | OF | | | | | | PATHOLOGY | | + +---------+ + + + | CHLORIDE, | 98 | 97 - 108 mmol/L | [facility] | | | PLASMA | | | DEPARTMENT | | | (LAB) | | | OF | | | | | | PATHOLOGY | | + +---------+ + + + | TOTAL CO2, | 29 | 22 - 29 mmol/L | [facility] | | | PLASMA | | | DEPARTMENT | | | (LAB) | | | OF | | | | | | PATHOLOGY | | + +---------+ + + + | ALT (SGPT) | 20 | 13 - 48 U/L | [facility] | | | | | | DEPARTMENT | | | | | | OF | | | | | | PATHOLOGY | | + +---------+ + + + | ANION GAP | 9 | 4 - 11 mmol/L | [facility] | | | | | | DEPARTMENT | | | | | | OF | | | | | | PATHOLOGY | | + +---------+ + + + | ANION | 15 (H) | 4 - 11 mmol/L | [facility] | | | GAP(ALB | | | DEPARTMENT | | | CORRECTED) | | | OF | | | | | | PATHOLOGY | | + +---------+ + + + + + | Specimen | + + | Blood - Blood | + + + + + + + | Performing | Address | City/State/Zipcode | Phone Number | | Organization | | | | + + + + + | [facility] | [phone] | [place] [address] | | | PATHOLOGY | [address] | | | + + + + + CAPILLARY BLOOD GLUCOSE, POC (02/17/2011 11:02 PM PDT) + +---------+ + + + | Component | Value | Ref Range | Performed | Pathologist | | | | | At | Signature | + +---------+ + + + | BLOOD | 143 (H) | 60 - 99 mg/dL | [facility] - | | | GLUCOSE, | | | [facility] | | | POC | | | [facility] | | | | | | OF CARE | | | | | | TESTS | | + +---------+ + + + + + | Specimen | + + | | + + + + + + + | Performing | Address | City/State/Zipcode | Phone Number | | Organization | | | | + + + + + | [facility] | [address] | [place], [place] | | | [facility] | [address] | [phone] | | | TESTS | | | | + + + + + documented in this encounter Visit Diagnoses + + | Diagnosis | + + | Chronic cellulitis Cellulitis and abscess of unspecified site | + + | Lymphedema Other lymphedema | + + | Cellulitis and abscess of unspecified site | + + documented in this encounter Administered Medications + +--------+ +--------+------+------+ | Medication Order | MAR | Action | Dose | Rate | Site | | | Action | Date | | | | + +--------+ +--------+------+------+ | acetaminophen (aka TYLENOL) | Given | 03/01/20 | 650 mg | | | | tablet 650 mg 650 mg, oral, | | 11 3:57 | | | | | EVERY 4 HOURS NEEDED, Starting | | PM PDT | | | | | Alondra 02/23/11 at 1512, Until Alondra | | | | | | | 03/02/11 at 2328, headache, fever | | | | | | + +--------+ +--------+------+------+ +-------+ +--------+---+---+ | Given | 03/01/20 | 650 mg | | | | | 11 9:49 | | | | | | AM PDT | | | | +-------+ +--------+---+---+ | Given | 02/29/20 | 650 mg | | | | | 11 5:20 | | | | | | PM PDT | | | | +-------+ +--------+---+---+ +---+---+ | | | +---+---+ + +-------+ +---------+---+---+ | albuterol (aka PROVENTIL, | Given | 02/25/20 | 2 puffs | | | | VENTOLIN) 90 mcg/Actuation | | 11 12:20 | | | | | inhaler 2 Puff 2 puff, | | PM PDT | | | | | inhalation, EVERY 4 HOURS | | | | | | | NEEDED, Starting Sun02/17/11 at | | | | | | | 2249, Until Sun03/02/11 at 2328, | | | | | | | dyspnea/SOB | | | | | | + +-------+ +---------+---+---+ +-------+ +---------+---+---+ | Given | 02/22/20 | 2 puffs | | | | | 11 8:39 | | | | | | PM PDT | | | | +-------+ +---------+---+---+ | Given | 02/21/20 | 2 puffs | | | | | 11 8:00 | | | | | | PM PDT | | | | +-------+ +---------+---+---+ +---+---+ | | | +---+---+ + +-------+ +---------+---+---+ | albuterol-ipratropium (aka | Given | 02/18/20 | 2 puffs | | | | COMBIVENT) inhaler 2 Puff 2 | | 11 10:48 | | | | | puff, inhalation, EVERY 6 HOURS, | | PM PDT | | | | | First dose on Sun02/17/11 at | | | | | | | 2245, Until Discontinued | | | | | | + +-------+ +---------+---+---+ +---+---+ | | | +---+---+ + +-------+ +--------+---+---+ | amoxicillin-clavulanate (aka | Given | 03/02/20 | 500 mg | | | | AUGMENTIN) 500-125 mg 500 mg 500 | | 11 3:30 | | | | | mg, oral, THREE TIMES DAILY, | | PM PDT | | | | | First dose (after last | | | | | | | modification) on Sun03/02/11 at | | | | | | | 1415, Until Discontinued | | | | | | + +-------+ +--------+---+---+ +---+---+ | | | +---+---+ + +-------+ +-----+---+---+ | ampicillin-sulbactam (aka | Given | 03/01/20 | 3 g | | | | UNASYN) IV (minibag+) 3 g 3 g, | | 11 3:36 | | | | | intravenous, EVERY 6 HOURS, First | | PM PDT | | | | | dose on Sun02/22/11 at 1600, | | | | | | | Until Discontinued | | | | | | + +-------+ +-----+---+---+ +-------+ +-----+---+---+ | Given | 03/01/20 | 3 g | | | | | 11 9:47 | | | | | | AM PDT | | | | +-------+ +-----+---+---+ | Given | 03/01/20 | 3 g | | | | | 11 4:11 | | | | | | AM PDT | | | | +-------+ +-----+---+---+ +---+---+ | | | +---+---+ + +-------+ +-----+---+---+ | ampicillin-sulbactam (aka | Given | 03/02/20 | 3 g | | | | UNASYN) IV 3 g 3 g, intravenous, | | 11 11:30 | | | | | EVERY 6 HOURS, First dose on Wed | | AM PDT | | | | | 03/01/11 at 2200, Until | | | | | | | Discontinued | | | | | | + +-------+ +-----+---+---+ +-------+ +-----+---+---+ | Given | 03/02/20 | 3 g | | | | | 11 5:24 | | | | | | AM PDT | | | | +-------+ +-----+---+---+ | Given | 03/01/20 | 3 g | | | | | 11 11:55 | | | | | | PM PDT | | | | +-------+ +-----+---+---+ +---+---+ | | | +---+---+ + +-------+ +-------+---+---+ | cetirizine (aka ZYRTEC) tablet | Given | 03/02/20 | 10 mg | | | | 10 mg 10 mg, oral, DAILY, First | | 11 3:30 | | | | | dose on Alondra 03/02/11 at 1500, Until | | PM PDT | | | | | Discontinued | | | | | | + +-------+ +-------+---+---+ +---+---+ | | | +---+---+ + +-------+ +--------+---+---+ | ciprofloxacin (aka CIPRO) | Given | 02/23/20 | 500 mg | | | | tablet 500 mg 500 mg, oral, | | 11 9:50 | | | | | TWICE DAILY, First dose on Sat | | AM PDT | | | | | 02/18/11 at 0900, Until | | | | | | | Discontinued | | | | | | + +-------+ +--------+---+---+ +-------+ +--------+---+---+ | Given | 02/22/20 | 500 mg | | | | | 11 9:11 | | | | | | PM PDT | | | | +-------+ +--------+---+---+ | Given | 02/22/20 | 500 mg | | | | | 11 9:14 | | | | | | AM PDT | | | | +-------+ +--------+---+---+ +---+---+ | | | +---+---+ + +-------+ + +---+---+ | diphenoxylate-atropine (aka | Given | 03/02/20 | 1 tablet | | | | LOMOTIL) 2.5-0.025 mg 1 Tab 1 | | 11 9:00 | | | | | tablet, oral, FOUR TIMES DAILY | | AM PDT | | | | | NEEDED, Starting 02/25/11 at | | | | | | | 2104, Until [facility] 03/02/11 at 2328, | | | | | | | diarrhea | | | | | | + +-------+ + +---+---+ +-------+ + +---+---+ | Given | 03/01/20 | 1 tablet | | | | | 11 8:28 | | | | | | PM PDT | | | | +-------+ + +---+---+ | Given | 02/27/20 | 1 tablet | | | | | 11 2:20 | | | | | | PM PDT | | | | +-------+ + +---+---+ +---+---+ | | | +---+---+ + +-------+ +-------+---+---+ | furosemide (aka LASIX) | Given | 02/25/20 | 40 mg | | | | injection 40 mg 40 mg, | | 11 6:15 | | | | | intravenous, TWICE DAILY | | PM PDT | | | | | (DIURETIC), First dose on Alondra | | | | | | | 02/23/11 at 1700, Until | | | | | | | Discontinued | | | | | | + +-------+ +-------+---+---+ +-------+ +-------+---+---+ | Given | 02/25/20 | 40 mg | | | | | 11 8:00 | | | | | | AM PDT | | | | +-------+ +-------+---+---+ | Given | 02/24/20 | 40 mg | | | | | 11 4:19 | | | | | | PM PDT | | | | +-------+ +-------+---+---+ +---+---+ | | | +---+---+ + +-------+ +-------+---+---+ | furosemide (aka LASIX) tablet | Given | 02/23/20 | 20 mg | | | | 20 mg 20 mg, oral, DAILY, First | | 11 9:50 | | | | | dose on Sun02/20/11 at 0900, | | AM PDT | | | | | Until Discontinued | | | | | | + +-------+ +-------+---+---+ +-------+ +-------+---+---+ | Given | 02/22/20 | 20 mg | | | | | 11 9:14 | | | | | | AM PDT | | | | +-------+ +-------+---+---+ | Given | 02/21/20 | 20 mg | | | | | 11 9:23 | | | | | | AM PDT | | | | +-------+ +-------+---+---+ +---+---+ | | | +---+---+ + +-------+ +-------+---+---+ | furosemide (aka LASIX) tablet | Given | 02/24/20 | 20 mg | | | | 20 mg 20 mg, oral, TWICE DAILY | | 11 8:20 | | | | | (DIURETIC), First dose on Wed | | AM PDT | | | | | 02/22/11 at 1700, Until | | | | | | | Discontinued | | | | | | + +-------+ +-------+---+---+ +-------+ +-------+---+---+ | Given | 02/23/20 | 20 mg | | | | | 11 5:00 | | | | | | PM PDT | | | | +-------+ +-------+---+---+ +---+---+ | | | +---+---+ + +-------+ +-------+---+---+ | furosemide (aka LASIX) tablet | Given | 03/02/20 | 20 mg | | | | 20 mg 20 mg, oral, TWICE DAILY | | 11 5:00 | | | | | (DIURETIC), First dose on Sat | | PM PDT | | | | | 02/25/11 at 0815, Until | | | | | | | Discontinued | | | | | | + +-------+ +-------+---+---+ +-------+ +-------+---+---+ | Given | 03/02/20 | 20 mg | | | | | 11 8:00 | | | | | | AM PDT | | | | +-------+ +-------+---+---+ | Given | 03/01/20 | 20 mg | | | | | 11 3:37 | | | | | | PM PDT | | | | +-------+ +-------+---+---+ +---+---+ | | | +---+---+ + +-------+ +------+---+---+ | glimepiride (aka AMARYL) tablet | Given | 02/27/20 | 1 mg | | | | 1 mg 1 mg, oral, EVERY | | 11 8:46 | | | | | BREAKFAST, First dose on Sun | | AM PDT | | | | | 02/22/11 at 1230, Until | | | | | | | Discontinued | | | | | | + +-------+ +------+---+---+ +-------+ +------+---+---+ | Given | 02/26/20 | 1 mg | | | | | 11 9:03 | | | | | | AM PDT | | | | +-------+ +------+---+---+ | Given | 02/25/20 | 1 mg | | | | | 11 8:00 | | | | | | AM PDT | | | | +-------+ +------+---+---+ +---+---+ | | | +---+---+ + +-------+ +-------+---+---+ | glipiZIDE (aka GLUCOTROL) | Given | 03/02/20 | 10 mg | | | | tablet 10 mg 10 mg, oral, EVERY | | 11 8:00 | | | | | BREAKFAST, First dose on Mon | | AM PDT | | | | | 02/27/11 at 0730, Until | | | | | | | Discontinued | | | | | | + +-------+ +-------+---+---+ +-------+ +-------+---+---+ | Given | 03/01/20 | 10 mg | | | | | 11 9:45 | | | | | | AM PDT | | | | +-------+ +-------+---+---+ | Given | 02/29/20 | 10 mg | | | | | 11 7:32 | | | | | | AM PDT | | | | +-------+ +-------+---+---+ +---+---+ | | | +---+---+ + +-------+ +--------+---+---+ | heparin injection 5,000 Units | Given | 03/02/20 | 5,000 | | | | 5,000 Units, subcutaneous, EVERY | | 11 4:00 | Units | | | | 8 HOURS, First dose on Sat | | PM PDT | | | | | 02/18/11 at 0000, Until | | | | | | | Discontinued | | | | | | + +-------+ +--------+---+---+ +-------+ +--------+---+---+ | Given | 03/02/20 | 5,000 | | | | | 11 8:00 | Units | | | | | AM PDT | | | | +-------+ +--------+---+---+ | Given | 03/02/20 | 5,000 | | | | | 11 12:25 | Units | | | | | AM PDT | | | | +-------+ +--------+---+---+ +---+---+ | | | +---+---+ + +-------+ +---------+---+---+ | HYDROcodone-acetaminophen (aka | Given | 02/27/20 | 2 | | | | VICODIN) 5-500 mg 1-2 Tab 1-2 | | 11 6:47 | tablets | | | | tablet, oral, EVERY 4 HOURS | | PM PDT | | | | | NEEDED, Starting 02/17/11 at | | | | | | | 2224, Until 02/27/11 at 0748, | | | | | | | moderate pain | | | | | | + +-------+ +---------+---+---+ +-------+ + +---+---+ | Given | 02/27/20 | 1 tablet | | | | | 11 2:20 | | | | | | PM PDT | | | | +-------+ + +---+---+ | Given | 02/27/20 | 2 | | | | | 11 5:25 | tablets | | | | | AM PDT | | | | +-------+ + +---+---+ +---+---+ | | | +---+---+ + +-------+ + +---+---+ | insulin glargine (aka LANTUS) | Given | 02/22/20 | 15 Units | | | | injection 15 Units 15 Units, | | 11 9:52 | | | | | subcutaneous, AT BEDTIME, First | | PM PDT | | | | | dose (after last modification) on | | | | | | | 02/18/11 at 2200, Until | | | | | | | Discontinued | | | | | | + +-------+ + +---+---+ +-------+ + +---+---+ | Given | 02/21/20 | 15 Units | | | | | 11 9:54 | | | | | | PM PDT | | | | +-------+ + +---+---+ | Given | 02/20/20 | 15 Units | | | | | 11 9:58 | | | | | | PM PDT | | | | +-------+ + +---+---+ +---+---+ | | | +---+---+ + +-------+ +---------+---+---+ | insulin lispro (aka HUMALOG) | Given | 02/23/20 | 2 Units | | | | injection 1-16 Units 1-16 Units, | | 11 10:00 | | | | | subcutaneous, AFTER MEALS AND | | AM PDT | | | | | BEDTIME, First dose on Sat | | | | | | | 02/18/11 at 1300, Until | | | | | | | Discontinued | | | | | | + +-------+ +---------+---+---+ +-------+ +---------+---+---+ | Given | 02/22/20 | 1 Units | | | | | 11 9:51 | | | | | | PM PDT | | | | +-------+ +---------+---+---+ | Given | 02/22/20 | 2 Units | | | | | 11 7:48 | | | | | | PM PDT | | | | +-------+ +---------+---+---+ +---+---+ | | | +---+---+ + +-------+ + +---+---+ | insulin NPH (aka HUMULIN N) | Given | 02/26/20 | 15 Units | | | | injection 15 Units 15 Units, | | 11 8:59 | | | | | subcutaneous, AT BEDTIME, First | | PM PDT | | | | | dose on Sun02/22/11 at 2200, | | | | | | | Until Discontinued | | | | | | + +-------+ + +---+---+ +-------+ + +---+---+ | Given | 02/25/20 | 15 Units | | | | | 11 9:40 | | | | | | PM PDT | | | | +-------+ + +---+---+ | Given | 02/24/20 | 15 Units | | | | | 11 9:47 | | | | | | PM PDT | | | | +-------+ + +---+---+ +---+---+ | | | +---+---+ + +-------+ + +---+---+ | insulin NPH (aka HUMULIN N) | Given | 02/27/20 | 15 Units | | | | injection 15 Units 15 Units, | | 11 8:39 | | | | | subcutaneous, AT BEDTIME, 1 dose, | | PM PDT | | | | | First dose (after last | | | | | | | modification) on Sun02/26/11 at | | | | | | | 2200 | | | | | | + +-------+ + +---+---+ +---+---+ | | | +---+---+ + +-------+ +---------+---+---+ | insulin regular (aka HUMULIN R) | Given | 02/19/20 | 1 Units | | | | injection 1-16 Units 1-16 | | 11 10:10 | | | | | Units, subcutaneous, AFTER MEALS | | AM PDT | | | | | AND BEDTIME, First dose on Sun | | | | | | | 02/17/11 at 2245, Until | | | | | | | Discontinued | | | | | | + +-------+ +---------+---+---+ +---+---+ | | | +---+---+ + +-------+ +---------+---+---+ | insulin regular (aka HUMULIN R) | Given | 02/27/20 | 1 Units | | | | injection 1-16 Units 1-16 | | 11 8:54 | | | | | Units, subcutaneous, AFTER MEALS | | PM PDT | | | | | AND BEDTIME, First dose on Sun | | | | | | | 02/22/11 at 1400, Until | | | | | | | Discontinued | | | | | | + +-------+ +---------+---+---+ +-------+ +---------+---+---+ | Given | 02/27/20 | 2 Units | | | | | 11 6:46 | | | | | | PM PDT | | | | +-------+ +---------+---+---+ | Given | 02/27/20 | 2 Units | | | | | 11 1:52 | | | | | | PM PDT | | | | +-------+ +---------+---+---+ +---+---+ | | | +---+---+ + +-------+ +------+---+---+ | loperamide (aka IMODIUM) | Given | 02/24/20 | 2 mg | | | | capsule 2 mg 2 mg, oral, ONCE, 1 | | 11 4:19 | | | | | Alondra ferrer 02/23/11 at 1515 | | PM PDT | | | | + +-------+ +------+---+---+ +---+---+ | | | +---+---+ + +-------+ +-------+---+---+ | loratadine (aka CLARITIN) | Given | 03/02/20 | 10 mg | | | | tablet 10 mg 10 mg, oral, DAILY, | | 11 8:00 | | | | | First dose on 02/18/11 at | | AM PDT | | | | | 0900, Until Discontinued | | | | | | + +-------+ +-------+---+---+ +-------+ +-------+---+---+ | Given | 03/01/20 | 10 mg | | | | | 11 9:47 | | | | | | AM PDT | | | | +-------+ +-------+---+---+ | Given | 02/29/20 | 10 mg | | | | | 11 9:19 | | | | | | AM PDT | | | | +-------+ +-------+---+---+ +---+---+ | | | +---+---+ + +-------+ +---+---+---+ | menthol-zinc oxide (aka | Given | 02/28/20 | | | | | CALAZIME) topical paste topical, | | 11 1:39 | | | | | NEEDED, Starting Alondra 02/23/11 | | PM PDT | | | | | at 1434, Until Alondra 03/02/11 at | | | | | | | 2328, skin irritation/breakdown, | | | | | | | gluteal pressure ulcer | | | | | | + +-------+ +---+---+---+ +-------+ +---+---+---+ | Given | 02/24/20 | | | | | | 11 9:54 | | | | | | PM PDT | | | | +-------+ +---+---+---+ | Given | 02/24/20 | | | | | | 11 6:53 | | | | | | PM PDT | | | | +-------+ +---+---+---+ +---+---+ | | | +---+---+ + +-------+ +-------+---+---+ | mirtazapine (aka REMERON) | Given | 03/01/20 | 15 mg | | | | tablet 15 mg 15 mg, oral, EVERY | | 11 9:27 | | | | | EVENING, First dose on Sun | | PM PDT | | | | | 02/17/11 at 2215, Until | | | | | | | Discontinued | | | | | | + +-------+ +-------+---+---+ +-------+ +-------+---+---+ | Given | 02/29/20 | 15 mg | | | | | 11 9:43 | | | | | | PM PDT | | | | +-------+ +-------+---+---+ | Given | 02/28/20 | 15 mg | | | | | 11 9:15 | | | | | | PM PDT | | | | +-------+ +-------+---+---+ +---+---+ | | | +---+---+ + +-------+ +-------+---+---+ | montelukast (aka SINGULAIR) | Given | 03/01/20 | 10 mg | | | | tablet 10 mg 10 mg, oral, EVERY | | 11 9:27 | | | | | EVENING, First dose on Sun02/24/11 | | PM PDT | | | | | at 2100, Until Discontinued | | | | | | + +-------+ +-------+---+---+ +-------+ +-------+---+---+ | Given | 02/29/20 | 10 mg | | | | | 11 9:43 | | | | | | PM PDT | | | | +-------+ +-------+---+---+ | Given | 02/28/20 | 10 mg | | | | | 11 9:15 | | | | | | PM PDT | | | | +-------+ +-------+---+---+ +---+---+ | | | +---+---+ + +-------+ +------+---+---+ | oxyCODONE (aka ROXICODONE) oral | Given | 02/26/20 | 5 mg | | | | solution 2.5-5 mg 2.5-5 mg, | | 11 4:32 | | | | | oral, EVERY 4 HOURS NEEDED, | | AM PDT | | | | | Starting 02/25/11 at 0211, | | | | | | | Until 02/25/11 at 1238, | | | | | | | moderate pain | | | | | | + +-------+ +------+---+---+ +---+---+ | | | +---+---+ + +-------+ +-------+---+---+ | oxyCODONE immediate release | Given | 02/28/20 | 10 mg | | | | (aka ROXICODONE) tablet 5-10 mg | | 11 4:27 | | | | | 5-10 mg, oral, EVERY 4 HOURS | | AM PDT | | | | | NEEDED, Starting 02/25/11 at | | | | | | | 1237, Until 02/27/11 at 0748, | | | | | | | severe pain, for breakthrough | | | | | | | pain, not resolving with vicodin | | | | | | + +-------+ +-------+---+---+ +---+---+ | | | +---+---+ + +-------+ +-------+---+---+ | oxyCODONE immediate release | Given | 03/02/20 | 10 mg | | | | (aka ROXICODONE) tablet 5-10 mg | | 11 4:50 | | | | | 5-10 mg, oral, EVERY 4 HOURS | | PM PDT | | | | | NEEDED, Starting 02/27/11 at | | | | | | | 0747, Until Alondra 03/02/11 at 2328, | | | | | | | severe pain, for breakthrough | | | | | | | pain, | | | | | | + +-------+ +-------+---+---+ +-------+ +-------+---+---+ | Given | 03/02/20 | 10 mg | | | | | 11 8:00 | | | | | | AM PDT | | | | +-------+ +-------+---+---+ | Given | 03/01/20 | 10 mg | | | | | 11 8:22 | | | | | | PM PDT | | | | +-------+ +-------+---+---+ +---+---+ | | | +---+---+ + +-------+ + +---+---+ | senna-docusate (ranchoa ISABEL S) | Given | 02/20/20 | 1 tablet | | | | 8.6-50 mg 1 Tab 1 tablet, oral, | | 11 9:30 | | | | | TWICE DAILY, First dose on Sun | | PM PDT | | | | | 02/17/11 at 2215, Until | | | | | | | Discontinued | | | | | | + +-------+ + +---+---+ +-------+ + +---+---+ | Given | 02/18/20 | 1 tablet | | | | | 11 10:58 | | | | | | PM PDT | | | | +-------+ + +---+---+ +---+---+ | | | +---+---+ + +-------+ +--------+---+---+ | tamsulosin (aka FLOMAX) capsule | Given | 03/01/20 | 0.4 mg | | | | 0.4 mg 0.4 mg, oral, AT | | 11 9:29 | | | | | BEDTIME, First dose on Sun02/28/11 | | PM PDT | | | | | at 2200, Until Discontinued | | | | | | + +-------+ +--------+---+---+ +-------+ +--------+---+---+ | Given | 02/29/20 | 0.4 mg | | | | | 11 9:44 | | | | | | PM PDT | | | | +-------+ +--------+---+---+ +---+---+ | | | +---+---+ + +-------+ +--------+---+---+ | vancomycin (aka VANCOCIN) IV | Given | 02/23/20 | 1.75 g | | | | 1.75 g 1.75 g, intravenous, | | 11 10:15 | | | | | EVERY 12 HOURS, First dose (after | | AM PDT | | | | | last modification) on Mon | | | | | | | 02/20/11 at 2200, Until | | | | | | | Discontinued | | | | | | + +-------+ +--------+---+---+ +-------+ +--------+---+---+ | Given | 02/22/20 | 1.75 g | | | | | 11 10:40 | | | | | | PM PDT | | | | +-------+ +--------+---+---+ | Given | 02/22/20 | 1.75 g | | | | | 11 10:22 | | | | | | AM PDT | | | | +-------+ +--------+---+---+ +---+---+ | | | +---+---+ + +-------+ +-----+---+---+ | vancomycin (aka VANCOCIN) IV 2 | Given | 02/19/20 | 2 g | | | | g 2 g, intravenous, ONCE, 1 | | 11 10:03 | | | | | dose, 02/18/11 at 0900 | | AM PDT | | | | + +-------+ +-----+---+---+ +---+---+ | | | +---+---+ + +-------+ +-----+---+---+ | vancomycin (aka VANCOCIN) IV 2 | Given | 02/21/20 | 2 g | | | | g 2 g, intravenous, EVERY 12 | | 11 11:21 | | | | | HOURS, First dose on 02/18/11 | | AM PDT | | | | | at 2200, Until Discontinued | | | | | | + +-------+ +-----+---+---+ +-------+ +-----+---+---+ | Given | 02/20/20 | 2 g | | | | | 11 10:00 | | | | | | PM PDT | | | | +-------+ +-----+---+---+ | Given | 02/20/20 | 2 g | | | | | 11 10:45 | | | | | | AM PDT | | | | +-------+ +-----+---+---+ +---+---+ | | | +---+---+ + +-------+ +-------+---+---+ | venlafaxine XR (aka EFFEXOR XR) | Given | 03/02/20 | 75 mg | | | | capsule 75 mg 75 mg, oral, | | 11 8:00 | | | | | DAILY, First dose on 02/18/11 | | AM PDT | | | | | at 0900, Until Discontinued | | | | | | + +-------+ +-------+---+---+ +-------+ +-------+---+---+ | Given | 03/01/20 | 75 mg | | | | | 11 9:47 | | | | | | AM PDT | | | | +-------+ +-------+---+---+ | Given | 02/29/20 | 75 mg | | | | | 11 9:19 | | | | | | AM PDT | | | | +-------+ +-------+---+---+ +---+---+ | | | +---+---+ documented in this encounter
--- OUTSIDE RECORDS SUMMARY | ~2019-06-15 | XMS | Encounter Summary ---
Demographics + + + | Address | [address] | | | [place] [address] | + + + | Home Phone | | + + + | Preferred Language | Unknown | + + + | Marital Status | Single | + + + | Taoist Affiliation | NRP | + + + | Race | White | + + + | Ethnic Group | Not or | + + + Author + + + | Author | [facility] | + + + | Organization | [facility] | + + + | Address | [...] Team Providers + +------+ + | Care Metal Smelter Name | Role | Phone | + +------+ + | Harry Mario MD | PCP | | + +------+ + Reason for Referral Consultation (Routine) +--------+--------+ + + + + | Status | Reason | Specialty | Diagnoses / | Referred By | Referred To | | | | | Procedures | Contact | Contact | +--------+--------+ + + + + | Closed | | Pain | Diagnoses | Tilgner, | Dermatology Specialist Psych | | | | Management | Morbid | Gloria F, ACNP | [address] | | | | | obesity with | [address] | | | | | BMI of [address] | [address] | Mailcode: | | | | | and over, | [place], [place] | [address] Center | | | | | adult (HCC) | [address] | for Health | | | | | SOB | Phone: | and Healing, | | | | | (shortness | | Building 1, | | | | | of breath) | Fax: | 15th Floor | | | | | Lymphedema | [phone] | [place], [place] | | | | | of left leg | | [address] | | | | | AMAURI | | Phone: | | | | | (obstructive | | [phone] | | | | | sleep | | Fax: | | | | | apnea) Type | | [phone] | | | | | 2 diabetes | | | | | | | mellitus | | | | | | | without | | | | | | | complication | | | | | | | (HCC) | | | | | | | Essential | | | | | | | hypertension | | | | | | | Procedures | | | | | | | CONSULT TO | | | | | | | PAIN | | | | | | | MANAGEMENT | | | | | | | [place] | | | | | | | PSYCHIATRIC | | | | | | | DIAGNOSTIC | | | | | | | EVAL, NO MED | | | | | | | [facility] [place] | | | | | | | PSYCH TSTNG | | | | | | | PSYCH/PHYS | | | +--------+--------+ + + + + Consultation (Routine) +--------+--------+ + + + + | Status | Reason | Specialty | Diagnoses / | Referred By | Referred To | | | | | Procedures | Contact | Contact | +--------+--------+ + + + + | Closed | | Cardiology | Diagnoses | Bernie, | Kate, | | | | | Morbid | DOUGLAS Simon | Connie Peters, | | | | | obesity with | [address] | PA-C [address] | | | | | BMI of [address] | [address] | [address] | | | | | and over, | [place], [place] | [place] | | | | | adult (HCC) | [address] | [address] | | | | | SOB | Phone: | Phone: | | | | | (shortness | | [phone] | | | | | of breath) | Fax: | Fax: | | | | | Lymphedema | [phone] | [phone] | | | | | of left leg | | | | | | | AMAURI | | | | | | | (obstructive | | | | | | | sleep | | | | | | | apnea) Type | | | | | | | 2 diabetes | | | | | | | mellitus | | | | | | | without | | | | | | | complication | | | | | | | (HCC) | | | | | | | Essential | | | | | | | hypertension | | | | | | | | | | | | | | Pre-operativ | | | | | | | e clearance | | | | | | | Procedures | | | | | | | CONSULT TO | | | | | | | CARDIOLOGY | | | +--------+--------+ + + + + Reason for Visit + + + | Reason | Comments | + + + | New patient | | | consultation | | + + + Consultation (Routine) +--------+--------+ + + + + | Status | Reason | Specialty | Diagnoses / | Referred By | Referred To | | | | | Procedures | Contact | Contact | +--------+--------+ + + + + | Closed | | Surgery | Diagnoses | Nauta, | Bar | | | | | Morbid | Miel Coronel, | Bariatri Surg | | | | | obesity | MD [address] | [address] | | | | | ([facility]) | [address] | [address] | | | | | Procedures | [address] | Mailcode: | | | | | CONSULT TO | [facility] [place] | Center for | | | | | BARIATRIC | [address] | Health and | | | | | SURGERY | Phone: | Healing, | | | | | | [phone] | Building 2 | | | | | | Fax: | [place], [place] | | | | | | [phone] | [address] | | | | | | | Phone: | | | | | | | [phone] | | | | | | | Fax: | | | | | | | [phone] | +--------+--------+ + + + + Encounter Details +--------+---------+ + + + | Date | Type | Department | Care Team | Description | +--------+---------+ + + + | 10/20/ | Office | Digestive Health | Gloria Gibbs, | Morbid obesity with | | 2015 | Visit | Center at [facility] [address] | [facility] [address] | BMI of 70 and over, | | | | [address] | Ave [place], [place] | adult (HCC) (Primary | | | | Mailcode: Center | [address] | Dx); SOB (shortness | | | | for Health and | [phone] | of breath); | | | | Healing, Building 2 | | Lymphedema of left | | | | [place], [place] | | leg; [place] | | | | [address] | | (obstructive sleep | | | | [phone] | | apnea); Type 2 | | | | | | diabetes mellitus | | | | | | without complication | | | | | | (HCC); Essential | | | | | | hypertension; | | | | | | Physical | | | | | | deconditioning; | | | | | | Limited mobility; | | | | | | H/O hiatal hernia | +--------+---------+ + + + Social History + + [...] + + + documented in this encounter Patient Instructions Patient Instructions Gloria Colunga ACNP - 10/20/2015 2:33 PM PSTPlan: The following has adele zafar provided to Wilner Jenkins This is a preliminary visit for a evaluation for bariatric surgery. There are some patients who have too many illnesses, and this elective surgery would not be safe for them. We have listed some of the potential reasons below. You can over eat ANY of the surgeries. The surgery is a tool with diet and exercise To help you obtain a healthy weight. + Dietitian consultation: Today. ;+ PT: the exercise program is extremely important for you . The more you can increase your strength, you reduce the risks with having a surgery + Weight Management classes: 2 classes are required in addition to your private appointme nt with the readers' advisory service librarian. These classes will be scheduled apporoximately 1 month apart to allow time for you to put the teaching into action. When you check out today, please ask the head stock transfer clerk to schedule these with you + Labs needed: lipids, CBC, CMP, TSH, A1C, PTH, Vitamin D25, Please have your pcp draw th meir and send to me.. + EKG: Please go to 9th floor today to get this done. + Pre-op Psychological Evaluation: If your referral is at [facility], The Pain Management Office will call you in the next week to schedule. + . Sleep study: Please undergo a sleep study and have notes/tests faxed to us. If you curr ently use CPAP, then contact the provider of your equipment to help you download the report of your CPAP use. Our surgeons require that you wear the machine over 4 hours per night, 80 % of the time. If your referral is at [facility], they will call you in the next week to schedule . Please have your PCP order this for you + Cardiology Consult: A cardiology provider needs to evaluate your cardiac function and le t us know if you can proceed with with bariatric surgery. If your referral is at [facility], they will call you in the next week to schedule. I will refer you here for evaluation + Please start taking a daily multivitamin with iron. + . Insurance requirements: your insurance requires : Six month Wait is required by your insurance. + Required weight loss: 10% wt loss goal of 50 pounds Once the above list is completed and copies have been received by our office, we will submi t for insurance authorization then schedule with the surgeon. Gloria Colunga DNP, ACNP, PARALEGALS Nurse Practitioner for Bariatric Surgery [facility] | [address] | [place], [place] | [address] | Potential Contraindications to Bariatric Surgery Age over 69 BMI over 60 Oxygen dependence Immobility wheelchair or bed bound Cardiac issues such as ischemic heart disease as indicated on cardiac stress test or cardia c catheterization; severe or uncompensated heart failure which may be indicated by a decreas ed ejection fraction. Pulmonary issues such as untreated sleep apnea, obesity hypoventilation syndrome, severe CO PD or asthma. Liver disease such as cirrhosis, esophageal varices, or portal hypertension. Severe, untreated renal disease. Rheumatologic and other diseases requiring immune suppressant medications. Untreated or active cancer. Untreated psychological disability. If you have any of the above conditions, you may not be a candidate for bariatric surgery. Our program will perform a thorough evaluation prior to making such a determination. This evaluation may involve testing or consultations. We will make every effort to notify patien ts who are not candidates for surgery as early in the process as possible, but it is importa nt to realize that the surgeon may make that determination later in the process. Clearance for surgery by your PCP or other providers does not guarantee that the [facility] Bariatric Surger y program will deem you a surgical candidate. documented in this encounter Progress Notes Gloria Colunga ACNP - 10/20/2015 1:34 PM PSTFormatting of this note might be different fro m the original. BARIATRIC INITIAL VISIT Provider: Gloria Colunga DNP, JULIAP, PARALEGALS Referring Provider: Dr. Mario Reason for Requested Consultation: Initial evaluation for bariatric surgery. Wilenr King Jenkins is interested in sleeve gastrect luann. He has seen PT prior to this appointment, and a readers' advisory service librarian appointment is following. He had been seen at [facility] previously by plastic surgery for evaluation of removal of a lymph adematis Mass in his left groin. Their evaluation recommneded weight loss prior to removal ( less th an 350 pounds) He was referred to a lymphedema specialist: it's unclear who that was, he has not had conta ct to schedule. He is here today with a care provider, his sister and another male. Blood pressure 140/69, pulse 91, temperature 36.9 C (98.5 F), temperature source Oral, resp. rate 16, height 1.676 m (5' 6"), weight 223.805 kg (493 lb 6.4 oz), SpO2 92 %. History of Present Illness: He is a morbidly obese, 50 y.o. male with a BMI of 79, 493 lbs ., and 5'6" inches who has failed prior attempts at sustained dietary/medical weight loss a nd desires surgical weight loss in order to " No response is given ". Social Unemployed Lives with extended family Non smoker: quit some years ago Duration of obesity: 11 years. Onset of obesity at age 39 First diet attempts at age 39 Personally initiated diets: none Programmatic diets: 2004 weight watchers lost 30 pounds and regained 2009 weight watchers lost 20 pounds and regained Physician Monitored diet: 2014 "hospital" lost 120 pounds his beginning weight was 600 pounds Use of Redux or Phen/fen: no Transthoracic ECHO: not indicated for phen/fen exposure Taoist or cultural reason you would refuse blood products? no Comorbidities include: Type 2 diabetes, sleep apnea, insulin resistance, obesity related hy poventilation syndrome, osteoarthritis, intertrigenous skin infections, stress urinary incon tinence and hypertension All previous chart notes from PCP reviewed, previous tests and labs reviewed. ALLERGIES: No Known Allergies Current outpatient prescriptions: ALBUTEROL SULFATE (VENTOLIN HFA INHL), Inhale 108 mcg., D isp: , Rfl: cetirizine 10 mg Oral Tablet, Take 1 Tab by mouth once daily., Disp: 30 Tab, Rfl: 0 diphenhydrAMINE 25 mg Oral Capsule, Take 1 Cap by mouth every six hours as needed., Disp: 3 0 Cap, Rfl: 0 diphenoxylate-atropine (LOMOTIL) 2.5-0.025 mg oral tablet, Take 2 tablets by mouth every fo ur hours., Disp: , Rfl: famotidine 20 mg oral tablet, Take 20 mg by mouth two times daily., Disp: , Rfl: furosemide 20 mg oral tablet, Take 40 mg by mouth two times daily., Disp: , Rfl: lisinopril 2.5 mg oral tablet, Take 2.5 mg by mouth once daily., Disp: , Rfl: montelukast (SINGULAIR) 10 mg Oral Tablet, Take 10 mg by mouth once daily in the evening., Disp: , Rfl: ondansetron 4 mg oral tablet, Take 4 mg by mouth every twelve hours as needed., Disp: , Rfl : oxyCODONE, immediate release, 5 mg Oral Tablet, Take 1 Tab by mouth every six hours as need ed for moderate pain., Disp: 30 Tab, Rfl: 0 piroxicam 20 mg oral capsule, Take 20 mg by mouth once daily as needed., Disp: , Rfl: potassium chloride SR 10 mEq Oral Tablet Sustained Release, Take 10 mEq by mouth two times daily., Disp: , Rfl: sertraline 50 mg oral tablet, Take 50 mg by mouth once daily., Disp: , Rfl: venlafaxine XR 75 mg Oral Capsule, Ext Release 24 hr, Take 1 Cap by mouth once daily., Disp : 30 Cap, Rfl: 0 History: Past Medical History Diagnosis Date Hypertension Dizziness Numbness and tingling in hands Abdominal pain Shortness of breath Asthma Cough Sleep apnea High cholesterol Leg sore Anxiety Depression Diabetes (HCC) Past Surgical History Procedure Laterality Date Umbilical hernia repair 2000 [facility] History Social History Marital Status: Single Spouse Name: N/A Number of Children: N/A Years of Education: N/A Occupational History Not on file. Social History Main Topics Smoking status: Former Smoker -- 1.00 packs/day for 15 years Types: Cigarettes Start date: 07/09/1992 Quit date: 02/17/2007 Smokeless tobacco: Never Used Alcohol Use: 0.6 oz/week 1 Standard drinks or equivalent per week Drug Use: No Sexual Activity: No Other Topics Concern Not on file Social History Narrative Family History Problem Relation Heart Failure 3aunts/uncles Heart Disease valve replacements/ Review of Systems: General: Daily symptoms of fatigue, denies weakness, unintentional weight loss, fevers, chills, night sweats.( at times) Eyes/Ears/Nose/Throat: Denies visual changes, sore throat, dental pain, hoarseness, dyspha brian, oral or tongue lesions. Respiratory: shortness of breath when he moves and walks to the bathroom with 4-5 feet, ne presley at rest. denies cough sometimes has wheezing. nocturnal snoring, daytime drowsiness and some morni ng headaches. history of asthma History of sleep apnea which was diagnosed, then insuranc e Changed and he has never had CPAP. , Cardiovascular: Denies exertional chest pain, palpitations, syncope, orthopnea, or paroxys mal nocturnal dyspnea. history of lower extremity edema, hypertension, hyperlipidemia. Denie s CHF, [place], ischemic heart disease, DVT/PE, or pulmonary hypertension. No stairs at his house , with a hand rail he states he can walk up some stairs. He is able to step up into the pardeep ck Neurologic: The patient denies any symptoms of neurological impairment or TIAs; denies dip lopia, dysphasia or unilateral disturbance of motor or sensory function. Denies loss of bharat nce or vertigo, persistent headaches, numbness or paresthesias. No history of seizure disord er. Musculoskeletal: Joint pain in shoulders and back and tailbone, and knees, sleeps in a bed , with head of bed flat. Gastrointestinal: Denies abdominal or flank pain, anorexia, nausea or vomiting, dysphagia , change in bowel habits, black or bloody stools. Denies history of ulcers or hernias. Told he had a hiatal hernia And umbilical ( which was repaired ) Denies persistent reflux symptoms. Denies history o f liver disease or jaundice. Indigestion: he sometimes takes OTC Zantac, or TUMS But doesn't take anything on a regular basis Genitourinary: Denies urinary incontinence. Denies history of kidney stones. Denies urethr al discharge, dysuria, hematuria or sores on the genitals. Denies lumps or pain in the testi cles. Denies prostate sx. Denies menstrual irregularity, history On a irvin continuous now with the lasix, his lymphedema is so bad it goes to the ground wi thout the lasix. Skin: intertrigenous skin infections. Denies recent rashes, sores, or skin changes. He has much difficulty in the skin folds around the lymphedema of his left leg. Psychological: Denies anxiety, depression, thoughts of suicide or hallucinations. However the multiple family members present in the room Did not provide the best opportunity for assessment. Heme/Lymphatic: Denies history of anemia. The patient denies abnormal bruising, abnormal b leeding or enlarged lymph nodes. Metabolic: Denies symptoms of hypo or hyperthyroidism. history of diabetes. No polyuria, p olyphagia or polydipsia. Denies history of gout. OBJECTIVE Blood pressure 140/69, pulse 91, temperature 36.9 C (98.5 F), temperature source Oral, resp. rate 16, height 1.676 m (5' 6"), weight 223.805 kg (493 lb 6.4 oz), SpO2 92 %. Physical exam: General: Alert and cooperative. Neuro: Oriented x 3. CN III-XII grossly intact. No focal deficits. HEENT: Oropharynx clear without lesion or exudate. Neck: Neck supple. No adenopathy. Respiratory: Good diaphragmatic excursion. Lungs clear to auscultation bilaterally. Cardiac: Regular rate and rhythm, no murmur, gallop or bruits. No carotid bruits noted. History of Murmur not audible today Extremities: He has marked edema around his ankles His lymphedema is a large mass, medial left thigh that interferes with walking and sitting because of it's size. The skin below his knee is markedly dry and "elephant like" in texture. No hair on the lowe r legs. Cap refill great than 10 sec. When he is walking at home he uses a walker. How far 20-30 feet Abdomen: Obese, surgical habitus, soft, nontender, no appreciable masses or hernia. Marked pannus size. Psych: No problems noted. His support group was quite involved in the conversation, interje cting Frequently and answering at times on his behalf. So my ability to assess Wilner was limited . His family was carrying on with other conversation which appeared to be distracting to him. Motivation for surgery: unclear Laboratory Data: No current Impression: This patient meets and or exceeds NIH criteria for morbid obesity with a BMI of 79 and com orbidities related to obesity including Type 2 diabetes, sleep apnea, insulin resistance, ob esity related hypoventilation syndrome, osteoarthritis, intertrigenous skin infections, stre ss urinary incontinence and hypertension, which may be improved with bariatric surgery. Rec ords have been reviewed from his PCM and several attempts have been made to lose weight over the past years without success. He qualifies for medically necessary weight loss surgery t o control co-morbidities. Wilner Jenkins has attended the Public Informational Session in which risks and benefits of bariatric surgery were discussed. Discussion of realistic expectations of bariatric driss marcela was held today. A Bariatric notebook with pre-op, inter-op and post-op guidance and information was provide d for the patient today. 1. Morbid Obesity/ mobility/ lymphedema: the ongoing risk of infection related to celluliti s is a potential issue post op as well. The ability to walk after surgery is critical to success and limitation of risks post op. Plan: PT consult today to design a exercise program for him PCP: I will ask if there is a lymphedema specialist he can see for compression grey atment as recommended by plastic surgery Patient: I stressed to him the importance of working on strength and mobility 2. CV: He has risk factors for heart disease that include : DM, HTN (140/69 today), RAd, OS A (untreated), decreased mobility, and a strong family history of cardiomyopathy per the pat ient. On his mothers side, 2 uncles and 3 aunts (one has passed). He has never had a echo. Histor y of murmur (not audible today). He describes SOB with ambulation of only 4-5 feet. With his limited Mobility I am unable to assess his exercise tolerance. His heart rate remained at 85-91 aft er sitting for 20 min. Or more. Plan: EKG today Cardiology consult 3. AMAURI: per patient history of diagnosis, has not been treated Plan: Request that PCP order sleep study in their area 4. Indwelling irvin catheter: he has a catheter in place related to his lasix. It is curren tly replaced on a monthly basis. This is a risk related To the potential for infection pre and post op. 5. High Risk: Mr Jenkins is a high risk surgical patient because of his BMI (79) AMAURI (not tr eated) limited mobility, lymphedema, DM (A1C level is unknown to me), RAD, chronic pain (MS contin and oxycodone) Marked physical deconditioning, HTN (140/69 today). Indwelling irvin catheter Following his consultations he will be presented for review to the High Risk Surgical Commi ttee for review. 6. Information: With the conversations occuring with the family during this appointment, hi s ability to focus was limited. It was clear when he followed with the readers' advisory service librarian After my appointment, that he did not have a memory of some requirements, particularly weig ht loss. Plan: The following has been provided to Wilner Jenkins This is a preliminary visit for a evaluation for bariatric surgery. There are some patients who have too many illnesses, and this elective surgery would not be safe for them. We have listed some of the potential reasons below. You can over eat ANY of the surgeries. The surgery is a tool with diet and exercise To help you obtain a healthy weight. + Dietitian consultation: Today. ;+ PT: the exercise program is extremely important for you . The more you can increase your strength, you reduce the risks with having a surgery + Weight Management classes: 2 classes are required in addition to your private appointme nt with the readers' advisory service librarian. These classes will be scheduled apporoximately 1 month apart to allow time for you to put the teaching into action. When you check out today, please ask the head stock transfer clerk to schedule these with you + Labs needed: lipids, CBC, CMP, TSH, A1C, PTH, Vitamin D25, Please have your pcp draw th meir and send to me.. + EKG: Please go to 9th floor today to get this done. + Pre-op Psychological Evaluation: If your referral is at [facility], The Pain Management Office will call you in the next week to schedule. + . Sleep study: Please undergo a sleep study and have notes/tests faxed to us. If you curr ently use CPAP, then contact the provider of your equipment to help you download the report of your CPAP use. Our surgeons require that you wear the machine over 4 hours per night, 80 % of the time. If your referral is at [facility], they will call you in the next week to schedule . Please have your PCP order this for you + Cardiology Consult: A cardiology provider needs to evaluate your cardiac function and le t us know if you can proceed with with bariatric surgery. If your referral is at [facility], they will call you in the next week to schedule. I will refer you here for evaluation + Please start taking a daily multivitamin with iron. + . Insurance requirements: your insurance requires : Six month Wait is required by your insurance. + Required weight loss: 10% wt loss goal of 50 pounds Once the above list is completed and copies have been received by our office, we will submi t for insurance authorization then schedule with the surgeon. Gloria Colunga DNP, ACNP, PARALEGALS Nurse Practitioner for Bariatric Surgery [facility] | [address] | [place], [place] | [address] | Potential Contraindications to Bariatric Surgery Age over 69 BMI over 60 Oxygen dependence Immobility wheelchair or bed bound Cardiac issues such as ischemic heart disease as indicated on cardiac stress test or cardia c catheterization; severe or uncompensated heart failure which may be indicated by a decreas ed ejection fraction. Pulmonary issues such as untreated sleep apnea, obesity hypoventilation syndrome, severe [place] PD or asthma. Liver disease such as cirrhosis, esophageal varices, or portal hypertension. Severe, untreated renal disease. Rheumatologic and other diseases requiring immune suppressant medications. Untreated or active cancer. Untreated psychological disability. If you have any of the above conditions, you may not be a candidate for bariatric surgery. Our program will perform a thorough evaluation prior to making such a determination. This evaluation may involve testing or consultations. We will make every effort to notify patien ts who are not candidates for surgery as early in the process as possible, but it is importa nt to realize that the surgeon may make that determination later in the process. Clearance for surgery by your PCP or other providers does not guarantee that the [facility] y program will deem you a surgical candidate. documented in this en counter Plan of Treatment Not on filedocumented as of this encounter Procedures + +--------+ + + + | Procedure Name | Priori | Date/Time | Associated Diagnosis | Comments | | | ty | | | | + +--------+ + + + | 12 LEAD ECG | Routin | 10/20/2015 | Morbid obesity | Results for this | | | e | 3:52 PM | with BMI of 70 and | procedure are in the | | | | PST | over, adult (HCC) | results section. | | | | | SOB (shortness of | | | | | | breath) AMAURI | | | | | | (obstructive sleep | | | | | | apnea) Essential | | | | | | hypertension | | + +--------+ + + + documented in this encounter Results 12 LEAD ECG (10/20/2015 3:52 PM PST) + + + + + + | Component | Value | Ref Range | Performed | Pathologist | | | | | At | Signature | + + + + + + | VENTRICULAR | 92 | bpm | [facility] | | | RATE | | | OF | | | | | | CARDIOLOGY | | + + + + + + | ATRIAL RATE | 93 | bpm | [facility] | | | | | | OF | | | | | | CARDIOLOGY | | + + + + + + | P-R | 144 | ms | [facility] | | | INTERVAL | | | OF | | | | | | CARDIOLOGY | | + + + + + + | P AXIS | 69 | deg | [facility] | | | | | | OF | | | | | | CARDIOLOGY | | + + + + + + | QRS | 94 | ms | [facility] | | | DURATION | | | OF | | | | | | CARDIOLOGY | | + + + + + + | QT | 368 | ms | [facility] | | | | | | OF | | | | | | CARDIOLOGY | | + + + + + + | QTCB | 456 | ms | [facility] | | | | | | OF | | | | | | CARDIOLOGY | | + + + + + + | R AXIS | -66 | deg | [facility] | | | | | | OF | | | | | | CARDIOLOGY | | + + + + + + | T AXIS | 52 | deg | [facility] | | | | | | OF | | | | | | CARDIOLOGY | | + + + + + + | ECG | SINUS RHYTHMPROBABLE | | [facility] | | | IMPRESSION | INFERIOR INFARCT, | | OF | | | | [facility]LDPO[facility] PRECORDIAL R | | CARDIOLOGY | | | | WAVE PROGRESSION- | | | | | | ABNORMAL ECG | | | | | | -Electronically signed | | | | | | by: GILBERTO ALTAMIRANO | | | | | | 10-20-2015 20:39:29 | | | | + + + + + + + + | Specimen | + + | | + + + + + | Narrative | Performed At | + + + | | | + + + + + + + + | Performing | Address | City/State/Zipcode | Phone Number | | Organization | | | | + + + + + | [facility] | [id number] | [place], [place] | | | CARDIOLOGY | [address] | [phone] | | + + + + + documented in this encounter Visit Diagnoses + + | Diagnosis | + + | Morbid obesity with BMI of 70 and over, adult (HCC) - Primary | + + | SOB (shortness of breath) Shortness of breath | + + | Lymphedema of left leg Other lymphedema | + + | AMAURI (obstructive sleep apnea) Obstructive sleep apnea (adult) (pediatric) | + + | Type 2 diabetes mellitus without complication (HCC) | + + | Essential hypertension | + + | Physical deconditioning Debility, unspecified | + + | Limited mobility | + + | H/O hiatal hernia Personal history of other diseases of digestive system | + + documented in this encounter
--- OUTSIDE RECORDS SUMMARY | ~2019-06-15 | XMS | Encounter Summary ---
Demographics + + + | Address | [address] | | | [place] [address] | + + + | Home Phone | | + + + | Preferred Language | Unknown | + + + | Marital Status | Single | + + + | Yarsani Affiliation | NRP | + + + | Race | White | + + + | Ethnic Group | Not or | + + + Author + + + | Author | [facility] | + + + | Organization | [facility] | + + + | Address | Unknown | + + + | Phone | Unavailable | + + + Support + + +---------+ + | Name | Relationship | Address | Phone | + + +---------+ + | Ke Chapa | ECON | Unknown | | + + +---------+ + | BERTRAM Rgigins | ECON | Unknown | | + + +---------+ + | Marcia Riggins | ECON | Unknown | | + + +---------+ + Care Team Providers + +------+ + | Care Dinkey Driver Name | Role | Phone | + [...] | | | | | | | [place], [place] | | | | | | | [address] | | | | | | | Phone: | | | | | | | [phone] | | | | | | | Fax: | | | | | | | [phone] | +--------+--------+ + + + + Reason [...] | | | | | [address] [facility] | | | | | | | Hospital | | | | | | | [place], [place] | | | | | | | [address] | | | | | | | Phone: | | | | | | | [phone] | | | | | | | Fax: | | | | | | | [phone] | +--------+--------+ + + + + Encounter Details +--------+ + + + + | Date | Type | Department | Care Team | Description | +--------+ + + + + | 02/17/ | Hospital | [facility] 14B MEDICINE | [place], | | | 2010 - | Encounter | [address] | Sharla Her MD | | | | | [place] Mailcode: | [address] | | | 03/02/ | | 14B [facility] | [place], | | | 2010 | | [place], [place] | [place] [address] | | | | | [address] | [phone] | | | | | [phone] | | | | | | | Mateo Chen MD | | | | | | [address] | | | | | | [place], | | | | | | [place] [address] | | | | | | [phone] | | | | | | | [...] of morbid obesity who was transferred from [facility] for chronic lower extremity swelling /cellultis, swelling [...] aid and then fell at home. At [facility] he was treated with levaquin (started 02/13), ceftriaxone(02/14), and v ancomycin (02/14). He was having diffculty urinating due to retracted penis and urologist per formed a cystoscopy to place a irvin on 02/13. 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 [...] resulting in his current deconditioning. Of note correctional casework specialist checked with Insurance com [employer] and they will not cover gastric bypass. [...] follow Discharge POLST completed No Destination: Destination: Longterm Facility Condition on Discharge Good Discharge Follow Up Provider and Clinic: Dr. Harry Mario March 17, 9am Also, need outpatient urology follow up regarding retracted penis/scrotal edema/indwelling irvin- please call Dr. Flor Hatch for follow up appointment [phone] Outstanding labs/studies: None Discharging Physician: STEPHANIE LOU [...] PDTPatient was seen/examined by me, chart jennifer bonilla, case discussed with team. I agree with the DC plans as documented in the discharge summa ry with no significant amendments. Assessment and Plan: 1. Cellulitis 2. DM2 3. Morbid obesity 4. Deconditioning Mateo Chen MD Service Liaison Representative, Internal Medicine Pager [phone] [facility] DEPARTMENT: Hosp- [phone] Place of Service: [facility] Date of Service: 03/02/2011 CSN: [id number] Modifiers:GC Resident Involved: Yes Suggested CPT: 55692 Discharge Management < 30 minute Stephanie Shaffer [...] edema- origninally had irvin placed at OSH ([facility]) by urology and required cystoscopy. Seen by [...] Trying to get approval for placement at [facility], CM has also referral to [facility] ed today Code Status: FULL My Assessment and Plan were discussed with my Attending, Dr. Chen who agrees with the a shiloh. Stephanie Lou MD - PGY2 Internal Medicine Pager [phone] Mateo Perrin MD - 0 03/01/2011 4:47 PM PDTPatient seen/examined by me, chart reviewed, case discussed with team. See resident note for full details of HPI- ROS as noted, otherwise negative. I spent > 25 minutes in patient care with > 50% in counseling/coordination of care. Assessment and Plan: 1. Cellulitis 2. Morbid obesity 3. Deconditioning 4. DM2 Mateo Chen MD Service Liaison Representative, Internal Medicine Pager [phone] [facility] DEPARTMENT: [facility] [phone] Place of Service: Date of Service: 03/01/2011 CSN: [id number] Modifiers:GC Resident Involved: Yes Suggested CPT: 35213 Subsequent Visit Exp Prob Foc/Mod Complexity 25 [...] Morbid obesity 4. Deconditioning Mateo Chen MD Service Liaison Representative, Internal Medicine Pager [phone] [facility] DEPARTMENT: [facility] [phone] Place of Service: Date of Service: 02/28/2011 CSN: [id number] Modifiers:GC Resident Involved: Yes Suggested CPT: 18683 Subsequent Visit Exp Prob Foc/Mod Complexity 25 min Ange Vega MD - 02/28/2011 7:58 AM PDT R1 Internal Medicine Progress Note Wilner Gilbert [id number] Attending: Mateo Chen MD Subjective:feels fine this [...] Intake/Output Summary (Last 24 hours) at 02/28/11 0754 Last data filed at 02/28/11 0740 Gross [...] Not applicable Diet: consistent carbohydrate Dispo- Per correctional casework specialist- DNS would not be able to meet [...] 3. Depression 4. Deconditioning Mateo Chen MD Service Liaison Representative, Internal Medicine Pager [phone] [facility] DEPARTMENT: Hosp- [phone] Place of Service: - Date of Service: 02/27/2011 CSN: [id number] Modifiers:GC Resident Involved: Yes Suggested CPT: 79908 Subsequent Visit Exp Prob Foc/Mod Complexity 25 min Ange Vega MD - 02/27/2011 7:41 AM PDT R1 Internal Medicine Progress Note Wilner Gilbert [id number] Attending: Mateo Chen MD Subjective: less diaphoretic [...] 3. Obesity 4. Deconditioning Mateo Chen MD Service Liaison Representative, Internal Medicine Pager [phone] [facility] DEPARTMENT: [facility]- [phone] Place of Service: [facility] Date of Service: 02/26/2011 CSN: [id number] Modifiers:GC Resident Involved: Yes Suggested CPT: 28749 Subsequent Visit Exp Prob Foc/Mod Complexity 25 min Ange Vega MD - 02/26/2011 3:09 PM PDT R1 Internal Medicine Progress Note Wilner King Gilbert [id number] Attending: Mateo Chen MD Subjective: no complaints [...] Morbid obesity 4. Deconditioning Mateo Chen MD Service Liaison Representative, Internal Medicine Pager [phone] [facility] DEPARTMENT: Hosp- [phone] Place of Service: - Date of Service: 02/25/2011 CSN: [id number] Modifiers:GC Resident Involved: Yes Suggested CPT: 01225 Subsequent Visit Exp Prob Foc/Mod Complexity 25 min Ange Vega MD - 02/25/2011 6:22 AM PDT R1 Internal Medicine Progress Note Wilner Gilbert [id number] Attending: aMteo Chen MD Subjective: Still complains of left [...] application of vaseline or cetaphil cream with mcfp moisturizatio n to decrease xerosis. #Mild fever [...] urology f/u with Dr. Flor Hatch at [phone]. Office rosetta sed currently. #DM - Recent [...] Pain control 4. DM2 Mateo Chen MD Service Liaison Representative, Internal Medicine Pager [phone] [facility] DEPARTMENT: Hosp- [id number] Place of Service: - Date of Service: 02/24/2011 CSN: [id number] Modifiers:GC Resident Involved: Yes Suggested CPT: 68408 Subsequent Visit Exp Prob Foc/Mod Complexity 25 min Ange Vega MD - 02/24/2011 6:35 AM PDT R1 Internal Medicine Progress Note Wilner Gilbert [id number] Attending: Mateo Chen MD Subjective: Feels less [...] application of vaseline or cetaphil cream with mcfp moisturizatio n to decrease xerosis. #Mild fever [...] urology f/u with Dr. Flor Hatch at [phone]. Office cl osed currently. #DM - Recent [...] new diagnosis 4. Edema Mateo Chen MD Service Liaison Representative, Internal Medicine Pager [phone] [facility] DEPARTMENT: Hosp- [phone] Place of Service: IP - 14968 Date of Service: 02/23/2011 CSN: [id number] Modifiers:GC Resident Involved: Yes Suggested CPT: 38014 Subsequent Visit Detailed/High complexity 35 min Ange Vega MD - 02/23/2011 9:50 AM PDT R1 Internal Medicine Progress Note Wilner Gilbert [id number] Attending: Mateo Chen MD Subjective: Feels fine, [...] application of vaseline or cetaphil cream with mcfp moisturizatio n to decrease xerosis. #Mild fever [...] 4. New diagnosis DM2 Mateo Chen MD Service Liaison Representative, Internal Medicine Pager [phone] [facility] DEPARTMENT: Hosp- [phone] Place of Service: Date of Service: 02/22/2011 CSN: [id number] Modifiers:GC Resident Involved: Yes Suggested CPT: 54866 Subsequent Visit Exp Prob Foc/Mod Complexity 25 min Ange Vega MD - 02/22/2011 7:03 AM PDT R1 Internal Medicine Progress Note Wilner Gilbert [id number] Attending: Mateo Chen MD Brief History: Wilner Gilbert is a 45 y.o. male [...] application of vaseline or cetaphil cream with terminal carman moisturizatio n to decrease xerosis. #Mild fever [...] SSI . - Added glimiperide 1mg, per nursing educator. Thrombosis ppx: Heparin SQ GI ppx- [...] newly diagnosed 4. Deconditioning Mateo Chen MD Service Liaison Representative, Internal Medicine Pager [phone] [facility] DEPARTMENT: Hosp- [phone] Place of Service: IP - Date of Service: 02/21/2011 CSN: [id number] Modifiers:GC Resident Involved: Yes Suggested CPT: 91837 Subsequent Visit Exp Prob Foc/Mod Complexity 25 [...] resume vancomycin1.75 g bid with pharmacy monitoring, [id number] bid for diabetic foot infection. Lesion was [...] application of vaseline or cetaphil cream with terminal carman moisturizati on to decrease xerosis. #Mild fever [...] Constanza Garrett Internal Medicine Resident, PGY-2 Pager [phone] ateo Chen MD - 9:43 PM PDTPatient [...] difficulty, irvin in place Mateo Chen MD Service Liaison Representative, Internal Medicine Pager [phone] [facility] DEPARTMENT: Hosp- [phone] Place of Service: - Date of Service: 02/20/2011 CSN: [id number] Modifiers:GC Resident Involved: Yes Suggested CPT: 79763 Subsequent Visit Detailed/High complexity 35 min Ange Vega MD - 02/20/2011 6:28 AM PDT R1 Internal Medicine Progress Note Wilner Gilbert [id number] Attending: Sharla Figueroa MD Subjective: Feel fine [...] application of vaseline or cetaphil cream with terminal carman moisturizatio n to decrease xerosis. -PT/OT ordered [...] Appreciate consult. - Irvin in place, however terminal carman management of issue is still a concern [...] this note might be different from the [facility]. INPATIENT PHYSICIAN PROGRESS NOTE General Medicine 1 [...] MD Division of General Medicine and Geriatrics [facility] DEPARTMENT: [id number]- [facility] Place of Service:- Inpatient Date of Service: 02/19/2011 CSN: [id number] Suggested Modifier: GC Resident Involved: Yes Suggested CPT: 76376 Subsequent Visit Detailed/High complexity 35 min documented [...] [place] | [address] | [place], [place] | | | [place] [facility] | [address] | [address] | | | TESTS | | | [...] + + + | [facility] [place] | [address] | [place], [place] | | | [place] [facility] [place] | [address] | [address] | | | TESTS | | | [...] | + + + + + | [facility] | [address] | [place] [address] | | | PATHOLOGY | [address] [...] DEPARTMENT OF | [address] | [place] [address] | | | PATHOLOGY | [address] [...] [place] | [address] | [place], [place] | | | [facility]ARE | [facility] | [address] | | | TESTS | | | | + + + + + CAPILLARY BLOOD GLUCOSE, POC (03/01/2011 6:36 PM PDT) + +---------+ + + + | Component | Value | Ref Range | Performed | Pathologist | | | | | At | Signature | + +---------+ + + + | BLOOD | 100 (H) | 60 - 99 mg/dL | [facility] - | | | GLUCOSE, | | [...] [place] | [address] | [place], [place] | | | [place] | [address] | [address] | | | TESTS | | | [...] [place] | [address] | [place], [place] | | | [facility] [facility] [place] | [address] | [address] | | | TESTS | | | [...] [place] | [address] | [place], [place] | | | [facility] [facility] [place] | [facility] | [address] | | | TESTS | | | | + + + + + CAPILLARY BLOOD GLUCOSE, POC (02/28/2011 6:55 PM PDT) + +---------+ + + + | Component | Value | Ref Range | Performed | Pathologist | | | | | At | Signature | + +---------+ + + + | BLOOD | 151 (H) | 60 - 99 mg/dL | [facility] - | | | GLUCOSE, | | [...] [place] | [address] | [place], [place] | | | [place] | [address] | [address] | | | TESTS | | | [...] [place] | [address] | [place], [place] | | | [facility] [facility] [place] | [facility] | [address] | | | TESTS | | | [...] | + + + + + | [facility] | [address] | [place] [address] | | | PATHOLOGY | [address] [...] DEPARTMENT OF | [address] | [place] [address] | | | PATHOLOGY | [address] [...] [place] | [address] | [place], [place] | | | [place] | [address] | [address] | | | TESTS | | | [...] [place] | [address] | [place], [place] | | | [facility] [place] | [address] | [address] | | | TESTS | | | [...] [place] | [address] | [place], [place] | | | [facility] CARE | [address] | [address] | | | TESTS | | | [...] [place] | [address] | [place], [place] | | | [facility] [facility] [place] | [facility] | [address] | | | TESTS | | | [...] [place] | [address] | [place], [place] | | | [place] | [address] | [address] | | | TESTS | | | [...] [place] | [address] | [place], [place] | | | [facility] OF CARE | [address] | [address] | | | TESTS | | | [...] [place] | [address] | [place], [place] | | | [facility] CARE | [address] | [address] | | | TESTS | | | [...] [place] | [address] | [place], [place] | | | [facility] | [address] | [address] | | | TESTS | | | [...] | + + + + + | [facility] | [address] | [place] [address] | | | PATHOLOGY | [address] [...] | + + + + + | [facility] DEPARTMENT OF | [address] | [place] [address] | | | PATHOLOGY | [address] [...] [place] | [address] | [place], [place] | | | [facility]ARE | [facility] | [address] | | | TESTS | | | | + + + + + CAPILLARY BLOOD GLUCOSE, POC (02/25/2011 8:52 PM PDT) + +---------+ + + + | Component | Value | Ref Range | Performed | Pathologist | | | | | At | Signature | + +---------+ + + + | BLOOD | 131 (H) | 60 - 99 mg/dL | [facility] - | | | GLUCOSE, | | [...] [place] | [address] | [place], [place] | | | [facility] [place] | [facility] | [address] | | | TESTS | | | [...] [place] | [address] | [place], [place] | | | [place] | [address] | [address] | | | TESTS | | | [...] [place] | [address] | [place], [place] | | | [place], POINT OF CARE | [address] | [address] | | | TESTS | | | [...] [place] | [address] | [place], [place] | | | [facility] [place] | [address] | [address] | | | TESTS | | | [...] | + + + + + | [facility] DEPARTMENT OF | [address] | [place] [address] | | | PATHOLOGY | [address] [...] | + + + + + | [facility] | [address] | [place] [address] | | | PATHOLOGY | [address] [...] [place] | [address] | [place], [place] | | | [facility] [place] | [address] | [address] | | | TESTS | | | [...] [place] | [address] | [place], [place] | | | [place] [facility]ARE | [address] | [address] | | | TESTS | | | [...] [place] | [address] | [place], [place] | | | [facility] | [address] | [address] | | | TESTS | | | [...] DEPARTMENT OF | [address] | [place] [address] | | | PATHOLOGY | [address] [...] | + + + + + | [facility] DEPARTMENT | [address] | [place] [address] | | | PATHOLOGY | [address] [...] + + | [place] DEPARTMENT OF | [address] | [place] [address] | | | PATHOLOGY | [address] [...] + + | [place] | [address] [facility] | [place], [place] | | | [place] CARE | [address] | [address] | | | TESTS | | | [...] | | THERAPY | | | | HEATING AND VENTILATING TENDER | | | | | | | | | | | | | | | | | | | | | | | | | | | | | | | | | | | |Electronically Signed by: Ly Luevano, HEATING AND VENTILATING TENDER | | | | + + + + +------- -------+ + + | Specimen | + + | | + + + + + + + | Performing | Address | City/State/Zipcode | Phone Number | | Organization | | | | + + + + + | [facility] | [address] | [place] | | | THERAPY | [address] | [address] | | + + + + + [...] - [place] | [address] | [place], [place] | | | [facility] [facility] | [address] | [address] | | | TESTS | | | | + + + + + CAPILLARY BLOOD GLUCOSE, POC (02/23/2011 7:27 PM PDT) + +---------+ + + + | Component | Value | Ref Range | Performed | Pathologist | | | | | At | Signature | + +---------+ + + + | BLOOD | 155 (H) | 60 - 99 mg/dL | [facility] - | | | GLUCOSE, | | [...] [place] | [address] | [place], [place] | | | [facility] CARE | [address] | [address] | | | TESTS | | | [...] [place] | [address] | [place], [place] | | | [facility] OF CARE | [address] | [address] | | | TESTS | | | [...] + + + | [facility] | [address] | [place] [address] | | | LAB-MICRO | | | [...] | + + + + + | [facility] | [address] | [place] [address] | | | PATHOLOGY | [address] [...] | + + + + + | [facility] DEPARTMENT OF | [address] | [place] [address] | | | PATHOLOGY | [address] [...] + | [facility] | [address] [facility] [address] | [place], [place] | | | [place], POINT OF CARE | [address] | [address] | | | TESTS | | | [...] [facility] | [address] | [place], [place] | | | THERAPY | [address] | [address] | | + + + + + [...] + | [facility] [facility] | [address] [facility] [address] | [place], [place] | | | [facility] [place] | [address] | [address] | | | TESTS | | | [...] | + + + + + | [facility] | [address] [facility] | [place] [address] | | | PATHOLOGY | [address] [...] | | | | | | RLB ([facility]) | | | | | | [place] | | | | | | Permanente | | | | | | [address] [facility] | | | | | | [place], [place] | | | | | | [address] | | | | + + + + + + + + | Specimen | + + | Urine - Irvin Cath | + + + + + + + | Performing | Address | City/State/Zipcode | Phone Number | | Organization | | | | + + + + + | [facility] | [address] | [place] [address] | | | LAB-MICRO | | | [...] | + + + + + | [facility] | [address] | [place] [address] | | | LAB-MICRO | | | [...] | + + + + + | [facility] DEPARTMENT | [address] | [place] [address] | | | PATHOLOGY | [address] [...] (H) | 60 - 99 mg/dL | [facility] - | | | GLUCOSE, | | [...] [place] | [address] | [place], [place] | | | [facility] OF CARE | [address] | [address] | | | TESTS | | | [...] [place] | [address] | [place], [place] | | | M[facility] SCH[facility] OF CARE | [address] | [address] | | | TESTS | | | [...] DEPARTMENT OF | [address] | [place] [address] | | | PATHOLOGY | [address] [...] | + + + + + | [facility] DEPARTMENT | [address] | [place] [address] | | | PATHOLOGY | [address] [...] (H) | 60 - 99 mg/dL | [facility] - | | | GLUCOSE, | | [...] [place] | [address] | [place], [place] | | | [facility] OF CARE | [address] | [address] | | | TESTS | | | [...] [place] | [address] | [place], [place] | | | [facility] OF CARE | [address] | [address] | | | TESTS | | | [...] + + + | [facility] | [address] | [place] [address] | | | LAB-MICRO | | | [...] | + + + + + | [facility] | [address] | [place] [address] | | | LAB-MICRO | | | [...] + + + | [facility] [place] | [address] | [place], [place] | | | [facility] OF CARE | [address] | [address] | | | TESTS | | | | + + + + + CULTURE, URINE BACTI (02/21/2011 9:17 PM PDT) + + + + + + | Component | Value | Ref Range | Performed | Pathologist | | | | | At | Signature | + + + + + + | SOURCE BODY | Urine | | [facility] | | | SITE | | | REGIONAL | | | | | | LAB-MICRO | | + + + + + + | CULTURE | Urine Culture | | [facility] | | | RESULT | | | [...] Lab) | | | | | | [facility] | | | | | | [address] | | | [address] | | | | | | [place] [address] | | | | | | [facility] | | | | + + + + + + + + | Specimen | + + | | + + + + + + + | Performing | Address | City/State/Zipcode | Phone Number | | Organization | | | | + + + + + | [facility] | [address] | [place] [address] | | | LAB-MICRO | | | [...] | + + + + + | [facility] DEPARTMENT OF | [address] | [place] [address] | | | PATHOLOGY | [address] [...] | + + + + + | [facility] | [address] | [place] [address] | | | PATHOLOGY | [address] [...] | + + + + + | [facility] DEPARTMENT OF | [address] | [place] [address] | | | PATHOLOGY | [address] [...] [place] | [address] | [place], [place] | | | [facility] OF CARE | [address] | [address] | | | TESTS | | | | + + + + + CAPILLARY BLOOD GLUCOSE, POC (02/21/2011 12:25 PM PDT) + +---------+ + + + | Component | Value | Ref Range | Performed | Pathologist | | | | | At | Signature | + +---------+ + + + | BLOOD | 183 (H) | 60 - 99 mg/dL | [facility] - | | | GLUCOSE, | | [...] [place] | [address] | [place], [place] | | | [facility] OF CARE | [address] | [address] | | | TESTS | | | [...] | | | | | | RLB ([facility]) | | | | | | [place] | | | | | | [facility] | | | | | | [address] [facility] | | | | | | [place], [place] | | | | | | [address] | | | | + + + + + + + + | Specimen | + + | | + + + + + + + | Performing | Address | City/State/Zipcode | Phone Number | | Organization | | | | + + + + + | [facility] | [address] | [place] [address] | | | LAB-MICRO | | | [...] Specimen volume <12ml; microscopic not standardized. | [facility] | | | DEPARTMENT OF | | | PATHOLOGY | + + + + + + + + | Performing | Address | City/State/Zipcode | Phone Number | | Organization | | | | + + + + + | [facility] DEPARTMENT OF | [address] | [place] [address] | | | PATHOLOGY | [address] [...] | + + + + + | [facility] DEPARTMENT OF | [address] | [place] [address] | | | PATHOLOGY | [address] [...] | + + + + + | [facility] | [address] | [place] [address] | | | PATHOLOGY | [address] [...] [place] | [address] | [place], [place] | | | [facility] | [address] | [id number] | | | TESTS | | | [...] DEPARTMENT OF | [address] | [place] [address] | | | PATHOLOGY | [address] [...] | + + + + + | [facility] DEPARTMENT OF | [address] | [place] [address] | | | PATHOLOGY | [address] [...] + + + | [facility] DEPART[facility] | [address] | [place], [place] [address] | | | PATHOLOGY | [address] [...] Berman, | | | | | | HEATING AND VENTILATING TENDER | | | | | | | [...] [facility] | [address] | [place], [place] | | | THERAPY | [address] | [address] | | + + + + + [...] GE | [address] | [place], [place] | | | MULU SCHULTZ OF [place] | [address] | [address] | | | TESTS | | | [...] GE | [address] | [place], [place] | | | M[facility] [place] | [facility] | [address] | | | TESTS | | | | + + + + + CAPILLARY BLOOD GLUCOSE, POC (02/20/2011 1:05 PM PDT) + +---------+ + + + | Component | Value | Ref Range | Performed | Pathologist | | | | | At | Signature | + +---------+ + + + | BLOOD | 185 (H) | 60 - 99 mg/dL | [facility] - | | | GLUCOSE, | | [...] GE | [address] | [place], [place] | | | [place]ARE | [address] | [address] | | | TESTS | | | [...] | + + + + + | [facility] DEPARTMENT OF | [address] | [place] [address] | | | PATHOLOGY | [address] [...] - [place] | [address] | [place], [place] | | | [facility] | [facility] | [address] | | | TESTS | | | [...] | + + + + + | [facility] DEPARTMENT OF | [address] | [place] [address] | | | PATHOLOGY | [address] [...] | + + + + + | [facility] DEPARTMENT | [address] | [place] [address] | | | PATHOLOGY | [address] [...] | | THERAPY | | | | HEATING AND VENTILATING TENDER | | | | | | | | | | | | | | | | | | | | | | | | | | | | | | | | | | | |Electronically Signed by: Ly Luevano, HEATING AND VENTILATING TENDER | | | | + + + + +------- -------+ + + | Specimen | + + | | + + + + + + + | Performing | Address | City/State/Zipcode | Phone Number | | Organization | | | | + + + + + | [facility] | [address] | [place], [place] | | | THERAPY | [address] | [address] | | + + + + + [...] [place] | [address] | [place], [place] | | | [facility] OF [facility] | [address] | [address] | | | TESTS | | | [...] | + + + + + | [facility] | [address] | [place] [address] | | | PATHOLOGY | [address] [...] [place] | [address] | [place], [place] | | | MULU SCHULTZ OF CARE | [address] | [address] | | | TESTS | | | [...] | | | | | VENOUS | [id number] Name: | | | | | DUPLEX [...] # | | | | | | [id number] RESULT: LOWER | | | | | [...] [place] | [address] | [place], [place] | | | [facility] [place] | [address] | [address] | | | TESTS | | | [...] | + + + + + | [facility] | [address] | [place] [address] | | | PATHOLOGY | [address] [...] DEPARTMENT OF | [address] | [place] [address] | | | PATHOLOGY | [address] [...] + + | [place] | [address] | [place], [place] | | | [facility] [place] | [facility] | [address] | | | TESTS | | | [...] [facility] | [address] | [place], [place] | | | THERAPY | [address] | [address] | | + + + + + [...] [place] | [address] | [place], [place] | | | [facility]ARE | [address] | [address] | | | TESTS | | | | + + + + + CAPILLARY BLOOD GLUCOSE, POC (02/18/2011 6:54 PM PDT) + +---------+ + + + | Component | Value | Ref Range | Performed | Pathologist | | | | | At | Signature | + +---------+ + + + | BLOOD | 168 (H) | 60 - 99 mg/dL | [facility] - | | | GLUCOSE, | | [...] [place] | [address] | [place], [place] | | | M[facility] [place] | [address] | [address] | | | TESTS | | | [...] [place] | [address] | [place], [place] | | | [place] CARE | [address] | [address] | | | TESTS | | | [...] RLB ([facility] [facility]) | | | [facility] [place] [address] | | | [place] [address] | | + + + + + + + + | Performing | Address | City/State/Zipcode | Phone Number | | Organization | | | | + + + + + | [facility] | [address] | [place] [address] | | | LABORATORY | | | [...] (H) | 150 - 400 K/cu | [facility] | | | COUNT | | mm [...] | + + + + + | [facility] DEPARTMENT OF | [address] | [place] [address] | | | PATHOLOGY | [address] [...] DEPARTMENT OF | [address] | [place] [address] | | | PATHOLOGY | [address] [...] [place] | [address] | [place], [place] | | | [place] CARE | [address] | [address] | | | TESTS | | | [...] | | | | | | RLB ([facility] [facility]) | | | | | | [place] | | | | | | Permanente | | | | | | [address] [facility] | | | | | | [place], [place] | | | | | | [address] | | | | + + + + + + + + | Specimen | + + | | + + + + + + + | Performing | Address | City/State/Zipcode | Phone Number | | Organization | | | | + + + + + | [facility] | [address] | [place] [address] | | | LAB-MICRO | | | [...] | + + + + + | [facility] | [address] | [place] [address] | | | PATHOLOGY | [address] [...] | + + + + + | [facility] DEPARTMENT OF | [address] | [place] [address] | | | PATHOLOGY | [address] [...] | + + + + + | [facility] | [address] | [place] [address] | | | PATHOLOGY | [address] [...] + + + | [facility] | [address] | [place] [address] | | | LAB-MICRO | | | [...] | + + + + + | [facility] | [address] | [place] [address] | | | LAB-MICRO | | | [...] [facility] | [address] | [place], [place] | | | THERAPY | [address] | [address] | | + + + + + [...] | + + + + + | [facility] DEPARTMENT OF | [address] | [place] [address] | | | PATHOLOGY | [address] | | | + + + + + INR (02/18/2011 1:05 AM PDT) + + + + + + | Component | Value | Ref Range | Performed | Pathologist | | | | | At | Signature | + + + + + + | INR | 1.33 (H)Comment: | 0.90 - 1.20 INR | [facility] | | | | INR Therapeutic ranges [...] | + + + + + | [facility] | [address] | [place] [address] | | | PATHOLOGY | [address] [...] DEPARTMENT OF | [address] | [place] [address] | | | PATHOLOGY | [address] [...] DEPARTMENT OF | [address] | [place] [address] | | | PATHOLOGY | [address] [...] + | AMARILISLA Hari VENUSBENJI | [address] [facility] | [place], [place] | | | [facility] | [address] | [address] | | | TESTS | | | [...] | | | | | 2104, Until [facility] 03/02/11 at 2328, | | | | [...]
--- OUTSIDE RECORDS SUMMARY | ~2019-06-15 | XMS | Encounter Summary ---
Demographics + + + | Address | [address] | | | [place] [address] | + + + | Home Phone | | + + + | Preferred Language | Unknown | + + + | Marital Status | Single | + + + | Nondenominational Affiliation | NRP | + + + | Race | White | + + + | Ethnic Group | Not or | + + + Author + + + | Author | [facility] | + + + | Organization | [facility] | + + + | Address [...] Team Providers + +------+ + | Care Call Or Contact Centre Team Leader Name | Role | Phone | + +------+ + | Harry Mario MD | PCP | | + +------+ + Encounter Details +--------+ + + + + | Date | Type | Department | Care Team | Description | +--------+ + + + + | 03/30/ | Documentati | Digestive Health | Gloria Gibbs, | | | 2013 | on | Center at [facility] [address] | [address] | | | | | [address] | [place], [place] | | | | | Mailcode: [place] | [address] | | | | | for Health and | | | | | | [facility] | | | | | | [place], [place] | | | | | | [address] | | | | | | | [...] + +---+---+---+ + + | Comments: quit 2006 | + + + + +---------+ + [...]
--- OUTSIDE RECORDS SUMMARY | ~2019-06-15 | XMS | Encounter Summary ---
Demographics + + + | Address | [address] | | | [place] [address] | + + + | Home Phone | | + + + | Preferred Language | Unknown | + + + | Marital Status | Single | + + + | Latter-Day Affiliation | NRP | + + + | Race | White | + + + | Ethnic Group | Not or | + + + Author + + + | Author | [facility] | + + + | Organization | [facility] | + + + | [...] Team Providers + +------+ + | Care Sat Math Tutor Name | Role | Phone | + +------+ + | Harry Mario MD | PCP | | + +------+ + Encounter Details +--------+ + + + + | Date | Type | Department | Care Team | Description | +--------+ + + + + | 05/04/ | Telephone | Vascular Surgery | Keller, Michael, | | | 2010 | | at [facility] 2nd Floor | [address] | | | | | [address] | [address] | | | | | [place] Mailcode: | [place], [place] | | | | | [address] Physician's | [address] | | | | | [place], | [phone] | | | | | [place] [address] | | | | | | [phone] | | | +--------+ + + + + Social History + +-------+ +--------+------+ | Tobacco Use | Types | Packs/Day | Years | Date | | | | | Used | | + +-------+ +--------+------+ | Former Smoker | | | | | + +-------+ +--------+------+ + + +---------+ + | Alcohol Use | Drinks/Week | oz/Week | Comments | + + +---------+ + | Not Asked | | | | + + +---------+ [...]
--- OUTSIDE RECORDS SUMMARY | ~2019-06-15 | XMS | Encounter Summary ---
Demographics + + + | Address | [address] | | | [place] [address] | + + + | Home Phone | | + + + | Preferred Language | Unknown | + + + | Marital Status | Single | + + + | Restorationism Affiliation | NRP | + + + [...] Team Providers + +------+ + | Care Public Transportation Inspector Name | Role | Phone | + +------+ + | Harry Mario MD | PCP | | + +------+ + Encounter Details +--------+ + + + + | Date | Type | Department | Care Team | Description | +--------+ + + + + | 10/27/ | Documentati | Digestive Health | Gloria Gibbs, | | | 2016 | on | Center at [facility] [address] | [address] | | | | | [address] | [place], [place] | | | | | Mailcode: Center | [address] | | | | | for Health and | | | | | | [facility] [address] | | | | | | [place], [place] | | | | | | [address] | | | | | | | [...]
--- OUTSIDE RECORDS SUMMARY | ~2019-06-15 | XMS | Clinical Summary ---
Demographics + + + | Address | [address] | | | [place] [address] | + + + | Home Phone | | + + + | Preferred Language | Unknown | + + + | Marital Status | Single | + + + | Adventism Affiliation | NRP | + + + [...] Team Providers + +------+ + | Care Welt Beater Name | Role | Phone | + +------+ + | Harry Mario MD | PCP | | + +------+ + Source Comments MOLLY is fully live on both [facility] Ambulatory and [facility] InPatient.[facility] Allergies No Known Allergies Medications + + [...] | | | + +--------+ +--------+-------+---------+--------+ | [employer] | [employer] | xxxxxxxx | | | | Medica [...] | 1965 | [phone] | [place] [address] | | | martin | | | [...]
--- OUTSIDE RECORDS SUMMARY | ~2019-06-15 | XMS | Encounter Summary ---
Demographics + + + | Address | [address] | | | [place] [address] | + + + | Home Phone | | + + + | Preferred Language | Unknown | + + + | Marital Status | Single | + + + | Yazidism Affiliation | NRP | + + + | Race | White | + + + | Ethnic Group | Not or | + + + Author + + + | Author | [facility] | + + + | Organization | [facility] | + + + | [...] Team Providers + +------+ + | Care Butadiene Converter Operator Name | Role | Phone | + [...] | Pain | Diagnoses | Tilgner, | Wet Pan Operator Psych | | | | Management | Morbid | Gloria F, ACNP | [address] | | | | | obesity with | [address] | | | | | BMI of [address] | [address] | Mailcode: | | | | | and over, | [place], [place] | 15 Center | | | | | adult (HCC) | [address] | for Health | | | | | SOB | Phone: | and Healing, | | | | | (shortness | | Building 1, | | | | | of breath) | Fax: | 15th Floor | | | | | Lymphedema | [phone] | [place], [place] | | | | | of left leg | | [address] | | | | | [place] | | Phone: | | | | | (obstructive | | [phone] | | | | | sleep | | Fax: | | | | | apnea) Type | | [phone] | | | | | 2 diabetes [...] | | | | | | | [place] | | | | | | | PSYCHIATRIC | | | | | | | DIAGNOSTIC | | | | | | | EVAL, NO MED | | | | | | | [facility] [place] | | | | | | | [...] | | | | and over, | [place], [place] | [place] | | | | | adult (HCC) | [address] | [address] | | | | | SOB | Phone: | Phone: | | | | | (shortness | | [phone] | | | | | of breath) | Fax: | Fax: | | | | | Lymphedema | [phone] | [phone] | | | | | of left [...] | | | | | Morbid | Mile Coronel, | [facility] | | | | | obesity | MD [address] | [address] | | | | | ([facility]) | [address] | [address] | | | | | Procedures | [address] | Mailcode: | | | | | CONSULT TO | [facility] [place] | Center for | | | | | BARIATRIC | [address] | Health and | | | | | SURGERY | Phone: | Healing, | | | | | | [phone] | Building 2 | | | | | | Fax: | [place], [place] | | | | | | [phone] | [address] | | | | | | | Phone: | | | | | | | [phone] | | | | | | | Fax: | | | | | | | [phone] | +--------+--------+ + + + + Encounter Details +--------+---------+ + + + | Date | Type | Department | Care Team | Description | +--------+---------+ + + + | 10/20/ | Office | Digestive Health | Gloria Gibbs, | Morbid obesity with | | 2015 | Visit | Center at [facility] [address] | [facility] [address] | BMI of 70 and over, | | | | [address] | Ave [place], [place] | adult (HCC) (Primary | | | | Mailcode: Center | [address] | Dx); SOB (shortness | | | | for Health and | [phone] | of breath); | | | | Healing, Building 2 | | Lymphedema of left | | | | [place], [place] | | leg; [place] | | | | [address] | | (obstructive sleep | | | | [phone] | | apnea); Type 2 | | [...] to your private appointme nt with the painting and coating worker. These classes will be scheduled apporoximately 1 month apart to allow time for you to put the teaching into action. When you check out today, please ask the admitting clerk to schedule these with you + Labs needed: lipids, CBC, CMP, TSH, A1C, PTH, Vitamin D25, Please have your pcp draw th meir and send to me.. + EKG: Please go to 9th floor today to get this done. + Pre-op Psychological Evaluation: If your referral is at [facility], The Pain Management Office will call [...] the time. If your referral is at [facility], they will call you in the next week to schedule . Please have your PCP order this for you + Cardiology Consult: A cardiology provider needs to evaluate your cardiac function and le t us know if you can proceed with with bariatric surgery. If your referral is at [facility], they will call you in the [...] with the surgeon. Gloria Colunga DNP, ACNP, JOURNEYMAN GLAZIER Nurse Practitioner for Bariatric Surgery [facility] | [address] | [place], [place] | [address] | Potential Contraindications to Bariatric Surgery Age [...] other providers does not guarantee that the [facility] Bariatric Surger y program will deem you a surgical candidate. documented in this encounter Progress Notes Gloria Colunga ACNP - 10/20/2015 1:34 PM PSTFormatting of this note might be different fro m the original. BARIATRIC INITIAL VISIT Provider: Gloria Colunga DNP, JULIAP, JOURNEYMAN GLAZIER Referring Provider: Dr. Mario Reason for Requested Consultation: Initial evaluation for bariatric surgery. Wilner King Jenkins is interested in sleeve gastrect luann. He has seen PT prior to this appointment, and a painting and coating worker appointment is following. He had been seen at [facility] previously by plastic surgery for evaluation [...] Transthoracic ECHO: not indicated for phen/fen exposure Yazidism or cultural reason you would refuse blood [...] Procedure Laterality Date Umbilical hernia repair [facility] History Social History Marital Status: Single Spouse [...] was clear when he followed with the painting and coating worker After my appointment, that he did not [...] to your private appointme nt with the painting and coating worker. These classes will be scheduled apporoximately 1 month apart to allow time for you to put the teaching into action. When you check out today, please ask the admitting clerk to schedule these with you + Labs needed: lipids, CBC, CMP, TSH, A1C, PTH, Vitamin D25, Please have your pcp draw th meir and send to me.. + EKG: Please go to 9th floor today to get this done. + Pre-op Psychological Evaluation: If your referral is at [facility], The Pain Management Office will call [...] the time. If your referral is at [facility], they will call you in the next week to schedule . Please have your PCP order this for you + Cardiology Consult: A cardiology provider needs to evaluate your cardiac function and le t us know if you can proceed with with bariatric surgery. If your referral is at [facility], they will call you in the [...] with the surgeon. Gloria Colunga DNP, ACNP, JOURNEYMAN GLAZIER Nurse Practitioner for Bariatric Surgery [facility] | [address] | [place] | [address] | Potential Contraindications to Bariatric Surgery Age [...] other providers does not guarantee that the [facility] Bariatric Surger y program will deem [...] [facility] | [address] | [place], [place] | | | CARDIOLOGY | [address] | [address] | | + + + + + [...]
--- OUTSIDE RECORDS SUMMARY | ~2019-06-15 | XMS | Encounter Summary ---
Demographics + + + | Address | [address] | | | [place] [address] | + + + | Home Phone | | + + + | Preferred Language | Unknown | + + + | Marital Status | Single | + + + | Hindu Affiliation | NRP | + + + | Race | White | + + + | Ethnic Group | Not or | + + + Author + + + | Author | [facility] | + + + | Organization | [facility] | + + + | Address [...] Team Providers + +------+ + | Care Film Developer Name | Role | Phone | + +------+ + | Harry Mario MD | PCP | | + +------+ + Encounter Details +--------+ + + + + | Date | Type | Department | Care Team | Description | +--------+ + + + + | 10/15/ | Abstract | Digestive Health | Clinic, Surgery | | | 2015 | | Center at [facility] [address] | | | | | | [address] | | | | | | Mailcode: Center | | | | | | [facility] and | | | | | | [facility], [place] [address] | | | | | | [place], [place] | | | | | | [address] | | | | | | [phone] | | | +--------+ + + + [...]
--- OUTSIDE RECORDS SUMMARY | ~2019-06-15 | XMS | Encounter Summary ---
Demographics + + + | Address | [address] | | | [place] [address] | + + + | Home Phone | | + + + | Preferred Language | Unknown | + + + | Marital Status | Single | + + + | Judaism Affiliation | NRP | + + + | Race | White | + + + | Ethnic Group | Not or | + + + Author + + + | Author | [facility] | + + + | Organization | [facility] | + + + | Address [...] Providers + +------+ + | Care Manager Lan Name | Role | Phone | + +------+ + | Harry Mario MD | PCP | | + +------+ + Encounter Details +--------+ + + + + | Date | Type | Department | Care Team | Description | +--------+ + + + + | 10/21/ | Abstract | Digestive Health | Clinic, Surgery | | | 2015 | | Center at [facility] [address] | | | | | | [address] | | | | | | Mailcode: Center | | | | | | [facility] and | | | | | | [facility], [address] [place] [address] | | | | | | [place], [place] | | | | | | [address] | | | | | | [phone] | | | +--------+ + + + [...]
--- OUTSIDE RECORDS SUMMARY | ~2019-06-15 | XMS | Encounter Summary ---
Demographics + + + | Address | [address] | | | [place] [address] | + + + | Home Phone | | + + + | Preferred Language | Unknown | + + + | Marital Status | Single | + + + | Christian Affiliation | NRP | + + + | Race | White | + + + | Ethnic Group | Not or | + + + Author + + + | Author | [facility] | + + + | Organization | [facility] | + + + [...] Team Providers + +------+ + | Care Box Car Checker Name | Role | Phone | + +------+ + | Harry Mario MD | PCP | | + +------+ + Encounter Details +--------+ + + + + | Date | Type | Department | Care Team | Description | +--------+ + + + + | 10/21/ | Abstract | Digestive Health | Clinic, Surgery | | | 2015 | | Center at [facility] [address] | | | | | | [address] | | | | | | Mailcode: Center | | | | | | [facility] and | | | | | | [facility], [place] [address] | | | | | | [place], [place] | | | | | | [address] | | | | | | [phone] | | | +--------+ + + + [...]
--- OUTSIDE RECORDS SUMMARY | ~2019-06-15 | XMS | Encounter Summary ---
Demographics + + + | Address | [address] | | | [place] [address] | + + + | Home Phone | | + + + | Preferred Language | Unknown | + + + | Marital Status | Single | + + + | Confucianist Affiliation | NRP | + + + | Race | White | + + + | Ethnic Group | Not or | + + + Author + + + | Author | [facility] | + + + | Organization | [facility] | + + + | Address | [...] Team Providers + +------+ + | Care Pipe Changer Name | Role | Phone | + +------+ + | Harry Mario MD | PCP | | + +------+ + Reason for Visit + + + | Reason | Comments | + + + | Medical Records | [facility] - OUTSIDE RECORDS: Demographics & Chart Note 05/04/2015 | | Review | | + + + Encounter Details +--------+ + + + + | Date | Type | Department | Care Team | Description | +--------+ + + + + | 05/11/ | Abstract | Digestive Health | Gloria Gibbs, | Medical Records | | 2015 | | Center at [facility] [address] | [facility] [address] | Review ([facility] - | | | | [address] | [place], [place] | OUTSIDE RECORDS: | | | | Mailcode: Center | [address] | Demographics & Chart | | | | for Health and | | Note 05/04/2015) | | | | [facility] | | | | | | [place], [place] | | | | | | [address] | | | | | | | [...]
--- OUTSIDE RECORDS SUMMARY | ~2019-06-15 | XMS | Encounter Summary ---
Demographics + + + | Address | [address] | | | [place] [address] | + + + | Home Phone | | + + + | Preferred Language | Unknown | + + + | Marital Status | Single | + + + | Buddhism Affiliation | NRP | + + + | Race | White | + + + | Ethnic Group | Not or | + + + Author + + + | Author | [facility] | + + + | Organization | [facility] | + + + | Address | [...] Team Providers + +------+ + | Care Sandblaster Stone Name | Role | Phone | + +------+ + | Harry Mario MD | PCP | | + +------+ + Reason for Visit Physical Therapy (Routine) +--------+--------+ + + + + | Status | Reason | Specialty | Diagnoses / | Referred By | Referred To | | | | | Procedures | Contact | Contact | +--------+--------+ + + + + | Closed | | Physical | Diagnoses | Conser, | Keyshawn Pt Chh1 | | | | Therapy | Pre-op | Chloe M, AIR CONDITIONING MECHANIC | [address] | | | | | evaluation | [address] | | | | | Morbid | [address], | Mailcode: | | | | | obesity | [address] | [facility] | | | | | ([facility]) | [place], [place] | for Health | | | | | Procedures | [address] | and Healing, | | | | | PHYSICAL | Phone: | Building 1, | | | | | THERAPY | [phone] | [address] Floor | | | | | REFERRAL [place] | Fax: | [place], [place] | | | | | PHYS | [phone] | [address] | | | | | THERAPY | | Phone: | | | | | EVALUATION | | [phone] | | | | | [place] | | Fax: | | | | | THERAPEUTIC | | [phone] | | | | | EXERCISES | | | +--------+--------+ + + + + Encounter Details +--------+---------+ + + + | Date | Type | Department | Care Team | Description | +--------+---------+ + + + | 10/20/ | Office | [facility] | Belén Bal, PT | Morbid obesity, | | 2016 | Visit | Therapy Services at | [address] | unspecified obesity | | | | [facility] | [address] [place], | type (HCC) (Primary | | | | [address] | [place] [address] | Dx) | | | | Mailcode: CH3 | [phone] | | | | | [facility] | | | | | | and Healing, | | | | | | Building [address], [address] | | | | | | Floor [place], [place] | | | | | | [address] | | | | | | [phone] | | | +--------+---------+ + + + Social History [...] documented as of this encounter Progress Notes Belén Bal, PT - 10/20/2015 11:40 AM PST [id number] WILNER GILBERT Date of : 1965 Start of care: 10/20/2015 Date of onset: 05/10/2015 Referring/Attending Practitioner: Gloria Colunga Primary/Referral Diagnosis/ICD-9:E66.01 Morbid obesity, unspecified obesity type (HCC) Insurance: Payor: [facility] MEDICAID / Plan: [facility] [place] PL[place] / Product Type: Medicaid / Service period from: 10/20/2015 to: - Number visits used/authorized: 08/27 [facility] PHYSICAL THERAPY EVALUATION SUBJECTIVE: History of Presenting Problem: Pt is here for Prehabilitation evaluation prior to Bariatric abdominal surgery. He plans to have gastric sleeve surgery . Current PA: walking in home, self report 100 ft limit. Pain Reported in location of shoulders(torn RTC) bilateral, knees torn meniscus, tailbone. Pain is a 7 on a scale of 0-10. Pain is: constant. states their pain is sharp and burnin g. The pain is worst in morning. Current functional Status: The following activities aggravate the pain: sitting, passenger in car,walking. The pain li mits the 's ability to walk. The pain is relieved by medication. Patient''s sleep is not in terrupted by the pain. sleeps 5-8 hours per night and wakes rested. Current stress level is moderate. Current stressors are . 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 lives with family. PMH: Past Medical History Diagnosis Date Hypertension Dizziness Numbness and tingling in hands Abdominal pain Shortness of breath Asthma Cough Sleep apnea High cholesterol Leg sore Anxiety Depression Diabetes (HCC) Meds: Current Outpatient Prescriptions on File Prior to Visit Medication Sig Dispense Refill ALBUTEROL SULFATE (VENTOLIN HFA INHL) Inhale 108 mcg. cetirizine 10 mg Oral Tablet Take 1 Tab by mouth once daily. 30 Tab 0 diphenhydrAMINE 25 mg Oral Capsule Take 1 Cap by mouth every six hours as needed. 30 Ca p 0 diphenoxylate-atropine (LOMOTIL) 2.5-0.025 mg oral tablet Take 2 tablets by mouth every four hours. famotidine 20 mg oral tablet Take 20 mg by mouth two times daily. furosemide 20 mg oral tablet Take 40 mg by mouth two times daily. lisinopril 2.5 mg oral tablet Take 2.5 mg by mouth once daily. montelukast (SINGULAIR) 10 mg Oral Tablet Take 10 mg by mouth once daily in the evening . ondansetron 4 mg oral tablet Take 4 mg by mouth every twelve hours as needed. oxyCODONE, immediate release, 5 mg Oral Tablet Take 1 Tab by mouth every six hours as n eeded for moderate pain. 30 Tab 0 piroxicam 20 mg oral capsule Take 20 mg by mouth once daily as needed. potassium chloride SR 10 mEq Oral Tablet Sustained Release Take 10 mEq by mouth two prashanth es daily. sertraline 50 mg oral tablet Take 50 mg by mouth once daily. venlafaxine XR 75 mg Oral Capsule, Ext Release 24 hr Take 1 Cap by mouth once daily. 30 Cap 0 No current facility-administered medications on file prior to visit. Living situation/environment is limiting function: home one level Equipment at home: 4 WW s eat and brakes, Requests family members or friends involved with rehabilitation therapy: Yes Anxieties o r concerns about therapy: no Patient's goals are to: lose wt. OBJECTIVE: EXAM: Vitals: 144/71 Pulse 79 Weight: - ROM: WFL UE, LE Knee 90 deg(limited by soft tissue MMT: grossly 5/5 LE/ UE Balance/Coordination: gait antalgic and slow.. Outcome Measures: Outcome measure Score 10/20/2015 Interpretation Goal at 12 weeks 5x sit to stand 12 sec Normal values: 60 to 69 years: 11.4 sec 70 to 79 years: 12.6 sec 80 to 89 years: 14.8 sec 10 sec Gait speed: 15 sec for 25 ft Functional Implications: Timed up and Go: 29 sec Normal values: 8.1 (7.1-9.0) sec for 60 to 69 year olds 9.2 (8.2-10.2) sec for 70 to 79 years 11.3 (10.0-12.7) sec for 80 to 99 years Predictive values Community dwelling frail older adults: > 14 associated with high fall risk Post-op hip fracture pts at time of d/c: > 24 predictive of falls within 6 months s/p hip f racture Frail older adults = 30 predictive of using AD for ambulation and being dependent for ADLs Treatment: Therapeutic exercises:10 minutes Intervention Date* Comments Compliance 10/20/2015 Predicted: fair Progressive walking program 10/20/2015 Begin 3x day, walking your 100ft and increase dista nce as able. General light strengthening/stretching exercises 10/20/2015 Instructions and Provided hand out Logroll instruction 10/20/2015 Reviewed with patient Abdominal precautions instruction 10/20/2015 Instructions and handout provided * indicates date intervention started. see comments for details of compliance, modification s, deletions ASSESSMENT: Patient is a referred to PT for prehabilitation evaluation prior to Bariatric a bdominal surgery. Patient exam findings include decreased ROM, decreased strength, decreased activity tolerance and physical deconditioning. Best evidence practice recommends obese pt' s with knee pain lose 5% of their wt doing non-wt bearing activities prior to doing wt beari ng activities to avoid progress on OA. Symptoms are limiting patient with daily and functional activities including walking, seate d peddling, he is able to do seated arm cycle. He is a good candidate for a whole body therapy approach to care and instruction on appropr iate exercise and pain control strategies to increase aerobic PA to prepare for major bariat davis abdominal surgery . He will require services in his home town that can be safely and ef fectively performed only by a qualified therapist to address the following problems and alvaro osheae the following goals: Problems: Morbid obesity, poor mobility, deconditioned <100 ft. Not meeting age norms for functional tests. LONG-TERM GOALS: Discussed with . Due in 12 weeks. Aerobic PA 30 minutes per day, all days(may be three 10 minute or two 15 minute bouts) Performing strengthening exercises 3x/wk. Independent with home exercise program. Goals discussed with . Individual cultural needs addressed. Rehab Potential Good, if Wilner carries through with home exercise program. . Critical behavior/Cognitive Status: Wilner understands and follows directions. Co-morbidities that affect goals and treatment plan/Obstacles to rehabilitation: medical co nditions, financial constraints and obesity. Patient's knowledge of disease process: Fair. PLAN OF CARE: Aerobic PA Strengthening exercises Stretching exercises Frequency/Duration: 1 follow up with PT in your area for mobility and strengthening Treatment began: 1130 Treatment ended: 1215 This note is to serve as the discharge summary if the patient fails to attend further Physi chiki Therapy appointments or contact the therapist regarding any change in their status. Belén Bal P.T. [facility] THERAPY [address] Mailcode: [address] [facility], [address]rd [facility] [address] documented in this enco unter Plan of Treatment Not on filedocumented as of this encounter Procedures + +--------+ + + + | Procedure Name | Priori | Date/Time | Associated Diagnosis | Comments | | | ty | | | | + +--------+ + + + | [place] THERAPEUTIC | Routin | 10/20/2015 | Morbid obesity, | | | EXERCISES | e | 4:30 PM | unspecified obesity | | | | | PST | type (HCC) | | + +--------+ + + + | [place] PHYS THERAPY | Routin | 10/20/2015 | Morbid obesity, | | | EVALUATION | e | 4:30 PM | unspecified obesity | | | | | PST | type (HCC) | | + +--------+ + + + documented in this encounter Visit Diagnoses + + | Diagnosis | + + | Morbid obesity, unspecified obesity type (HCC) - Primary | + + documented in this encounter"
--- OUTSIDE RECORDS SUMMARY | ~2019-06-15 | XMS | Encounter Summary ---
Demographics + + + | Address | [address] | | | [place] [address] | + + + | Home Phone | | + + + | Preferred Language | Unknown | + + + | Marital Status | Single | + + + | Pentecostalism Affiliation | NRP | + + + | Race | White | + + + | Ethnic Group | Not or | + + + Author + + + | Author | [facility] | + + + | Organization | [facility] | + + + | Address [...] Team Providers + +------+ + | Care Etiologist Name | Role | Phone | + +------+ + | Harry Mario MD | PCP | | + +------+ + Encounter Details +--------+ + + + + | Date | Type | Department | Care Team | Description | +--------+ + + + + | 06/22/ | Abstract | Dig[facility]ive Health | Gloria Gibbs, | | | 2013 | | Center at [facility] [address] | [address] | | | | | [address] | [place], [place] | | | | | Mailcode: [place] | [address] | | | | | for Health and | | | | | | [facility] | | | | | | [place], [place] | | | | | | [address] | | | | | | | [...]
--- OUTSIDE RECORDS SUMMARY | ~2019-06-15 | XMS | Encounter Summary ---
Demographics + + + | Address | [address] | | | [place] [address] | + + + | Home Phone | | + + + | Preferred Language | Unknown | + + + | Marital Status | Single | + + + | Confucianism Affiliation | NRP | + + + | Race | White | + + + | Ethnic Group | Not or | + + + Author + + + | Author | [facility] | + + + | Organization | [facility] | + + + | Address [...] Team Providers + +------+ + | Care Refrigerating Engineer Name | Role | Phone | + +------+ + PCP | Unavailable | + +------+ + Encounter Details +--------+ + + + + | Date | Type | Department | Care Team | Description | +--------+ + + + + | 05/12/ | Letter-[facility] | [facility] | Letter, | Letters | | 2002 | scribed | | Orthopedics | | +--------+ + + + + Social History + +-------+ +--------+------+ | Tobacco Use | Types | Packs/Day | Years | Date | | | | | Used | | + +-------+ +--------+------+ | Never Assessed | | | | | + +-------+ +--------+------+ + + + | Sex Assigned at [...] documented as of this encounter Progress Notes Interface, Surgery Aide In - 02/15/2006 1:02 AM PDT [place] [address] [address] FAX [facility] [id number] May 12, 2003 Harry Mario M.D. [address] [place] [address] RE: WILNER GILBERT MR #: [id number] DOS: 04/14/[address] Mario: Thank you for sending Wilner for orthopedic consultation. As you know, he is complaining of right knee pain. He has had the pain since February 06, 2003, and he has been using medication. Apparently while lifting weights, he had some knee pain subsequently, and your evaluation that he may have a meniscus tear. He was referred to my office for said. He has had no catching or locking, just medial knee pain. He felt that the left leg gives out now from time to time with pain. His past medical history is significant for gross obesity, hay fever, and water retention. He had an umbilical hernia repaired by Dr. Nunes in [place] in 2000. He has no allergies. He takes furosemide, fluoxetine, Singulair, Rose, and indomethacin. 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 Review of systems finds him to have unusual fatigue and weakness. He attributes to the obesity, shortness of breath, and swelling of the legs similarly. He drinks coffee and he smokes. Physical examination finds him to be an obese male. It is very difficult actually to palpate the joint as his knee is so large, he cannot fully extend and flex. He has pain on the medial side with this maneuver. He has negative anterior drawer, negative posterior drawer. No varus or valgus instability. He has a negative Christal's test. He is entirely neurologically intact from L2 to S2 with respect to light touch, sensation, and motor function. X-rays reveal moderate varus knee with some loss of joint space on the medial side, but no clear arthrosis. ASSESSMENT: Possible medial meniscus tear, possible synovitis. I have offered Wilner an injection and after explanation of risks and benefits of this procedure, particularly the difficulty of reaching his knee, he has elected to proceed. Under sterile conditions, using an 18-gauze needle, I attempted to inject the knee with a combination of Marcaine, lidocaine, and Kenalog to quiet down the inflammation. I am unable to assess the joint given his girth and size and the lack of fluoroscopic guidance. After 5 minutes of attempt, I discontinued this, I do so. I discussed with Wilner the nature of his pain associated with his robustness and the fact that he is putting tremendous stress on the medial side of his knee and that he very well may have an injury in his meniscus. I have recommended that he obtain an MRI. This is a difficult proposition for someone of his size. He weighs well over 400 pounds. We have to do an open MRI. We will try to make arrangements for this and see him back. Subsequently, I have recommended that he use a cane, has a knee brace, and those type of items are unlikely to provide him a significant benefit. He recognizes that he would benefit greatly from weight loss and is in the process of pursuing surgical intervention in this respect. Wilner Ríos M.D., Ph.D. BRIANNA / ELAINA [id number] / [id number] / [id number] / [id number] signed by Interface, Surgery Aide In at 02/15/2006 1:02 AM Deny umented in this encounter Plan of Treatment Not on filedocumented as of this encounter Visit Diagnoses Not on filedocumented in this encounter"
--- OUTSIDE RECORDS SUMMARY | ~2019-06-15 | XMS | Encounter Summary ---
Demographics + + + | Address | [address] | | | [place] [address] | + + + | Home Phone | | + + + | Preferred Language | Unknown | + + + | Marital Status | Single | + + + | Hinduism Affiliation | NRP | + + + | Race | White | + + + | Ethnic Group | Not or | + + + Author + + + | Author | [facility] | + + + | Organization | [facility] | + + + | Address [...] Team Providers + +------+ + | Care Real Estate Investor Name | Role | Phone | + +------+ + | Harry Mario MD | PCP | | + +------+ + Encounter Details +--------+ + + + + | Date | Type | Department | Care Team | Description | +--------+ + + + + | 07/31/ | Abstract | Dig[facility]ive Health | Gloria Gibbs, | | | 2012 | | Center at [facility] [address] | [address] | | | | | [address] | [place], [place] | | | | | Mailcode: [place] | [address] | | | | | for Health and | | | | | | [facility] 2 | | | | | | [place], [place] | | | | | | [address] | | | | | | | [...]
--- OUTSIDE RECORDS SUMMARY | ~2019-06-15 | XMS | Encounter Summary ---
Demographics + + + | Address | [address] | | | [place] [address] | + + + | Home Phone | | + + + | Preferred Language | Unknown | + + + | Marital Status | Single | + + + | Rastafarian Affiliation | NRP | + + + [...] Team Providers + +------+ + | Care Marine Tower Operator Name | Role | Phone | + +------+ + | Harry Mario MD | PCP | | + +------+ + Encounter Details +--------+ + + + + | Date | Type | Department | Care Team | Description | +--------+ + + + + | 03/27/ | Abstract | Dig[facility]ive Health | Conser, Chloe M, | | | 2013 | | [place] at [facility] [address] | ANIMAL CARE SUPERVISOR [address] | | | | | [address] | [place] [address] | | | | | Mailcode: [place] | [place], [place] | | | | | for Health and | [address] | | | | | [facility] 2 | [phone] | | | | | [place], [place] | | | | | | [address] | | | | | | [phone] | | | +--------+ + + + [...]
--- OUTSIDE RECORDS SUMMARY | ~2019-06-15 | XMS | Encounter Summary ---
Demographics + + + | Address | [address] | | | [place] [address] | + + + | Home Phone | | + + + | Preferred Language | Unknown | + + + | Marital Status | Single | + + + | Tenriism Affiliation | NRP | + + + | Race | White | + + + | Ethnic Group | Not or | + + + Author + + + | Author | [facility] | + + + | Organization | [facility] | + + + | [...] Team Providers + +------+ + | Care Launch Operator Name | Role | Phone | + +------+ + | Harry Mario MD | PCP | | + +------+ + Encounter Details +--------+ + + + + | Date | Type | Department | Care Team | Description | +--------+ + + + + | 07/31/ | Abstract | Dig[facility]ive Health | Gloria Gibbs, | | | 2012 | | Center at [facility] [address] | [address] | | | | | [address] | [place], [place] | | | | | Mailcode: [place] | [address] | | | | | for Health and | | | | | | [facility] | | | | | | [place], [place] | | | | | | [address] | | | | | | | [...]
--- OUTSIDE RECORDS SUMMARY | ~2019-06-15 | XMS | Encounter Summary ---
Demographics + + + | Address | [address] | | | [place] [address] | + + + | Home Phone | | + + + | Preferred Language | Unknown | + + + | Marital Status | Single | + + + | Lutheran Affiliation | NRP | + + + [...] Team Providers + +------+ + | Care Memory Care Program Resident Name | Role | Phone | + [...] | Therapy | Pre-op | Chloe M, COMPUTER DRAFTER | [address] | | | | | evaluation | [address] | | | | | Morbid | [address], | Mailcode: | | | | | obesity | [address] | [facility] | | | | | ([facility]) | [place], [place] | for Health | | | | | Procedures | [address] | and Healing, | | | | | PHYSICAL | Phone: | Building 1, | | | | | THERAPY | [phone] | [address] | | | | | REFERRAL [place] | Fax: | [place], [place] | | | | | PHYS | [phone] | [address] | | | | | THERAPY | | Phone: | | | | | EVALUATION | | [phone] | | | | | [place] | | Fax: | | | | | THERAPEUTIC | | [phone] | | | | | EXERCISES | [...] | unspecified obesity | | | | [facility] | [address] [place], | type (HCC) (Primary | | | | [address] | [place] [address] | Dx) | | | | Mailcode: CH[facility] | [phone] | | | | | [facility] | | | | | | and Healing, | | | | | | [address] | | | | | | Floor [place], [place] | | | | | | [address] | | | | | | [phone] | | | +--------+---------+ + + + [...] Bal, PT - 10/20/2015 11:40 AM PST [id number] WILNER GILBERT Date of : 1965 Start of care: 10/20/2015 Date of onset: 05/10/2015 Referring/Attending Practitioner: Gloria Colunga Primary/Referral Diagnosis/ICD-9:E66.01 Morbid obesity, unspecified obesity type (HCC) Insurance: Payor: [facility] MEDICAID / Plan: [facility] [place] PL[place] / Product Type: Medicaid / Service period from: 10/20/2015 to: - Number visits used/authorized: 08/27 [facility] PHYSICAL THERAPY EVALUATION SUBJECTIVE: History of Presenting [...] are . 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 lives with family. PMH: Past Medical History [...] change in their status. Belén Bal P.T. [facility] AND HAND THERAPY [address] Mailcode: [address] [facility], 3rd [facility] [address] documented in this enco unter Plan of Treatment Not on filedocumented as of this encounter Procedures + +--------+ + + + | Procedure Name | Priori | Date/Time | Associated Diagnosis | Comments | | | ty | | | | + +--------+ + + + | [place] THERAPEUTIC | Routin | 10/20/2015 | Morbid obesity, | | | EXERCISES | e | 4:30 PM | unspecified obesity | | | | | PST | type (HCC) | | + +--------+ + + + | [place] PHYS THERAPY | Routin | 10/20/2015 | [...]
--- OUTSIDE RECORDS SUMMARY | ~2019-06-15 | XMS | Encounter Summary ---
Demographics + + + | Address | [address] | | | [place] [address] | + + + | Home Phone [...] + + + | Author | [facility] | + + + | Organization | [facility] | + + + | [...] Providers + +------+ + | Care Public Health Director Name | Role | Phone | [...] as of this encounter Progress Notes Interface, Wardrobe Coordinator In - 02/15/2006 1:02 AM PDT [place] [address] [address] FAX [facility] [id number] May 12, 2003 Harry Mario M.D. [address] [place] [address] RE: WILNER GILBERT MR #: [id number] DOS: 04/14/[address] Mario: Thank you [...] umbilical hernia repaired by Dr. Nunes in [place] in 2000. He has no allergies. He takes furosemide, fluoxetine, Singulair, Rose, and indomethacin. 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 BRIANNA / ELAINA [id number] / [id number] / [id number] / [id number] signed by Interface, Wardrobe Coordinator In at 02/15/2006 1:02 AM Deny umented in this encounter Plan of Treatment Not on filedocumented as of this encounter Visit Diagnoses Not on filedocumented in this encounter"
--- OUTSIDE RECORDS SUMMARY | ~2019-06-15 | XMS | Encounter Summary ---
Demographics + + + | Address | [address] | | | [place] [address] | + + + | Home Phone [...] + + + | Author | [facility] | + + + | Organization | [facility] | + + + | [...] Team Providers + +------+ + | Care Wash Test Checker Name | Role | Phone | + +------+ + | Harry Mario MD | PCP | | + +------+ + Encounter Details +--------+ + + + + | Date | Type | Department | Care Team | Description | +--------+ + + + + | 04/01/ | Abstract | Digestive Health | Clinic, Surgery | | | 2013 | | Center at [facility] [address] | | | | | | [address] | | | | | | Mailcode: Center | | | | | | [facility] and | | | | | | [facility], [place] [address] | | | | | | [place], [place] | | | | | | [address] | | | | | | [phone] | | | +--------+ + + + [...]
--- OUTSIDE RECORDS SUMMARY | ~2019-06-15 | XMS | Encounter Summary ---
Demographics + + + | Address | [address] | | | [place] [address] | + + + | Home Phone | | + + + | Preferred Language | Unknown | + + + | Marital Status | Single | + + + | Mandaeism Affiliation | NRP | + + + | Race | White | + + + | Ethnic Group | Not or | + + + Author + + + | Author | [facility] | + + + | Organization | [facility] | + + + | [...] | + + +---------+ + | Marcia Rigigns | ECON | Unknown | | + + +---------+ + Care Team Providers + +------+ + | Care Squash Centre Manager Name | Role | Phone | + +------+ + | Harry Mario MD | PCP | | + +------+ + Encounter Details +--------+ + + + + | Date | Type | Department | Care Team | Description | +--------+ + + + + | 04/03/ | Abstract | Digestive Health | Clinic, Surgery | | | 2013 | | Center at [facility] [address] | | | | | | [address] | | | | | | Mailcode: Center | | | | | | [facility] and | | | | | | [facility], [place] [address] | | | | | | [place], [place] | | | | | | [address] | | | | | | [phone] | | | +--------+ + + + [...]
--- OUTSIDE RECORDS SUMMARY | ~2019-06-15 | XMS | Encounter Summary ---
Demographics + + + | Address | [address] | | | [place] [address] | + + + | Home Phone [...] Author + + + | Author | [facility] | + + + | Organization | [facility] | + + + | Address [...] Team Providers + +------+ + | Care Tax Commissioner Name | Role | Phone | + +------+ + | Harry Mario MD | PCP | | + +------+ + Encounter Details +--------+ + + + + | Date | Type | Department | Care Team | Description | +--------+ + + + + | 06/22/ | Abstract | Digestive Health | Gloria Gibbs, | | | 2013 | | Center at [facility] [address] | [address] | | | | | [address] | [place], [place] | | | | | Mailcode: [place] | [address] | | | | | for Health and | | | | | | [facility] 2 | | | | | | [place], [place] | | | | | | [address] | | | | | | | [...]
--- OUTSIDE RECORDS SUMMARY | ~2019-06-15 | XMS | Encounter Summary ---
Demographics + + + | Address | [address] | | | [place] [address] | + + + | Home Phone | | + + + | Preferred Language | Unknown | + + + | Marital Status | Single | + + + | Gnosticist Affiliation | NRP | + + + | Race | White | + + + | Ethnic Group | Not or | + + + Author + + + | Author | [facility] | + + + | Organization | [facility] | + + + | [...] Team Providers + +------+ + | Care Stone Processing Machine Operator Name | Role | Phone [...] | 2016 | on | Center at [facility] [address] | [address] | | | | | [address] | [place], [place] | | | | | Mailcode: Center | [address] | | | | | for Health and | | | | | | [facility] 2 | | | | | | [place], [place] | | | | | | [address] | | | | | | | [...]
--- OUTSIDE RECORDS SUMMARY | ~2019-06-15 | XMS | Encounter Summary ---
Demographics + + + | Address | [address] | | | [place] [address] | + + + | Home Phone | | + + + | Preferred Language | Unknown | + + + | Marital Status | Single | + + + | Hoahaoism Affiliation | NRP | + + + | Race | White | + + + | Ethnic Group | Not or | + + + Author + + + | Author | [facility] | + + + | Organization | [facility] | + + + | Address [...] Team Providers + +------+ + | Care Director Of Home Health Services Name | Role | Phone | + +------+ + | Harry Mario MD | PCP | | + +------+ + Encounter Details +--------+ + + + + | Date | Type | Department | Care Team | Description | +--------+ + + + + | 10/15/ | Abstract | Digestive Health | Clinic, Surgery | | | 2015 | | Center at [facility] [address] | | | | | | [address] | | | | | | Mailcode: Center | | | | | | [facility] and | | | | | | [facility], [place] [address] [address] | | | | | | [place], [place] | | | | | | [address] | | | | | | [phone] | | | +--------+ + + + [...]
--- OUTSIDE RECORDS SUMMARY | ~2019-06-15 | XMS | Encounter Summary ---
Demographics + + + | Address | [address] | | | [place] [address] | + + + | Home Phone | | + + + | Preferred Language | Unknown | + + + | Marital Status | Single | + + + | Gnosticism Affiliation | NRP | + + + | Race | White | + + + | Ethnic Group | Not or | + + + Author + + + | Author | [facility] | + + + | Organization | [facility] | + + + | Address [...] Team Providers + +------+ + | Care Desk Assistant Name | Role | Phone | + +------+ + | Harry Mario MD | PCP | | + +------+ + Encounter Details +--------+ + + + + | Date | Type | Department | Care Team | Description | +--------+ + + + + | 10/21/ | Documentati | Digestive Health | Gloria Gibbs, | | | 2016 | on | Center at [facility] [address] | [address] | | | | | [address] | [place], [place] | | | | | Mailcode: Center | [address] | | | | | for Health and | | | | | | [facility] 2 | | | | | | [place], [place] | | | | | | [address] | | | | | | | [...]
--- OUTSIDE RECORDS SUMMARY | ~2019-06-15 | XMS | Encounter Summary ---
Demographics + + + | Address | [address] | | | [place] [address] | + + + | Home Phone | | + + + | Preferred Language | Unknown | + + + | Marital Status | Single | + + + | Faith Affiliation | NRP | + + + | Race | White | + + + | Ethnic Group | Not or | + + + Author + + + | Author | [facility] | + + + | Organization | [facility] | + + + | [...] Team Providers + +------+ + | Care Plant Breeder Name | Role | Phone | + [...] on | Center at [facility] [address] | ROSTER CL[address] | | | | | [address] | [facility] [address] | | | | | Mailcode: Center | [place], [place] | | | | | for Health and | [address] | | | | | [place] [address] | [phone] | | | | | [place], [place] | | | | | | [address] | | | | | | [phone] | | | +--------+ + + + [...]
--- OUTSIDE RECORDS SUMMARY | ~2019-06-15 | XMS | Encounter Summary ---
Demographics + + + | Address | [address] | | | [place] [address] | + + + | Home Phone [...] Author + + + | Author | [facility] | + + + | Organization | [facility] | + + + | [...] Team Providers + +------+ + | Care Wine Merchant Name | Role | Phone | + +------+ + | Harry Mario MD | PCP | | + +------+ + Reason for Visit Consultation (Routine) +--------+--------+ + + + + | Status | Reason | Specialty | Diagnoses / | Referred By | Referred To | | | | | Procedures | Contact | Contact | +--------+--------+ + + + + | Closed | | Plastic | | Leah, | Pls | | | | Surgery | | MD Abraham | Gen/Recon | | | | | | [address] | [facility] [address] | | | | | | [address] | [address] | | | | | | Rd | Mailcode: | | | | | | [place], [place] | [facility] | | | | | | [address] | for Health | | | | | | | and Healing, | | | | | | | Building [address], | | | | | | | 5th Floor | | | | | | | [place], [place] | | | | | | | [address] | | | | | | | Phone: | | | | | | | [phone] | +--------+--------+ + + + + Encounter Details +--------+---------+ + + + | Date | Type | Department | Care Team | Description | +--------+---------+ + + + | 03/21/ | Office | Plastic and | Chantelle Ramírez | Lymphedema; | | 2010 | Visit | Reconstructive | MD Mary | Chronic cellulitis | | | | Surgery at [facility] [address] | | | | | | [address] | | | | | | Mailcode: CH[facility] | | | | | | [facility] | | | | | | and Healing, | | | | | | Building | | | | | | Floor [place], [place] | | | | | | [address] | | | | | | [phone] | | | +--------+---------+ + + + [...] + + + | Blood Pressure | 145/64 | 03/21/2011 3:00 PM | | | | | PDT | | + + + + + | Pulse | 106 | 03/21/2011 3:00 PM | | | | | PDT | | + + + + + | Temperature | - | - | | + + + + + | Respiratory Rate | 20 | 03/21/2011 3:00 PM | | | | | PDT | | + + + + + | Oxygen Saturation | 96% | 03/21/2011 3:00 PM | | | | | PDT | | + + + + + | Inhaled Oxygen | - | - | | | Concentration | | | | + + + + + | Weight | 205 kg (452 lb) | 03/21/2011 3:00 PM | | | | | PDT | | + + + + + | Height | 168.9 cm (5' 6.5") | 03/21/2011 3:00 PM | | | | | PDT | | + + + + + | Body Mass Index | 71.86 | 03/21/2011 3:00 PM | | | | | PDT | | + + + + + documented in this encounter Progress Notes Chantelle Ramírez MD - 03/21/2011 4:07 PM PDT PLASTIC SURGERY CONSULT HPI: Wilner Jenkins is a 45 y.o. Male with morbid obesity (453 lbs, 5'6", Body mass index is 71.86 kg/(m^2).) who presents today for evaluation of left lower extremity lymphedema. He was admitted recently for cellulitis of his left leg and [facility] He has lost 103 lbs over the last few months unintentionally due to illness. He c/o a lymphedematous mass in his left groin area that has been present for a long time. About 8 weeks ago it got painful and swollen. He was subsequently admitted and treated for c ellulitis. He is not wearing any type of compression garment. He is currently on Augmentin. PMH: Cellulitis, Morbid obesity PSH: No past surgical history on file. ALL: No Known Allergies MED: Current outpatient prescriptions Medication Sig amoxicillin-clavulanate 500-125 mg Oral Tablet Take 1 Tab by mouth every eight hours. cetirizine 10 mg Oral Tablet Take 1 Tab by mouth once daily. diclofenac EC 75 mg Oral Tablet, Delayed Release (E.C.) Take 1 Tab by mouth once daily. diphenhydrAMINE 25 mg Oral Capsule Take 1 Cap by mouth every six hours as needed. furosemide 20 mg Oral Tablet Take 1 Tab by mouth two times daily. glipiZIDE 10 mg Oral Tablet Take 1 Tab by mouth once daily with breakfast. menthol-zinc oxide 0.2-20 % Topical Paste Apply to affected area. Apply to skin areas as needed Indications: Skin Irritation mirtazapine 15 mg Oral Tablet Take 1 Tab by mouth once daily in the evening. montelukast (SINGULAIR) 10 mg Oral Tablet Take 10 mg by mouth once daily in the evening . oxyCODONE, immediate release, 5 mg Oral Tablet Take 1 Tab by mouth every six hours as n eeded for moderate pain. potassium chloride SR 10 mEq Oral Tablet Sustained Release Take 8 mEq by mouth once lizbeth ly. venlafaxine XR 75 mg Oral Capsule, Ext Release 24 hr Take 1 Cap by mouth once daily. SH: The pateint lives in [place], [place] with 1 other. 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 It was negative for all systems other then what is indicated in the HPI. Pertinent negatives are no SOB, CP, abdominal pain, fever, or malaise. PE: Vital Signs: BP 145/64 | Pulse 106 | RR 20 | Ht 1.689 m (5' 6.5") | Wt 205.026 kg (452 lb) | SpO2 96% | BMI 71.86 kg/(m^2) Gen: well developed, well nourished obese adult male, in no acute distress. There is a larg e erythematous lymphedematous mass on his R thigh that is very firm and heavy. There is no o bvious drainage or purulence, no fluctuance. A/P: Very pleasant gentleman with morbid obesity and cellulitis of L leg pannus secondary to chronic lymphedema. Before any reconstructive procedures are done, I would recommend full treatment of the cellulitis. I would also recommend leg compression and elevation in additi on to weight loss. With a BMI over 70 (450 lbs) he is at extremely high risk for ramiro-operat matilda morbidity and mortality. Once he has lost more weight and the cellulitis is resolved, lashanda holland consider a staged approach to treating this with liposuction first, then resection if ne eded. I explained this all to the patient. I emphasized how important weight loss, compressi on and elevation are. We gave the patient contact information today for a lymphedema special ist. Prior to any surgery: 1. Weight<350 lbs 2. Compression 19/03 3. No cellulitis Would do liposuction and resection, submit for auth once above goals met.Electronically sig puneet by Chantelle Ramírez MD at 04/12/2011 12:26 PM PDTdocumented in this encounter Plan of Treatment Not on filedocumented as of this encounter Visit Diagnoses + + | Diagnosis | + + | Lymphedema Other lymphedema | + + | Chronic cellulitis Cellulitis and abscess of unspecified site | + + documented in this encounter
--- OUTSIDE RECORDS SUMMARY | ~2019-06-15 | XMS | Encounter Summary ---
Demographics + + + | Address | [address] | | | [place] [address] | + + + | Home Phone | | + + + | Preferred Language | Unknown | + + + | Marital Status | Single | + + + | Baptist Affiliation | NRP | + + + [...] Team Providers + +------+ + | Care Lift Builder Whole Name | Role | Phone | + [...] | on | Center at [facility] [address] | [address] | | | | | [address] | [place], [place] | | | | | Mailcode: Center | [address] | | | | | for Health and | | | | | | [facility] 2 | | | | | | [place], [place] | | | | | | [address] | | | | | | | [...]
--- OUTSIDE RECORDS SUMMARY | ~2019-06-15 | XMS | Encounter Summary ---
Demographics + + + | Address | [address] | | | [place] [address] | + + + | Home Phone | | + + + | Preferred Language | Unknown | + + + | Marital Status | Single | + + + | Baptism Affiliation | NRP | + + + [...] Team Providers + +------+ + | Care Wastewater Analyst Name | Role | Phone | + +------+ + | Harry Mario MD | PCP | | + +------+ + Reason for Visit + + + | Reason | Comments | + + + | Evaluation AND/OR | | | management - new | | | patient | | + + + Consultation (Routine) +--------+--------+ + + + + | Status | Reason | Specialty | Diagnoses / | Referred By | Referred To | | | | | Procedures | Contact | Contact | +--------+--------+ + + + + | Closed | | Vascular | Diagnoses | Shelbi, | Vas Vasc | | | | Surgery | Lymphedema | Harry Coronel, | Surg Ppv | | | | | | MD | [address] | | | | | | [place] | [address] | | | | | | FAMILY | [address] Mailcode: | | | | | | MEDICINE | [address] | | | | | | [address] | Physician's | | | | | | [address] | [address] | | | | | | [place], | [place], [place] | | | | | | [place] [address] | [address] | | | | | | Phone: | Phone: | | | | | | [phone] | [phone] | | | | | | Fax: | Fax: | | | | | | [phone] | [phone] | +--------+--------+ + + + + Encounter Details +--------+---------+ + + + | Date | Type | Department | Care Team | Description | +--------+---------+ + + + | 06/29/ | Office | Vascular Surgery | Abraham Lynn MD | Lymphedema; | | 2009 | Visit | at [facility] 2nd Floor | | Chronic cellulitis | | | | [address] | | | | | | [place] Mailcode: | | | | | | [address] Physician's | | | | | | [place], | | | | | | [place] [address] | | | | | | [phone] | | | +--------+---------+ + + + Social History + +-------+ [...] + + + | Blood Pressure | 148/90 | 06/29/2010 10:46 AM | | | | | PDT | | + + + + + | Pulse | 97 | 06/29/2010 10:46 AM | | | | | PDT | | + + + + + | Temperature | - | - | | + + + + + | Respiratory Rate | 12 | 06/29/2010 10:46 AM | | | | | PDT | | + + + + + | Oxygen Saturation | - | - | | + + + + + | Inhaled Oxygen | - | - | | | Concentration | | | | + + + + + | Weight | 246.7 kg (543 lb | 06/29/2010 10:46 AM | | | | 14.4 oz) | PDT | | + + + + + | Height | 172.7 cm (5' 8") | 06/29/2010 10:46 AM | | | | | PDT | | + + + + + | Body Mass Index | 82.7 | 06/29/2010 10:46 AM | | | | | PDT | | + + + + + documented in this encounter Progress Notes Edward Mustafa MD - 06/29/2010 11:49 AM PDT [facility] Reason for Visit: Lymphedema HISTORY: Mr. Jenkins is a 44 y.o. male who is being referred for worsening lymphedema of the left lower extremity. He states that he has been having worsening pain and redness in his left thigh. He has been treated only with lasix. No other intervention has been done thus far. He states that he does have some open lesion on his posterior thigh due to the lymphed yolande. He currently denies any fever or chills. PMH: Asthma, depression PSH: Umbilical hernia repair History Social History Marital Status: Single Spouse Name: N/A Number of Children: N/A Years of Education: N/A Occupational History Not on file. Social History Main Topics Tobacco Use: Quit Alcohol Use: Not on file Drug Use: Not on file Sexually Active: Not on file Other Topics Concern Not on file Social History Narrative No narrative on file ROS: Review of Systems: Pt denies fever, chills, SOB, N/V, abd pain, CP, syncope, palpitations. Patient does have an ulcer and pain in left thigh. Current outpatient prescriptions Medication Sig cetirizine (ZYRTEC) 10 mg Oral Tablet Take 10 mg by mouth once daily. diclofenac EC 75 mg Oral Tablet, Delayed Release (E.C.) Take 75 mg by mouth once daily. DIPHENHYDRAMINE HCL (BENADRYL ORAL) Take by mouth as needed. FUROSEMIDE (LASIX ORAL) Take by mouth once daily. montelukast (SINGULAIR) 10 mg Oral Tablet Take 10 mg by mouth once daily in the evening . potassium chloride SR 10 mEq Oral Tablet Sustained Release Take 8 mEq by mouth once lizbeth ly. propoxyphene napsylate-acetaminophen 100-650 mg Oral Tablet Take 1 Tab by mouth every f our hours as needed. Not to exceed 6 tablets in a 24 hour period. venlafaxine 75 mg Oral Tablet Take 75 mg by mouth three times daily. Allergies no known allergies PHYSICIAN EXAMINATION: the patient appears morbidly obese and in no distress, there are goo d breath sounds bilaterally, and the lungs are clear to auscultation, the heart has a regula r rate and rhythm and the bowel sounds are normoactive, and the abdomen is obese and NDNT mo tor function is 5 of 5 in all extremities On vascular examination, the pulses are palpable in the DP bilaterally. However, his other pulses are difficult to palpate due to his edema and obesity. Patient's left thigh is swol chavo with erythema consistent with underlying infection. Patient also has open sores on his posterior thigh. Patient's left thigh is twice the size of right thigh. IMAGING STUDIES. None ASSESSMENT AND PLAN: 44 yo male with lymphedema of left thigh with probable cellulitis. We recommend that the patient start PO antibiotics (dicloxacillin) and follow-up with us in 2- 3 weeks. We also recommend compression. However, due to the size of the leg, this might be difficult if not impossible. We will recommend that he stay off his leg as much as possibl e with his legs elevated above his heart with hopes of reducing the size of the leg. He was also instructed to seek urgent medical care if he develops fever or chills or worsening dev n in his left leg. Patient was seen and evaluated with Dr. Lynn who agrees with the assessment and plan. CC: Harry Mario MD [facility] [address] [place] [address] Abraham Doty MD - 2009 11:33 AM PDTI saw and examined the patient with the resident. I agree with the finding s and plan as recorded in his note. 1 1:33 AM PDTdocumented in this encounter Plan of Treatment Not on filedocumented as of this encounter Visit Diagnoses + + | Diagnosis | + + | Lymphedema Other lymphedema | + + | Chronic cellulitis Cellulitis and abscess of unspecified site | + + documented in this encounter
--- OUTSIDE RECORDS SUMMARY | ~2019-06-15 | XMS | Encounter Summary ---
Demographics + + + | Address | [address] | | | [place] [address] | + + + | Home Phone | | + + + | Preferred Language | Unknown | + + + | Marital Status | Single | + + + | Yazidi Affiliation | NRP | + + + | Race | White | + + + | Ethnic Group | Not or | + + + Author + + + | Author | [facility] | + + + | Organization | [facility] | + + + | Address [...] Team Providers + +------+ + | Care Package Pick Up Name | Role | Phone | + +------+ + | Harry Mario MD | PCP | | + +------+ + Reason for Referral Physical Therapy (Routine) +--------+--------+ + + + + | Status | Reason | Specialty | Diagnoses / | Referred By | Referred To | | | | | Procedures | Contact | Contact | +--------+--------+ + + + + | Closed | | Physical | Diagnoses | Conser, | [facility] | | | | Therapy | Pre-op | Chloe M, PANTOGRAPH OPERATOR | [address] | | | | | evaluation | [address] | | | | | Morbid | [address], | Mailcode: | | | | | obesity | [address] | [facility] | | | | | (HCC) | [place], [place] | for Health | | | | | Procedures | [address] | and Healing, | | | | | PHYSICAL | Phone: | Building 1, | | | | | THERAPY | [phone] | [address] | | | | | REFERRAL [place] | Fax: | [place], [place] | | | | | PHYS | [phone] | [address] | | | | | THERAPY | | Phone: | | | | | EVALUATION | | [phone] | | | | | [place] | | Fax: | | | | | THERAPEUTIC | | [phone] | | | | | EXERCISES | | | +--------+--------+ + + + + Encounter Details +--------+ + + + + | Date | Type | Department | Care Team | Description | +--------+ + + + + | 09/09/ | Store Warehouse Associate | Digestive Health | Chloe Dorado, | Morbid obesity (HCC) | | 2016 | | Center at [address] | PANTOGRAPH OPERATOR [address] | (Primary Dx); | | | | [address] | , [address] | Pre-op evaluation | | | | Mailcode: Center | [place], [place] | | | | | for Health and | [address] | | | | | [facility] | [phone] | | | | | [place], [place] | | | | | | [address] | | | | | | [phone] | | | +--------+ + + + [...] Diagnosis | + + | Morbid obesity (HCC) - Primary Morbid obesity | + + | Pre-op evaluation Preoperative examination, unspecified | + + documented in this encounter"
--- OUTSIDE RECORDS SUMMARY | ~2019-06-15 | XMS | Encounter Summary ---
Demographics + + + | Address | [address] | | | [place] [address] | + + + | Home Phone | | + + + | Preferred Language | Unknown | + + + | Marital Status | Single | + + + | Jew Affiliation | NRP | + + + | Race | White | + + + | Ethnic Group | Not or | + + + Author + + + | Author | [facility] | + + + | Organization | [facility] | + + + | Address [...] Team Providers + +------+ + | Care Brim Stitcher Name | Role | Phone | + +------+ + | Harry Mario MD | PCP | | + +------+ + Encounter Details +--------+ + + + + | Date | Type | Department | Care Team | Description | +--------+ + + + + | 05/04/ | Telephone | Vascular Surgery | [place], Michael, | | | 2010 | | at [facility] 2nd Floor | [address] | | | | | [address] | [address] | | | | | [place] Mailcode: | [place], [place] | | | | | [address] Physician's | [address] | | | | | [place], | [phone] | | | | | [place] [address] | | | | | | [phone] | | | +--------+ + + + [...]
--- OUTSIDE RECORDS SUMMARY | ~2019-06-15 | XMS | Encounter Summary ---
Demographics + + + | Address | [address] | | | [place] [address] | + + + | Home Phone | | + + + | Preferred Language | Unknown | + + + | Marital Status | Single | + + + | Muslim Affiliation | NRP | + + + | Race | White | + + + | Ethnic Group | Not or | + + + Author + + + | Author | [facility] | + + + | Organization | [facility] | + + + | [...] Team Providers + +------+ + | Care Wind Turbine Mechanical Engineer Name | Role | Phone | + +------+ + | Harry Mario MD | PCP | | + +------+ + Reason for Visit + + + | Reason | Comments | + + + | Bariatric Nutrition | | + + + Consultation (Routine) +--------+--------+ + + + + | Status | Reason | Specialty | Diagnoses / | Referred By | Referred To | | | | | Procedures | Contact | Contact | +--------+--------+ + + + + | Closed | | Nutrition | Diagnoses | [place], | Fn | | | | | Morbid | Mile C, | [facility] | | | | | obesity | MD [address] | [address] | | | | | (HCC) | [address] | [address] | | | | | Procedures | [address] | Mailcode: | | | | | CONSULT TO | [place], [place] | [place] for | | | | | BARIATRIC | [address] | Health and | | | | | SURGERY | Phone: | Healing, | | | | | | [phone] | Building [address] | | | | | | Fax: | [place], [place] | | | | | | [phone] | [address] | | | | | | | Phone: | | | | | | | [phone] | | | | | | | Fax: | | | | | | | [phone] | +--------+--------+ + + + + Encounter Details +--------+---------+ + + + | Date | Type | Department | Care Team | Description | +--------+---------+ + + + | 10/20/ | Office | Digestive Health | Marjorie Lopez RD | Morbid obesity, | | 2016 | Visit | Center at [facility] [address] | [address] | unspecified obesity | | | | [address] | [place], | type (HCC) (Primary | | | | Mailcode: Center | [place] [address] | Fx) | | | | for Health and | | | | | | [facility], [facility] 2 | | | | | | [place], [place] | | | | | | [address] | | | | | | [phone] | | | +--------+---------+ + + + [...] documented as of this encounter Progress Notes Marjorie Lopez, RD - 10/20/2015 2:49 PM PST Referring Provider: Harry Mario MD [facility], Pre-Bariatric Surgery Evaluation Initial diet consultation prior to having Sleeve Gastrectomy. Documented Time of Visit: 2:52 until 3:35 (43 minutes [id number] with patient) SUBJECTIVE: Arrives with his sister & cousin. Sister states she is living with him [facility]. His sister tended to dominate the conversation & at some points talk about her own heal th issues. Patient attended public meeting. What have you been doing to prepare for surgery: doing res earch. Questions/Information desired today: nothing specific Goals & reasons why patient wants to have bariatric surgery: to lose weight Daily food frequency information provided: Yes Food Allergies: No Food Intolerances: No Lactose Intolerance: No Emotional Eating: No Weight filter changer the past year: from 600-494lb - lot of that is fluid removal but some is due to decreased portions Best diet success and why: unsure - possibly current plan of portion control. Are you able exercise? Yes Current Physical Exercise: walking Diet recall: - Chicken noodle soup - Mony mix + coffee with hazlenut creamer - Lunch SW (wheat bread or nepali rolls with ham, cheese and [place]) 3pm - celery and carrots or cottage cheese ot chips and salsa Dinner: streak, chicken, venison & baked potato,some pasta, some rice & salad with blue ch eese dressing or corn, peas, cauliflower Occ takeout - hung mekhi chicken, BBQ 2-4 cans of pepsi/day Water: 64oz Was eating a lot of pizza before his sister moved in and helped with diet management. OBJECTIVE: Height: Ht Readings from Last 1 Encounters: 10/20/15 1.676 m (5' 6") Weight: Wt Readings from Last 1 Encounters: 10/20/15 223.805 kg (493 lb 6.4 oz) BMI: 79.7 Past Medical History: Past Medical History Diagnosis Date Hypertension Dizziness Numbness and tingling in hands Abdominal pain Shortness of breath Asthma Cough Sleep apnea High cholesterol Leg sore Anxiety Depression Diabetes (HCC) Lymphedema 06/2015 evaluated by Plastics Intertriginous candidiasis from lymphedema/along w/ skin breakdown Medications: See list in Epic snap shot Pt states he is not diabetic Dietary Supplements: Multivitamin Labs: see Results Review for current labs (if available) Nutrition Diagnosis: Obesity as evidenced by BMI of 79.7 Factors contributing to obesity: Lack of a regular physical activity program Large portions Intake of excessive empty calories Pre-Surgery Diet: Provided written diet suggestions to help patient lose weight before surgery. -Eat within one hour of waking, then every 3-4 waking hours -Include protein with all meals & snacks -Use healthy plate model or frozen entree (~300 calories, < 600 mg sodium) at lunch & dinn er. Advised patient he may need to further reduce CHO intake if not meeting weight loss goal s. -Begin keeping daily food logs -Choose foods & beverages with < 14 g sugar & < 5 g fat per serving -Eliminate liquid calories and carbonation; limit caffeine to 16 oz/day Discussed behavior changes to practice before surgery to prepare for surgery. -Begin fluids from meals by 30 minutes before and after -Sip fluids throughout the day, aim for 64 oz/day (non-caloric, non-caffeinated, non-carbo nated) -Begin practicing mindful eating Explore exercise program options Post-surgery diet education: Provided visual, verbal, & written information on all aspects of bariatric surgery. Discuss ed lifelong behavior changes, proper diet selections, and exercise. Encouraged patient to fo llow up with dietitian pre- or post-surgery. Written education provided: Provided and reviewed an instructional handout (bariatric surgery notebook) with the nancy oscar on post-surgery diet progression, sample menus, behavior modifications, food items, and vi tamin and mineral supplements needed after surgery. Emphasized the importance of a regular p hysical activity program of 30-60 minutes per day to maintain weight loss post-surgery. Patient's Comprehension: The patient is: Receptive Stage of change: Action Barrier(s) to education: No Learning style: Patient is a Visual learner, Verbal learner Information provided in writing, and used visual aids to demonstrate food portions post-driss marcela and size of stomach after surgery. Expected Outcome: To be determined. Unclear how motivated pt is to make changes he is abdirahman polk vs being resigned to do what his sister is telling him to do. Appeared to understand sugg estions discussed today & he stated that he would be able to continue to follow recommended meal plan once his sister is gone. Psychological evaluation will be helpful & pt should be d iscussed at high risk meeting. Patient verbalizes understanding that surgery is a tool to help achieve and maintain weight loss but that surgery will not eliminate the problems that led to weight gain. Yes GOAL: The patient's goal is to have weight loss surgery to maintain weight loss and improve other health conditions. 1. Continue to practice behavioral changes to prepare for surgery. 2. Increase physical activity. 3. Review all information provided for post surgery diet progression in bariatric surger y notebook. Attend 2 pre-surgery classes. 4. Call or send BarBirdt message to dietitian with any questions. Contact information was provided. Follow up with dietitian 1-2 weeks after surgery at first post-op visit. Marjorie Lopez RD, [facility], [facility] Bariatrics [phone] documented in this enco unter Plan of Treatment Not on filedocumented as of this encounter Procedures + +--------+ + + + | Procedure Name | Priori | Date/Time | Associated Diagnosis | Comments | | | ty | | | | + +--------+ + + + | [place] MNT INITIAL | Routin | 10/22/2015 | Morbid obesity, | | | ASSESSMNT X15MIN | e | 3:14 PM | unspecified obesity | | | | | PST | type (HCC) | | + +--------+ + + + documented in this encounter Visit Diagnoses + + | Diagnosis | + + | Morbid obesity, unspecified obesity type (HCC) - Primary | + + documented in this encounter
--- OUTSIDE RECORDS SUMMARY | ~2019-06-15 | XMS | Encounter Summary ---
Demographics + + + | Address | [address] | | | [place] [address] | + + + | Home Phone | | + + + | Preferred Language | Unknown | + + + | Marital Status | Single | + + + | Caodaism Affiliation | NRP | + + + [...] Team Providers + +------+ + | Care Teacher Home Therapy Name | Role | Phone | + [...] [facility] [address] | | | | | ([facility]) | [address] | [address] | | | | | Procedures | [address] | Mailcode: | | | | | CONSULT TO | [facility] [place] | [place] for | | | | | BARIATRIC | [address] | Health and | | | | | SURGERY | Phone: | Healing, | | | | | | [phone] | Building [address] | | | | | | Fax: | [place], [place] | | | | | | [phone] | [address] | | | | | | | Phone: | | | | | | | [phone] | | | | | | | Fax: | | | | | | | [phone] | +--------+--------+ + + + + Reason for Visit + + + | Reason | Comments | + + + | New patient | excision of redundant skin L leg | | consultation | | + + + Consultation (Routine) +--------+--------+ + + + + | Status | Reason | Specialty | Diagnoses / | Referred By | Referred To | | | | | Procedures | Contact | Contact | +--------+--------+ + + + + | Closed | | Plastic | Diagnoses | Re | Sky, | | | | Surgery | Localized | Rajesh Terry MD | MD Tulio | | | | | adiposity | [place] | [address] | | | | | excision of | SURGICAL | Ave | | | | | redundant | [place] [id number] | [place], [place] | | | | | skin | [address] | [address] | | | | | | AVE | Phone: | | | | | | [place], | [phone] | | | | | | [place] [address] | Fax: | | | | | | Phone: | [phone] | | | | | | [phone] | | | | | | | Fax: | | | | | | | [phone] | | +--------+--------+ + + + + Encounter Details +--------+---------+ + + + | Date | Type | Department | Care Team | Description | +--------+---------+ + + + | 07/09/ | Office | Plastic and | Donis Alanis, | Morbid obesity (HCC) | | 2015 | Visit | Reconstructive | [address] | (Primary Dx); | | | | Surgery at [facility] [address] | [address] | Lymphedema | | | | [address] | [place], [place] | | | | | Mailcode: CH5P | [address] | | | | | [facility] | [phone] | | | | | and Healing, | | | | | | [facility] 1, 5th | | | | | | Floor [place], [place] | | | | | | [address] | | | | | | [phone] | | | +--------+---------+ + + + [...] + + + | Blood Pressure | 133/62 | 07/09/2015 1:40 PM | | | | | PST | | + + + + + | Pulse | 94 | 07/09/2015 1:40 PM | | | | | PST | | + + + + + | Temperature | - | - | | + + + + + | Respiratory Rate | 18 | 07/09/2015 1:40 PM | | | | | PST | | + + + + + | Oxygen Saturation | 93% | 07/09/2015 1:40 PM | | | | | PST | | + + + + + | Inhaled Oxygen | - | - | | | Concentration | | | | + + + + + | Weight | 216.2 kg (476 lb 9.6 | 07/09/2015 1:40 PM | | | | oz) | PST | | + + + + + | Height | 171.5 cm (5' 7.5") | 07/09/2015 1:40 PM | | | | | PST | | + + + + + | Body Mass Index | 73.54 | 07/09/2015 1:40 PM | | | | | PST | | + + + + + documented in this encounter Patient Instructions Patient Instructions Donis Alanis MD - 07/09/2015 2:15 PM PSTFollow-up with lymphedema clinic documented in this encounter Progress Notes Donis Alanis MD - 07/09/2015 2:13 PM PSTI was present with the resident during the his tory and exam. I discussed the case with the resident and agree with the findings and plan as documented in the resident s note. Wilner Jenkins is a 49 year old male with morbid obesity (BMI of 73.5) presented to evalua tion of removal of his left thigh pannus. He gained weight since he was last seen in this lin 4 years ago. The patient is in the process of pending insurance approval for weight l oss surgery. Recommend patient to return clinic after his weight loss surgery and once his weight is less than 350 pounds. Consult patient on his diet. Zeke Dykes MD PLASTIC AND RECONSTRUCTIVE SURGERY AT [address] Mail Code: [address] [address] ile Mera MD - 07/09/2015 1:47 PM PST PLASTIC SURGERY CONSULT HPI: Wilner Jenkins is a 49 y.o. Male with morbid obesity (453 lbs, 5'6", Body mass index is 73.5 kg/(m^2).) who was last seen [address] Chantelle Ramírez for evaluation of le ft lower extremity lymphedema. At that time, he was told that he would need to lose weight in order to undergo operation, with a goal weight of 350 lbs. He has actually gained weight since that time, with an increase in BMI from 71-->73.5. He c/o a lymphedematous mass in h is left groin area that has been present for a long time and was the same reason for his robert luation with Dr. Ramírez 4 years ago. 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 The patient has been treated on multiple occasions for cellulitis. He is not wearing any type of compression garment and claims he has never been given one. He is currently on Augmentin. The patient reports he has been recommended to have bariatric surgery but is waiting for [facility] insurance to go through. He has met with a surgeon here. He drinks a lot of soda and his family member says he needs explicit instructions regarding diet. 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 PMH: Cellulitis, Morbid obesity, asthma PSH: Past Surgical History Procedure Laterality Date Umbilical hernia repair [facility] ALL: No Known Allergies MED: Current Outpatient Prescriptions Medication Sig ALBUTEROL SULFATE (VENTOLIN HFA INHL) Inhale 108 mcg. cetirizine 10 mg Oral Tablet Take 1 Tab by mouth once daily. diphenhydrAMINE 25 mg Oral Capsule Take 1 Cap by mouth every six hours as needed. diphenoxylate-atropine (LOMOTIL) 2.5-0.025 mg oral tablet Take 2 tablets by mouth every four hours. famotidine 20 mg oral tablet Take 20 mg by mouth two times daily. furosemide 20 mg Oral Tablet Take 1 Tab by mouth two times daily. (Patient taking diffe rently: Take 40 mg by mouth two times daily.) lisinopril 2.5 mg oral tablet Take 2.5 [...] hours as n eeded for moderate pain. PIROXICAM ORAL Take 20 mg by mouth. Daily with main meal potassium chloride SR 10 mEq Oral Tablet Sustained Release Take 10 mEq by mouth two prashanth es daily. sertraline 50 mg oral tablet Take 50 mg by mouth once daily. venlafaxine XR 75 mg Oral Capsule, Ext Release 24 hr Take 1 Cap by mouth once daily. No current facility-administered medications for this visit. SH: The pateint lives in [place], [place] with 1 other. 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 PE: Vital Signs: BP 133/62 | Pulse 94 | RR 18 | Ht 1.715 m (5' 7.5") | Wt 216.184 kg (476 lb 9 .6 oz) | SpO2 93% | BMI 73.5 kg/(m^2) Gen: well developed, well nourished obese adult male, in no acute distress. There is a larg e erythematous lymphedematous mass on his R thigh that is very firm and heavy. There is no o bvious drainage or purulence, no fluctuance. RRR with heart murmors Bibasilar crackles 15 cm abdominal pannus. Left thigh pannus 25 cm 2+ edema to bilateral lower extremities Wan catheter in place A/P: Very pleasant gentleman with morbid obesity [...] more weight and the cellulitis is resolved, wo uld consider a staged approach to treating this with liposuction first, then resection if ne eded. I explained this all to the patient. I emphasized how important weight loss, compressi on and elevation are. We gave the patient contact information today for a lymphedema special ist. Prior to any surgery: 1. Weight<350 lbs. A consult was placed to bariatric surgery today. The patient also requ ires a nutrition consult. 2. Compression 19/03--the patient was advised to contact [facility] lyphedema clinic for compre ssion wrapping 3. No cellulitis Would do liposuction and resection, submit for auth once above goals met. The patient was seen an examined with Dr. Alanis, who agrees with my assessment and plan. Mile Mera MD PLASTIC AND RECONSTRUCTIVE SURGERY AT [facility] [address] Mail Code: [address] [place] [address] documented in this e ncounter Plan of Treatment Not on filedocumented as of this encounter Visit Diagnoses + + | Diagnosis | + + | Morbid obesity (HCC) - Primary Morbid obesity | + + | Lymphedema Other lymphedema | + + documented in this encounter
--- OUTSIDE RECORDS SUMMARY | ~2019-06-15 | XMS | Encounter Summary ---
Demographics + + + | Address | [address] | | | [place] [address] | + + + | Home Phone | | + + + | Preferred Language | Unknown | + + + | Marital Status | Single | + + + | Zoroastrian Affiliation | NRP | + + + [...] | | + + +---------+ + | Marica Riggins | ECON | Unknown | | + + +---------+ + Care Team Providers + +------+ + | Care Title Clerk Automobile Name | Role | Phone | + +------+ + | Harry Mario MD | PCP | | + +------+ + Encounter Details +--------+ + + + + | Date | Type | Department | Care Team | Description | +--------+ + + + + | 03/27/ | Abstract | Digestive Health | Conser, Chloe M, | | | 2013 | | [place] [facility] [address] | TUCK POINTER HELPER [address] | | | | | [address] | [place] [address] | | | | | Mailcode: [place] | [place], [place] | | | | | for Health and | [address] | | | | | [facility] 2 | [phone] | | | | | [place], [place] | | | | | | [address] | | | | | | [phone] | | | +--------+ + + + [...]
--- OUTSIDE RECORDS SUMMARY | ~2019-06-15 | XMS | Encounter Summary ---
Demographics + + + | Address | [address] | | | [place] [address] | + + + | Home Phone [...] Team Providers + +------+ + | Care White Sugar Syrup Operator Name | Role | Phone | [...] | | | | | | [address] [facility] | [facility] [address] | | | | | | [address] | [address] | | | | | | [address] | Mailcode: | | | | | | [place], [place] | [facility] | | | | | | [address] | for Health | | | | | | | and Healing, | | | | | | | Building [address], | | | | | | | 5th Floor | | | | | | | [place], [place] | | | | | | | [address] | | | | | | | Phone: | | | | | | | [phone] | +--------+--------+ + + + + Encounter Details +--------+---------+ + + + | Date | Type | Department | Care Team | Description | +--------+---------+ + + + | 03/21/ | Office | Plastic and | Chantelle Ramírez | Lymphedema; | | 2010 | Visit | Reconstructive | MD Mary | Chronic cellulitis | | | | Surgery at [facility] [address] | | | | | | [address] | | | | | | Mailcode: CH5P | | | | | | [facility] | | | | | | and Healing, | | | | | | Building | | | | | | Floor [place], [place] | | | | | | [address] | | | | | | [phone] | | | +--------+---------+ + + + [...] [facility]. He has lost 103 lbs over [...] once daily. SH: The pateint lives in [place], [place] with 1 other. 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
--- OUTSIDE RECORDS SUMMARY | ~2019-06-15 | XMS | Encounter Summary ---
Demographics + + + | Address | [address] | | | [place] [address] | + + + | Home Phone | | + + + | Preferred Language | Unknown | + + + | Marital Status | Single | + + + | Druze Affiliation | NRP | + + + | Race | White | + + + | Ethnic Group | Not or | + + + Author + + + | Author | [facility] | + + + | Organization | [facility] | + + + | Address [...] Team Providers + +------+ + | Care Road Machinery Inspector Name | Role | Phone | + +------+ + | Harry Mario MD | PCP | | + +------+ + Reason for Visit + + + | Reason | Comments | + + + | Medical Records | [facility] - OUTSIDE COMMUNICATION 05/07/15 Referral Approval | | Review | | + + + Encounter Details +--------+ + + + + | Date | Type | Department | Care Team | Description | +--------+ + + + + | 05/10/ | Abstract | Digestive Health | Gloria Gibbs, | Medical Records | | 2015 | | Center at [facility] [address] | [facility] [address] | Review ([facility] - | | | | [address] | [address] [place], [place] | OUTSIDE | | | | Mailcode: Center | [address] | COMMUNICATION | | | | for Health and | [phone] | 05/07/15 Referral | | | | [facility], Building [address] | | Approval) | | | | [place], [place] | | | | | | [address] | | | | | | [phone] | | | +--------+ + + + [...]
--- OUTSIDE RECORDS SUMMARY | ~2019-06-15 | XMS | Encounter Summary ---
Demographics + + + | Address | [address] | | | [place] [address] | + + + | Home Phone | | + + + | Preferred Language | Unknown | + + + | Marital Status | Single | + + + | Latter Day Affiliation | NRP | + + + | Race | White | + + + | Ethnic Group | Not or | + + + Author + + + | Author | [facility] | + + + | Organization | [facility] | + + + | [...] Team Providers + +------+ + | Care Landscape Foreman Name | Role | Phone | + +------+ + | Harry Mario MD | PCP | | + +------+ + Encounter Details +--------+ + + + + | Date | Type | Department | Care Team | Description | +--------+ + + + + | 09/17/ | Abstract | Digestive Health | Clinic, Surgery | | | 2015 | | Center at [facility] [address] | | | | | | [address] | | | | | | Mailcode: Center | | | | | | [facility] and | | | | | | [facility], [place] [address] | | | | | | [place], [place] | | | | | | [address] | | | | | | [phone] | | | +--------+ + + + [...]
--- OUTSIDE RECORDS SUMMARY | ~2019-06-15 | XMS | Encounter Summary ---
Demographics + + + | Address | [address] | | | [place] [address] | + + + | Home Phone [...] Team Providers + +------+ + | Care Banking Specialist Name | Role | Phone | + +------+ + | Harry Mario MD | PCP | | + +------+ + Reason for Visit + + + | Reason | Comments | + + + | Follow-up visit | | + + + Consultation (Routine) [...] [address] | | | | | | [address] | Physician's | | | | | | [address] | Marsha | | | | | | JUL[place], | [place], [place] | | | | | | [place] [address] | [address] | | | | | | Phone: | Phone: | | | | | | [phone] | [phone] | | | | | | Fax: | Fax: | | | | | | [phone] | [phone] | +--------+--------+ + + + + Encounter Details +--------+---------+ + + + | Date | Type | Department | Care Team | Description | +--------+---------+ + + + | 10/26/ | Office | Vascular Surgery | Abraham Lynn MD | Chronic cellulitis; | | 2010 | Visit | at [facility] 2nd Floor | | Lymphedema | | | | [address] | | | | | | [place] Mailcode: | | | | | | [address] Physician's | | | | | | [place], | | | | | | [place] [address] | | | | | | [phone] | | | +--------+---------+ + + + [...] + + + | Blood Pressure | 160/100 | 10/26/2010 2:48 PM | | | | | PST | | + + + + + | Pulse | 90 | 10/26/2010 2:48 PM | | | | | PST | | + + + + + | Temperature | 36.5 C (97.7 F) | 10/26/2010 2:48 PM | | | | | PST | | + + + + + | Respiratory Rate | - | - | | + + + + + | Oxygen Saturation | 95% | 10/26/2010 2:48 PM | | | | | PST | | + + + + + | Inhaled Oxygen | - | - | | | Concentration | | | | + + + + + | Weight | - | - | | + + + + + | Height | 172.7 cm (5' 8") | 10/26/2010 2:48 PM | | | | | PST | | + + + + + | Body Mass Index | - | - | | + + + + + documented in this encounter Progress Notes Lydia Gonzalez MD - 10/26/2010 3:20 PM PSTVascular Follow-Up 45 y/o M with obesity and lymphedema returns for follow up from 07/06. He was advised to e levate his legs to try to improve the edema and he was put on antibiotics for cellulitis. H e doesn't think the edema has improved at all but the redness has gone away. BP 160/100 | Pulse 90 | Temp 36.5 C (97.7 F) | Ht 1.727 m (5' 8") | SpO2 95% Alert, NAD Lower extremities very edematous, large area on left medial thigh that protrudes with woody edematous tissue. Slight rubor. Back of right thigh with small area of skin breakdown / b anisha. 2+ DP pulses A/P: 45 y/o M with obesity and lymphedema. Will fit him with compression stockings today. Also recommend consultation with a plastic surgeon to discuss the possibility of resection of the left medial thigh pannus as it is high risk for recurrent infection. He would like t o check into finding someone local (near [facility]). If he can't find a plastic surgeon the re he will contact our clinic for a referral to [facility] plastic surgery. Follow up as needed. Seen and evaluated with Dr. Lynn. LYDIA GONZALEZ MD aylAbraham sanchez MD - 09/2010 3:19 PM PSTI saw and examined the patient with Dr. Gonzalez. I agree with the findings and plan as recorded in her note. 3 :19 PM PSTdocumented in this encounter Plan of Treatment Not on filedocumented as of this encounter Visit Diagnoses + + | Diagnosis | + + | Chronic cellulitis Cellulitis and abscess of unspecified site | + + | Lymphedema Other lymphedema | + + documented in this encounter
--- OUTSIDE RECORDS SUMMARY | ~2019-06-15 | XMS | Encounter Summary ---
Demographics + + + | Address | [address] | | | [place] [address] | + + + | Home Phone [...] + + + | Author | [facility] | + + + | Organization | [facility] | + + + | Address | [...] Team Providers + +------+ + | Care Learning Manager Name | Role | Phone | + +------+ + | Harry Mario MD | PCP | | + +------+ + Reason for Visit + + + | Reason | Comments | + + + | Medical Records | [facility] - OUTSIDE RECORDS: Demographics & Chart Note 05/04/2015 | | Review | | + + + Encounter Details +--------+ + + + + | Date | Type | Department | Care Team | Description | +--------+ + + + + | 05/11/ | Abstract | Digestive Health | Gloria Gibbs, | Medical Records | | 2015 | | Center at [facility] [address] | [facility] [address] | Review ([facility] - | | | | [address] | [place], [place] | OUTSIDE RECORDS: | | | | Mailcode: Center | [address] | Demographics & Chart | | | | for Health and | | Note 05/04/2015) | | | | [facility] [address] | | | | | | [place], [place] | | | | | | [address] | | | | | | | [...]
--- OUTSIDE RECORDS SUMMARY | ~2019-06-15 | XMS | Encounter Summary ---
Demographics + + + | Address | [address] | | | [place] [address] | + + + | Home Phone | | + + + | Preferred Language | Unknown | + + + | Marital Status | Single | + + + | Anabaptist Affiliation | NRP | + + + | Race | White | + + + | Ethnic Group | Not or | + + + Author + + + | Author | [facility] | + + + | Organization | [facility] | + + + | Address | Unknown | + + + | Phone | Unavailable | + + + Support + + +---------+ + | Name | Relationship | Address | Phone | + + +---------+ + | Ke Chaap | ECON | Unknown | | + + +---------+ + | BERTRAM Riggins | ECON | Unknown | | + + +---------+ + | Marcia Riggins | ECON | Unknown | | + + +---------+ + Care Team Providers + +------+ + | Care Diplomatic Interpreter/Translator Name | Role | Phone | + [...] [address] | | | | | | [address] | Physician's | | | | | | [address] | [place]ha | | | | | | [place], | [place], [place] | | | | | | [place] [address] | [address] | | | | | | Phone: | Phone: | | | | | | [phone] | [phone] | | | | | | Fax: | Fax: | | | | | | [phone] | [phone] | +--------+--------+ + + + + Encounter Details +--------+---------+ + + + | Date | Type | Department | Care Team | Description | +--------+---------+ + + + | 06/29/ | Office | Vascular Surgery | Abraham Lynn MD | Lymphedema; | | 2009 | Visit | at [facility] 2nd Floor | | Chronic cellulitis | | | | [address] | | | | | | [place] Mailcode: | | | | | | [address] Physician's | | | | | | [place], | | | | | | [place] [address] | | | | | | [phone] | | | +--------+---------+ + + + [...] assessment and plan. CC: Harry Mario MD [facility] MEDICINE [address] [place] [address] Abraham Doty MD - 2009 11:33 AM [...]
--- OUTSIDE RECORDS SUMMARY | ~2019-06-15 | XMS | Encounter Summary ---
Demographics + + + | Address | [address] | | | [place] [address] | + + + | Home Phone | | + + + | Preferred Language | Unknown | + + + | Marital Status | Single | + + + | Jehovah'S Witness Affiliation | NRP | + + + | Race | White | + + + | Ethnic Group | Not or | + + + Author + + + | Author | [facility] | + + + | Organization | [facility] | + + + | Address | [...] Team Providers + +------+ + | Care Coke Burner Name | Role | Phone | + [...] | | | | CONSULT TO | [place], [place] | [place] for | | | | | BARIATRIC | [address] | Health and | | | | | SURGERY | Phone: | Healing, | | | | | | [phone] | Building [address] | | | | | | Fax: | [place], [place] | | | | | | [phone] | [address] | | | | | | | Phone: | | | | | | | [phone] | | | | | | | Fax: | | | | | | | [phone] | +--------+--------+ + + + + Encounter [...] | | [address] | [place], | type (HCC) (Primary | | | | Mailcode: Center | [place] [address] | Uv) | | | | for Health and | | | | | | [facility] 2 | | | | | | [place], [place] | | | | | | [address] | | | | | | [phone] | | | +--------+---------+ + + + [...] of Visit: 2:52 until 3:35 (43 minutes [id number] with patient) SUBJECTIVE: Arrives with his sister & cousin. Sister states she is living with him [facility]. 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 Are you able exercise? Yes Current Physical Exercise: walking Diet recall: - Chicken noodle soup - Mony mix + coffee with hazlenut creamer - Lunch SW (wheat bread or wolof rolls with ham, cheese and [place]) 3pm [...] 2 pre-surgery classes. 4. Call or send [employer] message to dietitian with any questions. Contact information was provided. Follow up with dietitian 1-2 weeks after surgery at first post-op visit. Marjorie Lopez RD, [facility], [facility] Bariatrics [phone] documented in this enco unter Plan of Treatment Not on filedocumented as of this encounter Procedures + +--------+ + + + | Procedure Name | Priori | Date/Time | Associated Diagnosis | Comments | | | ty | | | | + +--------+ + + + | [place] MNT INITIAL | Routin | 10/22/2015 | [...]
--- OUTSIDE RECORDS SUMMARY | ~2019-06-15 | XMS | Encounter Summary ---
Demographics + + + | Address | [address] | | | [place] [address] | + + + | Home Phone [...] Team Providers + +------+ + | Care Gas Torch Brazier Name | Role | Phone | + +------+ + | Harry Mario MD | PCP | | + +------+ + Encounter Details +--------+ + + + + | Date | Type | Department | Care Team | Description | +--------+ + + + + | 04/01/ | Abstract | Digestive Health | Clinic, Surgery | | | 2013 | | Center at [facility] [address] | | | | | | [address] | | | | | | Mailcode: Center | | | | | | [facility] and | | | | | | [facility], [place] [address] | | | | | | [place], [place] | | | | | | [address] | | | | | | [phone] | | | +--------+ + + + [...]
--- OUTSIDE RECORDS SUMMARY | ~2019-06-15 | XMS | Encounter Summary ---
Demographics + + + | Address | [address] | | | [place] [address] | + + + | Home Phone [...] Author + + + | Author | [facility] | + + + | Organization | [facility] | + + + | Address [...] Team Providers + +------+ + | Care Moulder Operator Name | Role | Phone | + +------+ + | Harry Mario MD | PCP | | + +------+ + Reason for Visit + + + | Reason | Comments | + + + | Medical Records | [facility] 05[facility]07[facility]15 Referral Approval | | Review | | + + + Encounter Details +--------+ + + + + | Date | Type | Department | Care Team | Description | +--------+ + + + + | 05/10/ | Abstract | Digestive Health | Gloria Gibbs, | Medical Records | | 2015 | | Center at [facility] [address] | [facility] [address] | Review ([facility] | [facility] | | [address] | Ave [place], [place] | OUTSIDE | | | | Mailcode: Center | [address] | COMMUNICATION | | | | for Health and | [phone] | 05/07/15 Referral | | | | [facility], [address] | | Approval) | | | | [place], [place] | | | | | | [address] | | | | | | [phone] | | | +--------+ + + + [...]
--- OUTSIDE RECORDS SUMMARY | ~2019-06-15 | XMS | Encounter Summary ---
Demographics + + + | Address | [address] | | | [place] [address] | + + + | Home Phone | | + + + | Preferred Language | Unknown | + + + | Marital Status | Single | + + + | Mandaen Affiliation | NRP | + + + [...] Team Providers + +------+ + | Care Application Systems Administrator Name | Role | Phone | + [...] | Therapy | Pre-op | Chloe M, ASBESTOS ABATEMENT TECHNICIAN | [address] | | | | | evaluation | [address] | | | | | Morbid | [address], | Mailcode: | | | | | obesity | [address] | [facility] | | | | | (HCC) | [place], [place] | for Health | | | | | Procedures | [address] | and Healing, | | | | | PHYSICAL | Phone: | Building 1, | | | | | THERAPY | [phone] | [address] | | | | | REFERRAL PA | Fax: | [place], [place] | | | | | PHYS | [phone] | [address] | | | | | THERAPY | | Phone: | | | | | EVALUATION | | [phone] | | | | | PA | | Fax: | | | | | THERAPEUTIC | | [phone] | | | | | EXERCISES | | | +--------+--------+ + + + + Encounter Details +--------+ + + + + | Date | Type | Department | Care Team | Description | +--------+ + + + + | 09/09/ | Asphalt Tamper | Digestive Health | Chloe Dorado, | Morbid obesity (HCC) | | 2016 | | Center at [address] | ASBESTOS ABATEMENT TECHNICIAN [address] | (Primary Dx); | | | | [address] | , [address] | Pre-op evaluation | | | | Mailcode: Center | [place], [place] | | | | | for Health and | [address] | | | | | [facility] 2 | [phone] | | | | | [place], [place] | | | | | | [address] | | | | | | [phone] | | | +--------+ + + + [...]
--- OUTSIDE RECORDS SUMMARY | ~2019-06-15 | XMS | Encounter Summary ---
Demographics + + + | Address | [address] | | | [place] [address] | + + + | Home Phone | | + + + | Preferred Language | Unknown | + + + | Marital Status | Single | + + + | Uatsdin Affiliation | NRP | + + + [...] Team Providers + +------+ + | Care Semiconductor Bonder Name | Role | Phone | + +------+ + PCP | Unavailable | + +------+ + Encounter Details +--------+ + + + + | Date | Type | Department | Care Team | Description | +--------+ + + + + | 04/14/ | Results | Orthopaedics at | Wilner Ríos | | | 2002 | Only | [facility] [address] MD,PhD [address] | | | | | [address] | [address] | | | | | Mailcode: [address] | [place], [place] | | | | | Physician'ana Larson | [address] | | | | | [place], [place] | [phone] | | | | | | | | | | | [phone] | | | +--------+ + + + [...] + +--------+ + + + | X-RAY KNEE 3 VIEWS | Routin | 04/14/2003 | | Results for this | | RIGHT | e | 4:04 PM | | procedure are in the | | | | PDT | | results section. | + +--------+ + + + documented in this encounter Results KNEE 3 VIEWS RIGHT (04/14/2003 4:04 PM PDT) + + + + + + | Component | Value | Ref Range | Performed | Pathologist | | | | | At | Signature | + + + + + + | KNEE 3 | Radiologist 1: | | | | | VIEWS RIGHT | KOBE GERONIMO | | | | | | Delilah-Radiologist 2: | | | | | | RAISA GAMBLE KNEE | | | | | | 3 VIEWS: 04/14/2003 | | | | | | Dictated 04/15/2003 | | | | | | COMPARISON: None. | | | | | | INDICATIONS: Knee | | | | | | pain. TECHNIQUE: AP, | | | | | | lateral, right knee, | | | | | | merchant bilateral | | | | | | knees. FINDINGS: There | | | | | | is minimal narrowing of | | | | | | the right medial | | | | | | compartment.The | | | | | | patellofemoral, and | | | | | | lateral compartments are | | | | | | maintained. | | | | | | Nofracture or focal | | | | | | destruction or soft | | | | | | tissue abnormality, nor | | | | | | jointeffusion is | | | | | | present. IMPRESSION: | | | | | | Minimal right medial | | | | | | compartment narrowing. | | | | | | END OF IMPRESSION: | | | | + + + + + + + + | Specimen | + + | | + + + +---------+ + + | Performing | Address | City/State/Zipcode | Phone Number | | Organization | | | | + +---------+ + + | [facility] DEPARTMENT OF | | | | | RADIOLOGY | | | | + +---------+ + + documented in this encounter Visit Diagnoses Not on filedocumented in this encounter"
--- OUTSIDE RECORDS SUMMARY | ~2019-06-15 | XMS | Clinical Summary ---
Demographics + + + | Address | [address] | | | [place] [address] | + + + | Home Phone | | + + + | Preferred Language | Unknown | + + + | Marital Status | Single | + + + | Taoist Affiliation | Unknown | + + + | Race | Unknown | + + + | Ethnic Group | Unknown | + + + Author + + + | Author | [facility] | | | and [place] | + + + | Organization | [facility] | | | and [place] | + + + | Address | Unknown | + + + | Phone | Unavailable | + + + Support + + +---------+ + | Name | Relationship | Address | Phone | + + +---------+ + | Belia Jenkins | ECON | Unknown | | + + +---------+ + Care Team Providers + +------+ + | Care Rn Long Term Care Name | Role | Phone | + +------+ + | Harry Mario | PCP | | | MD | | | + +------+ + Allergies No Known Allergies Medications + + + +---------+------+------+-------+ | Medication | Sig | Dispensed | Refills | Star | End | Statu | | | | | | t | Date | s | | | | | | Date | | | + + + +---------+------+------+-------+ | | Take 1 tablet by | | 0 | | | Activ | | oxyCODONE-acetaminop | mouth every 6 hours | | | | | e | | hen (PERCOCET) | as needed for Pain. | | | | | | | 10-325 mg per tablet | | | | | | | + + + +---------+------+------+-------+ | doxycycline | Take 100 mg by mouth | | 0 | | | Activ | | (MONODOX) 100 mg | 2 times daily. | | | | | e | | capsule | | | | | | | + + + +---------+------+------+-------+ | oxymorphone | Take 10 mg by mouth | | 0 | | | Activ | | (OPANA) 10 MG tablet | 2 times daily. | | | | | e | + + + +---------+------+------+-------+ | glipiZIDE | Take 10 mg by mouth | | 0 | | | Activ | | (GLUCOTROL) 10 MG | every morning | | | | | e | | tablet | (before breakfast). | | | | | | + + + +---------+------+------+-------+ | mirtazapine | Take 45 mg by mouth | | 0 | | | Activ | | (REMERON) 15 MG | nightly. | | | | | e | | tablet | | | | | | | + + + +---------+------+------+-------+ | piroxicam | Take 20 mg by mouth | | 0 | | | Activ | | (FELDENE) 20 MG | Daily. | | | | | e | | capsule | | | | | | | + + + +---------+------+------+-------+ | venlafaxine | Take 75 mg by mouth | | 0 | | | Activ | | (EFFEXOR) [...] + + | Acute diastolic heart failure | 02/01/2015 | + + + + [...] + | Acute on chronic respiratory failure | 01/30/2015 | + + + + [...] with BMI of 70 and over, adult | 01/30/2015 | + + + + [...] + + + | Diabetic foot ulcer | 01/30/2015 | + + + + [...] + + + | Obesity hypoventilation syndrome | 01/30/2015 | + + + | Diabetes mellitus | 01/30/2015 | + + + + [...] + | Blood Pressure | 144/75 | 02/04/2015 0800 PDT | + + + + | [...] Height | 167.6 cm (5' 5.98") | 01/30/20150 PDT | + + + + | Body Mass Index | 87.93 | 01/30/20151449 PDT | + + + + Plan [...] | | | | | (#1) | 9 | | | + + + + + Results Not on filefrom Last 3 Months Insurance + +--------+ +--------+ +---------+--------+ | Payer | Benefi | Subscriber | Effect | Phone | Address | Type | | | t Plan | ID | matilda | | | | | | / | | Dates | | | | | | Group | | | | | | + +--------+ +--------+ +---------+--------+ | [employer] | [employer] | [id number] | 01/31/20 | [phone] | | Medica | | MEDICAID HMO | HEALTH | | 15-Pre | 1 | | id | | | MDCD | | sent | | | | | | [place] | | | | | | + +--------+ +--------+ +---------+--------+ + +--------+ +--------+ + + | Guarantor Name | Accoun | Relation to | Date | Phone | Billing Address | | | t Type | Patient | of | | | | | | | | | | + +--------+ +--------+ + + | Wilner Jenkins | Person | Self [birth year] | [address] | | [place] | al/Fam | | 1965 | [phone] | [place] [address] | | | martin | | | 3 (Home) | | + +--------+ +--------+ + + Advance Directives Patient has advance care planning documents, and code status on file. For more information, please contact:[facility] [place] [address] + + + + + | Code Status | Date | Date | Comments | | | Activated | Inactivated | | + + + + + | SHAHID (No | 01/30/2015 | 02/04/2015 | | | Code) | 14:49 | 14:34 | | + + + + + + + +---+ | RN or to pronounce: | RN may | | | | pronounce | | + + +---+
--- OUTSIDE RECORDS SUMMARY | ~2019-06-15 | XMS | Clinical Summary ---
Demographics + + + | Address | [address] | | | [place] [address] | + + + | Home Phone | | + + + | Preferred Language | Unknown | + + + | Marital Status | Single | + + + | Yarsani Affiliation | Unknown | + + + | Race | Unknown | + + + | Ethnic Group | Unknown | + + + Author + + + | Author | [facility] ([facility] as of | | | 04-12-19) | + + + | Organization | [facility] (Historical as of | | | 04-12-19) | + + + | Address | Unknown | + + + | Phone | Unavailable | + + + Support + + +---------+ + | Name | Relationship | Address | Phone | + + +---------+ + | Riggins,Edgard | ECON | Unknown | | + + +---------+ + Care Team Providers + +------+ + | Care Audit Lead Name | Role | Phone | + [...] +------+-------+ + | PREMERA | PREMER | [id number] | | | [address] [address] | | | A BLUE | 2 | | | [place], [place] | | | CARD | | | | [address] | +---------+--------+ +------+-------+ + + +--------+ +--------+ + + | Guarantor Name | Accoun | Relation to | Date | Phone | Billing Address | | | t Type | Patient | of | | | | | | | | | | + +--------+ +--------+ + + | WILNER GILBERT | Person | Self [birth year] | Home: | [address] | | | al/Fam | | 1965 | [phone] [place] | | | martin | | | [address] | [address] | + +--------+ +--------+ + +"
--- OUTSIDE RECORDS SUMMARY | ~2019-06-15 | XMS | Encounter Summary ---
Demographics + + + | Address | [address] | | | [place] [address] | + + + | Home Phone | | + + + | Preferred Language | Unknown | + + + | Marital Status | Single | + + + | Scientology Affiliation | NRP | + + + [...] Team Providers + +------+ + | Care Drum Sander Setter Name | Role | Phone | + [...] | | | | Mailcode: [address] | [place], [place] | | | | | Physician'ana Larson | [address] | | | | | [place], [place] | [phone] | | | | | | | | | | | [phone] | | | +--------+ + + + [...] | | + +---------+ + + | [facility] DEPARTMENT OF | | | | | RADIOLOGY | | | | + +---------+ + + documented in this encounter Visit Diagnoses Not on filedocumented in this encounter"
--- OUTSIDE RECORDS SUMMARY | ~2019-06-15 | XMS | Clinical Summary ---
Demographics + + + | Address | [address] | | | [place] [address] | + + + | Home Phone | | + + + | Preferred Language | Unknown | + + + | Marital Status | Single | + + + | Congregational Affiliation | Unknown | + + + | Race | Unknown | + + + | Ethnic Group | Unknown | + + + Author + + + | Author | [facility] | | | and [place] | + + + | Organization | [facility] | | | and [place] [...] Team Providers + +------+ + | Care Power Shovel Operator Name | Role | Phone | [...] | [employer] | MODA | [id number] | 01/31/20 | [phone] | | Medica [...] Joesph | al/Fam | | 1965 | [phone] | [place] [address] | | | martin | | | 3 (Home) | | + +--------+ +--------+ + + Advance Directives Patient has advance care planning documents, and code status on file. For more information, please contact: [facility] [place] [address] + + + + + | Code [...]
--- OUTSIDE RECORDS SUMMARY | ~2019-06-15 | XMS | Encounter Summary ---
Demographics + + + | Address | [address] | | | [place] [address] | + + + | Home Phone [...] Author + + + | Author | [facility] | + + + | Organization | [facility] | + + + | Address [...] Team Providers + +------+ + | Care Science Technicians Name | Role | Phone | + [...] [address] | | | | | | [address] | Physician's | | | | | | [address] | [place]ha | | | | | | [place], | [place], [place] | | | | | | [place] [address] | [address] | | | | | | Phone: | Phone: | | | | | | [phone] | [phone] | | | | | | Fax: | Fax: | | | | | | [phone] | [phone] | +--------+--------+ + + + + Encounter Details +--------+---------+ + + + | Date | Type | Department | Care Team | Description | +--------+---------+ + + + | 10/26/ | Office | Vascular Surgery | Abraham Lynn MD | Chronic cellulitis; | | 2010 | Visit | at [facility] 2nd Floor | | Lymphedema | | | | [address] | | | | | | [place] Mailcode: | | | | | | [address] Physician's | | | | | | [place]ha [place], | | | | | | [place] [address] | | | | | | [phone] | | | +--------+---------+ + + + [...] o check into finding someone local (near [facility]). If he can't find a plastic surgeon the re he will contact our clinic for a referral to [facility] plastic surgery. Follow up as needed. Seen [...]
--- OUTSIDE RECORDS SUMMARY | ~2019-06-15 | XMS | Clinical Summary ---
Demographics + + + | Address | [address] | | | [place] [address] | + + + | Home Phone | | + + + | Preferred Language | Unknown | + + + | Marital Status | Single | + + + | Judaism Affiliation | Unknown | + + + | Race | Unknown | + + + | Ethnic Group | Unknown | + + + Author + + + | Author | [facility] (Historical as of | | | 04-12-19) | + + + | Organization | [facility] (Historical as of | | | 04-12-19) [...] Team Providers + +------+ + | Care Sock Lining Stitcher Name | Role | Phone | [...] +------+-------+ + | PREMERA | PREMER | [id number] | | | [address] [address] | | | A BLUE | [address] | | | [place], [place] | | | CARD | | | | [address] | +---------+--------+ +------+-------+ + + +--------+ +--------+ + + | Guarantor Name | Accoun | Relation to | Date | Phone | Billing Address | | | t Type | Patient | of | | | | | | | | | | + +--------+ +--------+ + + | WILNER GILBERT | Person | Self [birth year] Home: | [address] | | | al/Fam | | 1965 | [phone] [place] | | | martin | | | [phone] | [address] | + +--------+ +--------+ + +"
--- OUTSIDE RECORDS SUMMARY | ~2019-06-15 | XMS | Encounter Summary ---
Demographics + + + | Address | [address] | | | [place] [address] | + + + | Home Phone | | + + + | Preferred Language | Unknown | + + + | Marital Status | Single | + + + | Orthodox Affiliation | NRP | + + + [...] Team Providers + +------+ + | Care Crowning Hammer Operator Name | Role | Phone | [...] [id number] | | | | | ([facility]) | [address] | [address] | | | | | Procedures | [address] | Mailcode: | | | | | CONSULT TO | [facility] [place] | [facility] for | | | | | BARIATRIC | [address] | Health and | | | | | SURGERY | Phone: | Healing, | | | | | | [phone] | [address] | | | | | | Fax: | [place], [place] | | | | | | [phone] | [address] | | | | | | | Phone: | | | | | | | [phone] | | | | | | | Fax: | | | | | | | [phone] | +--------+--------+ + + + + Reason [...] | | | | adiposity | [place] | [address] | | | | | excision of | SURGICAL | Ave | | | | | redundant | [place] [id number] | [place], [place] | | | | | skin | [address] | [address] | | | | | | AVE | Phone: | | | | | | [place], | [phone] | | | | | | [place] [address] | Fax: | | | | | | Phone: | [phone] | | | | | | [phone] | | | | | | | Fax: | | | | | | | [phone] | | +--------+--------+ + + + + Encounter Details +--------+---------+ + + + | Date | Type | Department | Care Team | Description | +--------+---------+ + + + | 07/09/ | Office | Plastic and | Donis Alanis, | Morbid obesity (HCC) | | 2015 | Visit | Reconstructive | [address] | (Primary Dx); | | | | Surgery at [facility] [address] | Lymphedema | | | | [address] | [place], [place] | | | | | Mailcode: CH5P | [address] | | | | | [facility] | [phone] | | | | | and Healing, | | | | | | [facility] 1, 5th | | | | | | Floor [place], [place] | | | | | | [address] | | | | | | [phone] | | | +--------+---------+ + + + [...] documented in the resident s note. Wilner Jnekins is a 49 year old male with [...] Dykes MD PLASTIC AND RECONSTRUCTIVE SURGERY AT [address] Mail Code: [address] [address] ile Mera MD - 07/09/2015 1:47 PM PST PLASTIC SURGERY CONSULT HPI: iWlner Jenkins is a 49 y.o. Male with [...] Dr. Ramírez 4 years ago. 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 insurance to go through. He has met with a surgeon here. He drinks a lot of soda and his family member says he needs explicit instructions regarding diet. 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 PMH: Cellulitis, Morbid obesity, asthma PSH: Past Surgical History Procedure Laterality Date Umbilical hernia repair [facility] ALL: No Known Allergies MED: [...] this visit. SH: The pateint lives in [place], [place] with 1 other. 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
--- OUTSIDE RECORDS SUMMARY | ~2019-06-15 | XMS | Encounter Summary ---
Demographics + + + | Address | [address] | | | [place] [address] | + + + | Home Phone | | + + + | Preferred Language | Unknown | + + + | Marital Status | Single | + + + | Sikh Affiliation | NRP | + + + [...] Team Providers + +------+ + | Care Fabric Stretcher Name | Role | Phone | + +------+ + | Harry Mario MD | PCP | | + +------+ + Encounter Details +--------+ + + + + | Date | Type | Department | Care Team | Description | +--------+ + + + + | 03/30/ | Documentati | Digestive Health | Gloria Gibbs, | | | 2013 | on | Center at [facility] [address] | [address] | | | | | [address] | [place], [place] | | | | | Mailcode: [place] | [address] | | | | | for Health and | | | | | | [facility] [address] | | | | | | [place], [place] | | | | | | [address] | | | | | | | [...]
--- OUTSIDE RECORDS SUMMARY | 2019-06-15 21:56 | XMS ---
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 Care History Medical/Surgical 02/26/2019 [facility] - PATIENT HAS STANDING ORDERS WITH DAY SURGERY FOR CATHETER CHANGES. - irvin catheter changes which states to: change the patient\T\#39;s catheter every 3 weeks and to culture if the patient is febrile. - PATIENT UROLOGIST IS DR SADLER. Substance Use/Overdose 10/24/2017 [facility] Pain/Opioid Agreement: *USE CAUTION WHEN PRESCRIBING NARCOTICS. *AVOID NARCOTICS AT DISCHARGE. PATIENT IS UNDER A PAIN CONTRACT WITH PCP JOANA MARIO These are guidelines and the provider should exercise clinical judgment when providing care. E.D. VISIT COUNT (12 MO.) [address] [facility] TOTAL 4 NOTE: Visits indicate total known visits. ED/UCC VISIT TRACKING (12 MO.) 06/15/2019 21:53 [facility] TYPE: Emergency COMPLAINT: - CATHETER PROBLEM 02/25/2019 16:27 [facility] TYPE: Emergency COMPLAINT: - CATHETER CHANGE DIAGNOSES: - Encounter for fitting and adjustment of urinary device - Other long wall shear operator (current) drug therapy 11/27/2018 21:35 [facility] TYPE: Emergency COMPLAINT: - FEVER 10/03/2018 18:36 [facility] TYPE: Emergency COMPLAINT: - BACK PAIN/NO INJURY DIAGNOSES: - Other fatigue - Morbid (severe) obesity due to excess calories - Other fdc (current) drug therapy - Epigastric pain INPATIENT VISIT TRACKING (12 MO.) 11/28/2018 00:10 [facility] TYPE: Medical Surgical COMPLAINT: - SEPSIS UTI DIAGNOSES: - Morbid (severe) obesity with alveolar hypoventilation - Unspecified asthma, uncomplicated - Urinary tract infection, site not specified - long term care pharmacist (current) use of oral hypoglycemic drugs - Lymphedema, not elsewhere classified - Sepsis, unspecified organism Sepsis, u - Severe sepsis without septic shock - Chronic respiratory failure with hypoxia - Other Gram-negative sepsis Other Gra - longterm (current) use of oral hypoglycemic drugs - Body mass index (BMI) 70 or greater, adult - Chronic kidney disease, unspecified - Other Gram-negative sepsis Other Gra - long term care pharmacist (current) use of non-steroidal non-inflam (NSAID) - I/I react d/t indwelling urethral catheter, init - Gastro-esophageal reflux disease without esophagitis - 1 Type 2 diabetes mellitus w diabetic chronic kidney disease - Chronic respiratory failure with hypoxia - Other fdc (current) drug therapy - Chronic pain syndrome - Body mass index (BMI) 70 or greater, adult - Severe sepsis without septic shock - Chronic pain syndrome - Chronic kidney disease, unspecified - Urinary tract infection, site not specified - Morbid (severe) obesity with alveolar hypoventilation - Lymphedema, not elsewhere classified - Other long wall shear operator (current) drug therapy - 1 Hypertensive chronic kidney disease w stg 1-4/unsp chr kdny - 1 Type 2 diabetes mellitus w diabetic chronic kidney disease - 1 Hypertensive chronic kidney disease w stg 1-4/unsp chr kdny - Unspecified asthma, uncomplicated - I/I react d/t indwelling urethral catheter, init - Gastro-esophageal reflux disease without esophagitis - long term care pharmacist (current) use of opiate analgesic - long term care pharmacist (current) use of opiate analgesic - longterm (current) use of non-steroidal non-inflam (NSAID) [email or web address]
== END 2019-06-16 01:43 | disposition home or self-care (01) ==
LOC: ED 21:53
DX: Z46.6 Encounter for fitting and adjustment of urinary device (principal); Z87.891 Personal history of nicotine dependence; Z79.899 Other long term (current) drug therapy
CPT/HCPCS: 99283